=== PATIENT | female | born 1950 | race Caucasian/White ===

== ENCOUNTER → 2020-08-15 12:22 | Outpatient (CLI) | payer MEDICARE, SELFPAY ==
--- NOTE | 2020-08-15 12:34 | RAD_ITS ---
HISTORY: LIMITED USE OF LEFT ARM X 3-4 MONTHS ADDITIONAL HISTORY: None provided. EXAMINATION/TECHNIQUE: XR Shoulder Min 2 Views Left Number of images including paperwork: 2 COMPARISON: None FINDINGS: BONES: No acute fracture. Likely posttraumatic deformity of the distal clavicle. JOINTS: No subluxation. Severe degenerative changes of the left shoulder, glenohumeral articulation not well demonstrated on provided images. SOFT TISSUES: No distinct foreign body. RAD/Shoulder min 2 Views IMPRESSION: Degenerative changes without definite acute abnormality. at 0627 Reported and signed by: Helga Barfeild MD Electronically Signed: Helga Barfield MD at 6:26 EDT Tel , Service support ,
--- NOTE | 2020-08-15 12:34 | RAD_ITS ---
HISTORY: LYMPHADEMA, UNABLE TO STRAIGHTEN BOTH LEGS, PAIN BILATERAL KNEES, WORSE IN LEFT ADDITIONAL HISTORY: None provided. EXAMINATION/TECHNIQUE: XR Knee 3 Views Right Number of images including paperwork: 3 COMPARISON: Right femur 04/16/2013 FINDINGS: BONES: No acute fracture. JOINTS: No subluxation. Severe tricompartmental degenerative changes of the right knee with joint space narrowing, subchondral sclerosis and osteophyte formation, minimal change. SOFT TISSUES: No distinct foreign body. RAD/Knee 3 Views IMPRESSION: Degenerative changes without acute osseous abnormality. at 0621 Reported and signed by: Helga Barfield MD Electronically Signed: Helga Barfield MD at 6:21 EDT Tel , Service support ,
--- NOTE | 2020-08-15 12:34 | RAD_ITS ---
HISTORY: LOWER BACK PAIN, DIFFICULTY STANDING ADDITIONAL HISTORY: None provided. EXAMINATION/TECHNIQUE: XR Spine Lumbar 2 or 3 Views Number of images including paperwork: 2 COMPARISON: None FINDINGS: VERTEBRAE: No acute fracture. VERTEBRAL ALIGNMENT: No traumatic subluxation. Mild left convex lumbar scoliosis. DISKS AND JOINTS: Severe multilevel discogenic degenerative changes. Facet arthropathy. SOFT TISSUES: Unremarkable paraspinous soft tissues. RAD/Lumbar Spine 2 or 3 Views IMPRESSION: 1. No acute findings. 2. Lumbar spondylosis. at 0629 Reported and signed by: Helga Barfield MD Electronically Signed: Helga Barfield MD at 6:29 EDT Tel , Service support ,
--- NOTE | 2020-08-15 12:34 | RAD_ITS ---
HISTORY: RT SHOULDER PAIN DIFFICULTY RAISING ARM ADDITIONAL HISTORY: None provided. EXAMINATION/TECHNIQUE: XR Shoulder Min 2 Views Right Number of images including paperwork: 4 COMPARISON: None FINDINGS: BONES: No acute fracture. JOINTS: No subluxation. Deformity of the humeral head is noted with severe glenohumeral degenerative changes including joint space narrowing, subchondral sclerosis and osteophyte formation. SOFT TISSUES: No distinct foreign body. RAD/Shoulder min 2 Views IMPRESSION: Degenerative changes without acute osseous abnormality. at 0624 Reported and signed by: Helga Barfield MD Electronically Signed: Helga Barfield MD at 6:24 EDT Tel , Service support ,
--- NOTE | 2020-08-15 12:34 | RAD_ITS ---
HISTORY: SPINAL STENOSIS/PAIN ADDITIONAL HISTORY: None provided. EXAMINATION/TECHNIQUE: XR Spine Cervical 2 or 3 Views Number of images including paperwork: 2 COMPARISON: None FINDINGS: VERTEBRAE: No acute fracture. VERTEBRAL ALIGNMENT: No traumatic subluxation. 2 mm of degenerative anterolisthesis of C3 on C4. Loss of normal cervical lordosis. DISKS AND JOINTS: Moderate to severe discogenic degenerative changes at C6-7. Mild discogenic degenerative changes also. There appears to be facet joint effusion at C3-4 and C4-5. Uncovertebral and facet degenerative changes elsewhere. SOFT TISSUES: Unremarkable paraspinous soft tissues. RAD/Cerv Spine 2 or 3 Views IMPRESSION: No acute findings. Cervical spondylosis. at 0542 Reported and signed by: Helga Barfield MD Electronically Signed: Helga Barfield MD at 5:42 EDT Tel , Service support ,
--- NOTE | 2020-08-15 12:34 | RAD_ITS ---
HISTORY: LYMPHADEMA, UNABLE TO STRAIGHTEN BOTH LEGS, PAIN BILATERAL KNEES, WORSE IN LEFT ADDITIONAL HISTORY: None provided. EXAMINATION/TECHNIQUE: XR Knee 3 Views Left Number of images including paperwork: 5 COMPARISON: None FINDINGS: BONES: No acute fracture. JOINTS: No subluxation. Severe degenerative changes in the medial and patellofemoral compartments with joint space narrowing, some chondral sclerosis and osteophyte formation. Moderate degenerative changes in the lateral compartment. SOFT TISSUES: No distinct foreign body. Soft tissue calcifications. RAD/Knee 3 Views IMPRESSION: Degenerative changes without acute osseous abnormality. at 0622 Reported and signed by: Helga Barfield MD Electronically Signed: Helga Barfield MD at 6:22 EDT Tel , Service support ,
== END ==
PROVIDERS: PCP Internal Medicine; Referring Provider Anesthesiology Pain Medicine; Visit Provider Anesthesiology Pain Medicine
DX: M54.2 Cervicalgia (principal); M54.9 Dorsalgia, unspecified; M25.561 Pain in right knee; M25.562 Pain in left knee; M25.512 Pain in left shoulder; M25.511 Pain in right shoulder
CPT/HCPCS: 72040; 72100; 73030; 73562

== ENCOUNTER → 2020-10-19 12:15 | Outpatient (CLI) | payer MEDICARE, SELFPAY ==
--- NOTE | 2020-10-19 12:18 | RAD_ITS ---
STUDY: X-RAY - LUMBAR SPINE REASON FOR EXAM: Female, 70 years old. RADICULOPATHY, PAIN AND NUMBNESS BOTH LEGS, FALLS, MORBIDLY OBESE TECHNIQUE: 3 view(s) of the lumbar spine were obtained. COMPARISON: 08/15/2020 FINDINGS: Normal lumbar lordosis. Mild levoscoliosis centered at L3. There is a normal alignment of the vertebrae. There is multilevel endplate spondylosis of the lumbar vertebrae. There is multi-level degenerative disc disease with multi-level disc space narrowing. The soft tissue structures are unremarkable. RAD/Lumbar Spine 2 or 3 Views IMPRESSION: Mild levoscoliosis with moderate degenerative disc disease. Electronically Signed: Dragan Sanchez MD at 16:48 EST Tel , Service support ,
== END ==
PROVIDERS: PCP Nurse Practitioner Adult Health; Visit Provider Anesthesiology Pain Medicine
DX: M54.16 Radiculopathy, lumbar region (principal)
CPT/HCPCS: 72100

== ENCOUNTER 2020-11-01 11:59 | Inpatient (IN) | payer MEDICARE, MEDICAID, SELFPAY ==
[2020-11-01] VITALS (7 sets, daily range): BP systolic 107–138; BP diastolic 43–67; PULSE 51–57; RESP 17–19; TEMP 36–36.6; O2SAT 91–99; BMI 69.7; BMI 65.8
--- NOTE | 2020-11-01 12:56 | ED.DCSUM_ITS ---
- ER Visit Summary Date of Service: 11/01/20 Chief Complaint: Rash to legs History of Present Illness: The patient is a [address] Hoyt. She has a history of lymphedema. She reports she has not been able to sleep in her bed for approximately 5 months. States that over the past 3 days her legs have become red and painful. This is similar to when she is had cellulitis in the past. She describes a sharp, stabbing pain is 1010 at worst and 6 out of 10 currently. Is worsened by sliding on it. She taken Ultram without relief. Patient denies any constitutional symptoms. No fever, chills, nausea, or vomiting. She does complain of dysuria and dark urine in the morning for the past 3 days. Physical Examination: Vitals: Stable. Afebrile. General: Well-nourished and well-developed. Head: Normocephalic atraumatic. Neck: Supple, no lymphadenopathy. No JVD. Nontender. Cardiovascular: Regular rate and rhythm. No murmurs. Respiratory: No respiratory distress. Clear to auscultation bilaterally. Abdominal: Soft, nontender, nondistended, normal bowel sounds. No guarding, rebound, or peritoneal signs. Back: Nontender. Extremities: Severe lymphedema. Where the back of her leg meets the seat of her scooter there is on the right a 2 cm area of skin breakdown with purulent drainage. There is no induration or fluctuance. There is surrounding erythema. She also has erythema to the back of her left leg. Skin: Normal color, no rash. Neurologic: Alert and oriented ?3. Cranial nerves II through XII are intact. Normal strength and sensation. Psych: Normal affect. Test Results: CBC shows segmented for 72, monocytes of 13, lymphocytes of 10. Chem-7 shows glucose 137, BUN 21, creatinine 1.3. LFTs show an albumin of 3.0 and alk phos of 131. Coags are normal. Lactic acid is 1.9. Emergency Department Course and Treatment: Patient had an IV placed. She was given Rocephin and vancomycin IV. She was given Dilaudid and Zofran IV. She is resting more comfortably. Treatment Plan: Patient will be discussed with the hospitalist and admitted for further evaluation and treatment. Disposition: Admitted in stable condition. Impression: 1. Cellulitis. 2. Lymphedema. This note was generated with [employer] dictation software. It may contain incorrect words, spelling, and punctuation that were not noted in review of the chart prior to signing ED Disposition - Plan for ED Patient: Referrals: Dudley Hoyt MD [Primary Care Provider] -
[2020-11-01] MEDS: Ondansetron 4 MG/2 ML Vial IV (13:15)
[2020-11-01] MEDS: HYDROmorphone 0.5 MG/0.5 ML SYRINGE IV (13:15)
[2020-11-01 13:20] LABS: Absolute Lymphocyte Count 0.69 X10^3/uL (0.83-4.51); Absolute Neutrophil Count 4.9 X10^3/uL (2.0-7.7); Basophil# 0.05 X10^3/uL; Basophil% 0.7 % (0-1); Eosinophil# 0.27 X10^3/uL; Hematocrit 37.4 % (37-47); Hemoglobin 12.1 g/dL (12.0-15.0); Lymphocyte # 0.69 X10^3/ul (4.0); Lymphocyte % 10.1 % (19-41); Mean Corp Hgb Conc 32.4 g/dL (32-36); Mean Corpuscular Hgb 28.6 pg (27.0-32.0); Mean Corpuscular Volume 88.4 fL (81-99); Mean Platelet Vol. 9.1 fl (6.2-12.0); Monocyte# 0.89 X10^3/uL; Monocyte% 13.1 % (0-10); NRBC Flagged by Analyzer 0 % (0-5); Neutrophil # 4.86 X10^3/uL (2.7-7.7); Neutrophil % 71.5 % (47-70); Platelet Count 287 K/mm3 (150-450); RBC Distribution Width CV 15.8 % (11.6-14.6); RBC Distribution Width SD 51.1 fl (35.1-43.9); Red Blood Count 4.23 M/mm3 (4.2-5.4); White Blood Count 6.8 K/mm3 (4.4-11.0)
[2020-11-01] MEDS: Ceftriaxone 1 GM/50 ML BAG IV (13:28)
[2020-11-01 13:34] LABS: ALB/GLOB Ratio 0.7 RATIO (0.9-2.4); AST(SGOT) 20 U/L (15-37); Alanine Aminotransfer ALT/SGPT 24 U/L (13-56); Alkaline Phosphatase 131 U/L (45-117); Anion Gap 5 (5-15); BUN 21 mg/dL (7-18); BUN/Creat Ratio 16.2 RATIO (10-20); Chloride 101 mmol/L (98-107); EST Glomerular Filtration Rate 43 mL/min (>60); Est Glom Filt Rate - Afr Amer 52 mL/min (>60); Estimated Creatinine Clearance 31.85 ml/min; Globulin 4.2 g/dL (2.2-4.2); Glucose 137 mg/dL (74-106); Protein, Total 7.2 g/dL (6.4-8.2); Sodium Level 136 mmol/L (136-145)
[2020-11-01 13:37] LABS: International Normalized Ratio 1.1
[2020-11-01 13:38] LABS: Partial Thromboplast Time 33.4 Seconds (24.1-36.2)
[2020-11-01 13:44] LABS: Lactic Acid 1.9 mmol/L (0.4-1.9)
[2020-11-01 13:50] LABS: Mucous, Urine 0 SEEN /hpf (<or=2+)
[2020-11-01 13:55] LABS: Color, Urine Yellow (Yellow); Glucose, Dipstick Normal (Normal); Ketone-Dipstick Negative (Negative); Leukocyte Esterase-Dipstick 25 /ul (Negative); Nitrite-Dipstick Positive (Negative); Occult Blood-Urine 10 /ul (Negative); Protein-Dipstick Negative (Negative); Specific Gravity, Urine 1.015 (1.002-1.030); Urine Bilirubin Dipstick Negative (Negative); Urine Clarity Sl. Cloudy (Clear); Urine Urobilinogen Normal (Normal)
--- NOTE | 2020-11-01 13:58 | HP.PCM_ITS ---
Problem List (1) Bilateral lower leg cellulitis Status: Acute (2) Chronic anemia Status: Chronic (3) CKD (chronic kidney disease) stage 3, GFR 30-59 ml/min Status: Chronic Qualifiers: Chronic kidney disease stage 3 subtype: unspecified whether 3a or 3b Qualified Code(s): N18.30 - Chronic kidney disease, stage 3 unspecified (4) Chronic back pain Status: Chronic Qualifiers: Back pain location: back pain in unspecified location Back pain laterality: unspecified Qualified Code(s): M54.9 - Dorsalgia, unspecified; G89.29 - Other chronic pain (5) Hypertension Status: Chronic Qualifiers: Hypertension type: essential hypertension Qualified Code(s): I10 - Essential (primary) hypertension (6) Lymphedema Status: Chronic (7) Morbid obesity Status: Chronic (8) Sleep apnea Status: Chronic Qualifiers: Sleep apnea type: unspecified type Qualified Code(s): G47.30 - Sleep apnea, unspecified (9) Type 2 diabetes mellitus Status: Chronic Qualifiers: Diabetes mellitus terminal operator insulin use: without nursing home use Diabetes mellitus complication status: with other specified complication Qualified Code(s): E11.69 - Type 2 diabetes mellitus with other specified complication History of Present Illness Date of Admission: 11/01/20 Chief Complaint: BL LE redness, pain. The patient is a 70 y/o F w/ PMHx: CKD stage III, Morbid Obesity, BL LE Lymphedema, EMILY non-compliant with CPAP, Chronic back pain following w/ Pain management, HTN, HLD, Diabetes mellitus type II, Chronic BL LE wounds, Chronic Fe Deficiency anemia who presents to the [facility] ED on 11/01/20 with history of difficulties over the last several month transitioning from her wheelchair to her bed although she does have a Diana lift therefore for the last several weeks that she has been sleeping in her chair and has had onset over the last several days significant bilateral lower extremity pain, swelling, redness and warmth to touch primarily at the skin folds of her lower extremities. She notes the pain is primarily with palpation and states that over the last 24 to 48 hours putting her legs even against clothing has been uncomfortable, rating the discomfort 10 out of 10. She denies any associated fevers, chills. Patient does states she has had recent dysuria and frequency is concern for urinary tract infection. Work-up in the ED included T 97.8, heart rate 57, BP 135/67, respiratory rate 17, 96% on room air, CBC with WC 6.8, hemoglobin 12.1, platelet 227 with no marked left shift with lymphopenia, unremarkable coags, CMP with BUN/creatinine 21/1.30, glucose 137, lactic acid 1.9, urinalysis pending per ED, blood culture x2 pending per ED. in the ED patient ministered vancomycin, Rocephin, Dilaudid, Zofran. 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) Hernia of anterior abdominal wall (Chronic) Cancer, uterine (Chronic) Asthma (Chronic) Allergies fentanyl Allergy (Verified 11/01/20 12:01) Rash latex Allergy (Verified 11/01/20 12:01) Unknown methadone [Methadone] Allergy (Verified 11/01/20 12:01) Shortness of breath morphine Allergy (Verified 11/01/20 12:01) Itching oxycodone [Oxycodone] Allergy (Verified 11/01/20 12:01) Hives Sulfa (Sulfonamide Antibiotics) Allergy (Verified 11/01/20 12:01) Unknown amoxicillin [Amoxicillin] Adverse Reaction (Verified 11/01/20 12:01) Nausea pain meds Allergy (Uncoded 11/01/20 12:01) Itching PT STATES SHE NEEDS BENADRYL WITH PAIN MEDS Home Medications: Ambulatory Orders Medication Instructions Recorded Aspirin [Aspirin, Baby] 81 mg PO DAILY@0800 07/20/13 Enalapril Maleate [Vasotec] 5 mg PO DAILY 07/20/13 Furosemide [Lasix] 80 mg PO DAILY 07/20/13 Mometasone Furoate [Nasonex] 2 spray NASAL DAILY PRN 07/20/13 Montelukast [Singulair] 10 mg PO QHS 07/20/13 metFORMIN HCl [Glucophage] 500 mg PO BIDCM 07/20/13 Ferrous Sulfate 325 mg PO BIDCM 10/03/15 Hydrocodone/Acetaminophen [Vicodin 1 tablet PO Q8H PRN PRN 10/03/15 5-300 mg Tablet] Ipratropium/Albuterol Sulfate 3 ml INHALATION Q6H.RT PRN 10/03/15 [Duoneb] Oxybutynin [Ditropan] 5 mg PO BID 10/03/15 cycloBENZAPRine HCl [Flexeril] 10 mg PO TID PRN 10/03/15 Duloxetine HCl 20 mg PO DAILY 12/04/15 DiphenhydrAMINE [Benadryl] 50 mg PO Q6 PRN #0 capsule 12/07/15 Acetaminophen [Tylenol Extra 1,000 mg PO Q6H PRN PRN 11/01/20 Strength] Cyanocobalamin (Vitamin B-12) 1,000 mcg PO DAILY 11/01/20 [B-12] Gabapentin 600 mg PO BID 11/01/20 Tramadol HCl 50 mg PO BID PRN PRN 11/01/20 Surgical History: - - Gastric sleeve, attempted abdominal wall hernia repair with mesh-failed, Cholecystectomy, bowel resection secondary to bowel obstruction with ostomy, hysterectomy, bilateral heel spur surgery. 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 Smoking Status: Never smoker Tobacco Use: Non-smoker Alcohol: None Drugs: None - *Family History Maternal History Items: Stroke Paternal History Items: Cancer - Father with a history of cancer, lymphoma. Review of Systems Constitutional: Reports: Malaise, Weakness, Fatigue. Denies: Anorexia, Chills, Fever, Weight Change HEENT: Denies: Head Aches, Sinus Congestion, Sinus Drainage Cardiovascular: Reports: Edema. Denies: Chest Pain, Palpitations Respiratory: Reports: Shortness of breath upon exertion. Denies: Cough, Shortness of Breath, Shortness of breath at rest, Sputum production Gastrointestinal: Denies: Abdominal Pain, Nausea, Vomiting Genitourinary: Reports: Dysuria, Frequency Musculoskeletal: Reports: Back Pain, Joint Pain, Leg Pain, Muscle pain. Denies: Joint Tenderness Skin: Reports: Skin Changes, Wounds. Denies: Rash Neurological: Denies: Numbness, Tingling, Focal weakness Psychiatric: Reports: Anxiety, Depression. Denies: Homicidal Ideations, Suicidal Ideations Hematologic/ Lymphatic: Reports: Anemia. Denies: Easy Bruising, Easy Bleeding VTE Information - Inpt Only VTE Present on Admission: No VTE Mechan Device Prophylaxis: SCD's VTE Pharm Prophylaxis ordered?: Yes Subjective: Patient laying in the ED bed, fatigued, no acute distress, notes her legs are uncomfortable especially with any movement or palpation. Objective: Physical Examination: General: awake, alert, oriented x 3 and cooperative, laying in the ED bed, fatigued and uncomfortable appearing. Skin: normal color, turgor, no icterus, cyanosis except significant diffuse intertrigo in all skin folds as well as significant bilateral lower extremity regions of erythema, warmth, no obvious specific purulent discharge or wounds but deep crevices specifically in folds, significantly tender to palpation at these regions. HEENT: AT/NC, EOMI, PERRLA, MMM, no carotid bruits or JVD noted. Lungs: Diminished breath sounds, greater bases, moderate effort, no rales, ronchi or wheezing. Heart: Bradycardic with regular rhythm; no gallop, rub audible. Abdomen: soft, morbidly obese, unable to discern any abdominal tenderness to palpation, unable to discern distention given habitus, distant normal bowel sounds, unable to discern HSM secondary to habitus. Extremities: no cyanosis or clubbing, see skin, significant bilateral lower extremity lymphedema. Neurological: patient awake, alert, oriented as noted; cognitive function intact; pupils equally reactive to light and accomodation; cranial nerves II-XII grossly normal, moving all 4 extremities, no focal deficits, strength severely globally decreased secondary to acute presentation and underlying comorbidities. Psychiatric: affect appears fatigued otherwise normal, no acute evidence of depressive or anxiety feelings. - Physical Exam Vitals/I&O's: Vital Signs Temp Pulse Resp BP Pulse Ox 97.8 F 53 L 19 H 107/64 95 11/01/20 13:31 11/01/20 13:31 11/01/20 13:31 11/01/20 13:31 11/01/20 13:31 Oxygen Delivery Method Room Air Weight: 381 lb 6.395 oz Body Mass Index (BMI) 69.7 Laboratory Results 11/01/20 13:10: WBC 6.8, RBC 4.23, Hgb 12.1, Hct 37.4, MCV 88.4, MCH 28.6, MCHC 32.4, RDW Std Deviation 51.1 H, RDW Coeff of [place] 15.8 H, Plt Count 287, MPV 9.1, Immature Gran % (Auto) 0.600, Neut % (Auto) 71.5 H, Lymph % (Auto) 10.1 L, [place] % (Auto) 13.1 H, Eos % (Auto) 4.0, Baso % (Auto) 0.7, Absolute Neuts (auto) 4.9, Absolute Lymphs (auto) 0.69 L, Nucleated RBC % 0 11/01/20 13:10: PT 14.0, INR 1.1, APTT 33.4 11/01/20 13:10: Sodium 136, Potassium 4.0, Chloride 101, Carbon Dioxide 30.0, Anion Gap 5, BUN 21 H, Creatinine 1.30 H, Estim Creat Clear Calc 31.85, Est GFR (MDRD) Af Amer 52 L, Est GFR (MDRD) Non-Af 43 L, BUN/Creatinine Ratio 16.2, Glucose 137 H, Calcium 9.0, Total Bilirubin 0.50, AST 20, ALT 24, Alkaline Phosphatase 131 H, Total Protein 7.2, Albumin 3.0 L, Globulin 4.2, Albumin/Globulin Ratio 0.7 L 11/01/20 13:10: Lactic Acid 1.9 11/01/20 13:45: Urine Color Yellow, Urine Clarity Sl. Cloudy, Urine pH 6.0, Ur Specific [place] 1.015, Urine Protein Negative, Urine Glucose (UA) Normal, Urine Ketones Negative, Urine Occult Blood 10 H, Urine Nitrite Positive H, Urine Bilirubin Negative, Urine Urobilinogen Normal, Ur Leukocyte Esterase 25 H, Urine RBC Pending, Urine WBC Pending, Ur Squamous Epith Cells Pending, Urine Bacteria Pending, Urine Mucus Pending Current Medications Vancomycin HCl 2,000 mg/ (Sodium Chloride) 540 mls @ 250 mls/hr IV X1 ONE Stop: 11/01/20 15:09 Assessment/Plan All Active Problems Bilateral lower leg cellulitis (Acute) The patient is a 70 y/o F w/ PMHx: CKD stage III, Morbid Obesity, BL LE Lymphedema, EMILY non-compliant with CPAP, Chronic back pain following w/ Pain management, HTN, HLD, Diabetes mellitus type II, Chronic BL LE wounds, Chronic Fe Deficiency anemia who presents to the [facility] ED on 11/01/20 with history of difficulties over the last several month transitioning from her wheelchair to her bed although she does have a Diana lift therefore for the last several weeks that she has been sleeping in her chair and has had onset over the last several days significant bilateral lower extremity pain, swelling, redness and warmth to touch primarily at the skin folds of her lower extremities. 1. Bilateral lower extremity extremity Cellulitis, complicated by chronic lymphedema history of MRSA infections: Will admit to medical surgical floor, maintain on IV Rocephin and vancomycin given appearance with de-escalation single agent as able, if discharge onset from lower extremities would plan to obtain wound Cx and wound MRSA PCR, plan repeat CBC in AM, continue affected extremity elevation above heart when seated and in bed, monitor erythema outline with VS checks. Case management consulted and will need significant assistance with appropriate bed and lift as likely her ongoing continued unchanged position from her chair is contributing to her skin presentation. 2. Diabetes mellitus type II with hyperglycemia: Patient blood sugar upon presentation 137, only noted to be on Metformin, given significant morbid obesity and cellulitis will obtain hemoglobin A1c, maintain on ADA diet with Accu-Cheks with sliding scale. 3. Chronic BL LE Lymphedema: Significant bilateral lower extremity lymphedema, complicates presentation especially given she is nonambulatory, to assist with acute presentation #1 will dose with IV Lasix x2, encourage bilateral lower extremity elevation, snug Jabari wraps. Would benefit from wound care center evaluation upon her discharge. 4. Chronic pain syndrome: Patient following with pain management, several allergies, notes she is recently been transition to a new pain patch but unclear regimen, will await clarification. 5. Hypertension: Continue home regimen including enalapril, temporarily using IV Lasix with oral transition once completed, PRN hydralazine. 6. Hyperlipidemia: Not on regimen, defer to outpatient. 7. Morbid Obesity: Weight loss and lifestyle changes encouraged, nutrition consulted. 8. EMILY: We will attempt CPAP nightly although notes she has been noncompliant. 9. Chronic Kidney Disease Stage III: Admission BUN/Cr /1.30, baseline renal function 1.1-1.3, repeat BMP in AM. 10. Chronic anemia, iron deficiency: Admission hemoglobin 12.1, will continue iron supplementation. 11. Intertrigo: We will continue nystatin topical powder application. Attempt to keep folds clean. 12. Allergic rhinitis: We will continue patient home Singulair regimen. 13. DVT prophylaxis: SCDs, Lovenox. 14. CODE status: Patient HCPOA is Rosalee Chavis, her frientc and living will is currently in place. Discussed CODE status at length including difference between FULL code, DNR-CCA and DNR-CC status. Following discussions about the differences in these status, requested Full Code status. Advanced Care Planning Face to Face Time: 16 minutes. Inpatient E&M: 78255 Init Hosp L3 Procedures: 43195 Advncd Care Plan 30 Min
[2020-11-01 14:04] LABS: Bacteria 2+ /hpf (None Seen); Red Blood Cells-Urine 0-5 SEEN /hpf (0-5); Squamous Epithelial Cells - UA 0-5 SEEN /hpf (5-10); White Blood Cells 0-5 SEEN /hpf (0-5)
--- NOTE | 2020-11-01 14:04 | NURSING ---
MED SURG WHITE CELLULITIS
[2020-11-01 15:43] LABS: Magnesium 2.3 mg/dL (1.6-2.6)
--- NOTE | 2020-11-01 15:45 | PCS.PANDOC ---
PANDEMIC DOCUMENTATION INITIATED: Date: 11/01/2020 Time: 3877
[2020-11-01 15:55] LABS: Hemoglobin A1c 5.9 % (3.8-5.6)
--- NOTE | 2020-11-01 16:02 | PCM.RX.CS ---
Consult Pharmacy has been consulted to manage selected antiobiotic: Vancomycin Type of Consult: New start Suspected Infection: Skin/Soft tissue Labs: Sodium 136 mmol/L (136-145) 11/01/20 13:10 Potassium 4.0 mmol/L (3.5-5.1) 11/01/20 13:10 Chloride 101 mmol/L (98-107) 11/01/20 13:10 Carbon Dioxide 30.0 mmol/L (21.0-32.0) 11/01/20 13:10 Anion Gap 5 (5-15) 11/01/20 13:10 BUN 21 mg/dL (7-18) H 11/01/20 13:10 Creatinine 1.30 mg/dL (0.55-1.02) H 11/01/20 13:10 Est GFR (MDRD) Af Amer 52 mL/min (>60) L 11/01/20 13:10 Est GFR (MDRD) Non-Af 43 mL/min (>60) L 11/01/20 13:10 BUN/Creatinine Ratio 16.2 RATIO (10-20) 11/01/20 13:10 Glucose 137 mg/dL (74-106) H 11/01/20 13:10 Microbiology: Microbiology 11/01/20 12:25 Wound Abcess - Knee Gram Stain - Final Goal Trough: 15-20 mcg/mL Pharmacy Plan for Drug Dosing: NEW START IV VANCOMYCIN Consulting Physician: Dr. Trejo Indication: SSTI Goal Trough: 15-20 SrCr: 1.3 CrCl: 60mL/min (using AdjBW 95kg) Comments: Pt had initial dose in ED of 2g administered 11/01/20 @1415. Will start pt on 1500mg IV Q12hrs 11/02/20 @0200. trough prior to 4th total dose per protocol. Vancomcyin Dose: 1500mg IV Q12hr Pending Level: 11/03/20 @0130 Pharmacy Service will continue to monitor and adjust dosing as required.
--- NOTE | 2020-11-01 16:04 | NURSING ---
Was asked to see patient for redness to buttocks and skin folds. patient has shearing noted to bilateral buttocks and has some moisture related open areas in the skin folds of the arms, legs, abdomen, and under breasts. orders received for calmoseptine to the buttocks and nystatin powder to the folds. will monitor.
[2020-11-01] MEDS: Ferrous Sulfate 325 MG Tablet PO (16:51)
[2020-11-01] MEDS: Furosemide 40 MG/4 ML Vial IV (17:20)
[2020-11-01] MEDS: Nystatin Powder 15gm Bottle 1 APPLIC TOPICAL ×2 (18:30→22:13)
[2020-11-01] MEDS: Menthol/Lanolin/Calamine/Znox 113 GM Tube 1 APPLIC TOPICAL (18:30)
[2020-11-01 21:56] LABS: Bedside Glucose 117 mg/dL (70-110)
[2020-11-01] MEDS: Gabapentin 600 MG Tablet PO (22:12)
[2020-11-01] MEDS: Enoxaparin 40 MG/0.4 ML Syringe SC (22:12)
[2020-11-01] MEDS: Montelukast 10 MG Tablet PO (22:12)
[2020-11-01] MEDS: Oxybutynin 5 MG Tablet PO (22:12)
[2020-11-01 22:21] LABS: Bedside Glucose 103 mg/dL (70-110)
--- NOTE | 2020-11-01 22:43 | CPS ---
Patient has CPAP order to start tonight. PENCILLER asked patient if she would like to wear CPAP. Said that she had problems in the past with tolerance on machine. Would like to see how she does without it before CPAP would be started. Cont. Pulse ox monitor started to monitor pulse ox throughout the night. Sleep Apnea in medical history.
--- NOTE | 2020-11-01 23:30 | NURSING ---
Pt on continuos pulse ox. O2 @ 85% on ra. Placed on 2L NC
[2020-11-02] MEDS: 0.9% Saline Lock 10 ML Syringe IV (02:12)
[2020-11-02 03:49] VITALS: BP 107/50; PULSE 75; RESP 18; TEMP 37.3; O2SAT 97
[2020-11-02 06:56] LABS: Bedside Glucose 119 mg/dL (70-110)
[2020-11-02 07:23] LABS: Absolute Neutrophil Count 4.5 X10^3/uL (2.0-7.7); Basophil# 0.03 X10^3/uL; Basophil% 0.5 % (0-1); Eosinophil# 0.29 X10^3/uL; Eosinophils% 4.7 % (0-5); Hematocrit 35.1 % (37-47); Hemoglobin 10.9 g/dL (12.0-15.0); Lymphocyte % 9.7 % (19-41); Mean Corp Hgb Conc 31.1 g/dL (32-36); Mean Corpuscular Hgb 27.9 pg (27.0-32.0); Mean Platelet Vol. 9.6 fl (6.2-12.0); Monocyte# 0.71 X10^3/uL; Monocyte% 11.5 % (0-10); NRBC Flagged by Analyzer 0 % (0-5); Neutrophil # 4.54 X10^3/uL (2.7-7.7); Neutrophil % 73.3 % (47-70); POSITIVE DIFFERENTIAL YES; Platelet Count 278 K/mm3 (150-450); RBC Distribution Width CV 15.7 % (11.6-14.6); White Blood Count 6.2 K/mm3 (4.4-11.0)
[2020-11-02 07:32] LABS: Differential Indicated SCAN CRITERIA MET
--- NOTE | 2020-11-02 07:47 | NURSING ---
Ostomy appliance changed this am. Pt was explaining to this nurse what happened. pt states she just had areas to the abdomen open and had stool coming out. appears to be a colostomy. unsure of patient was referring to a fistula in the past. stool is currently thick soft brown stool. peristomal skin is denuded d/t previous hole being cut way too big. pt states that sister changes the appliances at home. cleansed peristomal skin with soap and water. pat dry. applied a new flat 1 piece [place] appliance with a small amount of stoma paste. pt tolerated well.
[2020-11-02 08:20] LABS: ALB/GLOB Ratio 0.8 RATIO (0.9-2.4); AST(SGOT) 21 U/L (15-37); Alanine Aminotransfer ALT/SGPT 23 U/L (13-56); Albumin, Serum 2.6 g/dL (3.2-5.0); Alkaline Phosphatase 117 U/L (45-117); Anion Gap 4 (5-15); BUN 21 mg/dL (7-18); BUN/Creat Ratio 17.8 RATIO (10-20); Calcium,Total 8.4 mg/dL (8.5-10.1); Chloride 103 mmol/L (98-107); Creatinine, Serum 1.18 mg/dL (0.55-1.02); EST Glomerular Filtration Rate 48 mL/min (>60); Est Glom Filt Rate - Afr Amer 58 mL/min (>60); Estimated Creatinine Clearance 35.09 ml/min; Globulin 3.2 g/dL (2.2-4.2); Glucose 119 mg/dL (74-106); Potassium 4.6 mmol/L (3.5-5.1); Protein, Total 5.8 g/dL (6.4-8.2); Sodium Level 137 mmol/L (136-145)
--- NOTE | 2020-11-02 08:34 | PN_ITS ---
Patient Problems: Active and Suspected Problems Bilateral lower leg cellulitis (Acute) Reason for Visit: Bilateral lower extremity cellulitis Sacral decubitus Subjective: Patient is a 70-year-old lady morbidly obese with BMI of 65.8 presented with bilateral lower extremity pain with associated swelling and redness and assessment of cellulitis made admitted to regular nursing floor Objective: GENERAL: cooperative HEENT: Atraumatic; EYES; Anicteric, Normal Conjunctiva NECK; supple, normal thyroid, RESPIRATORY: Diminished to auscultation CARDIOVASCULAR: Regular S1 S2, GI: soft, normoactive bowel sounds, : No Renal angle tenderness; EXTREMITIES: Erythema and warmth involving both lower extremities distally MUSCULOSKELETAL: no muscle waisting NEURO: Awake; no lateralizing signs. SKIN: As described above PSYCH; Flat affect Vitals/I&O's: Vital Signs Temp Pulse Resp BP Pulse Ox 99.2 F H 75 18 107/50 L 97 11/02/20 03:49 11/02/20 03:49 11/02/20 03:49 11/02/20 03:49 11/02/20 03:49 Oxygen Flow Rate (L/min) 2 Oxygen Delivery Method Nasal Cannula Weight: 163.3 kg Body Mass Index (BMI) 65.8 Intake and Output for Last 24 Hours 10/31/20 11/01/20 11/02/20 23:59 23:59 23:59 Intake Total 590 / 1190 1330 / 1330 Output Total 2049 / 2049 Balance 590 / -110 -720 / -720 Microbiology Past 72 Hours 11/01/20 12:25 Wound Abcess - Knee Gram Stain - Final Laboratory Results 11/01/20 13:10: WBC 6.8, RBC 4.23, Hgb 12.1, Hct 37.4, MCV 88.4, MCH 28.6, MCHC 32.4, RDW Std Deviation 51.1 H, RDW Coeff of Chucky 15.8 H, Plt Count 287, MPV 9.1, Immature Gran % (Auto) 0.600, Neut % (Auto) 71.5 H, Lymph % (Auto) 10.1 L, Moore % (Auto) 13.1 H, Eos % (Auto) 4.0, Baso % (Auto) 0.7, Absolute Neuts (auto) 4.9, Absolute Lymphs (auto) 0.69 L, Nucleated RBC % 0 11/01/20 13:10: PT 14.0, INR 1.1, APTT 33.4 11/01/20 13:10: Sodium 136, Potassium 4.0, Chloride 101, Carbon Dioxide 30.0, Anion Gap 5, BUN 21 H, Creatinine 1.30 H, Estim Creat Clear Calc 31.85, Est GFR (MDRD) Af Amer 52 L, Est GFR (MDRD) Non-Af 43 L, BUN/Creatinine Ratio 16.2, Glucose 137 H, Calcium 9.0, Total Bilirubin 0.50, AST 20, ALT 24, Alkaline Phosphatase 131 H, Total Protein 7.2, Albumin 3.0 L, Globulin 4.2, Albumin/Globulin Ratio 0.7 L 11/01/20 13:10: Lactic Acid 1.9 11/01/20 13:10: Magnesium 2.3 11/01/20 13:10: Hemoglobin A1c 5.9 H 11/01/20 13:45: Urine Color Yellow, Urine Clarity Sl. Cloudy, Urine pH 6.0, Ur Specific [place] 1.015, Urine Protein Negative, Urine Glucose (UA) Normal, Urine Ketones Negative, Urine Occult Blood 10 H, Urine Nitrite Positive H, Urine Bilirubin Negative, Urine Urobilinogen Normal, Ur Leukocyte Esterase 25 H, Urine RBC 0-5 SEEN, Urine WBC 0-5 SEEN, Ur Squamous Epith Cells 0-5 SEEN, Urine Bacteria 2+, Urine Mucus 0 SEEN 11/01/20 16:26: POC Glucose 117 H 11/01/20 22:12: POC Glucose 103 11/02/20 06:19: WBC 6.2, RBC 3.90 L, Hgb 10.9 L, Hct 35.1 L, MCV 90.0, MCH 27.9, MCHC 31.1 L, RDW Std Deviation 52.0 H, RDW Coeff of Chucky 15.7 H, Plt Count 278, MPV 9.6, Immature Gran % (Auto) 0.300, Neut % (Auto) 73.3 H, Lymph % (Auto) 9.7 L, Moore % (Auto) 11.5 H, Eos % (Auto) 4.7, Baso % (Auto) 0.5, Absolute Neuts (auto) 4.5, Absolute Lymphs (auto) 0.60 L, Nucleated RBC % 0, Differential Comment 11/02/20 06:19: Sodium 137, Potassium 4.6, Chloride 103, Carbon Dioxide 30.0, Anion Gap 4 L, BUN 21 H, Creatinine 1.18 H, Estim Creat Clear Calc 35.09, Est GFR (MDRD) Af Amer 58 L, Est GFR (MDRD) Non-Af 48 L, BUN/Creatinine Ratio 17.8, Glucose 119 H, Calcium 8.4 L, Total Bilirubin 0.40, AST 21, ALT 23, Alkaline Phosphatase 117, Total Protein 5.8 L, Albumin 2.6 L, Globulin 3.2, Albumin/Globulin Ratio 0.8 L 11/02/20 06:41: POC Glucose 119 H Current Medications Acetaminophen (Acetaminophen 325 Mg Tablet) 650 mg PO Q6H PRN PRN PRN Reason: Pain Score 1-10/Temp > 100.7 F Hydrocodone Bitart/Acetaminophen (Hydrocodone Bitartrate/Apap 5/325 Tablet) 1 tablet PO Q8H PRN PRN PRN Reason: PAIN 4-10 OR FEVER Al Hydroxide/Mg Hydroxide (Mag Hydrox/Al Hydrox/Simeth 30 Ml Udc) 30 ml PO Q6H PRN PRN PRN Reason: Gastric Burning Albuterol Sulfate (Albuterol 2.5 Mg/3 Ml Vial.Neb.) 2.5 mg INHALATION Q2H PRN PRN PRN Reason: Dyspnea, wheezing Aspirin (Aspirin 81 Mg Tab.Chew) 81 mg PO DAILY@0800 [facility] Calamine/Phenol (Menthol/Lanolin/Calamine/Znox 113 Gm Tube) 1 applic TOPICAL BID [facility]; Protocol Last Admin: 11/01/20 18:30 Dose: 1 applicatio Documented by: Cyclobenzaprine HCl (Cyclobenzaprine Hcl 10 Mg Tablet) 10 mg PO TID PRN PRN Reason: MUSCLE SPASMS Diphenhydramine HCl (Diphenhydramine 25 Mg Capsule) 50 mg PO Q6H PRN PRN Reason: ITCHING Docusate Sodium (Docusate Sodium 100 Mg Capsule) 100 mg PO BID PRN PRN Reason: Constipation Duloxetine HCl (Duloxetine Hcl 20 Mg Capsule) 20 mg PO DAILY [facility] Enoxaparin Sodium (Enoxaparin 40 Mg/0.4 Ml Syringe) 40 mg SC BID [facility] Last Admin: 11/01/20 22:12 Dose: 40 mg Documented by: Ferrous Sulfate (Ferrous Sulfate 325 Mg Tablet) 325 mg PO BIDCM [facility] Last Admin: 11/01/20 16:51 Dose: 325 mg Documented by: Furosemide (Furosemide 40 Mg/4 Ml Vial) 40 mg IV BIDLX [facility] Last Admin: 11/01/20 17:20 Dose: 40 mg Documented by: Gabapentin (Gabapentin 600 Mg Tablet) 600 mg PO BID [facility] Last Admin: 11/01/20 22:12 Dose: 600 mg Documented by: Guaifenesin (Guaifenesin 10 Ml Udc (200mg/10ml)) 20 ml PO Q4H PRN PRN PRN Reason: COUGH Hydralazine HCl (Hydralazine 20 Mg/Ml Vial) 10 mg IV Q4H PRN PRN PRN Reason: SBP > 160 Ceftriaxone Sodium 2 gm/ (Sodium Chloride) 50 mls @ 100 mls/hr IV Q24 [facility] Vancomycin IV Pharmacy to Dose (1 ea/ Sodium Chloride) 500 mls @ 250 mls/hr IV PRN PRN; Protocol PRN Reason: Rx to Dose Vancomycin HCl 1,500 mg/ (Sodium Chloride) 530 mls @ 250 mls/hr IV Q12H [facility] Last Infusion: 11/02/20 04:20 Dose: Infused Documented by: Insulin Human Lispro (Insulin Lispro 100 Unit/Ml Insuln.Pen) [facility]; Protocol Last Admin: 11/02/20 06:43 Dose: Not Given Documented by: Lisinopril (Lisinopril 5 Mg Tablet) 5 mg PO DAILY [facility] Magnesium Hydroxide (Magnesium Hydroxide 30 Ml Udc) 30 ml PO DAILY PRN PRN PRN Reason: Constipation Melatonin (Melatonin 3 Mg Tablet) 3 mg PO QHS PRN PRN PRN Reason: INSOMNIA Montelukast Sodium (Montelukast 10 Mg Tablet) 10 mg PO QHS [facility] Last Admin: 11/01/20 22:12 Dose: 10 mg Documented by: Nitroglycerin (Nitroglycerin (Inpatient Use) 0.4 Mg Tab.Subl) 0.4 mg SUBLINGUAL Q5M PRN PRN Reason: CARDIAC/CHEST PAIN Nystatin (Nystatin Powder 15gm Bottle) 1 applic TOPICAL 4X/DAY [facility]; Protocol Last Admin: 11/01/20 22:13 Dose: 1 applicatio Documented by: Ondansetron HCl (Ondansetron 4 Mg/2 Ml Vial) 4 mg IV Q8H PRN PRN PRN Reason: NAUSEA/VOMITING Oxybutynin Chloride (Oxybutynin 5 Mg Tablet) 5 mg PO BID [facility] Last Admin: 11/01/20 22:12 Dose: 5 mg Documented by: Pantoprazole Sodium (Pantoprazole Sodium 40 Mg Tablet) 40 mg PO DAILY [facility] Polyethylene Glycol (Polyethylene Glycol 3350 17 Gm Packet) 17 gm PO DAILY [facility] Potassium Chloride (Potassium Chloride 20 Meq Tablet) [facility] Last Admin: 11/01/20 16:51 Dose: 20 meq Documented by: Prochlorperazine Edisylate (Prochlorperazine 10 Mg/2 Ml Vial) 5 mg IV Q4H PRN PRN PRN Reason: Breakthrough nausea/vomiting Psyllium Hydrophilic Mucilloid (Psyllium 1 Packet) 1 packet PO DAILY PRN PRN PRN Reason: Constipation Sodium Chloride (0.9% Saline Lock 10 Ml Syringe) 10 - 40 ml IV UD PRN PRN Reason: SALINE FLUSH Last Admin: 11/02/20 02:12 Dose: 10 ml Documented by: Throat Lozenges (Benzocaine/Menthol 1 Lozenge) 1 lozenge MUCOUS MEM Q2H PRN PRN PRN Reason: SORE THROAT Tramadol HCl (Tramadol 50 Mg Tablet) 50 mg PO BID PRN PRN PRN Reason: PAIN 1-3 Medical Necessity - Tobacco Use Smoking Status: Never smoker Tobacco Use: Non-smoker Assessment/Plan All Active Problems Bilateral lower leg cellulitis (Acute) Patient is a 70-year-old lady morbidly obese with BMI of 65.8 presented with bilateral lower extremity pain with associated swelling and redness and assessment of cellulitis made admitted to regular nursing floor 1. Bilateral lower extremity cellulitis ?Admitted to regular nursing and started on broad-spectrum antibiotic therapy with vancomycin as well as Rocephin 2. Sacral decubitus ulcer ?Present on admission consult placed to wound care nurse for dressing change 3. Diabetes mellitus type II -patient's oral hypoglycemics held. -Placed on long acting insulin, Accu-Cheks a.c. and at bedtime and covered with sliding scale insulin 4. Hypertension - Blood pressure controlled, home medications continued with dose adjustment as needed 5. Dyslipidemia ?Managed with diet 6. Chronic kidney disease stage III ?Kidney function baseline 7. Obstructive sleep apnea ?Patient apparently noncompliant with CPAP at night 8. Morbid obesity with BMI of 65.8 ?Weight loss advised. Patient also advised to follow-up with PCP for referral for bariatric surgery 9. DVT prophylaxis ?SCDs Inpatient E&M: 17326 Subs Hosp L3
[2020-11-02 08:43] VITALS: BP 136/57; PULSE 57; RESP 18; TEMP 36.5; O2SAT 100
[2020-11-02 08:55] VITALS: O2SAT 94
[2020-11-02] MEDS: Enoxaparin 40 MG/0.4 ML Syringe SC ×2 (09:10→21:58)
[2020-11-02] MEDS: DULoxetine Hcl 20 MG Capsule PO (09:10)
[2020-11-02] MEDS: Pantoprazole Sodium 40 MG Tablet PO (09:10)
[2020-11-02] MEDS: Lisinopril 5 MG Tablet PO (09:10)
[2020-11-02] MEDS: Polyethylene Glycol 3350 17 GM PACKET PO (09:10)
[2020-11-02] MEDS: Oxybutynin 5 MG Tablet PO ×2 (09:10→21:58)
[2020-11-02] MEDS: Ferrous Sulfate 325 MG Tablet PO ×2 (09:11→16:55)
[2020-11-02] MEDS: Nystatin Powder 15gm Bottle 1 APPLIC TOPICAL ×4 (09:11→21:59)
[2020-11-02] MEDS: Gabapentin 600 MG Tablet PO ×2 (09:11→21:58)
[2020-11-02] MEDS: Menthol/Lanolin/Calamine/Znox 113 GM Tube 1 APPLIC TOPICAL ×2 (09:13→21:58)
[2020-11-02] MEDS: Aspirin 81 MG TAB.CHEW PO (09:14)
[2020-11-02] MEDS: Furosemide 40 MG/4 ML Vial IV ×2 (09:14→16:56)
[2020-11-02 11:35] LABS: Bedside Glucose 138 mg/dL (70-110)
--- NOTE | 2020-11-02 12:30 | CASEMGMT ---
Addendum entered by Janis Euceda 11/02/20 20:00: Call placed to [facility] and spoke w/Madelaine to inquire about Hi-Low bed. She states pt got Diana lift through them, but she checked pt's file, and there are no records of them working on getting a bed for pt. She states they do not carry Hi-Low beds. Call placed to Dr Hoyt's office and spoke w/nurse. She was made aware of pt being unable to sleep in her bed d/t severe lymphedema and that pt would like Hi-Low bed. She states will send message to Dr Hoyt for f/u. 1615: Call placed to [facility]. She was made aware [facility] does not have on record that they have been working on getting specialized bed for pt and that they do not carry Hi-Low beds. She states pt was going to Dr Durán @ [facility] and she was the one who had started the process for the bed with [facility] and Louise SHIPLEY (she states [facility] unable provide bed for pt). She was not aware [facility] does not carry Hi-Low beds. She was made aware Dr Hoyt's office made aware of their request for Hi-Low bed and pt to f/u with Dr Hoyt's office re: same. She voices appreciation. Original Note: RN CM VICE PRESIDENT OF SOFTWARE DEVELOPMENT CM to room to meet with patient for initial transition planning/care coordination assessment. RN CATE introduced self and role at [facility]. Pt voices understanding and consents to assessment at this time. Pt resting in bed in no distress at this time. Pt is A/O at this time and answers all questions appropriately. Care providers, pharmacy, and demographics verified/updated at this time. Pt gave permission for ABRAHAM ESPOSITO to call her sister, Mechelle, to review the following information and discuss discharge planning. PCP: Dr Hoyt Specialists: Repair Coil Winder @ [facility] in [place], Dr Dietrich @ [facility] in [place] Preferred Pharmacy: [facility] Insurance: HOLLIE Roberts Prescription Benefit: Yes Living Will/HPOA: Has both LW and Healthcare POA, who is her sister, Mechelle LNOK: Sister, Mechelle Living Arrangements: Pt lives with her sister, Mechelle. Pt has [employer] services and CM is Betty Foster. Mechelle works full-time for [employer] as pt's aide/caregiver. Mechelle provides all personal care for pt and manages all home mgmt tasks. Mechelle manages pt's colostomy and wound/skin care. Mechelle takes pt to [facility] 1-2 x's/week to shower pt in handicap shower. They are currently working on having a shower built in the home Pt gets home-delivered meals: 14 meals/week Transportation: Sister, Mechelle DME: Has the following DME: Bariatric bed, Diana lift, BSC, walker, medical alert button, Power W/C, glucometer Pt does not have a BIPAP--pt states she had sleep study done several years ago and that she got too pannicky and never proceeded with things further/did not get BIPAP unit. Pt states her walker is getting wobbly and that she could use another one. Pr is able to ambulate short distances/ transfer for toileting to BSC. Pt has frequent falls @ home and they use Diana lift to get her off of the floor. Pt has been unable to get into her bed d/t severe lymphedema and is unable to lift legs into the bed. Legs of Diana lift do not fit under bed, so she is unable to transfer to the bed with the Diana. Therefore she has been sleeping in her recliner chair. Per Mechelle, she has been trying to get a Hi-Low bed for pt since beginning of August through [facility] and she does not know why there has been a delay in getting it. HHC/SNF: [facility] (?sp) in [place] and [facility] in [place]. Pt states she does not want to go to a SNF at this time d/t COVID pandemic. Pt would like [facility] and Mechelle is agreeable. They do not have preference of [facility] agency. Pt and Mechelle wish for pt to return home and state have no concerns with going home at time of discharge. CM to follow for any further discharge planning/needs. Pt/Mechelle voice no further concerns/needs at this time. Advised them to ask for CM if any further questions/concerns/needs arise. They voice understanding. PLAN: Home w/sister wesley as her caregiver, HHC for SN and PT/OT, and discharge plans in place. Will need HHC set up. PT/OT evals pending. Filiberto SOUSAN RN CM
--- NOTE | 2020-11-02 13:31 | CASEMGMT ---
Social Work Note SW updated pt that pt has CM Betty Thomas (sp?) through [employer]. SW reviewed pt's address, pt lives in [place]. SW reviewed [facility] aging website, [facility] is listed as agency that goes to [place]. CORNELIA placed a call to [facility] on Aging and left message asking if pt is active with them. SW waiting for call back. Ami Hughes GAS BRAZER, TRAIN STATION AGENT
[2020-11-02 14:17] VITALS: BP 105/47; PULSE 63; RESP 18; TEMP 36.7; O2SAT 100
--- NOTE | 2020-11-02 16:30 | CHAPLAIN ---
Type of Pastoral Visit __x_ Initial Visit ___ Follow-up Visit ___ On-call Visit ___ General Patient Visit ___ Spiritual Assessment ___ Family Conference ___ Bereavement ___ Rapid Response ___ Code Blue ___ Other (describe below) Pastoral Care Referral From _x__ Patient ___ Family ___ Nurse ___ Physician ___ Info Specialist ___ Mission Worker ___ Other (describe below) Sacrament/Intervention _x__ Active listening ___ Anointing ___ Protestant ___ Bereavement ___ Communion _x__ Mendy exploration ___ _x__ Life review _x__ Prayer ___ Reconciliation ___ Sacrament of Sick _x__ Supportive presence ___ Wedding ___ Other (describe below) Pastoral Comments
[2020-11-02 17:11] LABS: Bedside Glucose 105 mg/dL (70-110)
[2020-11-02 20:40] VITALS: BP 121/49; PULSE 61; RESP 18; TEMP 36.4; O2SAT 98
[2020-11-02 20:50] VITALS: O2SAT 98
[2020-11-02] MEDS: Montelukast 10 MG Tablet PO (21:58)
[2020-11-02 22:16] LABS: Bedside Glucose 119 mg/dL (70-110)
[2020-11-03] VITALS (7 sets, daily range): BP systolic 107–124; BP diastolic 47–80; PULSE 58–88; RESP 16–18; TEMP 36.6; O2SAT 92–100
[2020-11-03 02:09] LABS: Vancomycin, Trough Level 21.9 ug/mL (5.0-15.0)
--- NOTE | 2020-11-03 03:13 | PCM.RX.CS ---
Consult Pharmacy has been consulted to manage selected antiobiotic: Vancomycin Type of Consult: Follow-up Labs: Sodium 137 mmol/L (136-145) 11/02/20 06:19 Potassium 4.6 mmol/L (3.5-5.1) 11/02/20 06:19 Chloride 103 mmol/L (98-107) 11/02/20 06:19 Carbon Dioxide 30.0 mmol/L (21.0-32.0) 11/02/20 06:19 Anion Gap 4 (5-15) L 11/02/20 06:19 BUN 21 mg/dL (7-18) H 11/02/20 06:19 Creatinine 1.18 mg/dL (0.55-1.02) H 11/02/20 06:19 Est GFR (MDRD) Af Amer 58 mL/min (>60) L 11/02/20 06:19 Est GFR (MDRD) Non-Af 48 mL/min (>60) L 11/02/20 06:19 BUN/Creatinine Ratio 17.8 RATIO (10-20) 11/02/20 06:19 Glucose 119 mg/dL (74-106) H 11/02/20 06:19 Vancomycin Trough 21.9 ug/mL (5.0-15.0) H 11/03/20 01:24 Microbiology: Microbiology 11/01/20 12:25 Wound Abcess - Knee Gram Stain - Final 11/01/20 12:25 Wound Abcess - Knee Wound Culture - Preliminary Staphylococcus aureus Gram negative anoop 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 TROUGH 21.9 STOP CURRENT BAG AND DRAW RANDOM LEVEL 11/03 @ 1929 AND ADJUST Follow-Up Labs: Trough Vancomycin Labs to be done on [date and time ordered]: RANDOM 11/03 @ 1929
[2020-11-03 06:51] LABS: Bedside Glucose 115 mg/dL (70-110)
--- NOTE | 2020-11-03 08:26 | PCM.PN.HOSP ---
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 SKIN: As described above PSYCH; Flat affect Vitals/I&O's: Vital Signs Temp Pulse Resp BP Pulse Ox 97.8 F 60 18 112/50 L 97 11/03/20 02:40 11/03/20 02:40 11/03/20 02:40 11/03/20 02:40 11/03/20 02:40 Oxygen Flow Rate (L/min) 2 Oxygen Delivery Method Nasal Cannula Weight: 163.3 kg Body Mass Index (BMI) 65.8 Intake and Output for Last 24 Hours 11/01/20 11/02/20 11/03/20 23:59 23:59 23:59 Intake Total 590 / 1190 2710 / 3110 837.5 / 837.5 Output Total 3250 / 5050 2400 / 2400 Balance 590 / -110 -540 / -1940 -1562.5 / -1562.5 Microbiology Past 72 Hours 11/01/20 12:25 Wound Abcess - Knee Gram Stain - Final 11/01/20 12:25 Wound Abcess - Knee Wound Culture - Preliminary Staphylococcus aureus Gram negative anoop 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 Laboratory Results 11/02/20 11:33: POC Glucose 138 H 11/02/20 16:50: POC Glucose 105 11/02/20 22:02: POC Glucose 119 H 11/03/20 01:24: Vancomycin Trough 21.9 H 11/03/20 06:43: POC Glucose 115 H Current Medications Acetaminophen (Acetaminophen 325 Mg Tablet) 650 mg PO Q6H PRN PRN PRN Reason: Pain Score 1-10/Temp > 100.7 F Hydrocodone Bitart/Acetaminophen (Hydrocodone Bitartrate/Apap 5/325 Tablet) 1 tablet PO Q8H PRN PRN PRN Reason: PAIN 4-10 OR FEVER Al Hydroxide/Mg Hydroxide (Mag Hydrox/Al Hydrox/Simeth 30 Ml Udc) 30 ml PO Q6H PRN PRN PRN Reason: Gastric Burning Albuterol Sulfate (Albuterol 2.5 Mg/3 Ml Vial.Neb.) 2.5 mg INHALATION Q2H PRN PRN PRN Reason: Dyspnea, wheezing Aspirin (Aspirin 81 Mg Tab.Chew) 81 mg PO DAILY@0800 [facility] Last Admin: 11/02/20 09:14 Dose: 81 mg Documented by: Calamine/Phenol (Menthol/Lanolin/Calamine/Znox 113 Gm Tube) 1 applic TOPICAL BID [facility]; Protocol Last Admin: 11/02/20 21:58 Dose: 1 applicatio Documented by: Cyclobenzaprine HCl (Cyclobenzaprine Hcl 10 Mg Tablet) 10 mg PO TID PRN PRN Reason: MUSCLE SPASMS Diphenhydramine HCl (Diphenhydramine 25 Mg Capsule) 50 mg PO Q6H PRN PRN Reason: ITCHING Docusate Sodium (Docusate Sodium 100 Mg Capsule) 100 mg PO BID PRN PRN Reason: Constipation Duloxetine HCl (Duloxetine Hcl 20 Mg Capsule) 20 mg PO DAILY [facility] Last Admin: 11/02/20 09:10 Dose: 20 mg Documented by: Enoxaparin Sodium (Enoxaparin 40 Mg/0.4 Ml Syringe) 40 mg SC BID [facility] Last Admin: 11/02/20 21:58 Dose: 40 mg Documented by: Ferrous Sulfate (Ferrous Sulfate 325 Mg Tablet) 325 mg PO BIDCM [facility] Last Admin: 11/02/20 16:55 Dose: 325 mg Documented by: Furosemide (Furosemide 40 Mg/4 Ml Vial) 40 mg IV BIDLX [facility] Last Admin: 11/02/20 16:56 Dose: 40 mg Documented by: Gabapentin (Gabapentin 600 Mg Tablet) 600 mg PO BID [facility] Last Admin: 11/02/20 21:58 Dose: 600 mg Documented by: Guaifenesin (Guaifenesin 10 Ml Udc (200mg/10ml)) 20 ml PO Q4H PRN PRN PRN Reason: COUGH Hydralazine HCl (Hydralazine 20 Mg/Ml Vial) 10 mg IV Q4H PRN PRN PRN Reason: SBP > 160 Ceftriaxone Sodium 2 gm/ (Sodium Chloride) 50 mls @ 100 mls/hr IV Q24 [facility] Last Infusion: 11/02/20 09:52 Dose: Infused Documented by: Vancomycin IV Pharmacy to Dose (1 ea/ Sodium Chloride) 500 mls @ 250 mls/hr IV PRN PRN; Protocol PRN Reason: Rx to Dose Insulin Human Lispro (Insulin Lispro 100 Unit/Ml Insuln.Pen) 0 unit SC ACHS [facility]; Protocol Last Admin: 11/03/20 06:58 Dose: Not Given Documented by: Lisinopril (Lisinopril 5 Mg Tablet) 5 mg PO DAILY [facility] Last Admin: 11/02/20 09:10 Dose: 5 mg Documented by: Magnesium Hydroxide (Magnesium Hydroxide 30 Ml Udc) 30 ml PO DAILY PRN PRN PRN Reason: Constipation Melatonin (Melatonin 3 Mg Tablet) 3 mg PO QHS PRN PRN PRN Reason: INSOMNIA Montelukast Sodium (Montelukast 10 Mg Tablet) 10 mg PO QHS [facility] Last Admin: 11/02/20 21:58 Dose: 10 mg Documented by: Nitroglycerin (Nitroglycerin (Inpatient Use) 0.4 Mg Tab.Subl) 0.4 mg SUBLINGUAL Q5M PRN PRN Reason: CARDIAC/CHEST PAIN Nystatin (Nystatin Powder 15gm Bottle) 1 applic TOPICAL 4X/DAY [facility]; Protocol Last Admin: 11/02/20 21:59 Dose: 1 applicatio Documented by: Ondansetron HCl (Ondansetron 4 Mg/2 Ml Vial) 4 mg IV Q8H PRN PRN PRN Reason: NAUSEA/VOMITING Oxybutynin Chloride (Oxybutynin 5 Mg Tablet) 5 mg PO BID [facility] Last Admin: 11/02/20 21:58 Dose: 5 mg Documented by: Pantoprazole Sodium (Pantoprazole Sodium 40 Mg Tablet) 40 mg PO DAILY [facility] Last Admin: 11/02/20 09:10 Dose: 40 mg Documented by: Polyethylene Glycol (Polyethylene Glycol 3350 17 Gm Packet) 17 gm PO DAILY [facility] Last Admin: 11/02/20 09:10 Dose: 17 gm Documented by: Potassium Chloride (Potassium Chloride 20 Meq Tablet) 20 meq PO BIDCM [facility] Last Admin: 11/02/20 16:55 Dose: 20 meq Documented by: Prochlorperazine Edisylate (Prochlorperazine 10 Mg/2 Ml Vial) 5 mg IV Q4H PRN PRN PRN Reason: Breakthrough nausea/vomiting Psyllium Hydrophilic Mucilloid (Psyllium 1 Packet) 1 packet PO DAILY PRN PRN PRN Reason: Constipation Sodium Chloride (0.9% Saline Lock 10 Ml Syringe) 10 - 40 ml IV UD PRN PRN Reason: SALINE FLUSH Last Admin: 11/02/20 02:12 Dose: 10 ml Documented by: Throat Lozenges (Benzocaine/Menthol 1 Lozenge) 1 lozenge MUCOUS MEM Q2H PRN PRN PRN Reason: SORE THROAT Tramadol HCl (Tramadol 50 Mg Tablet) 50 mg PO BID PRN PRN PRN Reason: PAIN 1-3 Medical Necessity - Tobacco Use Smoking Status: Never smoker Tobacco Use: Non-smoker Assessment/Plan All Active Problems Bilateral lower leg cellulitis (Acute) Patient is a 70-year-old lady morbidly obese with BMI of 65.8 presented with bilateral lower extremity pain with associated swelling and redness and assessment of cellulitis made admitted to regular nursing floor 1. 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 Sacral decubitus ulcer ?Present on admission consult placed to wound care nurse for dressing change 3. Diabetes mellitus type II -patient's oral hypoglycemics held. -Placed on long acting insulin, Accu-Cheks a.c. and at bedtime and covered with sliding scale insulin 4. Hypertension - Blood pressure controlled, home medications continued with dose adjustment as needed 5. Dyslipidemia ?Managed with diet 6. Chronic kidney disease stage III ?Kidney function baseline 7. Obstructive sleep apnea ?Patient apparently noncompliant with CPAP at night 8. Morbid obesity with BMI of 65.8 ?Weight loss advised. Patient also advised to follow-up with PCP for referral for bariatric surgery 9. DVT prophylaxis ?SCDs Inpatient E&M: 03627 Subs Hosp L2
[2020-11-03] MEDS: DULoxetine Hcl 20 MG Capsule PO (09:08)
[2020-11-03] MEDS: Ferrous Sulfate 325 MG Tablet PO ×2 (09:08→17:34)
[2020-11-03] MEDS: Aspirin 81 MG TAB.CHEW PO (09:08)
[2020-11-03] MEDS: Lisinopril 5 MG Tablet PO (09:09)
[2020-11-03] MEDS: Gabapentin 600 MG Tablet PO ×2 (09:09→21:06)
[2020-11-03] MEDS: Oxybutynin 5 MG Tablet PO ×2 (09:09→21:06)
[2020-11-03] MEDS: Pantoprazole Sodium 40 MG Tablet PO (09:09)
[2020-11-03] MEDS: Nystatin Powder 15gm Bottle 1 APPLIC TOPICAL ×4 (09:10→21:07)
[2020-11-03] MEDS: Polyethylene Glycol 3350 17 GM PACKET PO (09:10)
[2020-11-03] MEDS: Furosemide 40 MG/4 ML Vial IV ×2 (09:11→17:34)
[2020-11-03] MEDS: Enoxaparin 40 MG/0.4 ML Syringe SC ×2 (09:13→21:16)
[2020-11-03] MEDS: Menthol/Lanolin/Calamine/Znox 113 GM Tube 1 APPLIC TOPICAL ×2 (09:14→21:08)
--- NOTE | 2020-11-03 09:46 | CASEMGMT ---
Social Work Note SW placed a call to [facility] on aging. Pt's CM is Jerardo Perez ([phone]). CORNELIA left message from Jerardo informing her pt is currently at [facility] and informed Jerardo that pt has been trying to get a high low bed, asked if Jerardo is able to assist with this. Ami Hughes RO[employer] CREW MEMBER, WEB PORTAL DEVELOPER
[2020-11-03 11:01] LABS: Bedside Glucose 154 mg/dL (70-110)
[2020-11-03] MEDS: Insulin Lispro 100 UNIT/ML INSULN.PEN SC (11:11)
--- NOTE | 2020-11-03 11:20 | CASEMGMT ---
RN CATE received in-network [facility] agencies after calling [facility]. Referral sent to [facility] and they are not able to accept due to staffing. RN CM then sent referral to [facility] and awaiting call back for acceptance. Script received for heavy duty walker and given to patient. CM will continue to follow this patient and plan for safe discharge.
--- NOTE | 2020-11-03 15:02 | CON.PCM_ITS ---
Problem List (1) Bilateral lower leg cellulitis Status: Acute Reason for Consult: cellulitis Consulted by: Dr. Burt History of Present Illness: The patient is a 70 year old F with chronic lymphedema, recurrent cellulitis, presented with 2-3 weeks of progressive BLE pain, redness, swelling, sero- sanguinous drainage. Mild fever. No abx prior to admit. Came to ED, now on vanc/ceftriaxone, feeling a little better. Full ROS performed and neg except as noted above. 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) Hernia of anterior abdominal wall (Chronic) Cancer, uterine (Chronic) Asthma (Chronic) Allergies/Adverse Reactions: Allergies fentanyl Allergy (Verified 11/01/20 12:01) Rash latex Allergy (Verified 11/01/20 15:21) Rash methadone [Methadone] Allergy (Verified 11/01/20 12:01) Shortness of breath morphine Allergy (Verified 11/01/20 12:01) Itching oxycodone [Oxycodone] Allergy (Verified 11/01/20 12:01) Hives amoxicillin [Amoxicillin] Adverse Reaction (Verified 11/01/20 15:21) Itching Sulfa (Sulfonamide Antibiotics) Adverse Reaction (Verified 11/01/20 15:21) Rash pain meds Allergy (Uncoded 11/01/20 12:01) Itching PT STATES SHE NEEDS BENADRYL WITH PAIN MEDS Home Medications: Ambulatory Orders Medication Instructions Recorded Aspirin [Aspirin, Baby] 81 mg PO DAILY@0800 07/20/13 Enalapril Maleate [Vasotec] 5 mg PO DAILY 07/20/13 Furosemide [Lasix] 80 mg PO DAILY 07/20/13 Mometasone Furoate [Nasonex] 2 spray NASAL DAILY PRN 07/20/13 Montelukast [Singulair] 10 mg PO QHS 07/20/13 metFORMIN HCl [Glucophage] 500 mg PO BIDCM 07/20/13 Ferrous Sulfate 325 mg PO BIDCM 10/03/15 Hydrocodone/Acetaminophen [Vicodin 1 tablet PO Q8H PRN PRN 10/03/15 5-300 mg Tablet] Ipratropium/Albuterol Sulfate 3 ml INHALATION Q6H.RT PRN 10/03/15 [Duoneb] Oxybutynin [Ditropan] 5 mg PO BID 10/03/15 cycloBENZAPRine HCl [Flexeril] 10 mg PO TID PRN 10/03/15 Duloxetine HCl 20 mg PO DAILY 12/04/15 DiphenhydrAMINE [Benadryl] 50 mg PO Q6 PRN #0 capsule 12/07/15 Acetaminophen [Tylenol Extra 1,000 mg PO Q6H PRN PRN 11/01/20 Strength] Cyanocobalamin (Vitamin B-12) 1,000 mcg PO DAILY 11/01/20 [B-12] Gabapentin 600 mg PO BID 11/01/20 Tramadol HCl 50 mg PO BID PRN PRN 11/01/20 - Social History Tobacco Use: non-smoker Vital Signs Temp Pulse Resp BP Pulse Ox 98 F 61 16 124/47 H 93 11/03/20 14:33 11/03/20 14:33 11/03/20 14:33 11/03/20 14:33 11/03/20 14:33 Oxygen Flow Rate (L/min) 2 Oxygen Delivery Method Room Air Weight: 163.3 kg Body Mass Index (BMI) 65.8 Microbiology Past 72 Hours 11/01/20 13:28 Blood Culture - Preliminary Blood Culture (Wb) - Left Hand No growth in 48 hours. 11/01/20 13:10 Blood Culture - Preliminary Blood Culture (Wb) - Right Forearm No growth in 48 hours. 11/01/20 12:25 Gram Stain - Final Wound Abcess - Knee Wound Culture - Preliminary Staphylococcus aureus Gram negative anoop GNR lactose trim stencil maker Anaerobic Culture - Preliminary Checking for anaerobes, further studies to follow. Laboratory Tests Past 24 Hrs 11/03/20 01:24 Vancomycin Trough 21.9 H - Other Studies Radiology: [] reviewed Other Studies: [] Route of nutrition/ use of supplements: [] Nutritional Intake: [] IV Site: [] Avalos Catheter: [] - Physical Exam General: Alert, Oriented x3, Cooperative, No apparent distress HEENT: Atraumatic, PERRLA, EOMI Neck: Supple, No Nodes Lungs: Clear to auscultation, Normal air movement Cardiovascular: Regular rate, Regular Rhythm Abdomen: Soft, Non Tender, Non-Distended, Obese Extremities: Edema Skin: - - BLE redness, mild tenderness. R more than L. Musculoskeletal: No Tenderness to Palpation of Joints or Extremities Neurological: Cranial nerves II-XII grossly intact - Assessment/Plan Antibiotics: [] Assessment/Plan: [] Active and Suspected Problems Bilateral lower leg cellulitis (Acute) Chronic lymphedema, now with cellulitis, R more than L. Wound cx with staph aureus and GNR x2. Agree with vanc/ceftriaxone, sx improving, plan on po abx at discharge. Will follow, thank you, d/w caseworker protective services
[2020-11-03 16:21] LABS: Bedside Glucose 128 mg/dL (70-110)
--- NOTE | 2020-11-03 16:22 | CASEMGMT ---
Received call from Rula from [facility]. They are in-network and can accept pt. Will need notified upon discharge. Rafa Hoffman RN CM
[2020-11-03 20:26] LABS: Vancomycin, Random Level 17.3 ug/mL (0.0-15.0)
--- NOTE | 2020-11-03 20:47 | PCM.RX.CS ---
Consult Pharmacy has been consulted to manage selected antiobiotic: Vancomycin Type of Consult: Follow-up Suspected Infection: Skin/Soft tissue Prior Doses of Antibiotics Received/Current Regimen: previous regimen was 1500mg q12h but that was currently being held due to the last trough of 21.9 Labs: Sodium 137 mmol/L (136-145) 11/02/20 06:19 Potassium 4.6 mmol/L (3.5-5.1) 11/02/20 06:19 Chloride 103 mmol/L (98-107) 11/02/20 06:19 Carbon Dioxide 30.0 mmol/L (21.0-32.0) 11/02/20 06:19 Anion Gap 4 (5-15) L 11/02/20 06:19 BUN 21 mg/dL (7-18) H 11/02/20 06:19 Creatinine 1.18 mg/dL (0.55-1.02) H 11/02/20 06:19 Est GFR (MDRD) Af Amer 58 mL/min (>60) L 11/02/20 06:19 Est GFR (MDRD) Non-Af 48 mL/min (>60) L 11/02/20 06:19 BUN/Creatinine Ratio 17.8 RATIO (10-20) 11/02/20 06:19 Glucose 119 mg/dL (74-106) H 11/02/20 06:19 Vancomycin Trough 21.9 ug/mL (5.0-15.0) H 11/03/20 01:24 Random Vancomycin 17.3 ug/mL (0.0-15.0) H 11/03/20 19:37 Microbiology: Microbiology 11/01/20 13:28 Blood Culture (Wb) - Left Hand Blood Culture - Preliminary No growth in 48 hours. 11/01/20 13:10 Blood Culture (Wb) - Right Forearm Blood Culture - Preliminary No growth in 48 hours. 11/01/20 12:25 Wound Abcess - Knee Gram Stain - Final 11/01/20 12:25 Wound Abcess - Knee Wound Culture - Preliminary Staphylococcus aureus Gram negative anoop GNR lactose director operating room 11/01/20 12:25 Wound Abcess - Knee Anaerobic Culture - Preliminary Checking for anaerobes, further studies to follow. Weight used for dosin.3 kg Estimated Creatinine Clearance: 66.8ml/min Goal Trough: 15-20 mcg/mL Pharmacy Plan for Drug Dosing: The vanc random level drawn tonight (about 17 hours after the last dose of which a partial dose was given) came back as 17.3. This is back within goal range of 15-20 so we will restart vanc tonight but at a lower dose of 1250mg IV q12h. Will recheck a trough again before the 4th dose. Pharmacy Service will continue to monitor and adjust dosing as required. Follow-Up Labs: Trough Vancomycin Labs to be done on [date and time ordered]: 11/05/20 [id number]
[2020-11-03] MEDS: DiphenhydrAMINE 25 MG Capsule 50 MG PO (21:05)
[2020-11-03] MEDS: Montelukast 10 MG Tablet PO (21:07)
[2020-11-03 21:25] LABS: Bedside Glucose 105 mg/dL (70-110)
[2020-11-04 03:00] VITALS: BP 102/57; PULSE 88; RESP 16; TEMP 36.1; O2SAT 96
[2020-11-04 06:26] LABS: Bedside Glucose 105 mg/dL (70-110)
[2020-11-04 06:45] VITALS: O2SAT 98
--- NOTE | 2020-11-04 07:39 | PN_ITS ---
Patient Problems: Active and Suspected Problems Bilateral lower leg cellulitis (Acute) Reason for Visit: Bilateral lower extremity cellulitis Sacral decubitus Subjective: Patient is a 70-year-old lady morbidly obese with BMI of 65.8 presented with bilateral lower extremity pain with associated swelling and redness and assessment of cellulitis made admitted to regular nursing floor 11/03/2020 cultures obtained from the posterior aspect of her abdominal pannus grew; Staphylococcus aureus, Gram negative anoop GNR lactose captain's assistant patient remains on broad-spectrum antibiotic therapy consult placed to infectious disease 11/04/2020 wound cultures as below. Adjusted patient antibiotic Rocephin and st arted patient on meropenem patient is growing ESBL E. coli Acinetobacter and Proteus in addition to staph Microbiology 11/01/20 12:25 Wound Abcess - Knee Gram Stain - Final 11/01/20 12:25 Wound Abcess - Knee Wound Culture - Preliminary Staphylococcus aureus Proteus mirabilis Escherichia coli Acinetobacter baumannii 11/01/20 12:25 Wound Abcess - Knee Anaerobic Culture - Preliminary Checking for anaerobes, further studies to follow. 11/01/20 13:28 Blood Culture (Wb) - Left Hand Blood Culture - Preliminary No growth in 48 hours. 11/01/20 13:10 Blood Culture (Wb) - Right Forearm Blood Culture - Preliminary No growth in 48 hours. Objective: GENERAL: cooperative HEENT: Atraumatic; EYES; Anicteric, Normal Conjunctiva NECK; supple, normal thyroid, RESPIRATORY: Diminished to auscultation CARDIOVASCULAR: Regular S1 S2, GI: soft, normoactive bowel sounds, : No Renal angle tenderness; EXTREMITIES: Erythema and warmth involving both lower extremities distally MUSCULOSKELETAL: no muscle waisting NEURO: Awake; no lateralizing signs. SKIN: As described above PSYCH; Flat affect Vitals/I&O's: Vital Signs Temp Pulse Resp BP Pulse Ox 96.9 F L 88 16 102/57 L 96 11/04/20 03:00 11/04/20 03:00 11/04/20 03:00 11/04/20 03:00 11/04/20 03:00 Oxygen Flow Rate (L/min) 2 Oxygen Delivery Method Nasal Cannula Weight: 163.3 kg Body Mass Index (BMI) 65.8 Intake and Output for Last 24 Hours 11/02/20 11/03/20 11/04/20 23:59 23:59 23:59 Intake Total 2710 / 3110 1837.5 / 1837.5 275 / 275 Output Total 3250 / 5050 4150 / 5650 2049 / 2049 Balance -540 / -1940 -2312.5 / -3812.5 -1775 / -1775 Microbiology Past 72 Hours 11/01/20 12:25 Wound Abcess - Knee Gram Stain - Final 11/01/20 12:25 Wound Abcess - Knee Wound Culture - Preliminary Staphylococcus aureus Proteus mirabilis Escherichia coli Acinetobacter baumannii 11/01/20 12:25 Wound Abcess - Knee Anaerobic Culture - Preliminary Checking for anaerobes, further studies to follow. 11/01/20 13:28 Blood Culture (Wb) - Left Hand Blood Culture - Preliminary No growth in 48 hours. 11/01/20 13:10 Blood Culture (Wb) - Right Forearm Blood Culture - Preliminary No growth in 48 hours. Laboratory Results 11/03/20 10:58: POC Glucose 154 H 11/03/20 16:18: POC Glucose 128 H 11/03/20 19:37: Random Vancomycin 17.3 H 11/03/20 21:16: POC Glucose 105 11/04/20 06:18: POC Glucose 105 Current Medications Acetaminophen (Acetaminophen 325 Mg Tablet) 650 mg PO Q6H PRN PRN PRN Reason: Pain Score 1-10/Temp > 100.7 F Hydrocodone Bitart/Acetaminophen (Hydrocodone Bitartrate/Apap 5/325 Tablet) 1 tablet PO Q8H PRN PRN PRN Reason: PAIN 4-10 OR FEVER Al Hydroxide/Mg Hydroxide (Mag Hydrox/Al Hydrox/Simeth 30 Ml Udc) 30 ml PO Q6H PRN PRN PRN Reason: Gastric Burning Albuterol Sulfate (Albuterol 2.5 Mg/3 Ml Vial.Neb.) 2.5 mg INHALATION Q2H PRN PRN PRN Reason: Dyspnea, wheezing Aspirin (Aspirin 81 Mg Tab.Chew) 81 mg PO DAILY@0800 [facility] Last Admin: 11/03/20 09:08 Dose: 81 mg Documented by: Calamine/Phenol (Menthol/Lanolin/Calamine/Znox 113 Gm Tube) 1 applic TOPICAL BID [facility]; Protocol Last Admin: 11/03/20 21:08 Dose: 1 applicatio Documented by: Cyclobenzaprine HCl (Cyclobenzaprine Hcl 10 Mg Tablet) 10 mg PO TID PRN PRN Reason: MUSCLE SPASMS Diphenhydramine HCl (Diphenhydramine 25 Mg Capsule) 50 mg PO Q6H PRN PRN Reason: ITCHING Last Admin: 11/03/20 21:05 Dose: 50 mg Documented by: Docusate Sodium (Docusate Sodium 100 Mg Capsule) 100 mg PO BID PRN PRN Reason: Constipation Duloxetine HCl (Duloxetine Hcl 20 Mg Capsule) 20 mg PO DAILY [facility] Last Admin: 11/03/20 09:08 Dose: 20 mg Documented by: Enoxaparin Sodium (Enoxaparin 40 Mg/0.4 Ml Syringe) 40 mg SC BID [facility] Last Admin: 11/03/20 21:16 Dose: 40 mg Documented by: Ferrous Sulfate (Ferrous Sulfate 325 Mg Tablet) 325 mg PO BIDCM [facility] Last Admin: 11/03/20 17:34 Dose: 325 mg Documented by: Furosemide (Furosemide 40 Mg/4 Ml Vial) 40 mg IV BIDLX [facility] Last Admin: 11/03/20 17:34 Dose: 40 mg Documented by: Gabapentin (Gabapentin 600 Mg Tablet) 600 mg PO BID [facility] Last Admin: 11/03/20 21:06 Dose: 600 mg Documented by: Guaifenesin (Guaifenesin 10 Ml Udc (200mg/10ml)) 20 ml PO Q4H PRN PRN PRN Reason: COUGH Hydralazine HCl (Hydralazine 20 Mg/Ml Vial) 10 mg IV Q4H PRN PRN PRN Reason: SBP > 160 Ceftriaxone Sodium 2 gm/ (Sodium Chloride) 50 mls @ 100 mls/hr IV Q24 [facility] Last Infusion: 11/03/20 09:52 Dose: Infused Documented by: Vancomycin IV Pharmacy to Dose (1 ea/ Sodium Chloride) 500 mls @ 250 mls/hr IV PRN PRN; Protocol PRN Reason: Rx to Dose Vancomycin HCl 1,250 mg/ (Sodium Chloride) 275 mls @ 167 mls/hr IV Q12H [facility] Last Infusion: 11/04/20 00:07 Dose: Infused Documented by: Insulin Human Lispro (Insulin Lispro 100 Unit/Ml Insuln.Pen) 0 unit SC [facility]; Protocol Last Admin: 11/04/20 06:51 Dose: Not Given Documented by: Lisinopril (Lisinopril 5 Mg Tablet) 5 mg PO DAILY [facility] Last Admin: 11/03/20 09:09 Dose: 5 mg Documented by: Magnesium Hydroxide (Magnesium Hydroxide 30 Ml Udc) 30 ml PO DAILY PRN PRN PRN Reason: Constipation Melatonin (Melatonin 3 Mg Tablet) 3 mg PO QHS PRN PRN PRN Reason: INSOMNIA Montelukast Sodium (Montelukast 10 Mg Tablet) 10 mg PO QHS [facility] Last Admin: 11/03/20 21:07 Dose: 10 mg Documented by: Nitroglycerin (Nitroglycerin (Inpatient Use) 0.4 Mg Tab.Subl) 0.4 mg SUBLINGUAL Q5M PRN PRN Reason: CARDIAC/CHEST PAIN Nystatin (Nystatin Powder 15gm Bottle) 1 applic TOPICAL 4X/DAY [facility]; Protocol Last Admin: 11/03/20 21:07 Dose: 1 applicatio Documented by: Ondansetron HCl (Ondansetron 4 Mg/2 Ml Vial) 4 mg IV Q8H PRN PRN PRN Reason: NAUSEA/VOMITING Oxybutynin Chloride (Oxybutynin 5 Mg Tablet) 5 mg PO BID [facility] Last Admin: 11/03/20 21:06 Dose: 5 mg Documented by: Pantoprazole Sodium (Pantoprazole Sodium 40 Mg Tablet) 40 mg PO DAILY [facility] Last Admin: 11/03/20 09:09 Dose: 40 mg Documented by: Polyethylene Glycol (Polyethylene Glycol 3350 17 Gm Packet) 17 gm PO DAILY [facility] Last Admin: 11/03/20 09:10 Dose: 17 gm Documented by: Potassium Chloride (Potassium Chloride 20 Meq Tablet) 20 meq PO BIDCM [facility] Last Admin: 11/03/20 17:34 Dose: 20 meq Documented by: Prochlorperazine Edisylate (Prochlorperazine 10 Mg/2 Ml Vial) 5 mg IV Q4H PRN PRN PRN Reason: Breakthrough nausea/vomiting Psyllium Hydrophilic Mucilloid (Psyllium 1 Packet) 1 packet PO DAILY PRN PRN PRN Reason: Constipation Sodium Chloride (0.9% Saline Lock 10 Ml Syringe) 10 - 40 ml IV UD PRN PRN Reason: SALINE FLUSH Last Admin: 11/02/20 02:12 Dose: 10 ml Documented by: Throat Lozenges (Benzocaine/Menthol 1 Lozenge) 1 lozenge MUCOUS MEM Q2H PRN PRN PRN Reason: SORE THROAT Tramadol HCl (Tramadol 50 Mg Tablet) 50 mg PO BID PRN PRN PRN Reason: PAIN 1-3 Medical Necessity - Tobacco Use Smoking Status: Never smoker Tobacco Use: Non-smoker Assessment/Plan All Active Problems Bilateral lower leg cellulitis (Acute) Patient is a 70-year-old lady morbidly obese with BMI of 65.8 presented with bilateral lower extremity pain with associated swelling and redness and assessment of cellulitis made admitted to regular nursing floor 1. Bilateral lower extremity cellulitis ?Admitted to regular nursing and started on broad-spectrum antibiotic therapy with vancomycin as well as Rocephin - 11/03/2020 cultures obtained from the posterior aspect of her abdominal pannus grew; Staphylococcus aureus, Gram negative anoop GNR lactose captain's assistant patient remains on broad-spectrum antibiotic therapy consult placed to infectious disease - 11/04/2020 wound cultures as below. Adjusted patient antibiotic Rocephin discontinued, started patient on meropenem patient is growing ESBL E. coli Acinetobacter and Proteus in addition to staph. Subsequent antibiotic therapy deferred to ID Microbiology 11/01/20 12:25 Wound Abcess - Knee Wound Culture - Preliminary Staphylococcus aureus Proteus mirabilis Escherichia coli 2. Sacral decubitus ulcer ?Present on admission consult placed to wound care nurse for dressing change 3. Diabetes mellitus type II -patient's oral hypoglycemics held. -Placed on long acting insulin, Accu-Cheks a.c. and at bedtime and covered with sliding scale insulin 4. Hypertension - Blood pressure controlled, home medications continued with dose adjustment as needed 5. Dyslipidemia ?Managed with diet 6. Chronic kidney disease stage III ?Kidney function baseline 7. Obstructive sleep apnea ?Patient apparently noncompliant with CPAP at night 8. Morbid obesity with BMI of 65.8 ?Weight loss advised. Patient also advised to follow-up with PCP for referral for bariatric surgery 9. DVT prophylaxis ?SCDs Inpatient E&M: [id number] [facility] Hosp L2
[2020-11-04] MEDS: Lisinopril 5 MG Tablet PO (08:43)
[2020-11-04] MEDS: Ferrous Sulfate 325 MG Tablet PO ×2 (08:43→17:25)
[2020-11-04] MEDS: Gabapentin 600 MG Tablet PO ×2 (08:44→23:01)
[2020-11-04] MEDS: Aspirin 81 MG TAB.CHEW PO (08:44)
[2020-11-04 08:45] VITALS: BP 111/32; PULSE 61; RESP 18; TEMP 36.6; O2SAT 96
[2020-11-04] MEDS: DULoxetine Hcl 20 MG Capsule PO (08:45)
[2020-11-04] MEDS: Oxybutynin 5 MG Tablet PO ×2 (08:45→23:01)
[2020-11-04] MEDS: Furosemide 40 MG/4 ML Vial IV ×2 (08:48→17:26)
[2020-11-04] MEDS: Polyethylene Glycol 3350 17 GM PACKET PO (08:48)
[2020-11-04] MEDS: Menthol/Lanolin/Calamine/Znox 113 GM Tube 1 APPLIC TOPICAL ×2 (08:53→23:00)
[2020-11-04] MEDS: Enoxaparin 40 MG/0.4 ML Syringe SC ×2 (08:54→23:00)
[2020-11-04] MEDS: Nystatin Powder 15gm Bottle 1 APPLIC TOPICAL ×3 (08:54→23:00)
[2020-11-04] MEDS: Pantoprazole Sodium 40 MG Tablet PO (08:55)
[2020-11-04] MEDS: Acetaminophen 325 MG Tablet 650 MG PO ×2 (09:01→20:10)
[2020-11-04 10:25] VITALS: O2SAT 96
[2020-11-04 12:05] LABS: Bedside Glucose 119 mg/dL (70-110)
[2020-11-04 17:15] VITALS: BP 109/40; PULSE 64; RESP 16; TEMP 37; O2SAT 95
[2020-11-04 17:40] LABS: Bedside Glucose 99 mg/dL (70-110)
[2020-11-04] MEDS: traMADol 50 MG Tablet PO (21:13)
[2020-11-04 22:17] VITALS: BP 106/53; PULSE 64; RESP 16; TEMP 36.3; O2SAT 98
[2020-11-04 22:31] LABS: Bedside Glucose 143 mg/dL (70-110)
[2020-11-04] MEDS: cycloBENZAPRine HCl 10 MG Tablet PO (23:00)
[2020-11-04] MEDS: Montelukast 10 MG Tablet PO (23:01)
[2020-11-05 04:20] VITALS: BP 99/51; PULSE 60; RESP 16; TEMP 36.1; O2SAT 97
[2020-11-05 06:45] LABS: Bedside Glucose 93 mg/dL (70-110)
[2020-11-05 07:15] VITALS: O2SAT 98
--- NOTE | 2020-11-05 07:34 | PCM.PN.HOSP ---
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 Adjusted patient antibiotic Rocephin and started patient on meropenem patient is growing ESBL E. coli Acinetobacter and Proteus in addition to staph 11/05/2020; patient seen had a relatively uneventful night. Adjusted her antibiotic therapy the day prior. Objective: GENERAL: cooperative HEENT: Atraumatic; EYES; Anicteric, Normal Conjunctiva NECK; supple, normal thyroid, RESPIRATORY: Diminished to auscultation CARDIOVASCULAR: Regular S1 S2, GI: soft, normoactive bowel sounds, : No Renal angle tenderness; EXTREMITIES: Erythema and warmth involving both lower extremities distally MUSCULOSKELETAL: no muscle waisting NEURO: Awake; no lateralizing signs. SKIN: As described above PSYCH; Flat affect Vitals/I&O's: Vital Signs Temp Pulse Resp BP Pulse Ox 97 F L 60 16 99/51 L 97 11/05/20 04:20 11/05/20 04:20 11/05/20 04:20 11/05/20 04:20 11/05/20 04:20 Oxygen Flow Rate (L/min) 2 Oxygen Delivery Method Nasal Cannula Weight: 163.3 kg Body Mass Index (BMI) 65.8 Intake and Output for Last 24 Hours 11/03/20 11/04/20 11/05/20 23:59 23:59 23:59 Intake Total 1837.5 / 1837.5 2045 / 2365 760 / 760 Output Total 4150 / 5650 5300 / 6450 1450 / 1450 Balance -2312.5 / -3812.5 -3255 / -4085 -690 / -690 Microbiology Past 72 Hours 11/01/20 12:25 Wound Abcess - Knee Gram Stain - Final 11/01/20 12:25 Wound Abcess - Knee Wound Culture - Preliminary Staphylococcus aureus Proteus mirabilis Escherichia coli Acinetobacter baumannii 11/01/20 12:25 Wound Abcess - Knee Anaerobic Culture - Final No anaerobic bacteria isolated. 11/01/20 13:28 Blood Culture (Wb) - Left Hand Blood Culture - Preliminary No growth in 48 hours. 11/01/20 13:10 Blood Culture (Wb) - Right Forearm Blood Culture - Preliminary No growth in 48 hours. Laboratory Results 11/04/20 12:00: POC Glucose 119 H 11/04/20 17:24: POC Glucose 99 11/04/20 22:19: POC Glucose 143 H 11/05/20 06:38: POC Glucose 93 Current Medications Acetaminophen (Acetaminophen 325 Mg Tablet) 650 mg PO Q6H PRN PRN PRN Reason: Pain Score 1-10/Temp > 100.7 F Last Admin: 11/04/20 20:10 Dose: 650 mg Documented by: Hydrocodone Bitart/Acetaminophen (Hydrocodone Bitartrate/Apap 5/325 Tablet) 1 tablet PO Q8H PRN PRN PRN Reason: PAIN 4-10 OR FEVER Al Hydroxide/Mg Hydroxide (Mag Hydrox/Al Hydrox/Simeth 30 Ml Udc) 30 ml PO Q6H PRN PRN PRN Reason: Gastric Burning Albuterol Sulfate (Albuterol 2.5 Mg/3 Ml Vial.Neb.) 2.5 mg INHALATION Q2H PRN PRN PRN Reason: Dyspnea, wheezing Aspirin (Aspirin 81 Mg Tab.Chew) 81 mg PO DAILY@0800 [facility] Last Admin: 11/04/20 08:44 Dose: 81 mg Documented by: Calamine/Phenol (Menthol/Lanolin/Calamine/Znox 113 Gm Tube) 1 applic TOPICAL BID [facility]; Protocol Last Admin: 11/04/20 23:00 Dose: 1 applicatio Documented by: Cyclobenzaprine HCl (Cyclobenzaprine Hcl 10 Mg Tablet) 10 mg PO TID PRN PRN Reason: MUSCLE SPASMS Last Admin: 11/04/20 23:00 Dose: 10 mg Documented by: Diphenhydramine HCl (Diphenhydramine 25 Mg Capsule) 50 mg PO Q6H PRN PRN Reason: ITCHING Last Admin: 11/03/20 21:05 Dose: 50 mg Documented by: Docusate Sodium (Docusate Sodium 100 Mg Capsule) 100 mg PO BID PRN PRN Reason: Constipation Duloxetine HCl (Duloxetine Hcl 20 Mg Capsule) 20 mg PO DAILY [facility] Last Admin: 11/04/20 08:45 Dose: 20 mg Documented by: Enoxaparin Sodium (Enoxaparin 40 Mg/0.4 Ml Syringe) 40 mg SC BID [facility] Last Admin: 11/04/20 23:00 Dose: 40 mg Documented by: Ferrous Sulfate (Ferrous Sulfate 325 Mg Tablet) 325 mg PO BIDCM [facility] Last Admin: 11/04/20 17:25 Dose: 325 mg Documented by: Furosemide (Furosemide 40 Mg/4 Ml Vial) 40 mg IV BIDLX [facility] Last Admin: 11/04/20 17:26 Dose: 40 mg Documented by: Gabapentin (Gabapentin 600 Mg Tablet) 600 mg PO BID [facility] Last Admin: 11/04/20 23:01 Dose: 600 mg Documented by: Guaifenesin (Guaifenesin 10 Ml Udc (200mg/10ml)) 20 ml PO Q4H PRN PRN PRN Reason: COUGH Hydralazine HCl (Hydralazine 20 Mg/Ml Vial) 10 mg IV Q4H PRN PRN PRN Reason: SBP > 160 Vancomycin IV Pharmacy to Dose (1 ea/ Sodium Chloride) 500 mls @ 250 mls/hr IV PRN PRN; Protocol PRN Reason: Rx to Dose Vancomycin HCl 1,250 mg/ (Sodium Chloride) 275 mls @ 167 mls/hr IV Q12H [facility] Last Infusion: 11/04/20 23:15 Dose: Infused Documented by: Meropenem 1 gm/ Sodium (Chloride) 120 mls @ 33 mls/hr IV Q12H [facility] Insulin Human Lispro (Insulin Lispro 100 Unit/Ml Insuln.Pen) 0 unit SC [facility]; Protocol Last Admin: 11/05/20 06:43 Dose: Not Given Documented by: Lisinopril (Lisinopril 5 Mg Tablet) 5 mg PO DAILY [facility] Last Admin: 11/04/20 08:43 Dose: 5 mg Documented by: Magnesium Hydroxide (Magnesium Hydroxide 30 Ml Udc) 30 ml PO DAILY PRN PRN PRN Reason: Constipation Melatonin (Melatonin 3 Mg Tablet) 3 mg PO QHS PRN PRN PRN Reason: INSOMNIA Montelukast Sodium (Montelukast 10 Mg Tablet) 10 mg PO QHS [facility] Last Admin: 11/04/20 23:01 Dose: 10 mg Documented by: Nitroglycerin (Nitroglycerin (Inpatient Use) 0.4 Mg Tab.Subl) 0.4 mg SUBLINGUAL Q5M PRN PRN Reason: CARDIAC/CHEST PAIN Nystatin (Nystatin Powder 15gm Bottle) 1 applic TOPICAL 4X/DAY [facility]; Protocol Last Admin: 11/04/20 23:00 Dose: 1 applicatio Documented by: Ondansetron HCl (Ondansetron 4 Mg/2 Ml Vial) 4 mg IV Q8H PRN PRN PRN Reason: NAUSEA/VOMITING Oxybutynin Chloride (Oxybutynin 5 Mg Tablet) 5 mg PO BID [facility] Last Admin: 11/04/20 23:01 Dose: 5 mg Documented by: Pantoprazole Sodium (Pantoprazole Sodium 40 Mg Tablet) 40 mg PO DAILY [facility] Last Admin: 11/04/20 08:55 Dose: 40 mg Documented by: Polyethylene Glycol (Polyethylene Glycol 3350 17 Gm Packet) 17 gm PO DAILY [facility] Last Admin: 11/04/20 08:48 Dose: 17 gm Documented by: Potassium Chloride (Potassium Chloride 20 Meq Tablet) 20 meq PO BIDCM [facility] Last Admin: 11/04/20 17:25 Dose: 20 meq Documented by: Prochlorperazine Edisylate (Prochlorperazine 10 Mg/2 Ml Vial) 5 mg IV Q4H PRN PRN PRN Reason: Breakthrough nausea/vomiting Psyllium Hydrophilic Mucilloid (Psyllium 1 Packet) 1 packet PO DAILY PRN PRN PRN Reason: Constipation Sodium Chloride (0.9% Saline Lock 10 Ml Syringe) 10 - 40 ml IV UD PRN PRN Reason: SALINE FLUSH Last Admin: 11/02/20 02:12 Dose: 10 ml Documented by: Throat Lozenges (Benzocaine/Menthol 1 Lozenge) 1 lozenge MUCOUS MEM Q2H PRN PRN PRN Reason: SORE THROAT Tramadol HCl (Tramadol 50 Mg Tablet) 50 mg PO BID PRN PRN PRN Reason: PAIN 1-3 Last Admin: 11/04/20 21:13 Dose: 50 mg Documented by: STROKE Vital Signs/Narrative: Vital Signs Temp Pulse Resp BP Pulse Ox 11/05/20 04:20 97 F L 60 16 99/51 L 97 Medical Necessity - Tobacco Use Smoking Status: Never smoker Tobacco Use: Non-smoker Assessment/Plan All Active Problems Bilateral lower leg cellulitis (Acute) Patient is a 70-year-old lady morbidly obese with BMI of 65.8 presented with bilateral lower extremity pain with associated swelling and redness and assessment of cellulitis made admitted to regular nursing floor 1. 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 Adjusted patient antibiotic Rocephin discontinued, started patient on meropenem patient is growing ESBL E. coli Acinetobacter and Proteus in addition to staph. Subsequent antibiotic therapy deferred to ID Microbiology 11/01/20 12:25 Wound Abcess - Knee Wound Culture - Preliminary Staphylococcus aureus Proteus mirabilis Escherichia coli -11/05/2020; patient seen had a relatively uneventful night. Adjusted her antibiotic therapy the day prior. ID on consult deferred home-going antibiotics to ID. 2. Sacral decubitus ulcer ?Present on admission consult placed to wound care nurse for dressing change 3. Diabetes mellitus type II -patient's oral hypoglycemics held. -Placed on long acting insulin, Accu-Cheks a.c. and at bedtime and covered with sliding scale insulin 4. Hypertension - Blood pressure controlled, home medications continued with dose adjustment as needed 5. Dyslipidemia ?Managed with diet 6. Chronic kidney disease stage III ?Kidney function baseline 7. Obstructive sleep apnea ?Patient apparently noncompliant with CPAP at night 8. Morbid obesity with BMI of 65.8 ?Weight loss advised. Patient also advised to follow-up with PCP for referral for bariatric surgery 9. DVT prophylaxis [facility] [place] [place] [id number] Subs Hosp L2
[2020-11-05 08:45] VITALS: BP 127/58; PULSE 65; RESP 16; TEMP 36.3; O2SAT 94
[2020-11-05] MEDS: Aspirin 81 MG TAB.CHEW PO (08:47)
[2020-11-05] MEDS: Ferrous Sulfate 325 MG Tablet PO ×2 (08:47→17:00)
[2020-11-05] MEDS: Menthol/Lanolin/Calamine/Znox 113 GM Tube 1 APPLIC TOPICAL ×2 (08:47→23:48)
[2020-11-05] MEDS: Nystatin Powder 15gm Bottle 1 APPLIC TOPICAL ×4 (08:48→23:49)
[2020-11-05] MEDS: Oxybutynin 5 MG Tablet PO ×2 (08:48→23:50)
[2020-11-05] MEDS: Enoxaparin 40 MG/0.4 ML Syringe SC ×2 (08:48→23:49)
[2020-11-05] MEDS: Furosemide 40 MG/4 ML Vial IV ×2 (08:48→18:59)
[2020-11-05] MEDS: DULoxetine Hcl 20 MG Capsule PO (08:48)
[2020-11-05] MEDS: Lisinopril 5 MG Tablet PO (08:49)
[2020-11-05] MEDS: Gabapentin 600 MG Tablet PO ×2 (08:49→23:50)
[2020-11-05] MEDS: Polyethylene Glycol 3350 17 GM PACKET PO (08:49)
[2020-11-05] MEDS: Pantoprazole Sodium 40 MG Tablet PO (08:49)
[2020-11-05] MEDS: Acetaminophen 325 MG Tablet 650 MG PO (08:54)
[2020-11-05] MEDS: traMADol 50 MG Tablet PO ×2 (08:55→23:59)
[2020-11-05 10:35] LABS: Hematocrit 35.1 % (37-47); Mean Corp Hgb Conc 31.3 g/dL (32-36); Mean Corpuscular Hgb 28.2 pg (27.0-32.0); Mean Platelet Vol. 9.3 fl (6.2-12.0); Platelet Count 278 K/mm3 (150-450); RBC Distribution Width CV 15.3 % (11.6-14.6); RBC Distribution Width SD 50.7 fl (35.1-43.9); White Blood Count 5.4 K/mm3 (4.4-11.0)
[2020-11-05 10:48] LABS: Anion Gap 4 (5-15); BUN 23 mg/dL (7-18); BUN/Creat Ratio 19.2 RATIO (10-20); Chloride 101 mmol/L (98-107); EST Glomerular Filtration Rate 47 mL/min (>60); Est Glom Filt Rate - Afr Amer 57 mL/min (>60); Glucose 161 mg/dL (74-106); Potassium 3.9 mmol/L (3.5-5.1); Sodium Level 137 mmol/L (136-145)
[2020-11-05] MEDS: 0.9% Saline Lock 10 ML Syringe IV (11:51)
[2020-11-05 12:01] LABS: Bedside Glucose 105 mg/dL (70-110)
--- NOTE | 2020-11-05 12:25 | PCM.RX.CS ---
Consult Pharmacy has been consulted to manage selected antiobiotic: Vancomycin Type of Consult: Follow-up Suspected Infection: Skin/Soft tissue Prior Doses of Antibiotics Received/Current Regimen: Has been on 1250mg iv q12h. Labs: Sodium 137 mmol/L (136-145) 11/05/20 10:25 Potassium 3.9 mmol/L (3.5-5.1) 11/05/20 10:25 Chloride 101 mmol/L (98-107) 11/05/20 10:25 Carbon Dioxide 32.0 mmol/L (21.0-32.0) 11/05/20 10:25 Anion Gap 4 (5-15) L 11/05/20 10:25 BUN 23 mg/dL (7-18) H 11/05/20 10:25 Creatinine 1.20 mg/dL (0.55-1.02) H 11/05/20 10:25 Est GFR (MDRD) Af Amer 57 mL/min (>60) L 11/05/20 10:25 Est GFR (MDRD) Non-Af 47 mL/min (>60) L 11/05/20 10:25 BUN/Creatinine Ratio 19.2 RATIO (10-20) 11/05/20 10:25 Glucose 161 mg/dL (74-106) H 11/05/20 10:25 Vancomycin Trough 23.0 ug/mL (5.0-15.0) H 11/05/20 10:25 Random Vancomycin 17.3 ug/mL (0.0-15.0) H 11/03/20 19:37 Microbiology: Microbiology 11/01/20 12:25 Wound Abcess - Knee Gram Stain - Final 11/01/20 12:25 Wound Abcess - Knee Wound Culture - Final Staphylococcus aureus Proteus mirabilis Escherichia coli Acinetobacter baumannii 11/01/20 12:25 Wound Abcess - Knee Anaerobic Culture - Final No anaerobic bacteria isolated. 11/01/20 13:28 Blood Culture (Wb) - Left Hand Blood Culture - Preliminary No growth in 48 hours. 11/01/20 13:10 Blood Culture (Wb) - Right Forearm Blood Culture - Preliminary No growth in 48 hours. Weight used for dosin kg Estimated Creatinine Clearance: ~66 ml/min Goal Trough: 15-20 mcg/mL Pharmacy Plan for Drug Dosing: Today's trough level 23 (goal range 15-20mcg/ml) 13.5 hrs post last dose. Renal about same, CrCl calculated to be ~66ml/min for adjusted body weight of 95.3kg. Will hold further dosing and get random level in AM 11.06.20. Pharmacy Service will continue to monitor and adjust dosing as required. Follow-Up Labs: Trough Vancomycin - random level 11.06.20 @0600
[2020-11-05 15:34] VITALS: BP 120/47; PULSE 65; RESP 16; TEMP 36.9; O2SAT 97
[2020-11-05] MEDS: Insulin Lispro 100 UNIT/ML INSULN.PEN SC (16:59)
[2020-11-05 17:26] LABS: Bedside Glucose 155 mg/dL (70-110)
[2020-11-05 23:40] VITALS: BP 123/61; PULSE 66; RESP 17; TEMP 36.6; O2SAT 96
[2020-11-05] MEDS: Montelukast 10 MG Tablet PO (23:50)
[2020-11-05] MEDS: MELATONIN 3 MG TABLET PO (23:59)
[2020-11-05] MEDS: cycloBENZAPRine HCl 10 MG Tablet PO (23:59)
[2020-11-06 00:21] LABS: Bedside Glucose 110 mg/dL (70-110)
[2020-11-06] MEDS: DiphenhydrAMINE 25 MG Capsule 50 MG PO (00:22)
[2020-11-06 05:37] LABS: Hemoglobin 10.9 g/dL (12.0-15.0); Mean Corp Hgb Conc 32.1 g/dL (32-36); Mean Corpuscular Hgb 28.3 pg (27.0-32.0); Mean Corpuscular Volume 88.3 fL (81-99); Mean Platelet Vol. 8.9 fl (6.2-12.0); Platelet Count 285 K/mm3 (150-450); RBC Distribution Width CV 15.1 % (11.6-14.6); RBC Distribution Width SD 48.8 fl (35.1-43.9); Red Blood Count 3.85 M/mm3 (4.2-5.4); White Blood Count 5.9 K/mm3 (4.4-11.0)
[2020-11-06 06:03] LABS: Anion Gap 4 (5-15); BUN 28 mg/dL (7-18); BUN/Creat Ratio 22.4 RATIO (10-20); Calcium,Total 8.9 mg/dL (8.5-10.1); Chloride 100 mmol/L (98-107); Creatinine, Serum 1.25 mg/dL (0.55-1.02); EST Glomerular Filtration Rate 45 mL/min (>60); Est Glom Filt Rate - Afr Amer 55 mL/min (>60); Estimated Creatinine Clearance 33.12 ml/min; Glucose 79 mg/dL (74-106); Magnesium 2.1 mg/dL (1.6-2.6); Potassium 4.2 mmol/L (3.5-5.1); Sodium Level 136 mmol/L (136-145)
[2020-11-06 06:04] LABS: Vancomycin, Random Level 20.6 ug/mL (0.0-15.0)
[2020-11-06] MEDS: Magnesium Hydroxide 30 ML UDC PO (06:44)
[2020-11-06 06:47] VITALS: BP 124/68; PULSE 57; RESP 17; TEMP 36.7; O2SAT 98
[2020-11-06 06:51] LABS: Bedside Glucose 83 mg/dL (70-110)
[2020-11-06 08:25] VITALS: O2SAT 97
--- NOTE | 2020-11-06 09:22 | NURSING ---
Ostomy appliance had leaked all over gown and bed linens. appliance changed and gown and linens changed. the open areas in the skin folds appear slightly improved. pt cleaned and powder applied in folds. calmoseptine applied to buttocks. pt tolerated well. pt hoping to be discharged home today. pt denies further needs at this time.
--- NOTE | 2020-11-06 10:17 | PCM.RX.CS ---
Consult Pharmacy has been consulted to manage selected antiobiotic: Vancomycin Type of Consult: Follow-up Suspected Infection: Skin/Soft tissue Labs: Sodium 136 mmol/L (136-145) 11/06/20 05:20 Potassium 4.2 mmol/L (3.5-5.1) 11/06/20 05:20 Chloride 100 mmol/L (98-107) 11/06/20 05:20 Carbon Dioxide 32.0 mmol/L (21.0-32.0) 11/06/20 05:20 Anion Gap 4 (5-15) L 11/06/20 05:20 BUN 28 mg/dL (7-18) H 11/06/20 05:20 Creatinine 1.25 mg/dL (0.55-1.02) H 11/06/20 05:20 Est GFR (MDRD) Af Amer 55 mL/min (>60) L 11/06/20 05:20 Est GFR (MDRD) Non-Af 45 mL/min (>60) L 11/06/20 05:20 BUN/Creatinine Ratio 22.4 RATIO (10-20) H 11/06/20 05:20 Glucose 79 mg/dL (74-106) 11/06/20 05:20 Vancomycin Trough 23.0 ug/mL (5.0-15.0) H 11/05/20 10:25 Random Vancomycin 20.6 ug/mL (0.0-15.0) H 11/06/20 05:20 Microbiology: Microbiology 11/01/20 12:25 Wound Abcess - Knee Gram Stain - Final 11/01/20 12:25 Wound Abcess - Knee Wound Culture - Final Staphylococcus aureus Proteus mirabilis Escherichia coli Acinetobacter baumannii 11/01/20 12:25 Wound Abcess - Knee Anaerobic Culture - Final No anaerobic bacteria isolated. 11/01/20 13:28 Blood Culture (Wb) - Left Hand Blood Culture - Preliminary No growth in 48 hours. 11/01/20 13:10 Blood Culture (Wb) - Right Forearm Blood Culture - Preliminary No growth in 48 hours. Goal Trough: 15-20 mcg/mL Pharmacy Plan for Drug Dosing: VANCOMYCIN LEVEL RECEIVED Current Vancomycin Dose: dose currently on hold due to elevated trough Number of Doses Received: Vancomycin Level: random level 20.6 Hours Since Last Dose: ~ 19 hour level Renal Function: SrCr 1.25 Renal Function Trend: SrCr is trending up Lab/Micro: Vancomycin Plan/Comments: pts previous dose of Vancomycin was 1250mg q12h which resulted in an elevated trough. Pt's trough level was 23 which was drawn 11/05/20 at 1025 and the random level was 20.6 (with 1/2 bag infused from 11/05 at 1105) which was drawn 11/06 at 0520. pt seems to be clearing on a 24 hour basis. recommend waiting an additonal 24 hours, then starting the pt on 1500mg q24h at 1100. Pending Level: 11/09/20 at 1030 Pharmacy Service will continue to monitor and adjust dosing as required. Follow-Up Labs: Trough Vancomycin - 11/09/20 at 1030
[2020-11-06] MEDS: Ferrous Sulfate 325 MG Tablet PO (10:38)
[2020-11-06] MEDS: Aspirin 81 MG TAB.CHEW PO (10:38)
[2020-11-06] MEDS: Oxybutynin 5 MG Tablet PO (10:39)
[2020-11-06] MEDS: DULoxetine Hcl 20 MG Capsule PO (10:39)
[2020-11-06] MEDS: Menthol/Lanolin/Calamine/Znox 113 GM Tube 1 APPLIC TOPICAL (10:39)
[2020-11-06] MEDS: Gabapentin 600 MG Tablet PO (10:40)
[2020-11-06] MEDS: Polyethylene Glycol 3350 17 GM PACKET PO (10:40)
[2020-11-06] MEDS: Nystatin Powder 15gm Bottle 1 APPLIC TOPICAL ×2 (10:40→13:56)
[2020-11-06] MEDS: Enoxaparin 40 MG/0.4 ML Syringe SC (10:40)
[2020-11-06] MEDS: Pantoprazole Sodium 40 MG Tablet PO (10:41)
[2020-11-06] MEDS: Lisinopril 5 MG Tablet PO (10:41)
[2020-11-06 12:05] LABS: Bedside Glucose 100 mg/dL (70-110)
--- NOTE | 2020-11-06 12:45 | PCM.DC ---
- Discharge Diagnoses Current Active Problems: Current Active and Chronic Problems Bilateral lower leg cellulitis (Acute) Chronic anemia (Chronic) CKD (chronic kidney disease) stage 3, GFR 30-59 ml/min (Chronic) Sleep apnea (Chronic) Chronic back pain (Chronic) Morbid obesity (Chronic) Hypertension (Chronic) Type 2 diabetes mellitus (Chronic) Lymphedema (Chronic) You will use the following diet at home:: Calorie/Carbohydrate Controlled (specify 1200, 1400, etc) - 1800 margot. Your food should be the consistency of: Regular Discharge Activity: Return to Normal Activity Weight Bearing Status: Weight bearing as tolerated Call your doctor if you observe: Fever of 101 or Higher, Shortness of breath, Dizziness, Fainting spells, Chest pain, Increased palpitations (irregular heartbeat), Uncontrolled pain Allergies/Adverse Reactions: Allergies fentanyl Allergy (Verified 11/01/20 12:01) Rash latex Allergy (Verified 11/01/20 15:21) Rash methadone [Methadone] Allergy (Verified 11/01/20 12:01) Shortness of breath morphine Allergy (Verified 11/01/20 12:01) Itching oxycodone [Oxycodone] Allergy (Verified 11/01/20 12:01) Hives amoxicillin [Amoxicillin] Adverse Reaction (Verified 11/01/20 15:21) Itching Sulfa (Sulfonamide Antibiotics) Adverse Reaction (Verified 11/01/20 15:21) Rash pain meds Allergy (Uncoded 11/01/20 12:01) Itching PT STATES SHE NEEDS BENADRYL WITH PAIN MEDS Medications to take at Discharge Aspirin [Aspirin, Baby] 81 mg PO DAILY@0800 07/20/13 Enalapril Maleate [Vasotec] 5 mg PO DAILY 07/20/13 Furosemide [Lasix] 80 mg PO DAILY 07/20/13 Mometasone Furoate [Nasonex] 2 spray NASAL DAILY PRN 07/20/13 Montelukast [Singulair] 10 mg PO QHS 07/20/13 metFORMIN HCl [Glucophage] 500 mg PO BIDCM 07/20/13 Ferrous Sulfate 325 mg PO BIDCM 10/03/15 Hydrocodone/Acetaminophen [Vicodin 5-300 mg Tablet] 1 tablet PO Q8H PRN PRN 10/03/15 Ipratropium/Albuterol Sulfate [Duoneb] 3 ml INHALATION Q6H.RT PRN 10/03/15 Oxybutynin [Ditropan] 5 mg PO BID 10/03/15 cycloBENZAPRine HCl [Flexeril] 10 mg PO TID PRN 10/03/15 Duloxetine HCl 20 mg PO DAILY 12/04/15 DiphenhydrAMINE [Benadryl] 50 mg PO Q6 PRN #0 capsule 12/07/15 Acetaminophen [Tylenol] 1,000 mg PO Q6H PRN PRN 11/01/20 Cyanocobalamin (Vitamin B-12) [B-12] 1,000 mcg PO DAILY 11/01/20 Gabapentin 600 mg PO BID 11/01/20 Tramadol HCl 50 mg PO BID PRN PRN 11/01/20 Amox/Clavulanate Tablet [Augmentin Tablet] 875 mg PO Q12H #14 tab 11/06/20 Doxycycline 100 mg PO BID #14 cap 11/06/20 The following prescriptions were given: Amox/Clavulanate Tablet [Augmentin Tablet] 875 mg PO Q12H #14 tab Transmission Status: Pending to [facility]/pharmacy #[id number] Doxycycline 100 mg PO BID #14 cap Transmission Status: Pending to [facility]/pharmacy #[id number] Primary Care Physician: Dudley Hoyt MD [Primary Care Provider] - Please follow up with your Primary Care Physician in: 1 week. Test Results: Test results from this visit will be discussed in further detail at your follow-up appointment, if applicable.
[2020-11-06 12:47] VITALS: BP 127/78; PULSE 91; RESP 18; TEMP 36.4; O2SAT 97
--- NOTE | 2020-11-06 12:49 | DS.PCM_ITS ---
Discharge Date and Diagnosis - Problem List Patient Problems: Active and Suspected Problems Bilateral lower leg cellulitis (Acute) Date of Admission: 11/01/20 Date of Discharge: 11/06/20 - Primary Discharge Diagnosis Acute Problems: Active Problems #1 polymicrobial acute bilateral lower extremity cellulitis. #2 lower abdominal panniculitis. 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 Tan, infectious disease. Operations: None Procedures: None Summary of Care Provided: Patient seen and examined on the day of discharge and appeared to be stable to be discharged home. Swelling and erythema of both lower extremities as well as lower abdomen is getting better. She has been afebrile, other vital signs are stable. The patient is a 70 year old F presented to the emergency room because of pain and redness of both legs extending up to the lower abdomen and she was found to have acute bilateral lower extremity edema and lower abdominal panniculitis. Patient does have a history of chronic lymphedema on both legs with past history of MRSA infection and she is morbidly obese. Initially, she was started on IV vancomycin and Rocephin. There was no evidence of sepsis or severe sepsis. Also, she was treated with IV Lasix for the chronic bilateral lymphedema. Patient remained afebrile throughout admission and her WBC were normal. Infectious disease consulted and adjusted IV antibiotics to IV vancomycin pending. Wound culture revealed MSSA, Proteus mirabilis, E. coli and Acinetobacter. Blood culture showed no growth in 5 days. Her routine blood work was unremarkable apart from slight elevated creatinine secondary to chronic kidney disease. With above-mentioned treatment, swelling and erythema of both legs and lower abdomen improved. Patient remained afebrile. Infectious disease recommended to discharge patient on 1 week of Augmentin and doxycycline. Patient had side effects of amoxicillin which is itching. She received 1 dose of Augmentin p.o. before discharge and she did well and she had no adverse reaction. Patient discharged home in a stable medical condition, discharged on Augmentin 875 mg p.o. twice daily for 7 days, doxycycline 100 mg p.o. twice daily for 7 days, continued on her other previous home medications without any changes, recommended follow-up with PCP in 1 week. Patient Problems: Active and Suspected Problems Bilateral lower leg cellulitis (Acute) - Physical Exam Vitals/I&O's: Vital Signs Temp Pulse Resp BP Pulse Ox 98.1 F 57 L 17 124/68 H 97 11/06/20 06:47 11/06/20 06:47 11/06/20 06:47 11/06/20 06:47 11/06/20 08:25 Oxygen Flow Rate (L/min) 2 Oxygen Delivery Method Room Air Weight: 360 lb 0.238 oz Body Mass Index (BMI) 65.8 Intake and Output for Last 24 Hours 11/04/20 11/05/20 11/06/20 23:59 23:59 23:59 Intake Total 2045 / 2365 2799.88 / 2799.88 420 / 420 Output Total 5300 / 6450 4450 / 4450 350 / 350 Balance -3255 / -4085 -1650.12 / -1650.12 70 / 70 General: Alert, Oriented x3, Cooperative, No apparent distress HEENT: Atraumatic, PERRLA, EOMI, Normocephalic Oral: Moist Mucosa, No Gingival or Mucosal Lesions/ Ulcerations Neck: Supple, No JVD, Negative Carotid Bruits, Trachea Midline, Thyroid Normal Size and Texture Lungs: Clear to auscultation, Normal air movement, No rhonchi, No wheeze, No rales, Diminished Cardiovascular: Regular rate, Regular Rhythm, Normal S1, Normal S2, PMI Normal Abdomen: Bowel Sounds Present, Soft, Non Tender, Non-Distended, No Hepato- splenomegaly, Obese - Morbidly obese., - - Colostomy bag in place. Extremities: No clubbing, No cyanosis, Edema - Lymphedema. Skin: No rashes, No breakdown Lymphatic: No Cervical, Supraclavicular, or Inguinal Adenopathy Neurological: Cranial nerves II-XII grossly intact, Neuro grossly intact Psych/Mental Status: Normal Affect, Appropriate Microbiology Past 72 Hours 11/01/20 12:25 Wound Abcess - Knee Gram Stain - Final 11/01/20 12:25 Wound Abcess - Knee Wound Culture - Final Staphylococcus aureus Proteus mirabilis Escherichia coli Acinetobacter baumannii 11/01/20 12:25 Wound Abcess - Knee Anaerobic Culture - Final No anaerobic bacteria isolated. 11/01/20 13:28 Blood Culture (Wb) - Left Hand Blood Culture - Preliminary No growth in 48 hours. 11/01/20 13:10 Blood Culture (Wb) - Right Forearm Blood Culture - Preliminary No growth in 48 hours. Laboratory Results 11/05/20 16:58: POC Glucose 155 H 11/06/20 00:12: POC Glucose 110 11/06/20 05:20: WBC 5.9, RBC 3.85 L, Hgb 10.9 L, Hct 34.0 L, MCV 88.3, MCH 28.3, MCHC 32.1, RDW Std Deviation 48.8 H, RDW Coeff of Chucky 15.1 H, Plt Count 285, MPV 8.9 11/06/20 05:20: Sodium 136, Potassium 4.2, Chloride 100, Carbon Dioxide 32.0, Anion Gap 4 L, BUN 28 H, Creatinine 1.25 H, Estim Creat Clear Calc 33.12, Est GFR (MDRD) Af Amer 55 L, Est GFR (MDRD) Non-Af 45 L, BUN/Creatinine Ratio 22.4 H , Glucose 79, Calcium 8.9, Magnesium 2.1 11/06/20 05:20: Random Vancomycin 20.6 H 11/06/20 06:43: POC Glucose 83 11/06/20 11:59: POC Glucose 100 Current Medications Acetaminophen (Acetaminophen 325 Mg Tablet) 650 mg PO Q6H PRN PRN PRN Reason: Pain Score 1-10/Temp > 100.7 F Last Admin: 11/05/20 08:54 Dose: 650 mg Documented by: Hydrocodone Bitart/Acetaminophen (Hydrocodone Bitartrate/Apap 5/325 Tablet) 1 tablet PO Q8H PRN PRN PRN Reason: PAIN 4-10 OR FEVER Al Hydroxide/Mg Hydroxide (Mag Hydrox/Al Hydrox/Simeth 30 Ml Udc) 30 ml PO Q6H PRN PRN PRN Reason: Gastric Burning Albuterol Sulfate (Albuterol 2.5 Mg/3 Ml Vial.Neb.) 2.5 mg INHALATION Q2H PRN PRN PRN Reason: Dyspnea, wheezing Aspirin (Aspirin 81 Mg Tab.Chew) 81 mg PO DAILY@0800 [facility] Last Admin: 11/06/20 10:38 Dose: 81 mg Documented by: Calamine/Phenol (Menthol/Lanolin/Calamine/Znox 113 Gm Tube) 1 applic TOPICAL BID [facility]; Protocol Last Admin: 11/06/20 10:39 Dose: 1 applicatio Documented by: Cyclobenzaprine HCl (Cyclobenzaprine Hcl 10 Mg Tablet) 10 mg PO TID PRN PRN Reason: MUSCLE SPASMS Last Admin: 11/05/20 23:59 Dose: 10 mg Documented by: Diphenhydramine HCl (Diphenhydramine 25 Mg Capsule) 50 mg PO Q6H PRN PRN Reason: ITCHING Last Admin: 11/06/20 00:22 Dose: 50 mg Documented by: Docusate Sodium (Docusate Sodium 100 Mg Capsule) 100 mg PO BID PRN PRN Reason: Constipation Duloxetine HCl (Duloxetine Hcl 20 Mg Capsule) 20 mg PO DAILY [facility] Last Admin: 11/06/20 10:39 Dose: 20 mg Documented by: Enoxaparin Sodium (Enoxaparin 40 Mg/0.4 Ml Syringe) 40 mg SC BID [facility] Last Admin: 11/06/20 10:40 Dose: 40 mg Documented by: Ferrous Sulfate (Ferrous Sulfate 325 Mg Tablet) 325 mg PO BIDCM [facility] Last Admin: 11/06/20 10:38 Dose: 325 mg Documented by: Furosemide (Furosemide 40 Mg/4 Ml Vial) 40 mg IV BIDLX [facility] Last Admin: 11/05/20 18:59 Dose: 40 mg Documented by: Gabapentin (Gabapentin 600 Mg Tablet) 600 mg PO BID [facility] Last Admin: 11/06/20 10:40 Dose: 600 mg Documented by: Guaifenesin (Guaifenesin 10 Ml Udc (200mg/10ml)) 20 ml PO Q4H PRN PRN PRN Reason: COUGH Hydralazine HCl (Hydralazine 20 Mg/Ml Vial) 10 mg IV Q4H PRN PRN PRN Reason: SBP > 160 Vancomycin IV Pharmacy to Dose (1 ea/ Sodium Chloride) 500 mls @ 250 mls/hr IV PRN PRN; Protocol PRN Reason: Rx to Dose Meropenem 1 gm/ Sodium (Chloride) 120 mls @ 33 mls/hr IV Q12H [facility] Last Infusion: 11/06/20 03:26 Dose: Infused Documented by: Vancomycin HCl 1,500 mg/ (Sodium Chloride) 530 mls @ 250 mls/hr IV Q24H [facility] Insulin Human Lispro (Insulin Lispro 100 Unit/Ml Insuln.Pen) 0 unit SC ACHS [facility]; Protocol Last Admin: 11/06/20 06:43 Dose: Not Given Documented by: Lisinopril (Lisinopril 5 Mg Tablet) 5 mg PO DAILY [facility] Last Admin: 11/06/20 10:41 Dose: 5 mg Documented by: Magnesium Hydroxide (Magnesium Hydroxide 30 Ml Udc) 30 ml PO DAILY PRN PRN PRN Reason: Constipation Last Admin: 11/06/20 06:44 Dose: 30 ml Documented by: Melatonin (Melatonin 3 Mg Tablet) 3 mg PO QHS PRN PRN PRN Reason: INSOMNIA Last Admin: 11/05/20 23:59 Dose: 3 mg Documented by: Montelukast Sodium (Montelukast 10 Mg Tablet) 10 mg PO QHS [facility] Last Admin: 11/05/20 23:50 Dose: 10 mg Documented by: Nitroglycerin (Nitroglycerin (Inpatient Use) 0.4 Mg Tab.Subl) 0.4 mg SUBLINGUAL Q5M PRN PRN Reason: CARDIAC/CHEST PAIN Nystatin (Nystatin Powder 15gm Bottle) 1 applic TOPICAL 4X/DAY [facility]; Protocol Last Admin: 11/06/20 10:40 Dose: 1 applicatio Documented by: Ondansetron HCl (Ondansetron 4 Mg/2 Ml Vial) 4 mg IV Q8H PRN PRN PRN Reason: NAUSEA/VOMITING Oxybutynin Chloride (Oxybutynin 5 Mg Tablet) 5 mg PO BID [facility] Last Admin: 11/06/20 10:39 Dose: 5 mg Documented by: Pantoprazole Sodium (Pantoprazole Sodium 40 Mg Tablet) 40 mg PO DAILY [facility] Last Admin: 11/06/20 10:41 Dose: 40 mg Documented by: Polyethylene Glycol (Polyethylene Glycol 3350 17 Gm Packet) 17 gm PO DAILY [facility] Last Admin: 11/06/20 10:40 Dose: 17 gm Documented by: Potassium Chloride (Potassium Chloride 20 Meq Tablet) 20 meq PO BIDCM [facility] Last Admin: 11/06/20 10:39 Dose: 20 meq Documented by: Prochlorperazine Edisylate (Prochlorperazine 10 Mg/2 Ml Vial) 5 mg IV Q4H PRN PRN PRN Reason: Breakthrough nausea/vomiting Psyllium Hydrophilic Mucilloid (Psyllium 1 Packet) 1 packet PO DAILY PRN PRN PRN Reason: Constipation Sodium Chloride (0.9% Saline Lock 10 Ml Syringe) 10 - 40 ml IV UD PRN PRN Reason: SALINE FLUSH Last Admin: 11/05/20 11:51 Dose: 10 ml Documented by: Throat Lozenges (Benzocaine/Menthol 1 Lozenge) 1 lozenge MUCOUS MEM Q2H PRN PRN PRN Reason: SORE THROAT Tramadol HCl (Tramadol 50 Mg Tablet) 50 mg PO BID PRN PRN PRN Reason: PAIN 1-3 Last Admin: 11/05/20 23:59 Dose: 50 mg Documented by: Discharge Activity: Return to Normal Activity Weight Bearing Status: Weight bearing as tolerated Call your doctor if you observe: Fever of 101 or Higher, Shortness of breath, Dizziness, Fainting spells, Chest pain, Increased palpitations (irregular heartbeat), Uncontrolled pain Home Medications: Medications to take at Discharge Aspirin [Aspirin, Baby] 81 mg PO DAILY@0800 07/20/13 Enalapril Maleate [Vasotec] 5 mg PO DAILY 07/20/13 Furosemide [Lasix] 80 mg PO DAILY 07/20/13 Mometasone Furoate [Nasonex] 2 spray NASAL DAILY PRN 07/20/13 Montelukast [Singulair] 10 mg PO QHS 07/20/13 metFORMIN HCl [Glucophage] 500 mg PO BIDCM 07/20/13 Ferrous Sulfate 325 mg PO BIDCM 10/03/15 Hydrocodone/Acetaminophen [Vicodin 5-300 mg Tablet] 1 tablet PO Q8H PRN PRN 10/03/15 Ipratropium/Albuterol Sulfate [Duoneb] 3 ml INHALATION Q6H.RT PRN 10/03/15 Oxybutynin [Ditropan] 5 mg PO BID 10/03/15 cycloBENZAPRine HCl [Flexeril] 10 mg PO TID PRN 10/03/15 Duloxetine HCl 20 mg PO DAILY 12/04/15 DiphenhydrAMINE [Benadryl] 50 mg PO Q6 PRN #0 capsule 12/07/15 Acetaminophen [Tylenol] 1,000 mg PO Q6H PRN PRN 11/01/20 Cyanocobalamin (Vitamin B-12) [B-12] 1,000 mcg PO DAILY 11/01/20 Gabapentin 600 mg PO BID 11/01/20 Tramadol HCl 50 mg PO BID PRN PRN 11/01/20 Amox/Clavulanate Tablet [Augmentin Tablet] 875 mg PO Q12H #14 tab 11/06/20 Doxycycline 100 mg PO BID #14 cap 11/06/20 Following Prescriptions Were Given to Patient: Amox/Clavulanate Tablet [Augmentin Tablet] 875 mg PO Q12H #14 tab Transmission Status: Received by [facility]/pharmacy #[id number] Doxycycline 100 mg PO BID #14 cap Transmission Status: Received by [facility]/pharmacy #[id number] Primary Care Physician: Dudley Hoyt MD [Primary Care Provider] - Please follow up with your Primary Care Physician in: 1 week. Disposition: Home Minutes spent on discharge:: 32 Patient Condition:: Stable Medical Necessity - Tobacco Use Smoking Status: Never smoker Tobacco Use: Non-smoker Meaningful Use Info Meaningful Use Diagnoses (Choose all that apply): None applicable Inpatient E&M: 51710 Disch Hosp
[2020-11-06] MEDS: Amox/Clavulanate 875 MG Tablet PO (12:57)
--- NOTE | 2020-11-06 13:32 | CASEMGMT ---
Social Work Note Pt is discharging home today. SW placed a call to pt's CM Betty Delgadillo (ext: [phone]) and left message that pt is discharging home today. Ami Hughes IMPORT CUSTOMER SERVICE MANAGER, MARKETING DIRECTOR
[2020-11-06] MEDS: Furosemide 80 MG Tablet PO (13:55)
--- NOTE | 2020-11-06 14:46 | CASEMGMT ---
ABRAHAM ESPOSITO updated patient that [facility] arranged with [employer] jose daniel [employer]elles. Patient had no further questions or concerns. ABRAHAM ESPOSITO called and updated [employer] and faxed discharge paperwork.
--- NOTE | 2020-11-07 14:15 | CASEMGMT ---
ABRAHAM ESPOSITO Discharge F/U Phone Call LACE: 12 Strata: 3 Discharge date: 11/06/20 Call date: 11/07/20 Call time: 1415 Admission dx: Cellulitis, Bilat LE lymphedema Pt states has been doing 'ok' since discharge. Pt states no questions regarding discharge instructions/medications at this time. Pt states [facility] was supposed to come out today but she had a dentist appt and wasn't sure she would be back in time so [facility] to come out tomorrow for start of care. Pt states was not aware of appt with Hoyt for tomorrow and she states she will call and cancel because her sister works and will not be able to take her. Pt states she will re-schedule for a time that works for them both. Pt states that she also plans to f/u with Dr. Garcia as her rvda master certified rv technician was up in [place] and her sister does not want to travel that far. Pt states no suggestions for [facility] and states 'I have been to a couple different hospitals and your staff is very pleasant and courteous and I think this will be my hospital now.' Pt voices no further questions/concerns/needs at this time. [place] ABRAHAM ESPOSITO
== END 2020-11-06 16:45 | disposition home or self-care (01) | DRG 603 ==
LOC: ED 12:59 → MS3 14:12
PROVIDERS: Internal Medicine; Internal Medicine Infectious Disease; Admitting Provider Family Medicine; Emergency Provider Emergency Medicine; PCP Internal Medicine; Visit Provider Hospitalist
DX: L03.115 Cellulitis of right lower limb (principal); Z68.44 Body mass index [BMI] 60.0-69.9, adult; L03.116 Cellulitis of left lower limb; B95.61 Methicillin susceptible Staphylococcus aureus infection as the cause of diseases classified elsewhere; B96.4 Proteus (mirabilis) (morganii) as the cause of diseases classified elsewhere; B96.20 Unspecified Escherichia coli [E. coli] as the cause of diseases classified elsewhere; B96.89 Other specified bacterial agents as the cause of diseases classified elsewhere; E11.69 Type 2 diabetes mellitus with other specified complication; I89.0 Lymphedema, not elsewhere classified; E66.01 Morbid (severe) obesity due to excess calories; E78.5 Hyperlipidemia, unspecified; G47.33 Obstructive sleep apnea (adult) (pediatric); G89.4 Chronic pain syndrome; L30.4 Erythema intertrigo; L89.159 Pressure ulcer of sacral region, unspecified stage; E11.65 Type 2 diabetes mellitus with hyperglycemia; I12.9 Hypertensive chronic kidney disease with stage 1 through stage 4 chronic kidney disease, or unspecified chronic kidney disease; E11.22 Type 2 diabetes mellitus with diabetic chronic kidney disease; N18.30 Chronic kidney disease, stage 3 unspecified; M79.3 Panniculitis, unspecified; D50.9 Iron deficiency anemia, unspecified; J45.909 Unspecified asthma, uncomplicated; F41.9 Anxiety disorder, unspecified; F32.9 Major depressive disorder, single episode, unspecified; K21.9 Gastro-esophageal reflux disease without esophagitis; Z91.19 Patient's noncompliance with other medical treatment and regimen; Z86.14 Personal history of Methicillin resistant Staphylococcus aureus infection; Z98.84 Bariatric surgery status; Z85.42 Personal history of malignant neoplasm of other parts of uterus; Z79.82 Long term (current) use of aspirin; Z79.899 Other long term (current) drug therapy; Z79.84 Long term (current) use of oral hypoglycemic drugs
CPT/HCPCS: 36415; 80048; 80053; 80202; 81001; 82962; 83036; 83605; 83735; 85025; 85027; 85610; 85730; 87040; 87070; 87075; 87077; 87186; 87205; 94762; 97110; 97162; 97166; 97530; 97535; 97802; 97803; 99251; 99285; J2185; J7030; J7040; J7050; A4216; G0463; J0696; J1940; J2405

== ENCOUNTER 2021-02-11 14:16 | Observation (INO) | payer MEDICARE, MEDICAID, SELFPAY ==
[2020-11-01 15:18] VITALS: BMI 65.8
[2021-02-11 14:17] VITALS: BP 128/78; PULSE 62; RESP 18; TEMP 36.6; O2SAT 96; BMI 65.0
--- NOTE | 2021-02-11 14:33 | RAD_ITS ---
STUDY: X-RAY CHEST REASON FOR EXAM: Female, 70 years old. Cough TECHNIQUE: 1 view COMPARISON: None. FINDINGS: The cardiac silhouette is enlarged. There is linear scars in the left lower lung. Lungs otherwise clear. Sulci sharp. Trachea midline. No pneumothorax. 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 RAD/Chest 1 View (Portable) IMPRESSION: Cardiomegaly. No acute pulmonary process. Electronically Signed: Thai Lamar MD at 15:27 EDT Tel , Service support ,
--- NOTE | 2021-02-11 14:33 | ED.DCSUM_ITS ---
History of Present Illness Chief Complaint: Complaint Informant: Patient Narrative: 70-year-old female with past medical history of hypertension, diabetes, hyperlipidemia, morbid obesity presents with concern for urinary frequency and dysuria. States it began yesterday. Patient has had a chronic indwelling Avalos which is been replaced twice recently. States this was placed approximately 3 weeks ago given she has sacral skin breakdown and was urinating on herself in a diaper which was irritating the skin further. So the Avalos is in place for skin integrity. Patient denies any fever or chills. Patient also states that she has a persistent cough. States is been present for 2 months. Had double pneumonia following her surgery for an abdominal fistula. States it is greatly improved but wanted to get this checked out while she was in the emergency department. She denies any chest pain or diaphoresis. Patient's sister cares for her at home. Past Medical History - Allergies and Home Meds Allergies/Adverse Reactions: Allergies fentanyl Allergy (Verified 02/11/21 14:20) Rash latex Allergy (Verified 02/11/21 14:20) Rash methadone [Methadone] Allergy (Verified 02/11/21 14:20) Shortness of breath morphine Allergy (Verified 02/11/21 14:20) Itching oxycodone [Oxycodone] Allergy (Verified 02/11/21 14:20) Hives amoxicillin [Amoxicillin] Adverse Reaction (Verified 02/11/21 14:20) Itching Sulfa (Sulfonamide Antibiotics) Adverse Reaction (Verified 02/11/21 14:20) Rash pain meds Allergy (Uncoded 02/11/21 14:20) Itching PT STATES SHE NEEDS BENADRYL WITH PAIN MEDS Primary Care Physician: Dudley Hoyt MD [Primary Care Provider] - Prior records reviewed: Yes Past Medical History: - - HTN, HLD, DMII Surgical History: - - Gastric sleeve, attempted abdominal wall hernia repair with mesh-failed, Cholecystectomy, bowel resection secondary to bowel obstruction with ostomy, hysterectomy, bilateral heel spur surgery. Lives: With Family Smoking Status: Never smoker Alcohol: None Drugs: None - Family History Maternal Family History: Reports: Stroke Paternal Family History: Reports: Cancer - Father with a history of cancer, lymphoma. Review of Systems General: Denies: Chills, Fever, Sweats Eyes: Denies: Visual changes - bilaterally, Diplopia ENT: Denies: Rhinorrhea, Sore throat Cardiovascular: Denies: Chest pain, Palpitations Respiratory: Reports: Cough. Denies: Dyspnea, Dyspnea on exertion Gastrointestinal: Denies: Abdominal pain, Nausea, Vomiting, Diarrhea, Melena, Hematochezia Genitourinary: Reports: Dysuria, Frequency. Denies: Hematuria Musculoskeletal: Denies: Back pain, Extremity Pain Skin: Denies: Rash, Wounds Neurological: Denies: Headache, Weakness, Numbness Physical Exam Vital Signs/Narrative: Vital Signs Temp Pulse Resp BP Pulse Ox 02/11/21 14:17 97.8 F 62 18 128/78 H 96 Inital Vital Signs reviewed: Yes General: Well nourished, Well developed, No Acute Distress Head: Normocephalic, Atraumatic Eyes: Perrl, EOMI ENT: Moist mucous membranes, No rhinorrhea Neck: Supple, Nontender Cardiovascular: Regular rate, Regular rhythm, No murmurs Respiratory: No distress, CTA bilaterally, Chest nontender Abdomen: Soft, Nontender, Nondistended, Normal bowel sounds Back: Nontender, Normal Inspection Extremities: Nontender, No edema Skin: Normal color, No rash Neurological: Alert, Oriented x3, Cranial nerves II-XII grossly intact, Normal Strength, Normal Sensation Psychological: Normal affect, Normal Mood Diagnostic/Tx/Re-eval Chest X-Ray - ED: 1 View, Read by ED Physician, Read by Radiologist, Normal Clinical Impression(s) from Imaging Studies Chest X-Ray 02/11/21 14:33 IMPRESSION: Cardiomegaly. No acute pulmonary process. Electronically Signed: Thai Lamar MD at 15:27 EDT Tel , Service support , Laboratory Data 02/11/21 02/11/21 02/11/21 15:25 15:30 15:30 WBC 7.2 RBC 4.28 Hgb 11.7 L Hct 39.1 MCV 91.4 MCH 27.3 MCHC 29.9 L RDW Std Deviation 51.6 H RDW Coeff of Chucky 15.4 H Plt Count 385 MPV 8.8 Immature Gran % (Auto) 0.300 Neut % (Auto) 70.8 H Lymph % (Auto) 13.3 L Saunders % (Auto) 9.1 Eos % (Auto) 5.9 H Baso % (Auto) 0.6 Absolute Neuts (auto) 5.1 Absolute Lymphs (auto) 0.95 Nucleated RBC % 0 Sodium 138 Potassium 3.7 Chloride 101 Carbon Dioxide 30.0 Anion Gap 7 BUN 20 H Creatinine 1.09 H Estim Creat Clear Calc 36.24 Est GFR (MDRD) Af Amer 64 Est GFR (MDRD) Non-Af 53 L BUN/Creatinine Ratio 18.3 Glucose 166 H Calcium 9.2 Total Bilirubin 0.30 AST 19 ALT 19 Alkaline Phosphatase 112 Troponin I < 0.015 Total Protein 7.4 Albumin 2.9 L Globulin 4.5 H Albumin/Globulin Ratio 0.6 L Urine Color Yellow Urine Clarity Sl. Cloudy Urine pH 6.0 Ur Specific Watson 1.015 Urine Protein Negative Urine Glucose (UA) Normal Urine Ketones Negative Urine Occult Blood 25 H Urine Nitrite Positive H Urine Bilirubin Negative Urine Urobilinogen Normal Ur Leukocyte Esterase 500 H Urine RBC 0-5 SEEN Urine WBC 25-50 SEEN Ur Squamous Epith Cells 0-5 SEEN Urine Bacteria 3+ Urine Mucus 0 SEEN - Rhythm Strip Rhythm Strip: Sinus bradycardia Rate: 55 Ectopy: None - EKG Initial EKG Interpretation: Sinus Bradycardia - Sinus bradycardia at 55 bpm. First-degree AV block with a AZ interval of 270 ms. QTC prolonged at 520 ms. No evidence of ST elevation or depression at this time. - Medical Decision Making Patient appears well and nontoxic. Vital signs within normal limits. Avalos catheter was placed. Patient has evidence of urinary tract infection. Sent for culture and will be treated with Rocephin. Lab work shows a chronic kidney disease but otherwise within normal limits. After discussion with the patient she states that she is continued to deteriorate at home although she has home health care as well as home rehab. Wishes to be placed into a skilled facility for further rehab. Patient states that she had an abdominal surgery and November when she got home in December she has been unable to walk since that time and requiring Diana lift. Patient does wish to ambulate again in the future. Stable at time of admission. Impression: 1. UTI 2. Weakness 3. Inability to ambulate 4. Morbid obesity ED Disposition - Plan for ED Patient: Disposition: Acute Care Hospital [facility] Referrals: Dudley Hoyt MD [Primary Care Provider] -
--- NOTE | 2021-02-11 15:09 | EKG12_ITS ---
Test Reason : COUGH Blood Pressure : / mmHG Vent. Rate : 055 BPM Atrial Rate : 055 BPM P-R Int : 270 ms QRS Dur : 114 ms QT Int : 544 ms P-R-T Axes : 076 -02 051 degrees QTc Int : 520 ms Sinus bradycardia with 1st degree A-V block Poor R wave progression Nonspecific T wave abnormality Abnormal ECG Confirmed by JENNIFER VALDEZ, COLIN ([id number]), supervising editor trailer MARCIAL JESUS ([id number]) on 02/14/2021 8:49:47 AM Referred By: MAUREEN Confirmed By:COLIN RODRIGUEZ MD
[2021-02-11 15:25] VITALS: BP 121/52; PULSE 58; RESP 18; TEMP 36.2; O2SAT 97
[2021-02-11 15:30] LABS: Mucous, Urine 0 SEEN /hpf (<or=2+)
[2021-02-11 15:34] LABS: Color, Urine Yellow (Yellow); Glucose, Dipstick Normal (Normal); Ketone-Dipstick Negative (Negative); Leukocyte Esterase-Dipstick 500 /ul (Negative); Nitrite-Dipstick Positive (Negative); Occult Blood-Urine 25 /ul (Negative); Protein-Dipstick Negative (Negative); Specific Gravity, Urine 1.015 (1.002-1.030); Urine Bilirubin Dipstick Negative (Negative); Urine Clarity Sl. Cloudy (Clear); Urine Urobilinogen Normal (Normal)
[2021-02-11 16:09] LABS: Absolute Lymphocyte Count 0.95 X10^3/uL (0.83-4.51); Absolute Neutrophil Count 5.1 X10^3/uL (2.0-7.7); Basophil# 0.04 X10^3/uL; Basophil% 0.6 % (0-1); Eosinophil# 0.42 X10^3/uL; Eosinophils% 5.9 % (0-5); Hematocrit 39.1 % (37-47); Hemoglobin 11.7 g/dL (12.0-15.0); Lymphocyte # 0.95 X10^3/ul (0.83-4.51); Lymphocyte % 13.3 % (19-41); Mean Corp Hgb Conc 29.9 g/dL (32-36); Mean Corpuscular Hgb 27.3 pg (27.0-32.0); Mean Corpuscular Volume 91.4 fL (81-99); Mean Platelet Vol. 8.8 fl (6.2-12.0); Monocyte# 0.65 X10^3/uL; Monocyte% 9.1 % (0-10); NRBC Flagged by Analyzer 0 % (0-5); Neutrophil # 5.07 X10^3/uL (2.7-7.7); Neutrophil % 70.8 % (47-70); Platelet Count 385 K/mm3 (150-450); RBC Distribution Width CV 15.4 % (11.6-14.6); RBC Distribution Width SD 51.6 fl (35.1-43.9); Red Blood Count 4.28 M/mm3 (4.2-5.4); White Blood Count 7.2 K/mm3 (4.4-11.0)
[2021-02-11 16:22] LABS: Bacteria 3+ /hpf (None Seen); Red Blood Cells-Urine 0-5 SEEN /hpf (0-5); Squamous Epithelial Cells - UA 0-5 SEEN /hpf (5-10); White Blood Cells 25-50 SEEN /hpf (0-5)
[2021-02-11 16:25] LABS: ALB/GLOB Ratio 0.6 RATIO (0.9-2.4); AST(SGOT) 19 U/L (15-37); Alanine Aminotransfer ALT/SGPT 19 U/L (13-56); Albumin, Serum 2.9 g/dL (3.2-5.0); Alkaline Phosphatase 112 U/L (45-117); Anion Gap 7 (5-15); BUN 20 mg/dL (7-18); BUN/Creat Ratio 18.3 RATIO (10-20); Calcium,Total 9.2 mg/dL (8.5-10.1); Chloride 101 mmol/L (98-107); Creatinine, Serum 1.09 mg/dL (0.55-1.02); EST Glomerular Filtration Rate 53 mL/min (>60); Est Glom Filt Rate - Afr Amer 64 mL/min (>60); Estimated Creatinine Clearance 36.24 ml/min; Globulin 4.5 g/dL (2.2-4.2); Glucose 166 mg/dL (74-106); Potassium 3.7 mmol/L (3.5-5.1); Protein, Total 7.4 g/dL (6.4-8.2); Sodium Level 138 mmol/L (136-145)
[2021-02-11] MEDS: Ceftriaxone 1 GM/50 ML BAG IV (16:30)
[2021-02-11 16:36] VITALS: BP 108/65; PULSE 56; RESP 24; TEMP 36.5; O2SAT 100
--- NOTE | 2021-02-11 16:36 | NURSING ---
DR SHANNON FLOYD
--- NOTE | 2021-02-11 16:44 | NURSING ---
MED SURG SHANNON UTI AND WEAKNESS
--- NOTE | 2021-02-11 17:11 | PCM.HP.STD ---
Problem List (1) UTI (urinary tract infection) Status: Acute (2) Debility Status: Acute (3) Shoulder arthritis Status: Chronic (4) Bilateral lower leg cellulitis Status: Resolved (5) Asthma Status: Chronic Qualifiers: Asthma severity: mild intermittent (6) CKD (chronic kidney disease) stage 3, GFR 30-59 ml/min Status: Chronic Qualifiers: Chronic kidney disease stage 3 subtype: stage 3a (GFR 45-59) Qualified Code(s): N18.31 - Chronic kidney disease, stage 3a (7) Cancer, uterine Status: Resolved (8) Chronic anemia Status: Chronic (9) Chronic back pain Status: Chronic Qualifiers: Back pain location: back pain in unspecified location Back pain laterality: unspecified Qualified Code(s): M54.9 - Dorsalgia, unspecified; G89.29 - Other chronic pain (10) Entero-dermal fistula Status: Resolved (11) Gastroesophageal reflux disease Status: Chronic (12) Hernia of anterior abdominal wall Status: Chronic (13) History of supraventricular tachycardia Status: Chronic Comment: atrial fibrillation (14) Hx of gastric bypass Status: Inactive Comment: gastric sleeve (15) Hypertension Status: Chronic Qualifiers: Hypertension type: essential hypertension Qualified Code(s): I10 - Essential (primary) hypertension (16) Lymphedema Status: Chronic (17) Morbid obesity Status: Chronic (18) Sleep apnea Status: Chronic Qualifiers: Sleep apnea type: unspecified type Qualified Code(s): G47.30 - Sleep apnea, unspecified History of Present Illness Date of Admission: 02/11/21 Ms Peralta is a 70 year old WF with a past medical history of hypertension, EMILY, uterine cancer, bowel obstructions, enterocutaneous fistulas, incisional hernia, PAF, asthma, chronic low back pain, OA, urinary incontinence, super morbid obesity, and depression/anxiety who presented to the emergency department [facility] on 02/11/2021 with a chief complaint of urinary frequency and dysuria the patient states it began the day prior to presentation. She has had a chronic indwelling Avalos which was placed approximately 3 weeks prior to presentation secondary to sacral skin breakdown and a pressure ulcer that was being irritated and causing increased maceration secondary to her incontinence. Her Avalos came out last evening and that's when she was having urinary frequency and dysuria. She has had two episodes where the Avalos itself has had to been replaced due to loss of patency of the tubing. The Avalos catheter was replaced in the emergency department prior to me evaluating the patient. Upon evaluation, the patient reports that in November she had bowel resection related to enterocutaneous fistulas that developed at the [facility] and had a complicated hospital course secondary to the development of pneumonia after her abdominal surgery. After she was well enough to be discharged, she was sent to a residential facility in early December where she stayed for approximately 3 weeks and then signed herself out AGAINST MEDICAL ADVICE as she felt that the care was unsatisfactory. She reports marked debility and the inability to help with transfers at home. Her sister is her primary caregiver and she reports that she is a complete Diana dependent lift at this time. The patient would like to get back to being able to at least help with transfers to decrease the stress and strain on her sister. They have looked into admission [facility] rehab. Her vital signs in the emergency department show that she is afebrile with a T-max of 97.8, heart rate of 65, a blood pressure of 111/49, respiratory rate of 22, and her oxygen saturations are anywhere from 96 to 100% on room air. Her CBC shows a chronic normocytic anemia with a hemoglobin of 11.7. This is stable when compared to previous hemoglobins. Her CMP shows a mildly elevated BUN and creatinine which are at baseline and a glucose of 166. Upon review of her hemoglobin A1c which was done in October 2020, this was found to be 5.9. Patient is not on any current antihyperglycemic's at this time. A UA was performed and shows 25 occult blood, nitrite, positive leukoesterase, positive for white blood cells and 3+ bacteria. She was given a dose of Rocephin in the emergency department and admission was requested for placement. The patient is not interested in permanent placement but would like to go it be able to go somewhere where she can get rehab and be able to go back home. Past Medical History Past Medical History (Chronic Problems): Chronic Problems Chronic anemia (Chronic) Shoulder arthritis (Chronic) CKD (chronic kidney disease) stage 3, GFR 30-59 ml/min (Chronic) History of supraventricular tachycardia (Chronic) atrial fibrillation Sleep apnea (Chronic) Chronic back pain (Chronic) Morbid obesity (Chronic) Hypertension (Chronic) Gastroesophageal reflux disease (Chronic) Lymphedema (Chronic) Hernia of anterior abdominal wall (Chronic) Asthma (Chronic) Allergies fentanyl Allergy (Verified 02/11/21 14:20) Rash latex Allergy (Verified 02/11/21 14:20) Rash methadone [Methadone] Allergy (Verified 02/11/21 14:20) Shortness of breath morphine Allergy (Verified 02/11/21 14:20) Itching oxycodone [Oxycodone] Allergy (Verified 02/11/21 14:20) Hives amoxicillin [Amoxicillin] Adverse Reaction (Verified 02/11/21 14:20) Itching Sulfa (Sulfonamide Antibiotics) Adverse Reaction (Verified 02/11/21 14:20) Rash pain meds Allergy (Uncoded 02/11/21 14:20) Itching PT STATES SHE NEEDS BENADRYL WITH PAIN MEDS Home Medications: Ambulatory Orders Medication Instructions Recorded Aspirin [Aspirin, Baby] 81 mg PO DAILY@0800 07/20/13 Enalapril Maleate [Vasotec] 5 mg PO DAILY 07/20/13 Furosemide [Lasix] 80 mg PO DAILY 07/20/13 Mometasone Furoate [Nasonex] 2 spray NASAL DAILY PRN 07/20/13 Ferrous Sulfate 325 mg PO BIDCM 10/03/15 Oxybutynin [Ditropan] 5 mg PO BID 10/03/15 cycloBENZAPRine HCl [Flexeril] 10 mg PO TID PRN 10/03/15 Duloxetine HCl 20 mg PO DAILY 12/04/15 DiphenhydrAMINE [Benadryl] 50 mg PO Q6 PRN #0 capsule 12/07/15 Acetaminophen [Tylenol] 1,000 mg PO Q6H PRN PRN 11/01/20 Cyanocobalamin (Vitamin B-12) 1,000 mcg PO DAILY 11/01/20 [B-12] Gabapentin 600 mg PO BID 11/01/20 Tramadol HCl 50 mg PO BID PRN PRN 11/01/20 Rivaroxaban [Xarelto] 20 mg PO DAILY 02/11/21 Surgical History: - - Gastric sleeve, attempted abdominal wall hernia repair with mesh-failed, Cholecystectomy, bowel resection secondary to bowel obstruction with ostomy, hysterectomy, bilateral heel spur surgery, bowel resection secondary to enterocutaneous fistulas Psychiatric History: Anxiety, Depression [employer] DIRECTOR History: - - History of uterine cancer Lives: With Family - Sister Smoking Status: Never smoker Alcohol: None Drugs: None - *Family History Maternal History Items: Stroke Paternal History Items: Cancer - Father with a history of cancer, lymphoma. Review of Systems Constitutional: Reports: Weakness, Fatigue. Denies: Anorexia, Chills, Fever, Night Sweats, Malaise, Weight Change Eyes: Denies: Blurred vision, Cataracts, Conjunctivae Inflammation, Double vision, Drainage, Eyelid Inflammation, Pain, Redness, Vision Change HEENT: Denies: Difficulty Hearing, Difficulty Swallowing, Ear Pain, Eye Pain, Head Aches, Nasal bleeding, Nasal Congestion, Post Nasal Drip, Sinus Congestion, Sinus Drainage, Sore Throat, Visual Changes Cardiovascular: Denies: Chest Pain, Claudication, Chest Pressure, Chest Tightness, Edema, Heaviness, Light Headedness, Orthopnea, Palpitations, Paroxysmal Noc. Dyspnea, Syncope Respiratory: Reports: Shortness of Breath, Shortness of breath upon exertion - Secondary to deconditioning. Denies: Cough, Hemoptysis, Pleuritic Pain, Shortness of breath at rest, Sputum production, Wheezing Gastrointestinal: Reports: Constipation. Denies: Abdominal Pain, Diarrhea, Dyspepsia, Hematemesis, Hematochezia, Nausea, Melena, Vomiting Genitourinary: Reports: Dysuria, Frequency, Urgency, - - Chronic Avalos placed approximately 3 to 4 weeks ago for sacral wound. Denies: Hematuria, Hesitancy, Incontinence, Nocturia, Retention Musculoskeletal: Reports: Back Pain, Joint Pain - Bilateral shoulders and bilateral knees, Joint stiffness, Shoulder Pain. Denies: Joint swelling, Joint Tenderness, Leg Pain, Muscle pain, Neck Pain Skin: Reports: Wounds - Sacral wound. Denies: Dryness, Jaundice, Lesions, Pruritis, Rash, Skin Changes Neurological: Reports: Balance problems. Denies: Blurred vision, Double vision, Change in Speech, Slurred speech, Confusion, Difficulty swallowing, Focal weakness, Headaches, Incoordination, Numbness, Tingling, Tremor, Seizures Psychiatric: Reports: Anxiety, Depression Endocrine: Denies: Change in Body Habitus, Heat/ Cold Intolerance, Polydipsia, Polyuria Hematologic/ Lymphatic: Reports: Anemia. Denies: Adenopathy, Easy Bruising, Easy Bleeding, Petechiae, Purpura VTE Information - Inpt Only VTE Present on Admission: No VTE Mechan Device Prophylaxis: None VTE Pharm Prophylaxis ordered?: No Reason prophylaxis not ordered:: Treatment Not Indicated - Patient on Xarelto Patient Problems: Active and Suspected Problems UTI (urinary tract infection) (Acute) Debility (Acute) - Physical Exam Vitals/I&O's: Vital Signs Temp Pulse Resp BP Pulse Ox 97.7 F L 56 L 24 H 108/65 100 02/11/21 16:36 02/11/21 16:36 02/11/21 16:36 02/11/21 16:36 02/11/21 16:36 Oxygen Delivery Method Room Air Weight: 156.036 kg Body Mass Index (BMI) 65.0 General: Alert, Oriented x3, Cooperative, No apparent distress, Well developed, Well nourished, - - Super morbidly obese white female sitting up in the bed, sister at bedside, nontoxic HEENT: Atraumatic, PERRLA, EOMI, Normocephalic, EAC Clear Oral: Moist Mucosa, No Gingival or Mucosal Lesions/ Ulcerations, - - Poor dentition, Mallampati 2, no thrush Neck: Supple, No JVD, Negative Carotid Bruits, Negative Hepatojugular Reflux, No Nodes, No Nuchal Rigidity, Trachea Midline, Thyroid Normal Size and Texture, - - Mild cutaneous yeast in neck folds Lungs: Clear to auscultation, Normal air movement, No rhonchi, No wheeze, No rales, - - Distant secondary to body habitus Cardiovascular: Regular rate, Regular Rhythm, Normal S1, Normal S2, Murmur - Out of six systolic murmur, No rub noted, No Gallop Abdomen: Bowel Sounds Present, Soft, Non Tender, Non-Distended, Obese, Hernia - Significant incisional hernia, - - Well-healed abdominal incisions and old ostomy site, three spots with scabs, no signs of infection Extremities: No clubbing, No cyanosis, Capillary Refill Less than 3 Seconds, Edema - Trace bilateral lower extremity, Peripheral Pulses Normal Skin: No rashes, Ulcer/ Wound, - - Sacral skin breakdown per patient unable to observe secondary to body habitus Musculoskeletal: Arthritic Changes, Muscle Wasting, - - Toes on right foot absent Lymphatic: No Cervical, Supraclavicular, or Inguinal Adenopathy Neurological: Cranial nerves II-XII grossly intact, Neuro grossly intact, Muscle tone normal, Coordination normal, - - Marked generalized weakness Psych/Mental Status: Flat Affect Laboratory Results 02/11/21 15:25: Urine Color Yellow, Urine Clarity Sl. Cloudy, Urine pH 6.0, Ur Specific [place] 1.015, Urine Protein Negative, Urine Glucose (UA) Normal, Urine Ketones Negative, Urine Occult Blood 25 H, Urine Nitrite Positive H, Urine Bilirubin Negative, Urine Urobilinogen Normal, Ur Leukocyte Esterase 500 H, Urine RBC 0-5 SEEN, Urine WBC 25-50 SEEN, Ur Squamous Epith Cells 0-5 SEEN, Urine Bacteria 3+, Urine Mucus 0 SEEN 02/11/21 15:30: WBC 7.2, RBC 4.28, Hgb 11.7 L, Hct 39.1, MCV 91.4, MCH 27.3, MCHC 29.9 L, RDW Std Deviation 51.6 H, RDW Coeff of Chucky 15.4 H, Plt Count 385, MPV 8.8, Immature Gran % (Auto) 0.300, Neut % (Auto) 70.8 H, Lymph % (Auto) 13.3 L, [place] % (Auto) 9.1, Eos % (Auto) 5.9 H, Baso % (Auto) 0.6, Absolute Neuts (auto) 5.1, Absolute Lymphs (auto) 0.95, Nucleated RBC % 0 02/11/21 15:30: Sodium 138, Potassium 3.7, Chloride 101, Carbon Dioxide 30.0, Anion Gap 7, BUN 20 H, Creatinine 1.09 H, Estim Creat Clear Calc 36.24, Est GFR (MDRD) Af Amer 64, Est GFR (MDRD) Non-Af 53 L, BUN/Creatinine Ratio 18.3, Glucose 166 H, Calcium 9.2, Total Bilirubin 0.30, AST 19, ALT 19, Alkaline Phosphatase 112, Troponin I < 0.015, Total Protein 7.4, Albumin 2.9 L, Globulin 4.5 H, Albumin/Globulin Ratio 0.6 L Assessment/Plan All Active Problems UTI (urinary tract infection) (Acute) Debility (Acute) Bilateral lower leg cellulitis (Resolved) Cancer, uterine (Resolved) Entero-dermal fistula (Resolved) Urinary tract infection secondary to chronic indwelling Avalos catheter -UA is significant for infection -Urine culture pending -Rocephin 1 g every 24 and narrow once sensitivities noted -Avalos catheter was changed in the emergency department and needs to be maintained secondary to sacral pressure ulcer -On review of past cultures patient has not had issues with recurrent urinary tract infections here at this institution Severe debility -Patient notes that she hasn't been able to ambulate since her surgery which was in November -She indicates that to be at home she needs to be able to at least help pivot transfer -Currently is completely Diana dependent -Patient would like to go to rehab if possible at discharge -I had extensive conversation with the patient and I'm concerned that she may not qualify for acute inpatient rehab at this time based on her current functional status, she was at a nursing facility and states that she got no rehab there prior to going home 3 to 4 weeks ago. She signed herself out AMA at that time -Physical therapy consultation -Occupational Therapy consultation -We'll need placement at discharge whether it be residential facility versus inpatient rehab institution versus LTAC--> Case management/social work consulted -LTAC may be the best place for her to consider wound and rehab needs -And from there she may be able to progress to an inpatient rehab facility depending on her functional status Sacral pressure ulcer -Stage uncertain -Consult wound nurse -I was unable to evaluate this in the emergency department as patient's mobility is severely impacted due to her morbid obesity and debility -Continue Avalos at this time as patient was incontinent and it was making the wound more macerated at home CKD stage IIIa -Serum creatinine appears to be at baseline -Continue to monitor -Avoid nephrotoxins PAF -Continue Xarelto 20 mg daily -Patient is not on any rate controlling medication -Currently in normal sinus rhythm Hypertension -Continue Vasotec -Continue Lasix Chronic anemia -Hemoglobin is stable at 11.7 on admission Chronic low back pain/severe bilateral shoulder OA/bilateral knee OA -Continue Flexeril -Continue tramadol as needed -Continue gabapentin -Shoulder OA significantly limits her ability with standing EMILY -Patient is not able to tolerate CPAP/BiPAP at home -Nocturnal oxygen ordered Depression/anxiety -Continue duloxetine -Continue Benadryl Urinary incontinence -Patient has a chronic Avalos -Continue Ditropan Super morbid obesity -BMI 65 -Patient has undergone gastric bypass surgery in the past and weighs less than she did at that time -Recommend further weight loss DVT prophylaxis -Continue Xarelto 20 mg daily CODE STATUS -Full code Inpatient E&M: 19837 Init Hosp L3
[2021-02-11 17:18] VITALS: BP 111/49; PULSE 65; RESP 22; TEMP 36.6; O2SAT 96
[2021-02-11 17:49] VITALS: BP 121/55; PULSE 57; RESP 16; TEMP 36.6; O2SAT 97
[2021-02-11 17:50] VITALS: BMI 64.9
[2021-02-11 18:05] VITALS: BMI 64.9
[2021-02-11] MEDS: Ferrous Sulfate 325 MG Tablet PO (18:40)
[2021-02-11 21:14] VITALS: BP 111/50; PULSE 55; RESP 18; TEMP 36.5; O2SAT 93
[2021-02-11] MEDS: Nystatin Powder 15gm Bottle 1 APPLIC TOPICAL (21:26)
[2021-02-11] MEDS: Gabapentin 600 MG Tablet PO (21:27)
[2021-02-11] MEDS: Oxybutynin 5 MG Tablet PO (21:27)
[2021-02-12 04:24] VITALS: BP 109/55; PULSE 56; RESP 17; TEMP 36.3; O2SAT 96
--- NOTE | 2021-02-12 07:00 | US_ITS ---
STUDY: RENAL ULTRASOUND - COMPLETE REASON FOR EXAM: Female, 70 years old. UTI TECHNIQUE: Ultrasound evaluation of the kidneys was performed with real-time and static funez-scale imaging. COMPARISON: None. FINDINGS: RIGHT KIDNEY: Normal location of the right kidney, which is normal in size. The right kidney measures 10.0 cm. There is a normal cortex of the right kidney. The renal cortex measures 1.1 cm. There is no right renal mass or cyst. There are no right renal calculi. There is no right hydronephrosis. DISTAL RIGHT URETER: There is non-visualization of the distal right ureter. There is no demonstrated right ureterovesical junction calculus. There is a visualized right ureteral jet. LEFT KIDNEY: Normal location of the left kidney, which is normal in size. The left kidney measures 11.5 cm. There is a normal cortex of the left kidney. The renal cortex measures 1.3 cm. There is no left renal mass or cyst. There are no left renal calculi. There is no left hydronephrosis. DISTAL LEFT URETER: There is non-visualization of the distal left ureter. There is no demonstrated left ureterovesical junction calculus. There is a visualized left ureteral jet. BLADDER: Not visualized due to Avalos catheter. US/Kidney and Bladder IMPRESSION: Normal ultrasound of the kidneys and urinary bladder. Electronically Signed: Dragan Sanchez MD at 12:42 EDT Tel , Service support ,
[2021-02-12 07:19] LABS: Absolute Lymphocyte Count 1.08 X10^3/uL (0.83-4.51); Absolute Neutrophil Count 3.1 X10^3/uL (2.0-7.7); Basophil# 0.02 X10^3/uL; Basophil% 0.4 % (0-1); Eosinophil# 0.45 X10^3/uL; Eosinophils% 8.5 % (0-5); Hematocrit 34.3 % (37-47); Hemoglobin 10.3 g/dL (12.0-15.0); Lymphocyte # 1.08 X10^3/ul (0.83-4.51); Lymphocyte % 20.3 % (19-41); Mean Corpuscular Hgb 28.1 pg (27.0-32.0); Mean Corpuscular Volume 93.5 fL (81-99); Monocyte# 0.64 X10^3/uL; Monocyte% 12.1 % (0-10); NRBC Flagged by Analyzer 0 % (0-5); Neutrophil # 3.09 X10^3/uL (2.7-7.7); Neutrophil % 58.1 % (47-70); Platelet Count 340 K/mm3 (150-450); RBC Distribution Width CV 15.6 % (11.6-14.6); RBC Distribution Width SD 53.7 fl (35.1-43.9); Red Blood Count 3.67 M/mm3 (4.2-5.4); White Blood Count 5.3 K/mm3 (4.4-11.0)
[2021-02-12 07:35] VITALS: O2SAT 98
[2021-02-12] MEDS: Aspirin 81 MG TAB.CHEW PO (07:40)
[2021-02-12] MEDS: Furosemide 80 MG Tablet PO (07:40)
[2021-02-12] MEDS: DULoxetine Hcl 20 MG Capsule PO (07:40)
[2021-02-12] MEDS: Ferrous Sulfate 325 MG Tablet PO ×2 (07:40→16:19)
[2021-02-12] MEDS: Oxybutynin 5 MG Tablet PO ×2 (07:41→21:28)
[2021-02-12] MEDS: Cyanocobalamin 500 MCG Tablet 1000 MCG PO (07:41)
[2021-02-12] MEDS: Gabapentin 600 MG Tablet PO ×2 (07:41→21:28)
[2021-02-12] MEDS: Polyethylene Glycol 3350 17 GM PACKET PO (07:41)
[2021-02-12] MEDS: Lisinopril 5 MG Tablet PO (07:41)
[2021-02-12] MEDS: DiphenhydrAMINE 25 MG Capsule 50 MG PO ×2 (07:44→21:28)
[2021-02-12] MEDS: Rivaroxaban 20 MG Tablet PO (07:46)
[2021-02-12 07:48] LABS: Anion Gap 4 (5-15); BUN 19 mg/dL (7-18); BUN/Creat Ratio 23.2 RATIO (10-20); Calcium,Total 9.3 mg/dL (8.5-10.1); Chloride 102 mmol/L (98-107); Creatinine, Serum 0.82 mg/dL (0.55-1.02); EST Glomerular Filtration Rate 73 mL/min (>60); Est Glom Filt Rate - Afr Amer 89 mL/min (>60); Estimated Creatinine Clearance 48.17 ml/min; Glucose 105 mg/dL (74-106); Potassium 3.8 mmol/L (3.5-5.1); Sodium Level 138 mmol/L (136-145)
[2021-02-12] MEDS: traMADol 50 MG Tablet PO ×2 (07:49→21:28)
[2021-02-12 08:13] VITALS: BP 116/40; PULSE 58; RESP 16; TEMP 36.6; O2SAT 98
--- NOTE | 2021-02-12 09:06 | PN_ITS ---
<TavaresSandi WEB APPLICATION TESTER - Last Filed: 02/12/21 09:14> Patient Problems: Active and Suspected Problems UTI (urinary tract infection) (Acute) Debility (Acute) Subjective: Patient seen and examined. Denies fever, chills. States she is currently living with her sister and feels she needs more care however her goal is to r eturn to living with her sister after rehab. Complains of generalized weakness, debility. - Physical Exam Vitals/I&O's: Vital Signs Temp Pulse Resp BP Pulse Ox 97.8 F 58 L 16 116/40 L 98 02/12/21 08:13 02/12/21 08:13 02/12/21 08:13 02/12/21 08:13 02/12/21 08:13 Oxygen Delivery Method Room Air Weight: 343 lb 15.796 oz Body Mass Index (BMI) 64.9 Intake and Output for Last 24 Hours 02/10/21 02/11/21 02/12/21 23:59 23:59 23:59 Intake Total 50 / 50 Output Total 575 / 575 225 / 225 Balance -525 / -525 -225 / -225 General: Alert, Oriented x3, Cooperative HEENT: Atraumatic, PERRLA, EOMI, Normocephalic Neck: Supple, No JVD, Negative Carotid Bruits Lungs: Clear to auscultation, Diminished Cardiovascular: Regular rate, Regular Rhythm, Murmur Abdomen: Bowel Sounds Present, Soft, Non Tender, Non-Distended, Obese Extremities: No clubbing, No cyanosis, No edema Skin: - - Sacral pressure ulcer, not visualized during assessment due to body habitus Musculoskeletal: No Tenderness to Palpation of Joints or Extremities Neurological: Cranial nerves II-XII grossly intact, Neuro grossly intact Psych/Mental Status: Normal Affect, Appropriate Microbiology Past 72 Hours 02/11/21 16:46 Nasal Secretion SARS-CoV-2 Antigen (Rapid) - Final Laboratory Results 02/11/21 15:25: Urine Color Yellow, Urine Clarity Sl. Cloudy, Urine pH 6.0, Ur Specific [place] 1.015, Urine Protein Negative, Urine Glucose (UA) Normal, Urine Ketones Negative, Urine Occult Blood 25 H, Urine Nitrite Positive H, Urine Bilirubin Negative, Urine Urobilinogen Normal, Ur Leukocyte Esterase 500 H, Urine RBC 0-5 SEEN, Urine WBC 25-50 SEEN, Ur Squamous Epith Cells 0-5 SEEN, Urine Bacteria 3+, Urine Mucus 0 SEEN 02/11/21 15:30: WBC 7.2, RBC 4.28, Hgb 11.7 L, Hct 39.1, MCV 91.4, MCH 27.3, MCHC 29.9 L, RDW Std Deviation 51.6 H, RDW Coeff of Chucky 15.4 H, Plt Count 385, MPV 8.8, Immature Gran % (Auto) 0.300, Neut % (Auto) 70.8 H, Lymph % (Auto) 13.3 L, [place] % (Auto) 9.1, Eos % (Auto) 5.9 H, Baso % (Auto) 0.6, Absolute Neuts (auto) 5.1, Absolute Lymphs (auto) 0.95, Nucleated RBC % 0 02/11/21 15:30: Sodium 138, Potassium 3.7, Chloride 101, Carbon Dioxide 30.0, Anion Gap 7, BUN 20 H, Creatinine 1.09 H, Estim Creat Clear Calc 36.24, Est GFR (MDRD) Af Amer 64, Est GFR (MDRD) Non-Af 53 L, BUN/Creatinine Ratio 18.3, Glucose 166 H, Calcium 9.2, Total Bilirubin 0.30, AST 19, ALT 19, Alkaline Phosphatase 112, Troponin I < 0.015, Total Protein 7.4, Albumin 2.9 L, Globulin 4.5 H, Albumin/Globulin Ratio 0.6 L 02/12/21 06:00: WBC 5.3, RBC 3.67 L, Hgb 10.3 L, Hct 34.3 L, MCV 93.5, MCH 28.1, MCHC 30.0 L, RDW Std Deviation 53.7 H, RDW Coeff of Chucky 15.6 H, Plt Count 340, MPV 9.0, Immature Gran % (Auto) 0.600, Neut % (Auto) 58.1, Lymph % (Auto) 20.3, [place] % (Auto) 12.1 H, Eos % (Auto) 8.5 H, Baso % (Auto) 0.4, Absolute Neuts (auto) 3.1, Absolute Lymphs (auto) 1.08, Nucleated RBC % 0 02/12/21 06:00: Sodium 138, Potassium 3.8, Chloride 102, Carbon Dioxide 32.0, Anion Gap 4 L, BUN 19 H, Creatinine 0.82, Estim Creat Clear Calc 48.17, Est GFR (MDRD) Af Amer 89, Est GFR (MDRD) Non-Af 73, BUN/Creatinine Ratio 23.2 H, Glucose 105, Calcium 9.3 Current Medications Acetaminophen (Acetaminophen 325 Mg Tablet) 650 mg PO Q6H PRN PRN PRN Reason: Pain Score 1-10/Temp > 100.7 F Al Hydroxide/Mg Hydroxide (Mag Hydrox/Al Hydrox/Simeth 30 Ml Udc) 30 ml PO Q6H PRN PRN PRN Reason: Gastric Burning Albuterol Sulfate (Albuterol 2.5 Mg/3 Ml Vial.Neb.) 2.5 mg INHALATION Q2H PRN PRN PRN Reason: Shortness of Breath/Wheezing Aspirin (Aspirin 81 Mg Tab.Chew) 81 mg PO DAILY@0800 [facility] Last Admin: 02/12/21 07:40 Dose: 81 mg Documented by: Cyanocobalamin (Cyanocobalamin 500 Mcg Tablet) 1,000 mcg PO DAILY [facility] Last Admin: 02/12/21 07:41 Dose: 1,000 mcg Documented by: Cyclobenzaprine HCl (Cyclobenzaprine Hcl 10 Mg Tablet) 10 mg PO TID PRN PRN PRN Reason: MUSCLE SPASMS Diphenhydramine HCl (Diphenhydramine 25 Mg Capsule) 50 mg PO Q6H PRN PRN PRN Reason: ITCHING Last Admin: 02/12/21 07:44 Dose: 50 mg Documented by: Duloxetine HCl (Duloxetine Hcl 20 Mg Capsule) 20 mg PO DAILY [facility] Last Admin: 02/12/21 07:40 Dose: 20 mg Documented by: Ferrous Sulfate (Ferrous Sulfate 325 Mg Tablet) 325 mg PO BIDCM [facility] Last Admin: 02/12/21 07:40 Dose: 325 mg Documented by: Fluticasone Propionate (Fluticasone 0.05% 1 [place] Nasal.Sry) 2 spray NASAL DAILY PRN PRN Reason: CONGESTION Furosemide (Furosemide 80 Mg Tablet) 80 mg PO DAILY [facility] Last Admin: 02/12/21 07:40 Dose: 80 mg Documented by: Gabapentin (Gabapentin 600 Mg Tablet) 600 mg PO BID [facility] Last Admin: 02/12/21 07:41 Dose: 600 mg Documented by: Ceftriaxone Sodium (Rocephin) 1 gm in 50 mls @ 100 mls/hr IV Q24 [facility] Stop: 02/19/21 10:01 Lisinopril (Lisinopril 5 Mg Tablet) 5 mg PO DAILY [facility] Last Admin: 02/12/21 07:41 Dose: 5 mg Documented by: Melatonin (Melatonin 3 Mg Tablet) 3 mg PO QHS PRN PRN PRN Reason: INSOMNIA Ondansetron HCl (Ondansetron 4 Mg/2 Ml Vial) 4 mg IV Q8H PRN PRN PRN Reason: NAUSEA/VOMITING Oxybutynin Chloride (Oxybutynin 5 Mg Tablet) 5 mg PO BID [facility] Last Admin: 02/12/21 07:41 Dose: 5 mg Documented by: Polyethylene Glycol (Polyethylene Glycol 3350 17 Gm Packet) 17 gm PO DAILY [facility] Last Admin: 02/12/21 07:41 Dose: 17 gm Documented by: Rivaroxaban (Rivaroxaban 20 Mg Tablet) 20 mg PO DAILY [facility] Last Admin: 02/12/21 07:46 Dose: 20 mg Documented by: Senna/Docusate Sodium (Senna/Docusate Sodium 1 Tablet) 2 tablet PO BID PRN PRN PRN Reason: Constipation Sodium Chloride (0.9% Saline Lock 10 Ml Syringe) 10 - 40 ml IV UD PRN PRN Reason: SALINE FLUSH Tramadol HCl (Tramadol 50 Mg Tablet) 50 mg PO BID PRN PRN PRN Reason: Pain Score 1-10 Last Admin: 02/12/21 07:49 Dose: 50 mg Documented by: Medical Necessity - Tobacco Use Smoking Status: Never smoker Tobacco Use: Non-smoker Assessment/Plan All Active Problems UTI (urinary tract infection) (Acute) Debility (Acute) Bilateral lower leg cellulitis (Resolved) Cancer, uterine (Resolved) Entero-dermal fistula (Resolved) 1. Acute complicated UTI secondary to chronic indwelling Avalos catheter- continue IV Rocephin pending cultures. 2. Severe debility, complicated by super morbid obesity-lives with sister, has not been ambulating since surgery in November. Diana bowers. PT/OT. Case management consult. Fall precautions. 3. Sacral pressure ulcer, present on admission-wound RN consult, every 2 hours turns. 4. Chronic kidney disease stage IIIa-stable, trend BMP. 5. Paroxysmal atrial fibrillation-on Xarelto. 6. Hypertension-on Vasotec, Lasix. 7. Chronic anemia-stable, trend CBC. 8. EMILY, chronic hypoxic respiratory insufficiency-continue nightly Pap regimen. Nighttime oxygen use. 9. Urinary incontinence-chronic indwelling Avalos catheter. Continue Ditropan. 10. Depression/anxiety-on duloxetine. 11. Chronic back pain-on Flexeril, tramadol, gabapentin. DVT prophylaxis-Xarelto This patient was seen by JOHN WarnerC under the supervision of Dr. Cruz. <Edgardo Cruz F - Last Filed: 02/12/21 17:04> - Physical Exam Vitals/I&O's: Vital Signs Temp Pulse Resp BP Pulse Ox 97.9 F 59 L 16 113/44 L 93 02/12/21 15:16 02/12/21 15:16 02/12/21 15:16 02/12/21 15:16 02/12/21 15:16 Oxygen Delivery Method Room Air Weight: 343 lb 15.796 oz Body Mass Index (BMI) 64.9 Intake and Output for Last 24 Hours 02/10/21 02/11/21 02/12/21 23:59 23:59 23:59 Intake Total 50 / 50 415.25 / 415.25 Output Total 575 / 575 1775 / 1775 Balance -525 / -525 -1359.75 / -1359.75 Microbiology Past 72 Hours 02/11/21 15:25 Urine Catheter - Catheter Urine Culture - Preliminary GNR lactose equity holder 02/11/21 16:46 Nasal Secretion SARS-CoV-2 Antigen (Rapid) - Final Laboratory Results 02/12/21 06:00: WBC 5.3, RBC 3.67 L, Hgb 10.3 L, Hct 34.3 L, MCV 93.5, MCH 28.1, MCHC 30.0 L, RDW Std Deviation 53.7 H, RDW Coeff of Chucky 15.6 H, Plt Count 340, MPV 9.0, Immature Gran % (Auto) 0.600, Neut % (Auto) 58.1, Lymph % (Auto) 20.3, [place] % (Auto) 12.1 H, Eos % (Auto) 8.5 H, Baso % (Auto) 0.4, Absolute Neuts (auto) 3.1, Absolute Lymphs (auto) 1.08, Nucleated RBC % 0 02/12/21 06:00: Sodium 138, Potassium 3.8, Chloride 102, Carbon Dioxide 32.0, Anion Gap 4 L, BUN 19 H, Creatinine 0.82, Estim Creat Clear Calc 48.17, Est GFR (MDRD) Af Amer 89, Est GFR (MDRD) Non-Af 73, BUN/Creatinine Ratio 23.2 H, Glucose 105, Calcium 9.3 Current Medications Acetaminophen (Acetaminophen 325 Mg Tablet) 650 mg PO Q6H PRN PRN PRN Reason: Pain Score 1-10/Temp > 100.7 F Al Hydroxide/Mg Hydroxide (Mag Hydrox/Al Hydrox/Simeth 30 Ml Udc) 30 ml PO Q6H PRN PRN PRN Reason: Gastric Burning Albuterol Sulfate (Albuterol 2.5 Mg/3 Ml Vial.Neb.) 2.5 mg INHALATION Q2H PRN PRN PRN Reason: Shortness of Breath/Wheezing Aspirin (Aspirin 81 Mg Tab.Chew) 81 mg PO DAILY@0800 [facility] Last Admin: 02/12/21 07:40 Dose: 81 mg Documented by: Calamine/Phenol (Menthol/Lanolin/Calamine/Znox 113 Gm Tube) 1 applic TOPICAL BID [facility]; Protocol Cyanocobalamin (Cyanocobalamin 500 Mcg Tablet) 1,000 mcg PO DAILY [facility] Last Admin: 02/12/21 07:41 Dose: 1,000 mcg Documented by: Cyclobenzaprine HCl (Cyclobenzaprine Hcl 10 Mg Tablet) 10 mg PO TID PRN PRN PRN Reason: MUSCLE SPASMS Diphenhydramine HCl (Diphenhydramine 25 Mg Capsule) 50 mg PO Q6H PRN PRN PRN Reason: ITCHING Last Admin: 02/12/21 07:44 Dose: 50 mg Documented by: Duloxetine HCl (Duloxetine Hcl 20 Mg Capsule) 20 mg PO DAILY [facility] Last Admin: 02/12/21 07:40 Dose: 20 mg Documented by: Ferrous Sulfate (Ferrous Sulfate 325 Mg Tablet) 325 mg PO BIDCM [facility] Last Admin: 02/12/21 16:19 Dose: 325 mg Documented by: Fluticasone Propionate (Fluticasone 0.05% 1 [place] Nasal.Sry) 2 spray NASAL DAILY PRN PRN Reason: CONGESTION Furosemide (Furosemide 80 Mg Tablet) 80 mg PO DAILY [facility] Last Admin: 02/12/21 07:40 Dose: 80 mg Documented by: Gabapentin (Gabapentin 600 Mg Tablet) 600 mg PO BID [facility] Last Admin: 02/12/21 07:41 Dose: 600 mg Documented by: Ceftriaxone Sodium (Rocephin) 1 gm in 50 mls @ 100 mls/hr IV Q24 [facility] Stop: 02/19/21 10:01 Last Infusion: 02/12/21 11:10 Dose: Infused Documented by: Sodium Chloride () 250 mls @ 15 mls/hr IV .[id number] PRN PRN Reason: Saline Flush Last Infusion: 02/12/21 12:08 Dose: 0 mls/hr Documented by: Sodium Chloride () 250 mls @ 15 mls/hr IV .[id number] PRN PRN Reason: Additional IVPB Infusion Lisinopril (Lisinopril 5 Mg Tablet) 5 mg PO DAILY [facility] Last Admin: 02/12/21 07:41 Dose: 5 mg Documented by: Melatonin (Melatonin 3 Mg Tablet) 3 mg PO QHS PRN PRN PRN Reason: INSOMNIA Ondansetron HCl (Ondansetron 4 Mg/2 Ml Vial) 4 mg IV Q8H PRN PRN PRN Reason: NAUSEA/VOMITING Oxybutynin Chloride (Oxybutynin 5 Mg Tablet) 5 mg PO BID [facility] Last Admin: 02/12/21 07:41 Dose: 5 mg Documented by: Polyethylene Glycol (Polyethylene Glycol 3350 17 Gm Packet) 17 gm PO DAILY [facility] Last Admin: 02/12/21 07:41 Dose: 17 gm Documented by: Rivaroxaban (Rivaroxaban 20 Mg Tablet) 20 mg PO DAILY [facility] Last Admin: 02/12/21 07:46 Dose: 20 mg Documented by: Senna/Docusate Sodium (Senna/Docusate Sodium 1 Tablet) 2 tablet PO BID PRN PRN PRN Reason: Constipation Sodium Chloride (0.9% Saline Lock 10 Ml Syringe) 10 - 40 ml IV UD PRN PRN Reason: SALINE FLUSH Last Admin: 02/12/21 10:38 Dose: 10 ml Documented by: Tramadol HCl (Tramadol 50 Mg Tablet) 50 mg PO BID PRN PRN PRN Reason: Pain Score 1-10 Last Admin: 02/12/21 07:49 Dose: 50 mg Documented by: Addendum: Dr. Cruz I personally examined the patient and reviewed the chart. I agree with the above. 70-year-old female presents to the hospital frequency and dysuria. She does have a chronic indwelling Avalos which was placed approximately 3 weeks ago secondary to sacral skin breakdown. She says that she has had a couple times with Avalos has been clogged and has had similar cyst removed. She does have a new Avalos placed in the ED and urine cultures pending with gram-negative rods. Continue with Rocephin and will await culture finalization for sensitivities prior to transitioning to oral medications. She is debilitated and has difficulty performing ADLs, she does agree to a short-term stay in [place] [facility]. Inpatient E&M: 23942 Subs Hosp L2
--- NOTE | 2021-02-12 10:33 | NURSING ---
wound photo: lower back
--- NOTE | 2021-02-12 10:34 | NURSING ---
wound photo: diaan cleft
--- NOTE | 2021-02-12 10:35 | CASEMGMT ---
RN CATE Face to Face with patient for initial transition planning/care coordination assessment. RN CATE introduced self and role at [facility]. Patient lying in bed, alert and oriented. Patient willing to participate in assessment and is able to answer all questions appropriately. Care providers, pharmacy, and demographics verified. Patient wishes to discharge to TCU, insurance review and TCU is not in-network. Patient was provided a list of SNF providers including quality and resource use data and consistent with the patient?s preferred geographic region, medical needs, and insurance network. Patient to review list and provide choices. Patient states he has no further needs or concerns at this time. CORNELIA Hughes updated regarding potential placement. CM to follow for discharge planning needs that may arise. PCP: Lia Specialists: none Preferred Pharmacy: [facility] Insurance: [employer] JAMES Prescription Benefit: yes Living Will/HPOA: none LNOK: sister Living Arrangements: Patient lives with sister who is her caregiver in a 1 story home with ramp to enter the home. Patient states sister complete's her ADLs Transportation: sister DME/HHC: Patient states she has shower chair, BSC, raised toilet, hospital bed, cordell, grab bars, and scooter. Patient states she has [employer] for SN PT at home. Patient has previously been to [facility] in [place] and [facility]. Disposition Plan: TBD SNF vs resumption of HHC. Ami RIVERO, RN, CM
[2021-02-12] MEDS: Ceftriaxone 1 GM/50 ML BAG IV (10:37)
[2021-02-12] MEDS: 0.9% Saline Lock 10 ML Syringe IV (10:38)
--- NOTE | 2021-02-12 11:30 | CASEMGMT ---
Palliative screening tool completed due to Lace/Strata 3. Patient does not meet criteria per screening tool at this time.
[2021-02-12 15:16] VITALS: BP 113/44; PULSE 59; RESP 16; TEMP 36.6; O2SAT 93
--- NOTE | 2021-02-12 15:53 | CHAPLAIN ---
Type of Pastoral Visit _x__ Initial Visit ___ Follow-up Visit ___ On-call Visit ___ General Patient Visit ___ Spiritual Assessment ___ Family Conference ___ Bereavement ___ Rapid Response ___ Code Blue ___ Other (describe below) Pastoral Care Referral From _x__ Patient ___ Family ___ Nurse ___ Physician ___ Process Design Engineer ___ Comber Tender ___ Other (describe below) Sacrament/Intervention _x__ Active listening ___ Anointing ___ Catholic ___ Bereavement ___ Communion _x__ Mendy exploration ___ _x__ Life review _x__ Prayer ___ Reconciliation ___ Sacrament of Sick _x__ Supportive presence ___ Wedding ___ Other (describe below) Pastoral Comments patient has multiple health concerns and is now unable to walk and care for herself; pt states that her sister does most of her care and she feels bad that this is what it has become; pt states her goal is ability to walk and be somewhat independent again; pt says that her mendy and prayer are what help her; pt remembers times when she helped others and now she needs the care; prayer welcomed
--- NOTE | 2021-02-12 16:04 | CASEMGMT ---
Social Work Note SW reviewed chart. Pt has CM Jerardo Anne through [facility]. SW placed a call to Jerardo ([phone] ext. [phone]) and left message updating her on pt's admission to [facility]. Ami Hughes PANEL INSTALLER, MANAGER TALENT MANAGEMENT
[2021-02-12 21:18] VITALS: BP 121/37; PULSE 66; RESP 18; TEMP 36.6; O2SAT 95
[2021-02-12] MEDS: Menthol/Lanolin/Calamine/Znox 113 GM Tube 1 APPLIC TOPICAL (21:28)
[2021-02-12] MEDS: MELATONIN 3 MG TABLET PO (21:28)
[2021-02-13] MEDS: traMADol 50 MG Tablet PO ×2 (06:10→23:03)
[2021-02-13] MEDS: DiphenhydrAMINE 25 MG Capsule 50 MG PO ×3 (06:10→23:03)
[2021-02-13 07:48] LABS: Anion Gap 7 (5-15); BUN 19 mg/dL (7-18); BUN/Creat Ratio 21.4 RATIO (10-20); Calcium,Total 9.2 mg/dL (8.5-10.1); Chloride 101 mmol/L (98-107); Creatinine, Serum 0.89 mg/dL (0.55-1.02); EST Glomerular Filtration Rate 67 mL/min (>60); Est Glom Filt Rate - Afr Amer 81 mL/min (>60); Estimated Creatinine Clearance 44.38 ml/min; Glucose 105 mg/dL (74-106); Potassium 3.9 mmol/L (3.5-5.1); Sodium Level 138 mmol/L (136-145)
[2021-02-13 08:08] LABS: Hemoglobin 10.4 g/dL (12.0-15.0); Mean Corp Hgb Conc 29.7 g/dL (32-36); Mean Corpuscular Hgb 27.5 pg (27.0-32.0); Mean Corpuscular Volume 92.6 fL (81-99); Mean Platelet Vol. 8.9 fl (6.2-12.0); Platelet Count 352 K/mm3 (150-450); RBC Distribution Width CV 15.6 % (11.6-14.6); RBC Distribution Width SD 52.6 fl (35.1-43.9); Red Blood Count 3.78 M/mm3 (4.2-5.4); White Blood Count 5.2 K/mm3 (4.4-11.0)
[2021-02-13 08:43] LABS: Scan Indicated on CBC? Y/N NO
[2021-02-13 09:01] VITALS: O2SAT 92
[2021-02-13 10:00] VITALS: BP 119/38; PULSE 62; RESP 18; TEMP 36.7; O2SAT 94
[2021-02-13] MEDS: Aspirin 81 MG TAB.CHEW PO (10:16)
[2021-02-13] MEDS: Gabapentin 600 MG Tablet PO ×2 (10:16→23:07)
[2021-02-13] MEDS: Ferrous Sulfate 325 MG Tablet PO ×2 (10:16→19:03)
[2021-02-13] MEDS: Cyanocobalamin 500 MCG Tablet 1000 MCG PO (10:16)
[2021-02-13] MEDS: 0.9% Saline Lock 10 ML Syringe IV ×2 (10:17→14:55)
[2021-02-13] MEDS: Ceftriaxone 1 GM/50 ML BAG IV (10:17)
[2021-02-13] MEDS: Menthol/Lanolin/Calamine/Znox 113 GM Tube 1 APPLIC TOPICAL ×2 (10:17→23:34)
[2021-02-13] MEDS: Polyethylene Glycol 3350 17 GM PACKET PO (10:18)
[2021-02-13] MEDS: Oxybutynin 5 MG Tablet PO ×2 (10:18→23:06)
[2021-02-13] MEDS: DULoxetine Hcl 20 MG Capsule PO (10:19)
[2021-02-13] MEDS: Rivaroxaban 20 MG Tablet PO (10:20)
[2021-02-13] MEDS: Furosemide 80 MG Tablet PO (10:32)
[2021-02-13] MEDS: Lisinopril 5 MG Tablet PO (10:32)
--- NOTE | 2021-02-13 13:32 | PN.HOSP_ITS ---
Documented by User: Sandi Chapin NP, PEST CONTROLLER-C 02/13/21 13:51 Subjective Subjective: Patient seen and examined. Currently declining SNF/rehab. Would like to return home at discharge. Patient states she thinks she will get up and move more at home than she would at SNF. Urine culture growing E. coli, ESBL. She denies other symptoms or complaints. Objective Data Objective Data Vital Signs: Vital Signs Temp Pulse Resp BP Pulse Ox 98.0 F 62 18 119/38 L 94 02/13/21 10:00 02/13/21 10:00 02/13/21 10:00 02/13/21 10:00 02/13/21 10:00 Oxygen Delivery Method Room Air Weight: 343 lb 15.796 oz Body Mass Index (BMI) 64.9 Intake & Output: Intake and Output for Last 24 Hours 02/11/21 02/12/21 02/13/21 23:59 23:59 23:59 Intake Total 50 / 50 715.25 / 715.25 470 / 470 Output Total 575 / 575 2175 / 2175 500 / 500 Balance -525 / -525 -1459.75 / -1459.75 -30 / -30 Lab / Micro Data Result Diagrams: 02/13/21 05:40 02/13/21 05:49 Labs: Laboratory Results - last 24 hr 02/13/21 02/13/21 05:40 05:49 WBC 5.2 RBC 3.78 L Hgb 10.4 L Hct 35.0 L MCV 92.6 MCH 27.5 MCHC 29.7 L RDW Std Deviation 52.6 H RDW Coeff of Chucky 15.6 H Plt Count 352 MPV 8.9 Sodium 138 Potassium 3.9 Chloride 101 Carbon Dioxide 30.0 Anion Gap 7 BUN 19 H Creatinine 0.89 Estim Creat Clear Calc 44.38 Est GFR (MDRD) Af Amer 81 Est GFR (MDRD) Non-Af 67 BUN/Creatinine Ratio 21.4 H Glucose 105 Calcium 9.2 Micro: Microbiology 02/11/21 15:25 Urine Catheter - Catheter Urine Culture - Preliminary Escherichia coli 02/11/21 16:46 Nasal Secretion SARS-CoV-2 Antigen (Rapid) - Final Rhythm Strip Rhythm Strip: Sinus bradycardia Rate: 55 Ectopy: None Physical Exam Const alert, oriented x3 and no apparent distress HEENT moist oral mucous membranes Head and Scalp: normocephalic Eyes PERRL, EOMs intact bilaterally and conjunctivae normal Neck no lymphadenopathy Resp normal respiratory effort and clear to auscultation bilaterally Cardio regular rate and regular rhythm Peripheral Pulses: pulses 2+ throughout GI normal to inspection, nondistended, normoactive bowel sounds Extremity normal to inspection and no clubbing, cyanosis or edema Peripheral Pulses: Yes pulses 2+ throughout Skin no rashes or lesions noted Wounds: wounds noted other Sacral pressure ulcer, not visualized during assessm ent due to body habitus Neuro oriented x3, no focal motor deficits and no sensory deficits noted Sensorium / Orientation: awake and alert Psych affect normal Assessment & Plan Assessment/Plan (1) UTI (urinary tract infection): Status: Acute Code(s): N39.0 - Urinary tract infection, site not specified Qualifiers: Hematuria presence: without hematuria Urinary tract infection type: acute cystitis Qualified Code(s): N30.00 - Acute cystitis without hematuria (2) Debility: Status: Acute Code(s): R53.81 - Other malaise Plan: 1. Acute complicated UTI secondary to chronic indwelling Avalos catheter-urine culture growing E. coli, ESBL +. IV zosyn. ID consult. 2. Severe debility, complicated by super morbid obesity-lives with sister, has not been ambulating since surgery in November. Diana dependent. PT/OT. Case management consult. Fall precautions. Declining SNF at this time. 3. Sacral pressure ulcer, present on admission-wound RN consult, every 2 hours turns. Continue dressing changes per wound RN recommendations. 4. Chronic kidney disease stage IIIa-stable, trend BMP. 5. Paroxysmal atrial fibrillation-on Xarelto. 6. Hypertension-on Vasotec, Lasix. 7. Chronic anemia-stable, trend CBC. 8. EMILY, chronic hypoxic respiratory insufficiency-continue nightly Pap regimen. Nighttime oxygen use. 9. Urinary incontinence-chronic indwelling Avalos catheter. Continue Ditropan. 10. Depression/anxiety-on duloxetine. 11. Chronic back pain-on Flexeril, tramadol, gabapentin. DVT prophylaxis-Xarelto This patient was seen by GABI Warner under the supervision of Dr. Cruz. Documented by User: Dr. Edgardo Cruz MD 02/13/21 15:37 Objective Data Lab / Micro Data Result Diagrams: 02/13/21 05:40 02/13/21 05:49 Addendum: Dr. Cruz I personally examined the patient and reviewed the chart. I agree with the above. 70-year-old female presents to the hospital frequency and dysuria. She does have a chronic indwelling Avalos which was placed approximately 3 weeks ago secondary to sacral skin breakdown. She says that she has had a couple times with Avalos has been clogged and has had similar cyst removed. She does have a new Avalos placed in the ED and urine cultures pending with gram-negative rods. Continue with Rocephin and will await culture finalization for sensitivities prior to transitioning to oral medications. She is debilitated and has difficulty performing ADLs, she [facility]. 02/13/2021: Feels better today, and is now refusing to go to a [facility]iary facility. She feels that she will be able to do just fine on her own. Urine culture came back with an ESBL E. coli, will transition her antibiotic regimen to Invanz and consult infectious disease secondary to her chronic Avalos because of her bedsores possible outpatient management and antibiotic recommendations. Inpatient E&M: 08970 Subs Hosp L2
[2021-02-13] MEDS: Acetaminophen 325 MG Tablet 650 MG PO (14:33)
[2021-02-13] MEDS: cycloBENZAPRine HCl 10 MG Tablet PO ×2 (14:33→23:03)
[2021-02-13 16:00] VITALS: BP 103/40; PULSE 59; RESP 18; TEMP 37; O2SAT 94
[2021-02-13 23:00] VITALS: BP 112/43; PULSE 58; RESP 18; TEMP 36.6; O2SAT 95
[2021-02-13] MEDS: MELATONIN 3 MG TABLET PO (23:05)
[2021-02-14 02:20] VITALS: BP 103/45; PULSE 61; RESP 18; TEMP 36.5; O2SAT 92
[2021-02-14] MEDS: Acetaminophen 325 MG Tablet 650 MG PO (02:27)
[2021-02-14] MEDS: Ferrous Sulfate 325 MG Tablet PO ×2 (08:18→17:41)
[2021-02-14] MEDS: Aspirin 81 MG TAB.CHEW PO (08:19)
[2021-02-14 08:31] VITALS: O2SAT 98
[2021-02-14 09:18] VITALS: BP 125/60; PULSE 59; RESP 18; TEMP 36.6; O2SAT 93
[2021-02-14] MEDS: Cyanocobalamin 500 MCG Tablet 1000 MCG PO (09:57)
[2021-02-14] MEDS: Oxybutynin 5 MG Tablet PO (09:58)
[2021-02-14] MEDS: DULoxetine Hcl 20 MG Capsule PO (09:58)
[2021-02-14] MEDS: Gabapentin 600 MG Tablet PO (09:58)
[2021-02-14] MEDS: Furosemide 80 MG Tablet PO (09:58)
[2021-02-14] MEDS: Lisinopril 5 MG Tablet PO (09:59)
[2021-02-14] MEDS: Rivaroxaban 20 MG Tablet PO (09:59)
[2021-02-14] MEDS: traMADol 50 MG Tablet PO ×2 (10:02→17:40)
[2021-02-14] MEDS: DiphenhydrAMINE 25 MG Capsule 50 MG PO ×2 (10:02→17:39)
[2021-02-14] MEDS: Menthol/Lanolin/Calamine/Znox 113 GM Tube 1 APPLIC TOPICAL (10:04)
--- NOTE | 2021-02-14 13:17 | CON.PCM.ID_ITS ---
Assessment & Plan Assessment/Plan (1) UTI (urinary tract infection): Status: Acute Code(s): N39.0 - Urinary tract infection, site not specified Qualifiers: Urinary tract infection type: acute cystitis Hematuria presence: without hematuria Qualified Code(s): N30.00 - Acute cystitis without hematuria Plan: ESBL ecoli uti - renal u/s showed no abscess/stone/hydro. No fever, wbc normal. Ok for home with 7 days of macrobid. Will follow as needed, thank you, d/w primary team HPI Consult Data Date of Consult: 02/14/21 HPI Narrative HPI Narrative: KAREN HARTLEY, is a 70 F with h/o morbid obesity, enterocutaneous fistula repair in 11/2020 at [facility] who presented 02/11 with cloudy/foul urine with some dysuria. Has had childers in place for about 3 weeks to help with wound healing. No abd pain, no flank pain, no fever, no n/v/d. Has not gotten covid vaccine. Came to ED, started on ceftriaxone, changed to zosyn, then changed to ertapenem once ucx showed ESBL. Full ROS performed and neg except as noted above. PFSH Home Medications aspirin 81 mg PO DAILY@0800 07/20/13 [History Last Taken 11/01/20] enalapril maleate 5 mg PO DAILY 07/20/13 [History Last Taken 11/01/20] furosemide 80 mg PO DAILY 07/20/13 [History Last Taken 11/01/20] mometasone [Nasonex] 2 spray NASAL DAILY PRN 07/20/13 [History Last Taken Unknown] cyclobenzaprine 10 mg PO TID PRN 10/03/15 [History Last Taken 11/01/20] ferrous sulfate 325 mg PO BIDCM 10/03/15 [History Last Taken 11/01/20] oxybutynin chloride 5 mg PO BID 10/03/15 [History Last Taken 11/01/20] duloxetine 20 mg PO DAILY 12/04/15 [History Last Taken 11/01/20] diphenhydramine HCl [Banophen] 50 mg PO Q6 PRN #0 capsule 12/07/15 [Rx Last Taken 11/01/20] Gabapentin 600 mg PO BID 11/01/20 [History Last Taken 11/01/20] Tramadol Hcl 50 mg PO BID PRN PRN 11/01/20 [History Last Taken 11/01/20] acetaminophen 1,000 mg PO Q6H PRN PRN 11/01/20 [History Last Taken 10/30/20] cyanocobalamin (vitamin B-12) 1,000 mcg PO DAILY 11/01/20 [History Last Taken 11/01/20] rivaroxaban 20 mg PO DAILY 02/11/21 [History Last Taken Unknown] nitrofurantoin monohyd/m-cryst [Macrobid] 100 mg PO BID #14 cap 02/14/21 [Rx Last Taken Unknown] Allergy/AdvReac Type Severity Reaction Status Date / Time latex Allergy Rash Verified 02/11/21 14:20 methadone [Methadone] Allergy Shortness Verified 02/11/21 14:20 of breath morphine Allergy Itching Verified 02/11/21 14:20 oxycodone [Oxycodone] Allergy Hives Verified 02/11/21 14:20 amoxicillin [Amoxicillin] AdvReac Itching Verified 02/11/21 14:20 fentanyl AdvReac Rash Verified 02/11/21 18:21 Sulfa (Sulfonamide AdvReac Rash Verified 02/11/21 14:20 Antibiotics) pain meds Allergy Itching Uncoded 02/11/21 14:20 Social History Smoking Status: Never smoker Physical Exam Const alert, oriented x3 and no apparent distress General Appearance: cooperative Exam Limitations: no limitations HEENT head/scalp atraumatic Eyes PERRL Neck supple and No nodes Resp clear to auscultation bilaterally Cardio regular rate and regular rhythm Extremity no clubbing, cyanosis or edema Neuro CN's II-XII intact bilaterally Lab / Micro Data Result Diagrams: 02/13/21 05:40 02/13/21 05:49 Micro: Microbiology 02/11/21 15:25 Urine Culture - Final Urine Catheter - Catheter Escherichia coli Rhythm Strip Rhythm Strip: Sinus bradycardia Rate: 55 Ectopy: None
--- NOTE | 2021-02-14 13:17 | PCM.DC ---
Discharge Instructions Outpatient Procedure Reason For Visit: UTI/DEBILITY Diet Discharge Diet: 1800 Calorie Control Diet Activity Discharge Activity: Return to Normal Activity Follow Up Care Test Results: Test results from this visit will be discussed in further detail at your follow-up appointment, if applicable. Discharge Plan Admission Admit Date/Time: 02/11/21 16:38 Attending Provider: Edgardo Cruz Primary Care Provider: Dudley Hoyt Consulting Providers: Remberto Tan Additional Instructions / Restrictions: Follow up at wound center in 1 Week. Discharge Orders/Prescriptions Prescriptions: New nitrofurantoin monohyd/m-cryst [Macrobid] 100 mg capsule 100 mg PO BID Qty: 14 RF: 0 Continued cyclobenzaprine 10 MG tablet 10 mg PO TID PRN (Reason: Muscle Spasm) RF: 0 ferrous sulfate 325 MG tablet 325 mg PO BIDCM RF: 0 oxybutynin chloride 5 MG tablet 5 mg PO BID RF: 0 duloxetine 20 MG capsule,delayed release(DR/EC) 20 mg PO DAILY RF: 0 diphenhydramine HCl [Banophen] 25 MG capsule 50 mg PO Q6 PRN (Reason: Itching) Qty: 0 RF: 0 cyanocobalamin (vitamin B-12) 1,000 MCG tablet 1,000 mcg PO DAILY RF: 0 acetaminophen 500 MG tablet 1,000 mg PO Q6H PRN PRN (Reason: Pain 1-10 Or Fever) RF: 0 Tramadol Hcl 50 MG tablet 50 mg PO BID PRN PRN (Reason: Pain 1-10 Or Fever) RF: 0 Gabapentin 600 MG tablet 600 mg PO BID RF: 0 rivaroxaban 20 MG tablet 20 mg PO DAILY RF: 0 enalapril maleate 5 MG tablet 5 mg PO DAILY RF: 0 furosemide 80 MG tablet 80 mg PO DAILY RF: 0 mometasone [Nasonex] 1 SPRAY spray,non-aerosol 2 spray NASAL DAILY PRN (Reason: Congestion) RF: 0 aspirin 81 MG tablet,chewable 81 mg PO DAILY@0800 RF: 0 Referrals: Dudley Hoyt MD [Primary Care Provider] - In 1 Week Disposition Patient Disposition: Home Health Service
--- NOTE | 2021-02-14 13:29 | PCM.DC.SUM ---
Documented by User: Sandi Chapin NP, CHILD DEVELOPMENT INSTRUCTOR-C 02/14/21 13:38 Providers Date of Admission: 02/11/21 Primary Care Physician: Dr. Dudley Hoyt MD Consultations 02/11/21 18:05 Consult: Onc/Wound/transportation maintenance supervisor Routine Comment: 02/13/21 13:51 Consult: Infectious Disease Routine Consulting Provider: Remberto Tan Reason for Consult: ESBL + complicated UTI EMERGENT Consult: No MD Notified: Yes Date Notified:: 02/13/21 Time Notified: 13:51 Method of Notification: Text Reason For Visit: UTI/DEBILITY Diagnosis Discharge Diagnosis (1) UTI (urinary tract infection): Status: Acute Code(s): N39.0 - Urinary tract infection, site not specified Qualifiers: Hematuria presence: without hematuria Urinary tract infection type: acute cystitis Qualified Code(s): N30.00 - Acute cystitis without hematuria (2) Debility: Status: Acute Code(s): R53.81 - Other malaise Medications at Discharge Home Medications aspirin 81 mg PO DAILY@0800 07/20/13 enalapril maleate 5 mg PO DAILY 07/20/13 furosemide 80 mg PO DAILY 07/20/13 mometasone [Nasonex] 2 spray NASAL DAILY PRN 07/20/13 cyclobenzaprine 10 mg PO TID PRN 10/03/15 ferrous sulfate 325 mg PO BIDCM 10/03/15 oxybutynin chloride 5 mg PO BID 10/03/15 duloxetine 20 mg PO DAILY 12/04/15 diphenhydramine HCl [Banophen] 50 mg PO Q6 PRN #0 capsule 12/07/15 Gabapentin 600 mg PO BID 11/01/20 Tramadol Hcl 50 mg PO BID PRN PRN 11/01/20 acetaminophen 1,000 mg PO Q6H PRN PRN 11/01/20 cyanocobalamin (vitamin B-12) 1,000 mcg PO DAILY 11/01/20 rivaroxaban 20 mg PO DAILY 02/11/21 nitrofurantoin monohyd/m-cryst [Macrobid] 100 mg PO BID #14 cap 02/14/21 Hospital Course Operations None Procedures None Summary of Care Provided Minutes Spent on Discharge: 35 Hospital Course: 1. Acute complicated UTI secondary to chronic indwelling Avalos catheter-urine culture growing E. coli, ESBL +. ID consult. Discharge on Macrobid for 1 week. Follow-up with PCP in 1 week. 2. Severe debility, complicated by super morbid obesity-lives with sister, has not been ambulating since surgery in November. Diana dependent. Patient recommended SNF for rehab however she declined. Home with home health and home PT/OT 3. Sacral pressure ulcer, present on admission-Continue dressing changes per wound RN recommendations. Follow-up at wound center in 1 week. 4. Chronic kidney disease stage IIIa-stable, trend BMP. 5. Paroxysmal atrial fibrillation-on Xarelto. 6. Hypertension-on Vasotec, Lasix. 7. Chronic anemia-stable, trend CBC. 8. EMILY, chronic hypoxic respiratory insufficiency-continue nightly Pap regimen. Nighttime oxygen use. 9. Urinary incontinence-chronic indwelling Avalos catheter. Continue Ditropan. 10. Depression/anxiety-on duloxetine. 11. Chronic back pain-on Flexeril, tramadol, gabapentin. Physical Exam Const alert, oriented x3 and no apparent distress HEENT moist oral mucous membranes Head and Scalp: normocephalic Eyes PERRL, EOMs intact bilaterally and conjunctivae normal Neck no lymphadenopathy Resp normal respiratory effort and clear to auscultation bilaterally Cardio regular rate and regular rhythm Peripheral Pulses: pulses 2+ throughout GI normal to inspection, nondistended, normoactive bowel sounds Extremity normal to inspection and no clubbing, cyanosis or edema Peripheral Pulses: Yes pulses 2+ throughout Skin no rashes or lesions noted Wounds: wounds noted other Sacral pressure ulcer, not visualized during assessment due to body habitus Neuro oriented x3, no focal motor deficits and no sensory deficits noted Sensorium / Orientation: awake and alert Psych affect normal Patient seen and examined prior to discharge. Physical assessment as noted above. Patient is stable for discharge with follow up recommendations as noted above. This patient was seen by GABI Warner under the supervision of Dr. Cruz. ABG / Lab / Microbiology Data Result Diagrams: 02/13/21 05:40 02/13/21 05:49 Microbiology: Microbiology 02/11/21 15:25 Urine Culture - Final Urine Catheter - Catheter Escherichia coli Microbiology 02/11/21 15:25 Urine Catheter - Catheter Urine Culture - Final Escherichia coli 02/11/21 16:46 Nasal Secretion SARS-CoV-2 Antigen (Rapid) - Final D/C Instructions Discharge Diet: 1800 Calorie Control Diet Discharge Activity: Return to Normal Activity Meaningful Use Info Meaningful Use Diagnoses (Choose all that apply): None applicable Discharge Plan Admission Admit Date/Time: 02/11/21 16:38 Attending Provider: Edgardo Cruz Primary Care Provider: Dudley Hoyt Consulting Providers: Remberto Tan Instructions Additional Instructions / Restrictions: Follow up at wound center in 1 Week. Wound Center to call you with appt time. please call [phone] if you have questions. Discharge Orders/Prescriptions Prescriptions: New nitrofurantoin monohyd/m-cryst [Macrobid] 100 mg capsule 100 mg PO BID Qty: 14 RF: 0 Continued cyclobenzaprine 10 MG tablet 10 mg PO TID PRN (Reason: Muscle Spasm) RF: 0 ferrous sulfate 325 MG tablet 325 mg PO BIDCM RF: 0 oxybutynin chloride 5 MG tablet 5 mg PO BID RF: 0 duloxetine 20 MG capsule,delayed release(DR/EC) 20 mg PO DAILY RF: 0 diphenhydramine HCl [Banophen] 25 MG capsule 50 mg PO Q6 PRN (Reason: Itching) Qty: 0 RF: 0 cyanocobalamin (vitamin B-12) 1,000 MCG tablet 1,000 mcg PO DAILY RF: 0 acetaminophen 500 MG tablet 1,000 mg PO Q6H PRN PRN (Reason: Pain 1-10 Or Fever) RF: 0 Tramadol Hcl 50 MG tablet 50 mg PO BID PRN PRN (Reason: Pain 1-10 Or Fever) RF: 0 Gabapentin 600 MG tablet 600 mg PO BID RF: 0 rivaroxaban 20 MG tablet 20 mg PO DAILY RF: 0 enalapril maleate 5 MG tablet 5 mg PO DAILY RF: 0 furosemide 80 MG tablet 80 mg PO DAILY RF: 0 mometasone [Nasonex] 1 SPRAY spray,non-aerosol 2 spray NASAL DAILY PRN (Reason: Congestion) RF: 0 aspirin 81 MG tablet,chewable 81 mg PO DAILY@0800 RF: 0 Referrals: Dudley Hoyt MD [Primary Care Provider] - 02/26/21 11:00 am Disposition Patient Disposition: Home Health Service Documented by User: Dr. Edgardo Cruz MD 02/14/21 15:49 Providers Date of Admission: 02/11/21 Reason For Visit: UTI/DEBILITY Medications at Discharge Home Medications aspirin 81 mg PO DAILY@0800 07/20/13 enalapril maleate 5 mg PO DAILY 07/20/13 furosemide 80 mg PO DAILY 07/20/13 mometasone [Nasonex] 2 spray NASAL DAILY PRN 07/20/13 cyclobenzaprine 10 mg PO TID PRN 10/03/15 ferrous sulfate 325 mg PO BIDCM 10/03/15 oxybutynin chloride 5 mg PO BID 10/03/15 duloxetine 20 mg PO DAILY 12/04/15 diphenhydramine HCl [Banophen] 50 mg PO Q6 PRN #0 capsule 12/07/15 Gabapentin 600 mg PO BID 11/01/20 Tramadol Hcl 50 mg PO BID PRN PRN 11/01/20 acetaminophen 1,000 mg PO Q6H PRN PRN 11/01/20 cyanocobalamin (vitamin B-12) 1,000 mcg PO DAILY 11/01/20 rivaroxaban 20 mg PO DAILY 02/11/21 nitrofurantoin monohyd/m-cryst [Macrobid] 100 mg PO BID #14 cap 02/14/21 ABG / Lab / Microbiology Data Result Diagrams: 02/13/21 05:40 02/13/21 05:49 Discharge Plan Admission Admit Date/Time: 02/11/21 16:38 Attending Provider: Edgardo Cruz Primary Care Provider: Dudley Hoyt Consulting Providers: Remberto Tan Instructions Additional Instructions / Restrictions: Follow up at wound center in 1 Week. Wound Center to call you with appt time. please call [phone] if you have questions. Discharge Orders/Prescriptions Prescriptions: New nitrofurantoin monohyd/m-cryst [Macrobid] 100 mg capsule 100 mg PO BID Qty: 14 RF: 0 Continued cyclobenzaprine 10 MG tablet 10 mg PO TID PRN (Reason: Muscle Spasm) RF: 0 ferrous sulfate 325 MG tablet 325 mg PO BIDCM RF: 0 oxybutynin chloride 5 MG tablet 5 mg PO BID RF: 0 duloxetine 20 MG capsule,delayed release(DR/EC) 20 mg PO DAILY RF: 0 diphenhydramine HCl [Banophen] 25 MG capsule 50 mg PO Q6 PRN (Reason: Itching) Qty: 0 RF: 0 cyanocobalamin (vitamin B-12) 1,000 MCG tablet 1,000 mcg PO DAILY RF: 0 acetaminophen 500 MG tablet 1,000 mg PO Q6H PRN PRN (Reason: Pain 1-10 Or Fever) RF: 0 Tramadol Hcl 50 MG tablet 50 mg PO BID PRN PRN (Reason: Pain 1-10 Or Fever) RF: 0 Gabapentin 600 MG tablet 600 mg PO BID RF: 0 rivaroxaban 20 MG tablet 20 mg PO DAILY RF: 0 enalapril maleate 5 MG tablet 5 mg PO DAILY RF: 0 furosemide 80 MG tablet 80 mg PO DAILY RF: 0 mometasone [Nasonex] 1 SPRAY spray,non-aerosol 2 spray NASAL DAILY PRN (Reason: Congestion) RF: 0 aspirin 81 MG tablet,chewable 81 mg PO DAILY@0800 RF: 0 Referrals: Dudley Hoyt MD [Primary Care Provider] - 02/26/21 11:00 am Disposition Patient Disposition: Home Health Service Addendum: Dr. Cruz I personally examined the patient and reviewed the chart. I agree with the above. 70-year-old female presents to the hospital frequency and dysuria. She does have a chronic indwelling Avalos which was placed approximately 3 weeks ago secondary to sacral skin breakdown. She says that she has had a couple times with Avalos has been clogged and has had similar cyst removed. She does have a new Avalos placed in the ED and urine cultures pending with gram-negative rods. Continue with Rocephin and will await culture finalization for sensitivities prior to transitioning to oral medications. She is debilitated and has difficulty performing ADLs, she does agree to a short-term stay in a [facility] for rehab. 02/13/2021: Feels better today, and is now refusing to go to a [facility] facility. She feels that she will be able to do just fine on her own. Urine culture came back with an ESBL E. coli, will transition her antibiotic regimen to Invanz and consult infectious disease secondary to her chronic Avalos because of her bedsores possible outpatient management and antibiotic recommendations. 02/14/2021: Feels much better today and is ready to go home. As stated previously her urine culture came back positive for ESBL and infectious disease was consulted and felt that she would be able to be managed with Macrobid seeing as she did not have severe disease and it was confined to the lower urinary tract. We will continue with Breanna to complete a total of 7 days of antibiotics and continue with good Avalos care as an outpatient. She does have home health aides to come to the house as well as her sister who helps her significantly. I did discuss with her the plan for discharge today and she expressed understanding of the risk benefits going home. Inpatient E&M: [id number] Disch Hosp
--- NOTE | 2021-02-14 13:30 | NURSING ---
Called and left message with [facility]. Mushtaq to call patient with follow up appt time.
--- NOTE | 2021-02-14 13:52 | CASEMGMT ---
ABRAHAM ESPOSITO updated that patient would like to return home with resumption of HHC. ABRAHAM ESPOISTO in to discuss discharge planning with patient. Patient states she would like to go home with her HHC through [facility]. ABRAHAM ESPOSITO called and updated [facility] and faxed discharge paperwork.
--- NOTE | 2021-02-14 14:52 | CASEMGMT ---
SW called pt's [employer] major case detective, James Foster, message left letting her know pt is discharging home today. LATRICIA Ferraro
[2021-02-14 15:16] VITALS: BP 116/53; PULSE 55; RESP 18; TEMP 37.2; O2SAT 95
[2021-02-14 15:47] VITALS: RESP 18
[2021-02-14] MEDS: Fluticasone 0.05% 1 SPRAY NASAL.SRY 2 SPRAY NASAL (17:41)
[2021-02-14 17:45] VITALS: BP 126/52; PULSE 64; RESP 18; TEMP 36.8; O2SAT 98
--- NOTE | 2021-02-15 11:30 | CASEMGMT ---
RN CM Discharge F/U Phone Call LACE: 12 Strata: 3 Discharge date: 02/14/21 Call date: 02/15/21 Call time: 1134 Attempted to reach pt without success, message left for pt to call this RN CM back if/when able. SStaten RN CM Admission dx: UTI/debility
== END 2021-02-14 18:22 | disposition home health service (06) | DRG 699 ==
LOC: ED 16:37 → MS3 02-12 07:07
PROVIDERS: Nurse Practitioner Family; Admitting Provider Internal Medicine; Emergency Provider Emergency Medicine; PCP Internal Medicine; Visit Provider Family Medicine
DX: T83.511A Infection and inflammatory reaction due to indwelling urethral catheter, initial encounter (principal); N30.00 Acute cystitis without hematuria; Z68.44 Body mass index [BMI] 60.0-69.9, adult; Y84.6 Urinary catheterization as the cause of abnormal reaction of the patient, or of later complication, without mention of misadventure at the time of the procedure; B96.20 Unspecified Escherichia coli [E. coli] as the cause of diseases classified elsewhere; R53.81 Other malaise; L89.159 Pressure ulcer of sacral region, unspecified stage; I13.10 Hypertensive heart and chronic kidney disease without heart failure, with stage 1 through stage 4 chronic kidney disease, or unspecified chronic kidney disease; E11.22 Type 2 diabetes mellitus with diabetic chronic kidney disease; N18.31 Chronic kidney disease, stage 3a; R09.02 Hypoxemia; R06.89 Other abnormalities of breathing; I44.0 Atrioventricular block, first degree; E66.01 Morbid (severe) obesity due to excess calories; E78.5 Hyperlipidemia, unspecified; K43.9 Ventral hernia without obstruction or gangrene; D64.9 Anemia, unspecified; F32.9 Major depressive disorder, single episode, unspecified; F41.9 Anxiety disorder, unspecified; G47.33 Obstructive sleep apnea (adult) (pediatric); G89.29 Other chronic pain; I48.0 Paroxysmal atrial fibrillation; K21.9 Gastro-esophageal reflux disease without esophagitis; I89.0 Lymphedema, not elsewhere classified; M19.011 Primary osteoarthritis, right shoulder; M19.012 Primary osteoarthritis, left shoulder; J45.909 Unspecified asthma, uncomplicated; M17.0 Bilateral primary osteoarthritis of knee; Z85.42 Personal history of malignant neoplasm of other parts of uterus; Z98.84 Bariatric surgery status; Z79.01 Long term (current) use of anticoagulants; Z87.01 Personal history of pneumonia (recurrent); Z79.82 Long term (current) use of aspirin; Z79.899 Other long term (current) drug therapy
CPT/HCPCS: 36415; 51702; 71045; 76770; 80048; 80053; 81001; 84484; 85025; 85027; 87077; 87086; 87088; 87186; 87426; 93005; 96365; 96366; 96367; 97110; 97162; 97166; 97530; 97535; 99218; 99251; 99285; J7050; A4216; G0378; G0463

== ENCOUNTER 2021-05-21 15:49 | Inpatient (IN) | payer MEDICARE, MEDICAID, SELFPAY ==
[2021-05-21 15:52] VITALS: BP 130/80; PULSE 79; RESP 18; TEMP 36.5; O2SAT 95; BMI 64.0
[2021-05-21 15:56] VITALS: BP 130/80; PULSE 79; RESP 18; TEMP 36.5; O2SAT 95
[2021-05-21 18:43] LABS: Absolute Lymphocyte Count 1.12 X10^3/uL (0.83-4.51); Absolute Neutrophil Count 6.5 X10^3/uL (2.0-7.7); Basophil# 0.07 X10^3/uL; Basophil% 0.8 % (0-1); Eosinophil# 0.23 X10^3/uL; Eosinophils% 2.5 % (0-5); Hematocrit 49.6 % (37-47); Hemoglobin 15.6 g/dL (12.0-15.0); Lymphocyte # 1.12 X10^3/ul (0.83-4.51); Lymphocyte % 12.4 % (19-41); Mean Corp Hgb Conc 31.5 g/dL (32-36); Mean Corpuscular Hgb 28.4 pg (27.0-32.0); Mean Corpuscular Volume 90.3 fL (81-99); Mean Platelet Vol. 9.5 fl (6.2-12.0); Monocyte# 1.05 X10^3/uL; Monocyte% 11.6 % (0-10); NRBC Flagged by Analyzer 0 % (0-5); Neutrophil # 6.51 X10^3/uL (2.7-7.7); Neutrophil % 72.3 % (47-70); Platelet Count 338 K/mm3 (150-450); RBC Distribution Width CV 14.5 % (11.6-14.6); RBC Distribution Width SD 47.9 fl (35.1-43.9); Red Blood Count 5.49 M/mm3 (4.2-5.4)
[2021-05-21 19:02] LABS: ALB/GLOB Ratio 0.6 RATIO (0.9-2.4); AST(SGOT) 38 U/L (15-37); Alanine Aminotransfer ALT/SGPT 26 U/L (13-56); Albumin, Serum 3.2 g/dL (3.2-5.0); Alkaline Phosphatase 119 U/L (45-117); Anion Gap 6 (5-15); BUN 17 mg/dL (7-18); BUN/Creat Ratio 13.1 RATIO (10-20); Calcium,Total 9.7 mg/dL (8.5-10.1); Chloride 100 mmol/L (98-107); EST Glomerular Filtration Rate 43 mL/min (>60); Est Glom Filt Rate - Afr Amer 52 mL/min (>60); Estimated Creatinine Clearance 31.85 ml/min; Glucose 111 mg/dL (74-106); Protein, Total 8.2 g/dL (6.4-8.2); Sodium Level 135 mmol/L (136-145)
--- NOTE | 2021-05-21 19:41 | EX.ED.DYSGE1 ---
HPI History of Present Illness Chief Complaint: Wound Narrative Narrative: Patient presents with buttock pain, she has a history of decub ulcer in that region, she has chronic debility. She is home and her sister somewhat takes care of her but recently she has been unable to and her buttock pain is getting worse. She is morbidly obese, uses a Diana lift to get himself into a scooter. She has no fevers or chills. [facility] Medical History (Updated 05/21/21 @ 19:[address] Mushtaq Lockhart MD) CKD (chronic kidney disease) GERD (gastroesophageal reflux disease) Hernia HTN (hypertension) Lymphedema SVT (supraventricular tachycardia) Uterine cancer Home Medications aspirin 81 mg PO DAILY@0800 07/20/13 [History Last Taken 11/01/20] enalapril maleate 5 mg PO DAILY 07/20/13 [History Last Taken 11/01/20] furosemide 80 mg PO DAILY 07/20/13 [History Last Taken 11/01/20] mometasone [Nasonex] 2 spray NASAL DAILY PRN 07/20/13 [History Last Taken Unknown] cyclobenzaprine 10 mg PO TID PRN 10/03/15 [History Last Taken 11/01/20] ferrous sulfate 325 mg PO BIDCM 10/03/15 [History Last Taken 11/01/20] oxybutynin chloride 5 mg PO BID 10/03/15 [History Last Taken 11/01/20] duloxetine 20 mg PO DAILY 12/04/15 [History Last Taken 11/01/20] diphenhydramine HCl [Banophen] 50 mg PO Q6 PRN #0 capsule 12/07/15 [Rx Last Taken 11/01/20] Gabapentin 600 mg PO BID 11/01/20 [History Last Taken 11/01/20] Tramadol Hcl 50 mg PO BID PRN PRN 11/01/20 [History Last Taken 11/01/20] acetaminophen 1,000 mg PO Q6H PRN PRN 11/01/20 [History Last Taken 10/30/20] cyanocobalamin (vitamin B-12) 1,000 mcg PO DAILY 11/01/20 [History Last Taken 11/01/20] rivaroxaban 20 mg PO DAILY 02/11/21 [History Last Taken Unknown] nitrofurantoin monohyd/m-cryst [Macrobid] 100 mg PO BID #14 cap 02/14/21 [Rx Last Taken Unknown] Allergy/AdvReac Type Severity Reaction Status Date / Time latex Allergy Rash Verified 05/21/21 17:07 methadone [Methadone] Allergy Shortness Verified 05/21/21 17:07 of breath morphine Allergy Itching Verified 05/21/21 17:07 oxycodone [Oxycodone] Allergy Hives Verified 05/21/21 17:07 amoxicillin [Amoxicillin] AdvReac Itching Verified 05/21/21 17:07 fentanyl AdvReac Rash Verified 05/21/21 17:07 Sulfa (Sulfonamide AdvReac Rash Verified 05/21/21 17:07 Antibiotics) pain meds Allergy Itching Uncoded 05/21/21 17:07 Surgical History (Updated 05/21/21 @ 17:07 by Cheyenne Nevarez) Hx of gastric bypass Social History Smoking Status: Never smoker ROS ROS ED ROS Narrative Past medical history: Reviewed, includes GERD, morbid obesity, hypertension, sleep apnea, chronic kidney disease, lymphedema, debility Medications: Reviewed Social history: Noncontributory Review of systems: All systems negative except as indicated General: No fever. Generalized weakness. Eyes: No visual changes ENT: No upper airway congestion, normal voice Neck: No neck pain Cardiovascular: No chest pain Respiratory: No shortness of breath or cough Gastrointestinal: No abdominal pain, nausea vomiting or diarrhea Genitourinary: No dysuria Musculoskeletal: Buttock pain. She cannot ambulate. Skin: No rash Neurological: No memory loss, confusion or any focal weakness Psych: No recent behavioral changes Hematologic: No easy bleeding or easy bruising EXAM Physical Exam Narrative Exam Narrative: Physical exam General: Well nourished, Well developed, No Acute Distress. She is morbidly obese Head: Normocephalic, Atraumatic Eyes: Conjunctiva not pale ENT: Moist mucous membranes Neck: Supple, Nontender, No lymphadenopathy Cardiovascular: Regular rate, Regular rhythm Respiratory: No distress, CTA bilaterally Abdomen: Soft, Nontender, Nondistended Buttock: There is desquamation and some erythema over the buttocks, it does include some cellulitis in that region. Back: Nontender, Normal Inspection. Negative for: CVA tenderness Extremities: Nontender, symmetric lymphedema Skin: Cellulitis as above. Neurological: Alert, Normal Strength, Normal Sensation Psychological: Normal affect Const Vital Signs: 05/21/21 15:52 05/21/21 15:56 Temperature 97.7 F L 97.7 F L Temperature Source Temporal Temporal Pulse Rate 79 79 Respiratory Rate 18 18 Blood Pressure 130/80 H 130/80 H Blood Pressure Mean 96 96 Pulse Ox 95 95 Oxygen Delivery Method Room Air Room Air MDM MDM MDM Narrative Medical decision making narrative: Patient has cellulitis, she otherwise appears well, I will admit her for treatment as well as likely placement to an ECF. Lab Data Labs: Laboratory Results - last 24 hr 05/21/21 05/21/21 18:30 18:30 WBC 9.0 RBC 5.49 H Hgb 15.6 H Hct 49.6 H MCV 90.3 MCH 28.4 MCHC 31.5 L RDW Std Deviation 47.9 H RDW Coeff of Chucky 14.5 Plt Count 338 MPV 9.5 Immature Gran % (Auto) 0.400 Neut % (Auto) 72.3 H Lymph % (Auto) 12.4 L [place] % (Auto) 11.6 H Eos % (Auto) 2.5 Baso % (Auto) 0.8 Absolute Neuts (auto) 6.5 Absolute Lymphs (auto) 1.12 Nucleated RBC % 0 Sodium 135 L Potassium 4.0 Chloride 100 Carbon Dioxide 29.0 Anion Gap 6 BUN 17 Creatinine 1.30 H Estim Creat Clear Calc 31.85 Est GFR (MDRD) Af Amer 52 L Est GFR (MDRD) Non-Af 43 L BUN/Creatinine Ratio 13.1 Glucose 111 H Calcium 9.7 Total Bilirubin 0.50 AST 38 H ALT 26 Alkaline Phosphatase 119 H Total Protein 8.2 Albumin 3.2 Globulin 5.0 H Albumin/Globulin Ratio 0.6 L Discharge Plan Triage Chief Complaint: Wound ED Provider: Mushtaq Lockhart Dx/Rx/DC Orders Clinical Impression: Cellulitis Prescriptions: No Action cyclobenzaprine 10 MG tablet 10 mg PO TID PRN (Reason: Muscle Spasm) RF: 0 ferrous sulfate 325 MG tablet 325 mg PO BIDCM RF: 0 oxybutynin chloride 5 MG tablet 5 mg PO BID RF: 0 duloxetine 20 MG capsule,delayed release(DR/EC) 20 mg PO DAILY RF: 0 diphenhydramine HCl [Banophen] 25 MG capsule 50 mg PO Q6 PRN (Reason: Itching) Qty: 0 RF: 0 cyanocobalamin (vitamin B-12) 1,000 MCG tablet 1,000 mcg PO DAILY RF: 0 acetaminophen 500 MG tablet 1,000 mg PO Q6H PRN PRN (Reason: Pain 1-10 Or Fever) RF: 0 Tramadol Hcl 50 MG tablet 50 mg PO BID PRN PRN (Reason: Pain 1-10 Or Fever) RF: 0 Gabapentin 600 MG tablet 600 mg PO BID RF: 0 rivaroxaban 20 MG tablet 20 mg PO DAILY RF: 0 nitrofurantoin monohyd/m-cryst [Macrobid] 100 mg capsule 100 mg PO BID Qty: 14 RF: 0 enalapril maleate 5 MG tablet 5 mg PO DAILY RF: 0 furosemide 80 MG tablet 80 mg PO DAILY RF: 0 mometasone [Nasonex] 1 SPRAY spray,non-aerosol 2 spray NASAL DAILY PRN (Reason: Congestion) RF: 0 aspirin 81 MG tablet,chewable 81 mg PO DAILY@0800 RF: 0 Primary Care Provider: Dudley Hoyt Referrals: Dudley Hoyt MD [Primary Care Provider] - Disposition Disposition: Acute Care Hospital [facility]
[2021-05-21 19:45] LABS: Mucous, Urine 0 SEEN /hpf (<or=2+); Red Blood Cells-Urine 0 SEEN /hpf (0-5)
[2021-05-21 19:50] LABS: Color, Urine Yellow (Yellow); Glucose, Dipstick Normal (Normal); Ketone-Dipstick Negative (Negative); Leukocyte Esterase-Dipstick 500 /ul (Negative); Nitrite-Dipstick Positive (Negative); Occult Blood-Urine Negative /ul (Negative); Protein-Dipstick Negative (Negative); Urine Bilirubin Dipstick Negative (Negative); Urine Clarity Sl. Cloudy (Clear); Urine Urobilinogen Normal (Normal); Urine pH 6.5 (5.0 - 8.0)
[2021-05-21 20:10] LABS: Bacteria 2+ /hpf (None Seen); Squamous Epithelial Cells - UA 0-5 SEEN /hpf (5-10); White Blood Cells 5-10 SEEN /hpf (0-5)
[2021-05-21 20:16] VITALS: BP 112/56; PULSE 81; RESP 18; TEMP 36.7; O2SAT 97
--- NOTE | 2021-05-21 20:35 | HP.PCM_ITS ---
[facility] - General General Date of Admission: 05/21/21 HPI Narrative KAREN HARTLEY, is a 70 F who presents to the emergency room due to increased erythema and discomfort surrounding her sacral decubitus ulcer. The patient has been bedbound since her surgery in November after having a small bowel obstruction and difficulty recovering from anesthesia requiring 1 month stay intubated in the intensive care unit. Since that time she has not been able to transfer per her normal routine from her scooter to her bed or to the bathroom. She has been living with her sister but admits she is not able to get the level of care that she needs at home at this point. Over the past several weeks her decubitus ulcer has worsened with increased erythema and swelling and pain. She will be admitted to the medical surgical floor with discharge planning for long- term care. [facility] Medical History (Updated 05/21/21 @ 19:[address] Mushtaq Lockhart MD) CKD (chronic kidney disease) GERD (gastroesophageal reflux disease) Hernia HTN (hypertension) Lymphedema SVT (supraventricular tachycardia) Uterine cancer Home Medications furosemide 80 mg PO DAILY 07/20/13 [History Last Taken 05/21/21] mometasone [Nasonex] 2 spray NASAL DAILY PRN 07/20/13 [History Last Taken Unknown] cyclobenzaprine 10 mg PO BID PRN 10/03/15 [History Last Taken 05/21/21] diphenhydramine HCl [Banophen] 50 mg PO Q6 PRN #0 capsule 12/07/15 [Rx Last Taken 05/18/21] Gabapentin 600 mg PO BID 11/01/20 [History Last Taken 05/21/21] Tramadol Hcl 50 mg PO BID 11/01/20 [History Last Taken 05/21/21] acetaminophen 1,000 mg PO Q6H PRN PRN 11/01/20 [History Last Taken 10/30/20] cyanocobalamin (vitamin B-12) 1,000 mcg PO DAILY 11/01/20 [History Last Taken 11/01/20] rivaroxaban 20 mg PO DAILY 02/11/21 [History Last Taken 05/21/21] albuterol sulfate 2 puff INHALATION Q4H PRN 05/21/21 [History Last Taken Unknown] allopurinol 100 mg PO DAILY 05/21/21 [History Last Taken 05/21/21] amiodarone 200 mg PO BID 05/21/21 [History Last Taken 05/21/21] baclofen 10 mg PO QHS 05/21/21 [History Last Taken 05/20/21] biotin 5,000 mcg PO DAILY 05/21/21 [History Last Taken 05/21/21] calcium-vitamins B6-B12-FA [Folic Acid-Vit B6-Vit B12 (Ca)] 1 tab PO DAILY 05/21/21 [History Last Taken 05/21/21] ferrous sulfate 325 mg PO TID 05/21/21 [History Last Taken 05/21/21] ipratropium-albuterol 3 ml INHALATION Q6H PRN 05/21/21 [History Last Taken 05/21/21] magnesium oxide 400 mg PO BID 05/21/21 [History Last Taken 05/21/21] nystatin 1 applic TOPICAL BID PRN 05/21/21 [History Last Taken Unknown] omeprazole 20 mg PO DAILY 05/21/21 [History Last Taken 05/21/21] oxybutynin chloride 15 mg PO DAILY 05/21/21 [History Last Taken 05/21/21] potassium chloride 20 meq PO TID 05/21/21 [History Last Taken 05/21/21] Allergy/AdvReac Type Severity Reaction Status Date / Time latex Allergy Rash Verified 05/21/21 17:07 methadone [Methadone] Allergy Shortness Verified 05/21/21 17:07 of breath morphine Allergy Itching Verified 05/21/21 17:07 oxycodone [Oxycodone] Allergy Hives Verified 05/21/21 17:07 amoxicillin [Amoxicillin] AdvReac Itching Verified 05/21/21 17:07 fentanyl AdvReac Rash Verified 05/21/21 17:07 Sulfa (Sulfonamide AdvReac Rash Verified 05/21/21 17:07 Antibiotics) pain meds Allergy Itching Uncoded 05/21/21 17:07 Surgical History (Updated 05/21/21 @ 17:07 by Cheyenne Nevarez) Hx of gastric bypass Social History Smoking Status: Never smoker ROS Constitutional Constitutional: Reports fatigue, weakness and weight gain; Denies fever(s) Eyes Eyes: Denies change in vision ENT HEENT: Denies dysphagia Cardiovascular Cardiovascular: Denies chest pain Respiratory/Chest Respiratory/Chest: Denies cough Gastrointestinal Gastrointestinal: Denies abdominal pain Genitourinary Genitourinary: Denies hematuria Musculoskeletal Musculoskeletal: Reports extremity pain, joint pain, joint stiffness, limited range of motion and muscle weakness Integumentary Integumentary: Reports wounds Neurologic Neurologic: Denies abnormal speech Psychiatric Psychiatric: Denies anxiety Vital Signs Vital Signs Vital Signs: 05/21/21 15:52 05/21/21 15:56 05/21/21 20:16 Temperature 97.7 F L 97.7 F L 98.0 F Temperature Source Temporal Temporal Temporal Pulse Rate 79 79 81 Respiratory Rate 18 18 18 Blood Pressure 130/80 H 130/80 H 112/56 L Blood Pressure Mean 96 96 74 Pulse Ox 95 95 97 Oxygen Delivery Method Room Air Room Air Room Air Weight Weight: 350 lb 8.56 oz Body Mass Index (BMI) 64.0 Physical Exam Const alert and oriented x3 Constitutional Narrative: gigantic General Appearance: cooperative HEENT normocephalic and head/scalp atraumatic Eyes PERRL Neck supple Lymph Lymphatic: no lymphadenopathy noted Resp normal respiratory effort, normal air movement and clear to auscultation bilaterally Cardio regular rate, regular rhythm, S1 normal heart sound and S2 normal heart sound GI normal to inspection, nondistended, normoactive bowel sounds Extremity General Extremity: edema bilateral (3+) Skin Wounds: wounds noted size Size: entire buttocks to lower back and bed beefy red, with slough and edematous Neuro CN's II-XII intact bilaterally Psych thought process normal and affect normal Results Lab / Micro Data Result Diagrams: 05/21/21 18:30 05/21/21 18:30 Labs: Laboratory Results - last 24 hr 05/21/21 18:30: WBC 9.0, RBC 5.49 H, Hgb 15.6 H, Hct 49.6 H, MCV 90.3, MCH 28.4, MCHC 31.5 L, RDW Std Deviation 47.9 H, RDW Coeff of Chucky 14.5, Plt Count 338, MPV 9.5, Immature Gran % (Auto) 0.400, Neut % (Auto) 72.3 H, Lymph % (Auto) 12.4 L, [place] % (Auto) 11.6 H, Eos % (Auto) 2.5, Baso % (Auto) 0.8, Absolute Neuts (auto) 6.5, Absolute Lymphs (auto) 1.12, Nucleated RBC % 0 05/21/21 18:30: Sodium 135 L, Potassium 4.0, Chloride 100, Carbon Dioxide 29.0, Anion Gap 6, BUN 17, Creatinine 1.30 H, Estim Creat Clear Calc 31.85, Est GFR (MDRD) Af Amer 52 L, Est GFR (MDRD) Non-Af 43 L, BUN/Creatinine Ratio 13.1, Glucose 111 H, Calcium 9.7, Total Bilirubin 0.50, AST 38 H, ALT 26, Alkaline Phosphatase 119 H, Total Protein 8.2, Albumin 3.2, Globulin 5.0 H, Albumin/Globulin Ratio 0.6 L 05/21/21 19:40: Urine Color Yellow, Urine Clarity Sl. Cloudy, Urine pH 6.5, Ur Specific [place] 1.010, Urine Protein Negative, Urine Glucose (UA) Normal, Urine Ketones Negative, Urine Occult Blood Negative, Urine Nitrite Positive H, Urine Bilirubin Negative, Urine Urobilinogen Normal, Ur Leukocyte Esterase 500 H, Urine RBC 0 SEEN, Urine WBC 5-10 SEEN, Ur Squamous Epith Cells 0-5 SEEN, Urine Bacteria 2+, Urine Mucus 0 SEEN Assessment & Plan Assessment/Plan (1) Asthma: QUALIFIERS: Asthma severity: mild intermittent (2) Gastroesophageal reflux disease: (3) Hypertension: QUALIFIERS: Hypertension type: essential hypertension Qualified Code(s): I10 - Essential (primary) hypertension (4) Morbid obesity: (5) Chronic back pain: QUALIFIERS: Back pain location: back pain in unspecified location Back pain laterality: unspecified Qualified Code(s): M54.9 - Dorsalgia, unspecified; G89.29 - Other chronic pain (6) Sleep apnea: QUALIFIERS: Sleep apnea type: unspecified type Qualified Code(s): G47.30 - Sleep apnea, unspecified (7) CKD (chronic kidney disease) stage 3, GFR 30-59 ml/min: QUALIFIERS: Chronic kidney disease stage 3 subtype: stage 3a (GFR 45-59) Qualified Code(s): N18.31 - Chronic kidney disease, stage 3a (8) History of supraventricular tachycardia: (9) Hernia of anterior abdominal wall: (10) Lymphedema: (11) Chronic anemia: (12) UTI (urinary tract infection): QUALIFIERS: Urinary tract infection type: acute cystitis Hematuria presence: without hematuria Qualified Code(s): N30.00 - Acute cystitis without hematuria (13) Debility: (14) Shoulder arthritis: (15) Cellulitis: PLAN: 1. Cellulitis/sacral decubitus ulcer?admit patient to general medical floor placed patient on vancomycin, consult classification case manager for long-term care placement, repeat CBC BMP in the morning 2. Hypertension?continue home medications 3. Sleep apnea may continue home CPAP 4. Debility will need long-term care for activities of daily living suspect this is a long-term condition 5. DVT prophylaxis?low molecular weight heparin Charges/Coding Visit Charges Inpatient E&M: 90199 Init Hosp L2
[2021-05-21 21:40] VITALS: BMI 59.6
[2021-05-21 22:34] VITALS: BP 148/74; PULSE 65; RESP 20; TEMP 36.3; O2SAT 95
[2021-05-21] MEDS: Menthol/Lanolin/Calamine/Znox 113 GM Tube 1 APPLIC TOPICAL (23:02)
[2021-05-21] MEDS: Amiodarone 200 MG Tablet PO (23:04)
[2021-05-21] MEDS: Gabapentin 600 MG Tablet PO (23:04)
[2021-05-21] MEDS: Baclofen 10 MG Tablet PO (23:05)
[2021-05-21] MEDS: traMADol 50 MG Tablet PO (23:08)
--- NOTE | 2021-05-22 00:46 | PCM.RX.CS ---
Consult Pharmacy has been consulted to manage selected antiobiotic: Vancomycin Type of Consult: New start Suspected Infection: Skin/Soft tissue Labs: Sodium 135 mmol/L (136-145) L 05/21/21 18:30 Potassium 4.0 mmol/L (3.5-5.1) 05/21/21 18:30 Chloride 100 mmol/L (98-107) 05/21/21 18:30 Carbon Dioxide 29.0 mmol/L (21.0-32.0) 05/21/21 18:30 Anion Gap 6 (5-15) 05/21/21 18:30 BUN 17 mg/dL (7-18) 05/21/21 18:30 Creatinine 1.30 mg/dL (0.55-1.02) H 05/21/21 18:30 Est GFR (MDRD) Af Amer 52 mL/min (>60) L 05/21/21 18:30 Est GFR (MDRD) Non-Af 43 mL/min (>60) L 05/21/21 18:30 BUN/Creatinine Ratio 13.1 RATIO (10-20) 05/21/21 18:30 Glucose 111 mg/dL (74-106) H 05/21/21 18:30 Weight used for dosin kg Estimated Creatinine Clearance: 56.7 Goal Trough: 10-15 mcg/mL Pharmacy Plan for Drug Dosing: Pharmacy Service will continue to monitor and adjust dosing as required. Medications Vancomycin HCl (Vancomycin) 1,000 mg in 200 mls @ 200 mls/hr IV Q12H ZULEYKA Discontinued Medications Vancomycin HCl 2,000 mg/ (Sodium Chloride) 540 mls @ 250 mls/hr IV X1 ONE Stop: 05/22/21 00:09 Last Admin: 05/21/21 23:00 Dose: 250 mls/hr Documented by: Follow-Up Labs: Trough Vancomycin Labs to be done on [date and time ordered]: 05/23 @ 1039
[2021-05-22 05:35] VITALS: BP 135/63; PULSE 56; RESP 18; TEMP 36.3; O2SAT 100
[2021-05-22] MEDS: Potassium Chloride Oral Tablet 20 MEQ PO ×3 (05:40→21:41)
[2021-05-22] MEDS: 0.9% Saline Lock 10 ML Syringe IV (05:41)
[2021-05-22] MEDS: Acetaminophen 500 MG Tablet 1000 MG PO (05:45)
[2021-05-22 06:47] LABS: Absolute Lymphocyte Count 1.34 X10^3/uL (0.83-4.51); Absolute Neutrophil Count 4.6 X10^3/uL (2.0-7.7); Basophil# 0.06 X10^3/uL; Basophil% 0.8 % (0-1); Eosinophil# 0.35 X10^3/uL; Eosinophils% 4.7 % (0-5); Hemoglobin 14.4 g/dL (12.0-15.0); Lymphocyte # 1.34 X10^3/ul (0.83-4.51); Lymphocyte % 18.2 % (19-41); Mean Corpuscular Hgb 28.6 pg (27.0-32.0); Mean Corpuscular Volume 89.3 fL (81-99); Mean Platelet Vol. 9.6 fl (6.2-12.0); Monocyte# 0.98 X10^3/uL; Monocyte% 13.3 % (0-10); NRBC Flagged by Analyzer 0 % (0-5); Neutrophil # 4.61 X10^3/uL (2.7-7.7); Neutrophil % 62.6 % (47-70); Platelet Count 249 K/mm3 (150-450); RBC Distribution Width CV 14.5 % (11.6-14.6); RBC Distribution Width SD 46.9 fl (35.1-43.9); Red Blood Count 5.04 M/mm3 (4.2-5.4); White Blood Count 7.4 K/mm3 (4.4-11.0)
[2021-05-22 08:39] LABS: Anion Gap 6 (5-15); BUN 16 mg/dL (7-18); BUN/Creat Ratio 16.3 RATIO (10-20); Calcium,Total 9.1 mg/dL (8.5-10.1); Chloride 102 mmol/L (98-107); Creatinine, Serum 0.98 mg/dL (0.55-1.02); EST Glomerular Filtration Rate 60 mL/min (>60); Est Glom Filt Rate - Afr Amer 72 mL/min (>60); Estimated Creatinine Clearance 42.25 ml/min; Glucose 99 mg/dL (74-106); Potassium 3.2 mmol/L (3.5-5.1); Sodium Level 137 mmol/L (136-145)
[2021-05-22] MEDS: Ferrous Sulfate 325 MG Tablet PO ×3 (09:05→18:44)
[2021-05-22] MEDS: Furosemide 80 MG Tablet PO (09:06)
[2021-05-22] MEDS: Tolterodine Tartrate 4 MG CAP.SA PO (09:06)
[2021-05-22] MEDS: Menthol/Lanolin/Calamine/Znox 113 GM Tube 1 APPLIC TOPICAL ×4 (09:06→20:07)
[2021-05-22] MEDS: Magnesium Chloride 64 MG Delay Rel.Tablet 128 MG PO ×2 (09:07→21:42)
[2021-05-22] MEDS: Allopurinol 100 MG Tablet PO (09:07)
[2021-05-22] MEDS: Cyanocobalamin 500 MCG Tablet 1000 MCG PO (09:07)
[2021-05-22] MEDS: Rivaroxaban 20 MG Tablet PO (09:07)
[2021-05-22] MEDS: Pantoprazole Sodium 20 MG Tablet PO (09:07)
[2021-05-22] MEDS: traMADol 50 MG Tablet PO ×2 (09:18→21:40)
[2021-05-22] MEDS: DiphenhydrAMINE 25 MG Capsule 50 MG PO (09:18)
[2021-05-22] MEDS: Gabapentin 600 MG Tablet PO ×2 (09:18→21:41)
[2021-05-22] MEDS: Amiodarone 200 MG Tablet PO ×2 (09:18→21:41)
[2021-05-22] MEDS: Glucerna Shake 120 ML LIQUID PO (09:19)
--- NOTE | 2021-05-22 09:58 | NURSING ---
skin photo: bilateral buttocks
--- NOTE | 2021-05-22 10:05 | CASEMGMT ---
SOCIAL WORK ASSESSMENT Referral Source: CM Reason for Consult: Discharge Planning-SNF Admitting DX: Cellulitis PCP: Dr. Hoyt Specialists: Ortho and Cardio at [facility] Preferred Pharmacy: [facility] Insurance: [employer] LW/HPOA: Rosalee Chavis LNOK: Mechelle Mosley-sister Living Arrangements: Home with Mechelle lau Transportation: [place], family DME/HHC/SNF: Medical Supply through [place], [facility], [facility] CM: Karyn [phone] Assessment: Met with patient in room. Introduced role and reason for referral. Patient A&Ox4. Patient reports has been bed bound since November. Patient states has passport services and sister, Mechelle is her aide. Patient states I'm getting to be too much for my sister. Patient reports plan for discharge is SNF. Patient has been to [facility] in [place] and states they are not in network with her insurance. Patient requesting referral to [facility]. Will fax referral. Therapy in room at this time to complete evals. Plan: SNF, patient reviewed list of facilities and requests referral to [facility]. Layla Valenzuela, ROOFING CONTRACTOR, DETASSELING CREW SUPERVISOR
[2021-05-22 10:30] VITALS: BP 122/55; PULSE 52; RESP 18; TEMP 36.1; O2SAT 98
--- NOTE | 2021-05-22 11:12 | CASEMGMT ---
SOCIAL WORK Referral faxed and called to [facility]. Layla Valenzuela, INJECTION OPERATOR, [employer] [place]
--- NOTE | 2021-05-22 11:46 | CASEMGMT ---
ABRAHAM ESPOSITO NOTE: Pt screened with [facility] Palliative Care Screening Tool for strata 3, pt did not meet criteria. Filiberto SOUSAN RN CM
[2021-05-22] MEDS: Vancomycin IV 1,000 MG/200 ML BAG 200 MG IV (12:05)
--- NOTE | 2021-05-22 12:22 | PN.HOSP_ITS ---
Subjective Subjective Fonda too weak at home. Has had weakness in LUE for 1 year. Can open and close hand, but cannot use arm. Objective Data Objective Data Vital Signs: Vital Signs Temp Pulse Resp BP Pulse Ox 36.3 C L 56 L 18 135/63 H 100 05/22/21 05:35 05/22/21 05:35 05/22/21 05:35 05/22/21 05:35 05/22/21 05:35 Oxygen Delivery Method Room Air Weight: 148 kg Body Mass Index (BMI) 59.6 Intake & Output: Intake and Output for Last 24 Hours 05/20/21 05/21/21 05/22/21 23:59 23:59 23:59 Intake Total 54 / 254 865 / 865 Output Total 625 / 625 Balance 54 / -196 240 / 240 Lab / Micro Data Result Diagrams: 05/22/21 06:10 05/22/21 08:08 Labs: Laboratory Results - last 24 hr 05/21/21 18:30: WBC 9.0, RBC 5.49 H, Hgb 15.6 H, Hct 49.6 H, MCV 90.3, MCH 28.4, MCHC 31.5 L, RDW Std Deviation 47.9 H, RDW Coeff of Chucky 14.5, Plt Count 338, MPV 9.5, Immature Gran % (Auto) 0.400, Neut % (Auto) 72.3 H, Lymph % (Auto) 12.4 L, [place] % (Auto) 11.6 H, Eos % (Auto) 2.5, Baso % (Auto) 0.8, Absolute Neuts (auto) 6.5, Absolute Lymphs (auto) 1.12, Nucleated RBC % 0 05/21/21 18:30: Sodium 135 L, Potassium 4.0, Chloride 100, Carbon Dioxide 29.0, Anion Gap 6, BUN 17, Creatinine 1.30 H, Estim Creat Clear Calc 31.85, Est GFR (MDRD) Af Amer 52 L, Est GFR (MDRD) Non-Af 43 L, BUN/Creatinine Ratio 13.1, Glucose 111 H, Calcium 9.7, Total Bilirubin 0.50, AST 38 H, ALT 26, Alkaline Phosphatase 119 H, Total Protein 8.2, Albumin 3.2, Globulin 5.0 H, Albumin/G lobulin Ratio 0.6 L 05/21/21 19:40: Urine Color Yellow, Urine Clarity Sl. Cloudy, Urine pH 6.5, Ur Specific [place] 1.010, Urine Protein Negative, Urine Glucose (UA) Normal, Urine Ketones Negative, Urine Occult Blood Negative, Urine Nitrite Positive H, Urine Bilirubin Negative, Urine Urobilinogen Normal, Ur Leukocyte Esterase 500 H, Urine RBC 0 SEEN, Urine WBC 5-10 SEEN, Ur Squamous Epith Cells 0-5 SEEN, Urine Bacteria 2+, Urine Mucus 0 SEEN 05/22/21 06:10: WBC 7.4, RBC 5.04, Hgb 14.4, Hct 45.0, MCV 89.3, MCH 28.6, MCHC 32.0, RDW Std Deviation 46.9 H, RDW Coeff of Chucky 14.5, Plt Count 249, MPV 9.6, Immature Gran % (Auto) 0.400, Neut % (Auto) 62.6, Lymph % (Auto) 18.2 L, [place] % (Auto) 13.3 H, Eos % (Auto) 4.7, Baso % (Auto) 0.8, Absolute Neuts (auto) 4.6, Absolute Lymphs (auto) 1.34, Nucleated RBC % 0 05/22/21 06:10: Sodium Cancelled, Potassium Cancelled, Chloride Cancelled, Carbon Dioxide Cancelled, Anion Gap Cancelled, BUN Cancelled, Creatinine Cancelled, Estim Creat Clear Calc Cancelled, Est GFR (MDRD) Af Amer Cancelled, Est GFR (MDRD) Non-Af Cancelled, BUN/Creatinine Ratio Cancelled, Glucose Cancelled, Calcium Cancelled 05/22/21 08:08: Sodium 137, Potassium 3.2 L, Chloride 102, Carbon Dioxide 29.0, Anion Gap 6, BUN 16, Creatinine 0.98, Estim Creat Clear Calc 42.25, Est GFR (MDRD) Af Amer 72, Est GFR (MDRD) Non-Af 60, BUN/Creatinine Ratio 16.3, Glucose 99, Calcium 9.1 Physical Exam Const alert HEENT Head and Scalp: normocephalic Resp normal respiratory effort and clear to auscultation bilaterally Cardio regular rate, regular rhythm, S1 normal heart sound and S2 normal heart sound GI normal to inspection, nondistended, normoactive bowel sounds, non-tender and non-distended Skin Skin Narrative: Excoriations on the backside. No evidence of any cellulitis. Patient has Alina intertrigo underneath her breasts and as well as pannus. Neuro Neuro Narrative: Patient unable to move her left arm. Is able to clasp her hand. Assessment & Plan Assessment/Plan (1) Debility: PLAN: 1. Debility Patient has been essentially bedridden since November Patient open to going to a intermediate facility as her sister is unable to adequately care for her anymore. Case management to further facilitate 2. Sacral decubitus ulcer with excoriation Stage I-II No evidence of cellulitis therefore cellulitis ruled out DC vancomycin 3. Alina intertrigo Underneath pannus and breasts Nystatin 4. Morbid obesity BMI 59.7 Complicates overall care and recovery 5. Left upper extremity weakness Chronic for 1 years time according to the patient States that she is seeing orthopedics and told her that it is not an orthopedic issue Patient had a cervical spine x-ray in July 2020 that showed cervical spondylosis and patient has had shoulder x-rays that show degenerative changes. Plan: Check CT of cervical spine as well as left shoulder to evaluate for any kind nerve root impingement. 6. afib on amio anticoagulated with rivaroxaban 7. VTE prophylaxis: anticoagulated Charges/Coding Visit Charges Inpatient E&M: 70840 Subs Hosp L2
--- NOTE | 2021-05-22 12:45 | CT_ITS ---
STUDY: CT CERVICAL SPINE WITHOUT CONTRAST REASON FOR EXAM: Female, 70 years old. left arm weakness RADIATION DOSAGE (If Supplied By Facility): CTDIvol = ( 57.35 ) mGy, DLP = ( 2575.43 ) mGycm TECHNIQUE: High resolution transaxial imaging was performed without contrast material. Sagittal and coronal images were reconstructed. Individualized dose optimization techniques were used for this CT. COMPARISON: None FINDINGS: Normal craniovertebral junction. There are degenerative changes of the anterior atlantoaxial articulation. Normal odontoid process. Normal cervical lordosis. Normal vertebral bodies and posterior osseous elements. C2-3: Normal endplates. Normal disc height and morphology. Normal central canal and intervertebral neuroforamina. C3-4: Endplate spondylosis. There is 3 mm spondylolisthesis. Central and paracentral disc bulge. Degenerative changes of the bilateral facet joints and uncovertebral joints. Mild narrowing of the central canal and moderate to severe narrowing of the bilateral intervertebral neural foramina. C4-5: Endplate spondylosis. Central and paracentral disc bulge. Degenerative changes of the bilateral facet joints and uncovertebral joints. Mild narrowing of the central canal and moderate to severe narrowing of the bilateral intervertebral neural foramina. C5-6: Endplate spondylosis. Central and paracentral disc bulge. Degenerative changes of the bilateral facet joints and uncovertebral joints. Mild narrowing of the central canal and moderate to severe narrowing of the bilateral intervertebral neural foramina. C6-7: Endplate spondylosis. Central and paracentral disc bulge. Degenerative changes of the bilateral facet joints and uncovertebral joints. Mild narrowing of the central canal and moderate to severe narrowing of the bilateral intervertebral neural foramina. C7-T1: Endplate spondylosis. Central and paracentral disc bulge. Degenerative changes of the bilateral facet joints . Mild narrowing of the central canal and moderate to severe narrowing of the bilateral intervertebral neural foramina. Normal visualized soft tissue structures. CT/Spine Cervical without Contras IMPRESSION: Multilevel degenerative changes, as described above. Electronically Signed: Cooper Abraham MD at 7:12 EDT Tel , Service support ,
--- NOTE | 2021-05-22 13:17 | CASEMGMT ---
SOCIAL WORK Attempted to contact [facility] to check on status of referral. No answer. Will follow up. Layla Valenzuela, VICE PRESIDENT PHARMACY, LAST DIPPER
--- NOTE | 2021-05-22 13:20 | CT_ITS ---
EXAM: CT LEFT UPPER EXTREMITY WITHOUT INTRAVENOUS CONTRAST : 1950 CLINICAL INDICATION: left arm weakness TECHNIQUE: Helically acquired images were obtained of the left upper extremity without intravenous contrast. 2-D reformats were performed by the technologist. This CT exam was performed using one or more of the following dose reduction techniques: automated exposure control, adjustment of the mA and/or kV according to patient size, and/or use of iterative reconstruction technique. This report was created using [employer] report [employer] technology. COMPARISON: None. FINDINGS: BONES/JOINTS: There are marked degenerative changes in the left shoulder with narrowing of the glenohumeral joint space. There is also flattening of the glenoid subchondral cysts seen within the humeral head. There are large osteophytes seen off the humeral head. Large osteophytes seen off the inferior aspect of the distal clavicle perhaps impinge on the supraspinatus tendon. No acute fracture. No subluxation. Normal alignment. SOFT TISSUES: See above. CT/Extremity Upper without Contra IMPRESSION: 1. No acute osseous abnormalities of the left shoulder. 2. Severe arthritic changes with narrowing of the glenohumeral joint with subchondral cysts and osteophyte formation. There is also flattening of the glenoid. There also degenerative changes with osteophytes seen at the inferior aspect of the clavicle perhaps impinging on the supraspinatus tendon. If indicated further evaluation with MRI may be beneficial. Individualized dose optimization techniques were used for this CT. at 1136 Reported and signed by: Bernard Rice MD Electronically Signed: Bernard Rice MD at 11:34 EDT Tel , Service support ,
--- NOTE | 2021-05-22 14:27 | CASEMGMT ---
SOCIAL WORK Contacted [facility], corinne Mccullough will not have bed until next week. Met with patient in room to update. Patient requesting referral to [facility] as she was to have respite stay there on 06/01/21. Call to [facility], spoke with Hali in admissions. Referral faxed at this time for review. Layla Valenzuela, GARDENING INSTRUCTOR, DRY CELL SEALER
[2021-05-22] MEDS: Nystatin Powder 15gm Bottle 1 APPLIC TOPICAL ×2 (14:59→20:07)
[2021-05-22] MEDS: dilTIAZem CD 240 MG Capsule PO (15:12)
--- NOTE | 2021-05-22 15:45 | CASEMGMT ---
SOCIAL WORK Call to [facility] to verify referral received. Left message for Hali in admissions. Awaiting call back. Layla Valenzuela, ROADWAY TECHNICIAN, INDUSTRIAL MAINTENANCE REPAIRER HELPER
--- NOTE | 2021-05-22 16:14 | CASEMGMT ---
SOCIAL WORK Received call from Hali with [facility]. Able to accommodate patient. Precert to be started today. Hali states anticipates precert will be obtained tomorrow. SW to follow up. Patient updated by nursing. Plan: [facility] once insurance auth obtained. Layla Valenzuela, STROKE COORDINATOR, WOOD MODEL BUILDER
[2021-05-22 16:30] VITALS: BP 100/48; PULSE 54; RESP 18; TEMP 36.3; O2SAT 92
--- NOTE | 2021-05-22 17:05 | CHAPLAIN ---
Type of Pastoral Visit _x__ Initial Visit ___ Follow-up Visit ___ On-call Visit ___ General Patient Visit ___ Spiritual Assessment ___ Family Conference ___ Bereavement ___ Rapid Response ___ Code Blue ___ Other (describe below) Pastoral Care Referral From _x__ Patient ___ Family ___ Nurse ___ Physician ___ Pigment Processor ___ Preschool Lead Teacher ___ Other (describe below) Sacrament/Intervention _x__ Active listening ___ Anointing ___ Uatsdin ___ Bereavement ___ Communion _x__ Mendy exploration ___ _x__ Life review _x__ Prayer ___ Reconciliation ___ Sacrament of Sick _x__ Supportive presence ___ Wedding ___ Other (describe below) Pastoral Comments patient very talkative and desires the spiritual care support; pt states that she wants to be in [place] but has difficulty going there and having transportation; pt seeks someone to talk with about her spiritual mendy and life; pt welcomes presence and prayer
[2021-05-22] MEDS: Juven (unflavored) Packet 1 PACKET PO (18:44)
[2021-05-22 20:15] VITALS: BP 107/52; PULSE 63; RESP 16; TEMP 37.2; O2SAT 94
[2021-05-22] MEDS: Baclofen 10 MG Tablet PO (21:41)
[2021-05-23] VITALS (7 sets, daily range): BP systolic 109–152; BP diastolic 50–58; PULSE 60–66; RESP 16–18; TEMP 36.6–36.7; O2SAT 93–98
[2021-05-23] MEDS: Nystatin Powder 15gm Bottle 1 APPLIC TOPICAL ×3 (05:41→22:54)
[2021-05-23] MEDS: Potassium Chloride Oral Tablet 20 MEQ PO ×3 (05:41→22:55)
[2021-05-23 06:36] LABS: Anion Gap 7 (5-15); BUN 26 mg/dL (7-18); BUN/Creat Ratio 22.6 RATIO (10-20); Calcium,Total 8.5 mg/dL (8.5-10.1); Chloride 99 mmol/L (98-107); Creatinine, Serum 1.15 mg/dL (0.55-1.02); EST Glomerular Filtration Rate 50 mL/min (>60); Est Glom Filt Rate - Afr Amer 60 mL/min (>60); Glucose 129 mg/dL (74-106); Sodium Level 134 mmol/L (136-145)
[2021-05-23] MEDS: Ferrous Sulfate 325 MG Tablet PO ×3 (07:42→17:58)
[2021-05-23] MEDS: Juven (unflavored) Packet 1 PACKET PO ×2 (07:43→17:58)
--- NOTE | 2021-05-23 09:00 | CASEMGMT ---
Addendum entered by Amie Chung 05/24/21 13:49: SW called Hali at [facility], she still does not have precert, will let SW know once she hears back. LATRICIA Ferraro Addendum entered by Amie Chung 05/23/21 10:09: SW spoke w/Hali at [facility], gave her this SW's number to call should she get precert. LATRICIA Ferraro Original Note: Pt had informed both physician and RN that pt's sister would like pt to go to a facility closer to [place], so it is closer to her home. SW spoke w/pt, she confirmed that her sister wants pt go to somewhere in [place] for rehab rather than [facility]. SW did do a map search, SW explained to pt that the [facility] is about 18 miles from her sister, and that the facilities here in [place] are not any closer. Pt states she wonders if her sister is just used to coming to [place] so wants her to come here. SW inquired if she would like SW to call her sister, she states she would. SW called pt's sister Mechelle, spoke to her about the penitentiary choice of [facility] vs a facility here in [place]. Pt's sister states she is fine w/pt going to [facility], she states she lives in [facility] and is fine w/this. SW spoke w/pt again, and let her know her sister is fine w/[facility]. Pt now stating is also fine w/[facility]. Plan will continue to be [facility] pending precert. LATRICIA Ferraro
--- NOTE | 2021-05-23 09:29 | PN.HOSP_ITS ---
Subjective Subjective No new events. Slept off and on last night. Objective Data Objective Data Vital Signs: Vital Signs Temp Pulse Resp BP Pulse Ox 36.6 C 65 16 152/58 H 94 05/23/21 02:00 05/23/21 02:00 05/23/21 02:00 05/23/21 02:00 05/23/21 07:23 Oxygen Delivery Method Room Air Weight: 148 kg Body Mass Index (BMI) 59.6 Intake & Output: Intake and Output for Last 24 Hours 05/21/21 05/22/21 05/23/21 23:59 23:59 23:59 Intake Total 54 / 254 1785 / 1785 Output Total 1250 / 1500 800 / 800 Balance 54 / -196 535 / 285 -800 / -800 Medical Nutrition Assessment Dietitian: Nutrition Therapy Diagnosis Start: 05/22/21 13:20 Freq: Status: Active Protocol: Document 05/22/21 13:20 AG (Rec: 05/22/21 13:20 AG [id number]) Nutrition Malnutrition Evidence of Malnutrition Exists No Intake Problem Increased Nutrient Needs (specify) Etiology (protein) r/t wounds Signs/Symptoms as evidenced by right posterior thigh open area; buttock, piper-area, and under pannus excoriation. Status Active Problem Recommendation Dietitian Recommendations/Changes Change diet to consistent carbohydrate 1800 calorie sodium restricted diet. D/c glucerna 120mL PO 4x/day at [employer]. Add 1 pkt Dc BID for wounds . Add 1-2 oz extra meat/protein at each meal. Lab / Micro Data Result Diagrams: 05/22/21 06:10 05/23/21 05:52 Labs: Laboratory Results - last 24 hr 05/23/21 05:52: Sodium 134 L, Potassium 4.0, Chloride 99, Carbon Dioxide 28.0, Anion Gap 7, BUN 26 H, Creatinine 1.15 H, Estim Creat Clear Calc 36.00, Est GFR (MDRD) Af Amer 60, Est GFR (MDRD) Non-Af 50 L, BUN/Creatinine Ratio 22.6 H, Glucose 129 H, Calcium 8.5 Radiography Diagnostic Testing: Radiology Impression Cervical Spine CT 05/22/21 12:45 IMPRESSION: Multilevel degenerative changes, as described above. Electronically Signed: Cooper Abraham MD at 7:12 EDT Tel , Service support , Physical Exam Narrative morbidly obese Const alert, oriented x3 and no apparent distress Assessment & Plan Assessment/Plan (1) Debility: PLAN: 1. Debility Patient has been essentially bedridden since November Patient open to going to a senior living facility as her sister is unable to adequately care for her anymore. Case management to further facilitate 2. Sacral decubitus ulcer with excoriation Stage I-II No evidence of cellulitis therefore cellulitis ruled out DC vancomycin 3. Alina intertrigo Underneath pannus and breasts Nystatin 4. Morbid obesity BMI 59.7 Complicates overall care and recovery 5. Left upper extremity weakness Chronic for 1 years time according to the patient States that she is seeing orthopedics and told her that it is not an orthopedic issue Patient had a cervical spine x-ray in July 2020 that showed cervical spondylosis and patient has had shoulder x-rays that show degenerative changes. Plan: Check CT of cervical spine as well as left shoulder to evaluate for any kind nerve root impingement. 6. afib on amio anticoagulated with rivaroxaban 7. VTE prophylaxis: anticoagulated Charges/Coding Visit Charges Inpatient E&M: 76766 Subs Hosp L1
[2021-05-23] MEDS: Menthol/Lanolin/Calamine/Znox 113 GM Tube 1 APPLIC TOPICAL ×4 (10:44→22:53)
[2021-05-23] MEDS: Amiodarone 200 MG Tablet PO ×2 (10:45→22:55)
[2021-05-23] MEDS: Pantoprazole Sodium 20 MG Tablet PO (10:45)
[2021-05-23] MEDS: Cyanocobalamin 500 MCG Tablet 1000 MCG PO (10:46)
[2021-05-23] MEDS: Gabapentin 600 MG Tablet PO ×2 (10:46→22:56)
[2021-05-23] MEDS: Furosemide 80 MG Tablet PO (10:46)
[2021-05-23] MEDS: Magnesium Chloride 64 MG Delay Rel.Tablet 128 MG PO ×2 (10:46→22:55)
[2021-05-23] MEDS: Allopurinol 100 MG Tablet PO (10:47)
[2021-05-23] MEDS: Rivaroxaban 20 MG Tablet PO (10:47)
[2021-05-23 11:29] LABS: Vancomycin, Trough Level 14.6 ug/mL (5.0-15.0)
[2021-05-23] MEDS: Tolterodine Tartrate 4 MG CAP.SA PO (14:05)
[2021-05-23] MEDS: dilTIAZem CD 240 MG Capsule PO (14:05)
[2021-05-23] MEDS: traMADol 50 MG Tablet PO (22:54)
[2021-05-23] MEDS: Baclofen 10 MG Tablet PO (22:54)
[2021-05-24 02:55] VITALS: BP 120/56; PULSE 56; RESP 17; TEMP 36.4; O2SAT 97
[2021-05-24] MEDS: Magnesium Hydroxide 30 ML UDC PO (02:55)
[2021-05-24] MEDS: DiphenhydrAMINE 25 MG Capsule 50 MG PO ×2 (02:59→22:56)
[2021-05-24] MEDS: Potassium Chloride Oral Tablet 20 MEQ PO ×3 (06:17→23:04)
[2021-05-24] MEDS: Nystatin Powder 15gm Bottle 1 APPLIC TOPICAL ×3 (06:17→22:58)
[2021-05-24 07:28] VITALS: O2SAT 95
[2021-05-24 09:00] VITALS: BP 134/52; PULSE 66; RESP 18; TEMP 36.6; O2SAT 94; O2SAT 95
[2021-05-24] MEDS: Menthol/Lanolin/Calamine/Znox 113 GM Tube 1 APPLIC TOPICAL ×4 (09:39→22:57)
[2021-05-24] MEDS: Juven (unflavored) Packet 1 PACKET PO (09:39)
[2021-05-24] MEDS: Ferrous Sulfate 325 MG Tablet PO ×3 (09:39→18:20)
[2021-05-24] MEDS: Tolterodine Tartrate 4 MG CAP.SA PO (09:40)
[2021-05-24] MEDS: Furosemide 80 MG Tablet PO (09:40)
[2021-05-24] MEDS: dilTIAZem CD 240 MG Capsule PO (09:40)
[2021-05-24] MEDS: Magnesium Chloride 64 MG Delay Rel.Tablet 128 MG PO ×2 (09:41→23:04)
[2021-05-24] MEDS: Amiodarone 200 MG Tablet PO ×2 (09:41→23:04)
[2021-05-24] MEDS: Gabapentin 600 MG Tablet PO ×2 (09:41→23:04)
[2021-05-24] MEDS: Pantoprazole Sodium 20 MG Tablet PO (09:41)
[2021-05-24] MEDS: Rivaroxaban 20 MG Tablet PO (09:42)
[2021-05-24] MEDS: Allopurinol 100 MG Tablet PO (09:42)
[2021-05-24] MEDS: Cyanocobalamin 500 MCG Tablet 1000 MCG PO (09:42)
[2021-05-24 14:00] VITALS: BP 127/61; PULSE 67; RESP 16; TEMP 36.6; O2SAT 95
--- NOTE | 2021-05-24 14:03 | PCM.PN.HOSP ---
Subjective Subjective No new complaints. Objective Data Objective Data Vital Signs: Vital Signs Temp Pulse Resp BP Pulse Ox 36.6 C 66 18 134/52 H 95 05/24/21 09:00 05/24/21 09:00 05/24/21 09:00 05/24/21 09:00 05/24/21 09:00 Oxygen Delivery Method Room Air Weight: 148 kg Body Mass Index (BMI) 59.6 Intake & Output: Intake and Output for Last 24 Hours 05/22/21 05/23/21 05/24/21 23:59 23:59 23:59 Intake Total 1785 / 1785 800 / 800 1740 / 1740 Output Total 1250 / 1500 1450 / 1450 1500 / 1500 Balance 535 / 285 -650 / -650 240 / 240 Medical Nutrition Assessment Dietitian: Nutrition Therapy Diagnosis Start: 05/22/21 13:20 Freq: Status: Active Protocol: Document 05/22/21 13:20 AG (Rec: 05/22/21 13:20 AG [id number]) Nutrition Malnutrition Evidence of Malnutrition Exists No Intake Problem Increased Nutrient Needs (specify) Etiology (protein) r/t wounds Signs/Symptoms as evidenced by right posterior thigh open area; buttock, piper-area, and under pannus excoriation. Status Active Problem Recommendation Dietitian Recommendations/Changes Change diet to consistent carbohydrate 1800 calorie sodium restricted diet. D/c glucerna 120mL PO 4x/day at [facility]. Add 1 pkt Dc BID for wounds . Add 1-2 oz extra meat/protein at each meal. Lab / Micro Data Result Diagrams: 05/22/21 06:10 05/23/21 05:52 Physical Exam Const alert Constitutional Narrative: up in bed. non-toxic. Psych affect normal Assessment & Plan Assessment/Plan (1) Debility: PLAN: 1. Debility Patient has been essentially bedridden since November Patient open to going to a care home facility as her sister is unable to adequately care for her anymore. Case management to further facilitate 2. Sacral decubitus ulcer with excoriation Stage I-II No evidence of cellulitis therefore cellulitis ruled out DC vancomycin 3. Alina intertrigo Underneath pannus and breasts Nystatin 4. Morbid obesity BMI 59.7 Complicates overall care and recovery 5. Left upper extremity weakness Chronic for 1 years time according to the patient States that she is seeing orthopedics and told her that it is not an orthopedic issue Patient had a cervical spine x-ray in July 2020 that showed cervical spondylosis and patient has had shoulder x-rays that show degenerative changes. Severe multilevel intervertebral neural foraminal stenosis. 6. afib on amio anticoagulated with rivaroxaban 7. VTE prophylaxis: anticoagulated Charges/Coding Visit Charges Inpatient E&M: 32176 [facility] Hosp L1
[2021-05-24 15:00] VITALS: PULSE 68; RESP 18
[2021-05-24] MEDS: traMADol 50 MG Tablet PO (22:56)
[2021-05-24] MEDS: Baclofen 10 MG Tablet PO (22:58)
[2021-05-24 23:00] VITALS: BP 109/52; PULSE 68; RESP 18; TEMP 36.9; O2SAT 95
[2021-05-25] MEDS: Nystatin Powder 15gm Bottle 1 APPLIC TOPICAL ×3 (06:19→22:00)
[2021-05-25] MEDS: Potassium Chloride Oral Tablet 20 MEQ PO ×3 (06:20→22:28)
[2021-05-25 06:22] VITALS: BP 119/45; PULSE 65; RESP 16; TEMP 35.9; O2SAT 94
[2021-05-25] MEDS: Senna/Docusate Sodium 1 Tablet 2 TABLET PO (07:47)
[2021-05-25] MEDS: DiphenhydrAMINE 25 MG Capsule 50 MG PO ×2 (07:48→22:28)
[2021-05-25] MEDS: Menthol/Lanolin/Calamine/Znox 113 GM Tube 1 APPLIC TOPICAL ×4 (07:52→21:59)
[2021-05-25] MEDS: Ferrous Sulfate 325 MG Tablet PO ×3 (07:52→14:22)
[2021-05-25] MEDS: Juven (unflavored) Packet 1 PACKET PO ×2 (07:52→14:58)
[2021-05-25] MEDS: Magnesium Chloride 64 MG Delay Rel.Tablet 128 MG PO ×2 (07:54→22:28)
[2021-05-25] MEDS: Rivaroxaban 20 MG Tablet PO (07:54)
[2021-05-25] MEDS: Amiodarone 200 MG Tablet PO ×2 (07:54→22:28)
[2021-05-25] MEDS: Allopurinol 100 MG Tablet PO (07:54)
[2021-05-25] MEDS: Cyanocobalamin 500 MCG Tablet 1000 MCG PO (07:55)
[2021-05-25] MEDS: dilTIAZem CD 240 MG Capsule PO (07:55)
[2021-05-25] MEDS: Furosemide 80 MG Tablet PO (07:55)
[2021-05-25] MEDS: Gabapentin 600 MG Tablet PO ×2 (07:55→22:29)
[2021-05-25] MEDS: Pantoprazole Sodium 20 MG Tablet PO (07:55)
[2021-05-25] MEDS: Tolterodine Tartrate 4 MG CAP.SA PO (07:56)
[2021-05-25 08:45] VITALS: BP 115/53; PULSE 57; RESP 16; TEMP 36.4; O2SAT 97
--- NOTE | 2021-05-25 09:59 | CASEMGMT ---
Addendum entered by Amie Chung 05/25/21 10:06: CORNELIA faxed updates to Hali at [facility]. SW attempted to speak w/pt, she is sleeping, SW will check back later. LATRICIA Ferraro Original Note: SW called [facility], spoke w/Hali, pt's precert is still pending. CORNELIA will send updates shortly. LATRICIA Ferraro
[2021-05-25 13:28] VITALS: BP 128/61; PULSE 57; RESP 16; TEMP 36.6; O2SAT 100
[2021-05-25 13:51] VITALS: O2SAT 95
--- NOTE | 2021-05-25 14:03 | CASEMGMT ---
Addendum entered by Amie Chung 05/25/21 16:01: SW called Hali at [facility], they still do not have precert. She states she called [facility] and they just keep telling her it's pending, and cannot give her a person to speak with to follow up. SW did let her know pt is switching to [facility] at the start of June. They do take [facility]. CORNELIA gave Hali the SW in the ED's telephone number should she still get precert today. If she does she will call the ED SW. SW completed hospital exemption and placed it on the chart w/transport and COVID form in event precert is attained. SW let ED SW know the situation and sent her a green sheet to place on chart should precert be attained. SW let pt know that we are still waiting for precert and it is looking like she will be here through the weekend. SW explained if precert does still come through today she would go today, but it is unlikely. Plan continues to be [facility] at discharge, and precert is still pending. LATRICIA Ferraro Original Note: SW spoke w/pt in room, informed her that we are still waiting for precert. SW also asked pt about her insurance, as she told physician she does not like [place]. Pt states she is switching to [facility]. SW will continue to follow, will let pt know once precert is attained, and explained that we will hopefully hear today. CORNELIA explained if we do not get precert today, we will follow up on Friday. LATRICIA Ferraro
--- NOTE | 2021-05-25 14:13 | PN.HOSP_ITS ---
Subjective Subjective Denies any new complaints. Patient just upset that she still here and that her insurance was changed over to [place] [employer]. Objective Data Objective Data Vital Signs: Vital Signs Temp Pulse Resp BP Pulse Ox 36.6 C 57 L 16 128/61 H 95 05/25/21 13:28 05/25/21 13:28 05/25/21 13:28 05/25/21 13:28 05/25/21 13:51 Oxygen Delivery Method Room Air Weight: 148 kg Body Mass Index (BMI) 59.6 Intake & Output: Intake and Output for Last 24 Hours 05/23/21 05/24/21 05/25/21 23:59 23:59 23:59 Intake Total 800 / 800 2340 / 2340 650 / 650 Output Total 1450 / 1450 4100 / 4100 1700 / 1700 Balance -650 / -650 -1760 / -1760 -1050 / -1050 Medical Nutrition Assessment Dietitian: Nutrition Therapy Diagnosis Start: 05/22/21 13:20 Freq: Status: Active Protocol: Document 05/24/21 14:28 RMA (Rec: 05/24/21 14:28 RMA [id number]) Nutrition Malnutrition Evidence of Malnutrition Exists No Intake Problem Increased Nutrient Needs (specify) Etiology (protein) r/t wounds Signs/Symptoms as evidenced by right posterior thigh open area; buttock, piper-area, and under pannus excoriation. Status Active Problem Recommendation Dietitian Recommendations/Changes Cardiac/consistent carbohydrate 1800 calorie; high protein diet. Continue 1 pkt Dc BID for wounds. Continue 1-2 oz extra meat/ protein at each meal. Lab / Micro Data Result Diagrams: 05/22/21 06:10 05/23/21 05:52 Physical Exam Narrative In bed. Afebrile. Nontoxic. Assessment & Plan Assessment/Plan (1) Debility: PLAN: 1. Debility Patient has been essentially bedridden since November Patient open to going to a alf facility as her sister is unable to adequately care for her anymore. Case management to further facilitate 2. Sacral decubitus ulcer with excoriation Stage I-II No evidence of cellulitis therefore cellulitis ruled out DC vancomycin 3. Alina intertrigo Underneath pannus and breasts Nystatin 4. Morbid obesity BMI 59.7 Complicates overall care and recovery 5. Left upper extremity weakness Chronic for 1 years time according to the patient States that she is seeing orthopedics and told her that it is not an orthopedic issue Patient had a cervical spine x-ray in July 2020 that showed cervical s pondylosis and patient has had shoulder x-rays that show degenerative changes. Severe multilevel intervertebral neural foraminal stenosis. 6. afib on amio anticoagulated with rivaroxaban 7. VTE prophylaxis: anticoagulated Charges/Coding Visit Charges Inpatient E&M: 69969 [facility] Hosp L1
[2021-05-25] MEDS: Polyethylene Glycol 3350 17 GM PACKET PO (14:58)
[2021-05-25] MEDS: Magnesium Hydroxide 30 ML UDC PO (14:58)
[2021-05-25 15:20] VITALS: BP 118/28; PULSE 56; RESP 16; TEMP 36.6; O2SAT 100
[2021-05-25 21:52] VITALS: BP 108/47; PULSE 61; RESP 18; TEMP 36.8; O2SAT 97
[2021-05-25] MEDS: traMADol 50 MG Tablet PO (22:27)
[2021-05-25] MEDS: Baclofen 10 MG Tablet PO (22:28)
[2021-05-26 03:42] VITALS: BP 119/44; PULSE 62; RESP 18; TEMP 36.6; O2SAT 95
[2021-05-26] MEDS: Nystatin Powder 15gm Bottle 1 APPLIC TOPICAL ×3 (05:11→21:01)
[2021-05-26] MEDS: Potassium Chloride Oral Tablet 20 MEQ PO ×3 (05:25→20:59)
--- NOTE | 2021-05-26 06:20 | RAD_ITS ---
STUDY: X-RAY - ABDOMEN/PELVIS REASON FOR EXAM: Female, 70 years old. Abdominal distension TECHNIQUE: Upright view of the abdomen COMPARISON: None. FINDINGS: Normal visualized lung bases. There is an unremarkable bowel gas pattern. There is no demonstrated free abdominal air. The visualized liver, spleen and kidneys are grossly normal in size and morphology. Status post cholecystectomy. Normal visualized osseous structures. RAD/Abd Decub and/or Erect(Portabl IMPRESSION: Normal x-ray examination of the abdomen and pelvis. Electronically Signed: Dragan Sanchez MD at 6:38 EDT Tel , Service support ,
[2021-05-26] MEDS: Bisacodyl 10 MG Suppository RC (06:39)
[2021-05-26] MEDS: Menthol/Lanolin/Calamine/Znox 113 GM Tube 1 APPLIC TOPICAL ×4 (08:04→21:01)
[2021-05-26] MEDS: 0.9% Normal Saline 1,000 ML 50 ML IV (08:04)
[2021-05-26] MEDS: Ferrous Sulfate 325 MG Tablet PO ×3 (08:04→17:10)
[2021-05-26] MEDS: Juven (unflavored) Packet 1 PACKET PO ×2 (08:04→17:09)
[2021-05-26] MEDS: Tolterodine Tartrate 4 MG CAP.SA PO (08:05)
[2021-05-26] MEDS: dilTIAZem CD 240 MG Capsule PO (08:05)
[2021-05-26] MEDS: Amiodarone 200 MG Tablet PO ×2 (08:05→21:00)
[2021-05-26] MEDS: Furosemide 80 MG Tablet PO (08:06)
[2021-05-26] MEDS: Cyanocobalamin 500 MCG Tablet 1000 MCG PO (08:06)
[2021-05-26] MEDS: Rivaroxaban 20 MG Tablet PO (08:06)
[2021-05-26] MEDS: Magnesium Chloride 64 MG Delay Rel.Tablet 128 MG PO ×2 (08:06→21:00)
[2021-05-26] MEDS: Pantoprazole Sodium 20 MG Tablet PO (08:07)
[2021-05-26] MEDS: Gabapentin 600 MG Tablet PO ×2 (08:07→21:00)
[2021-05-26] MEDS: Allopurinol 100 MG Tablet PO (08:07)
[2021-05-26] MEDS: traMADol 50 MG Tablet PO ×2 (08:09→20:59)
[2021-05-26] MEDS: Polyethylene Glycol 3350 17 GM PACKET PO (08:10)
[2021-05-26 09:09] VITALS: BP 134/53; PULSE 63; RESP 16; TEMP 36.6; O2SAT 99
--- NOTE | 2021-05-26 10:22 | CT_ITS ---
EXAM: CT ABDOMEN AND PELVIS WITH INTRAVENOUS CONTRAST : 1950 CLINICAL INDICATION: abdominal pain TECHNIQUE: Helically acquired images were obtained of the abdomen and pelvis with intravenous contrast. This CT exam was performed using one or more of the following dose reduction techniques: automated exposure control, adjustment of the mA and/or kV according to patient size, and/or use of iterative reconstruction technique. This report was created using [employer] report generation technology. CONTRAST: Oral Tamp; IV Gastrografin Tamp; 100mL Isovue-370 COMPARISON: None. FINDINGS: LOWER THORAX: Unremarkable. Lung bases are clear. No cardiomegaly. No significant pericardial effusion. ABDOMEN: LIVER: Unremarkable. Homogeneous. No focal mass. GALLBLADDER AND BILE DUCTS: There are surgical clips from a cholecystectomy. No intra- or extrahepatic biliary ductal dilation. PANCREAS: Unremarkable. No focal cystic or solid mass. SPLEEN: Unremarkable. Normal size without focal cystic or solid mass. ADRENALS: Unremarkable. No nodules. KIDNEYS AND URETERS: Unremarkable. Normal renal size and position. No hydronephrosis. STOMACH AND BOWEL: There is a large ventral hernia which contains loops of large and small bowel. There is a large amount of stool seen throughout the colon which may represent constipation. There appears to be crushable narrowing of the distal sigmoid colon. Peristalsis however a stricture cannot be excluded. No stomach or bowel distention. No focal inflammatory change. PELVIS: APPENDIX: No evidence of acute appendicitis. BLADDER: There is a Avalos catheter in the bladder. REPRODUCTIVE: Unremarkable as visualized. No mass. ABDOMEN and PELVIS: INTRAPERITONEAL SPACE: Unremarkable. No ascites or other fluid collection. No free air. BONES/JOINTS: Unremarkable. No suspicious lytic or blastic abnormality. SOFT TISSUES: See above. VASCULATURE: Unremarkable. Abdominal aorta is non-dilated. LYMPH NODES: Unremarkable. No enlarged lymph nodes. CT/Abdomen/Pelvis WITH Contrast IMPRESSION: 1. Moderate amount of stool throughout the colon which may represent constipation. There is a focal area of narrowing of the distal sigmoid colon may be due to peristalsis however the possibility of a stricture cannot be excluded. If indicated further evaluation with colonoscopy may be beneficial. 2. Large ventral hernia contains loops of large and small bowel. Individualized dose optimization techniques were used for this CT. at 1424 Reported and signed by: Bernard Rice MD Electronically Signed: Bernard Rice MD at 14:23 EDT Tel , Service support ,
--- NOTE | 2021-05-26 11:53 | PCM.PN.HOSP ---
Subjective Subjective Complains of abdominal pain. No BM for 5 days. Objective Data Objective Data Vital Signs: Vital Signs Temp Pulse Resp BP Pulse Ox 36.6 C 63 16 134/53 H 99 05/26/21 09:09 05/26/21 09:09 05/26/21 09:09 05/26/21 09:09 05/26/21 09:09 Oxygen Delivery Method Room Air Weight: 148 kg Body Mass Index (BMI) 59.6 Intake & Output: Intake and Output for Last 24 Hours 05/24/21 05/25/21 05/26/21 23:59 23:59 23:59 Intake Total 2340 / 2340 1250 / 1250 500 / 500 Output Total 4100 / 4100 2750 / 2750 1200 / 1200 Balance -1760 / -1760 -1500 / -1500 -700 / -700 Medical Nutrition Assessment Dietitian: Nutrition Therapy Diagnosis Start: 05/22/21 13:20 Freq: Status: Active Protocol: Document 05/24/21 14:28 RMA (Rec: 05/24/21 14:28 RMA [id number]) Nutrition Malnutrition Evidence of Malnutrition Exists No Intake Problem Increased Nutrient Needs (specify) Etiology (protein) r/t wounds Signs/Symptoms as evidenced by right posterior thigh open area; buttock, piper-area, and under pannus excoriation. Status Active Problem Recommendation Dietitian Recommendations/Changes Cardiac/consistent carbohydrate 1800 calorie; high protein diet. Continue 1 pkt Dc BID for wounds. Continue 1-2 oz extra meat/ protein at each meal. Lab / Micro Data Result Diagrams: 05/22/21 06:10 05/23/21 05:52 Radiography Diagnostic Testing: Radiology Impression Abdomen X-Ray 05/26/21 06:20 IMPRESSION: Normal x-ray examination of the abdomen and pelvis. Electronically Signed: Dragan Sanchez MD at 6:38 EDT Tel , Service support , Physical Exam Const alert Resp normal respiratory effort, no retractions, no use of accessory muscles and clear to auscultation bilaterally Cardio regular rate, regular rhythm, S1 normal heart sound and S2 normal heart sound GI GI Narrative: tender diffusely. distended. high-pitched bowel sounds. Assessment & Plan Assessment/Plan (1) Debility: PLAN: 1. Debility Patient has been essentially bedridden since November Patient open to going to a nursing home facility as her sister is unable to adequately care for her anymore. Case management to further facilitate 2. Sacral decubitus ulcer with excoriation Stage I-II No evidence of cellulitis therefore cellulitis ruled out DC vancomycin 3. Alina intertrigo Underneath pannus and breasts Nystatin 4. Morbid obesity BMI 59.7 Complicates overall care and recovery 5. Left upper extremity weakness Chronic for 1 years time according to the patient States that she is seeing orthopedics and told her that it is not an orthopedic issue Patient had a cervical spine x-ray in July 2020 that showed cervical spondylosis and patient has had shoulder x-rays that show degenerative changes. Severe multilevel intervertebral neural foraminal stenosis. 6. afib on amio anticoagulated with rivaroxaban 7. VTE prophylaxis: anticoagulated 8. Abdominal pain xray limited check abd CT Charges/Coding Visit Charges Inpatient E&M: 05332 Subs Hosp L2
[2021-05-26 14:31] VITALS: BP 133/46; PULSE 61; RESP 16; TEMP 36.6; O2SAT 96
[2021-05-26] MEDS: Magnesium Citrate 300 ML 150 ML PO (15:20)
[2021-05-26 20:45] VITALS: BP 110/54; PULSE 63; RESP 18; TEMP 37.1; O2SAT 93
[2021-05-26] MEDS: Baclofen 10 MG Tablet PO (20:58)
[2021-05-26] MEDS: DiphenhydrAMINE 25 MG Capsule 50 MG PO (20:59)
[2021-05-27 02:50] VITALS: BP 123/53; PULSE 62; RESP 18; TEMP 36.8; O2SAT 92
[2021-05-27] MEDS: DiphenhydrAMINE 25 MG Capsule 50 MG PO ×2 (03:55→22:00)
[2021-05-27] MEDS: Nystatin Powder 15gm Bottle 1 APPLIC TOPICAL ×3 (05:08→21:57)
[2021-05-27] MEDS: Potassium Chloride Oral Tablet 20 MEQ PO ×3 (05:08→21:57)
[2021-05-27 07:49] VITALS: BP 125/42; PULSE 57; RESP 18; TEMP 36.4; O2SAT 100
[2021-05-27] MEDS: Menthol/Lanolin/Calamine/Znox 113 GM Tube 1 APPLIC TOPICAL ×4 (07:52→21:57)
[2021-05-27] MEDS: Juven (unflavored) Packet 1 PACKET PO (07:53)
[2021-05-27] MEDS: Ferrous Sulfate 325 MG Tablet PO ×3 (07:53→17:16)
[2021-05-27] MEDS: Magnesium Chloride 64 MG Delay Rel.Tablet 128 MG PO ×2 (07:53→21:57)
[2021-05-27] MEDS: Tolterodine Tartrate 4 MG CAP.SA PO (07:54)
[2021-05-27] MEDS: Gabapentin 600 MG Tablet PO ×2 (07:54→21:57)
[2021-05-27] MEDS: Furosemide 80 MG Tablet PO (07:54)
[2021-05-27] MEDS: Rivaroxaban 20 MG Tablet PO (07:55)
[2021-05-27] MEDS: Cyanocobalamin 500 MCG Tablet 1000 MCG PO (07:55)
[2021-05-27] MEDS: Allopurinol 100 MG Tablet PO (07:56)
[2021-05-27] MEDS: Pantoprazole Sodium 20 MG Tablet PO (07:56)
[2021-05-27 09:55] VITALS: BP 111/41; PULSE 56; RESP 16; TEMP 36.6; O2SAT 95
[2021-05-27] MEDS: dilTIAZem CD 240 MG Capsule PO (10:06)
[2021-05-27] MEDS: traMADol 50 MG Tablet PO ×2 (10:06→21:57)
[2021-05-27] MEDS: Amiodarone 200 MG Tablet PO ×2 (10:06→21:57)
[2021-05-27] MEDS: 0.9% Normal Saline 1,000 ML 75 ML IV ×2 (11:15→22:00)
[2021-05-27] MEDS: 0.9% Saline Lock 10 ML Syringe IV (11:15)
--- NOTE | 2021-05-27 14:01 | PCM.PN.HOSP ---
Subjective Subjective Patient has had a bowel movement still having abdominal pain and distention. This similar to when she has had bowel obstructions in the past. Patient is passing some gas but not much. Objective Data Objective Data Vital Signs: Vital Signs Temp Pulse Resp BP Pulse Ox 36.6 C 56 L 16 111/41 L 95 05/27/21 09:55 05/27/21 09:55 05/27/21 09:55 05/27/21 09:55 05/27/21 09:55 Oxygen Delivery Method Room Air Weight: 148 kg Body Mass Index (BMI) 59.6 Intake & Output: Intake and Output for Last 24 Hours 05/25/21 05/26/21 05/27/21 23:59 23:59 23:59 Intake Total 1250 / 1250 1178.33 / 1178.33 1044.17 / 1044.17 Output Total 2750 / 2750 2600 / 2600 1525 / 1525 Balance -1500 / -1500 -1421.67 / -1421.67 -480.83 / -480.83 Medical Nutrition Assessment Dietitian: Nutrition Therapy Diagnosis Start: 05/22/21 13:20 Freq: Status: Active Protocol: Document 05/24/21 14:28 RMA (Rec: 05/24/21 14:28 RMA [id number]) Nutrition Malnutrition Evidence of Malnutrition Exists No Intake Problem Increased Nutrient Needs (specify) Etiology (protein) r/t wounds Signs/Symptoms as evidenced by right posterior thigh open area; buttock, piper-area, and under pannus excoriation. Status Active Problem Recommendation Dietitian Recommendations/Changes Cardiac/consistent carbohydrate 1800 calorie; high protein diet. Continue 1 pkt Dc BID for wounds. Continue 1-2 oz extra meat/ protein at each meal. Lab / Micro Data Result Diagrams: 05/22/21 06:10 05/23/21 05:52 Radiography Diagnostic Testing: Radiology Impression Abdomen/Pelvis CT 05/26/21 10:22 IMPRESSION: 1. Moderate amount of stool throughout the colon which may represent constipation. There is a focal area of narrowing of the distal sigmoid colon may be due to peristalsis however the possibility of a stricture cannot be excluded. If indicated further evaluation with colonoscopy may be beneficial. 2. Large ventral hernia contains loops of large and small bowel. Individualized dose optimization techniques were used for this CT. at 1424 Reported and signed by: Bernard Rice MD Electronically Signed: Bernard Rice MD at 14:23 EDT Tel , Service support , Physical Exam Const alert and no apparent distress Resp normal respiratory effort, no retractions, no use of accessory muscles and clear to auscultation bilaterally Cardio regular rate, regular rhythm, S1 normal heart sound and S2 normal heart sound GI GI Narrative: Few high-pitched bowel sounds. Abdomen is distended but soft. Tender palpation. No guarding, no rebound. Extremity normal to inspection Assessment & Plan Assessment/Plan (1) Debility: PLAN: 1. Debility Patient has been essentially bedridden since November Patient open to going to a long-term facility as her sister is unable to adequately care for her anymore. Case management to further facilitate 2. Sacral decubitus ulcer with excoriation Stage I-II No evidence of cellulitis therefore cellulitis ruled out DC vancomycin 3. Alina intertrigo Underneath pannus and breasts Nystatin 4. Morbid obesity BMI 59.7 Complicates overall care and recovery 5. Left upper extremity weakness Chronic for 1 years time according to the patient States that she is seeing orthopedics and told her that it is not an orthopedic issue Patient had a cervical spine x-ray in July 2020 that showed cervical spondylosis and patient has had shoulder x-rays that show degenerative changes. Severe multilevel intervertebral neural foraminal stenosis. 6. afib on amio anticoagulated with rivaroxaban 7. VTE prophylaxis: anticoagulated 8. Abdominal pain CT of the abdomen pelvis the report mentioned no evidence of small bowel obstruction but patient is still very distended. Did show air-fluid levels. Patient has a very large ventral hernia which complicates this but clinically does not appear to be incarcerated. Patient does have a history of small bowel obstructions. Patient is stable and acutely is not sick enough and I do not feel that this is a surgical abdomen at this time. Patient is certainly higher risk given her body habitus and prior surgeries. Discussed with the patient about transfer to a tertiary facility such as [facility] where her surgery has been done versus just conservative measures here. Patient is preferring to stay with conservative measures, which I feel is most appropriate at this point time anyway is clinically she is not in any significant distress. This could just be slow transit given her morbid obesity and known hernia. We will check a small bowel follow-through and if that does show a transition point and it may be necessary to transfer the patient to a tertiary facility, such as [facility] for evaluation. Patient will be n.p.o. for now and I will give the patient some gentle IV fluids. While given her IV fluids, will hold off on her furosemide. Additionally, patient has had been able to have bowel movements Charges/Coding Visit Charges Inpatient E&M: 83571 Subs Hosp L3
[2021-05-27 14:15] VITALS: BP 124/43; PULSE 58; RESP 16; TEMP 36.7; O2SAT 95
[2021-05-27] MEDS: Polyethylene Glycol 3350 17 GM PACKET PO (17:15)
[2021-05-27 20:10] VITALS: BP 115/56; PULSE 56; RESP 18; TEMP 37; O2SAT 93
[2021-05-27] MEDS: Baclofen 10 MG Tablet PO (21:57)
[2021-05-28 02:22] VITALS: BP 112/50; PULSE 58; RESP 18; TEMP 36.8; O2SAT 93
[2021-05-28] MEDS: Nystatin Powder 15gm Bottle 1 APPLIC TOPICAL ×3 (05:51→22:49)
[2021-05-28] MEDS: Potassium Chloride Oral Tablet 20 MEQ PO ×3 (05:52→22:50)
[2021-05-28] MEDS: DiphenhydrAMINE 25 MG Capsule 50 MG PO ×3 (06:04→22:53)
[2021-05-28 06:44] LABS: Absolute Lymphocyte Count 1.18 X10^3/uL (0.83-4.51); Absolute Neutrophil Count 4.5 X10^3/uL (2.0-7.7); Basophil# 0.04 X10^3/uL; Basophil% 0.6 % (0-1); Eosinophil# 0.39 X10^3/uL; Eosinophils% 5.6 % (0-5); Hematocrit 43.8 % (37-47); Hemoglobin 13.9 g/dL (12.0-15.0); Lymphocyte # 1.18 X10^3/ul (0.83-4.51); Mean Corp Hgb Conc 31.7 g/dL (32-36); Mean Corpuscular Hgb 28.5 pg (27.0-32.0); Mean Corpuscular Volume 89.8 fL (81-99); Mean Platelet Vol. 9.2 fl (6.2-12.0); Monocyte% 11.5 % (0-10); NRBC Flagged by Analyzer 0 % (0-5); Neutrophil # 4.49 X10^3/uL (2.7-7.7); Neutrophil % 64.7 % (47-70); Platelet Count 278 K/mm3 (150-450); RBC Distribution Width CV 14.2 % (11.6-14.6); RBC Distribution Width SD 46.5 fl (35.1-43.9); Red Blood Count 4.88 M/mm3 (4.2-5.4); White Blood Count 6.9 K/mm3 (4.4-11.0)
[2021-05-28 07:21] LABS: Anion Gap 5 (5-15); BUN 32 mg/dL (7-18); BUN/Creat Ratio 36.2 RATIO (10-20); Calcium,Total 8.8 mg/dL (8.5-10.1); Chloride 100 mmol/L (98-107); Creatinine, Serum 0.88 mg/dL (0.55-1.02); EST Glomerular Filtration Rate 67 mL/min (>60); Est Glom Filt Rate - Afr Amer 81 mL/min (>60); Estimated Creatinine Clearance 47.05 ml/min; Glucose 95 mg/dL (74-106); Potassium 4.4 mmol/L (3.5-5.1); Sodium Level 132 mmol/L (136-145)
[2021-05-28 07:23] VITALS: BP 125/54; PULSE 53; RESP 16; TEMP 36.6; O2SAT 93
[2021-05-28] MEDS: traMADol 50 MG Tablet PO ×2 (07:25→22:53)
--- NOTE | 2021-05-28 09:19 | CASEMGMT ---
SOCIAL WORK Call to [facility] to check on status of precert. Left message, awaiting call back. Plan: [facility] pending precert D. Bianca, OLIVE GRADER, FOOD SCIENCE TECHNICIAN
--- NOTE | 2021-05-28 10:18 | CASEMGMT ---
SOCIAL WORK Call from [facility] with [facility]. Precert obtained and good until 05/31/21. Staff updated. Layla Valenzuela MSW, PAINT [employer]INTER
--- NOTE | 2021-05-28 10:21 | RAD_ITS ---
STUDY: GASTROGRAFIN SMALL BOWEL FOLLOW-THROUGH EXAMINATION. REASON FOR EXAM: Female, 70 years old. Abdominal pain, HERNIA, TECHNIQUE: The patient ingested GASTROGRAFIN. A small bowel follow-through examination was obtained. COMPARISON: None. FINDINGS: On the advertising sales manager images, there is diffuse gaseous distention of the colon with the mild gaseous distention of multiple small bowel loops. There is evidence of a large ventral hernia. There is no evidence of bowel obstruction at this time. This may represent an ileus pattern especially colonic ileus. Fecal material is seen in the right hemicolon. A large ventral hernia is seen in the right lower quadrant. RAD/Small Bowel Series Only IMPRESSION: No evidence of bowel obstruction at this time. Gaseous distention of the colon with large amount of fecal material in the colon. Electronically Signed: Jesus Iglesias MD at 13:34 EDT , Service support ,
[2021-05-28] MEDS: Menthol/Lanolin/Calamine/Znox 113 GM Tube 1 APPLIC TOPICAL ×4 (11:04→22:49)
--- NOTE | 2021-05-28 11:12 | NURSING ---
pt requesting to hold of on am meds until she is allowed to have something to eat so the meds dont burn her stomach
--- NOTE | 2021-05-28 11:56 | CASEMGMT ---
SOCIAL WORK Informed by physician anticipate discharge tomorrow. Call to Hali at [facility] to update on anticipated discharge tomorrow. Layla Valenzuela, HEAVY MOBILE EQUIPMENT OPERATOR, CNC MACHINE PROGRAMMER
[2021-05-28 12:36] LABS: Bedside Glucose 104 mg/dL (70-110)
--- NOTE | 2021-05-28 13:26 | CASEMGMT ---
SOCIAL WORK Returned call to Allison with [facility] ([phone]) who reports spoke with patient and was confirming plan for [facility] at discharge. D/c plan confirmed, anticipate discharge tomorrow.
[2021-05-28 13:30] VITALS: BP 128/51; PULSE 56; RESP 16; TEMP 36.3; O2SAT 99
[2021-05-28] MEDS: Magnesium Chloride 64 MG Delay Rel.Tablet 128 MG PO ×2 (13:48→22:50)
[2021-05-28] MEDS: Polyethylene Glycol 3350 17 GM PACKET PO (13:49)
[2021-05-28] MEDS: Gabapentin 600 MG Tablet PO ×2 (13:49→22:50)
[2021-05-28] MEDS: Allopurinol 100 MG Tablet PO (13:50)
[2021-05-28] MEDS: Rivaroxaban 20 MG Tablet PO (13:50)
[2021-05-28] MEDS: Ferrous Sulfate 325 MG Tablet PO ×2 (13:51→18:36)
[2021-05-28] MEDS: Cyanocobalamin 500 MCG Tablet 1000 MCG PO (14:00)
[2021-05-28] MEDS: Tolterodine Tartrate 4 MG CAP.SA PO (14:01)
[2021-05-28] MEDS: Pantoprazole Sodium 20 MG Tablet PO (14:01)
[2021-05-28] MEDS: 0.9% Normal Saline 1,000 ML 75 ML IV (14:02)
--- NOTE | 2021-05-28 14:50 | PCM.PN.HOSP ---
Subjective Subjective Patient back flatus and bowel movement although although small amount. NG tube was removed yesterday night. Started on clear liquids. Objective Data Objective Data Vital Signs: Vital Signs Temp Pulse Resp BP Pulse Ox 97.8 F 53 L 16 125/54 H 93 05/28/21 07:23 05/28/21 07:23 05/28/21 07:23 05/28/21 07:23 05/28/21 07:23 Oxygen Delivery Method Room Air Weight: 326 lb 4.546 oz Body Mass Index (BMI) 59.6 Intake & Output: Intake and Output for Last 24 Hours 05/26/21 05/27/21 05/28/21 23:59 23:59 23:59 Intake Total 1178.33 / 1178.33 2090.42 / 2090.42 1000 / 1000 Output Total 2600 / 2600 2275 / 2275 850 / 850 Balance -1421.67 / -1421.67 -184.58 / -184.58 150 / 150 Medical Nutrition Assessment Dietitian: Nutrition Therapy Diagnosis Start: 05/22/21 13:20 Freq: Status: Active Protocol: Document 05/24/21 14:28 RMA (Rec: 05/24/21 14:28 RMA [id number]) Nutrition Malnutrition Evidence of Malnutrition Exists No Intake Problem Increased Nutrient Needs (specify) Etiology (protein) r/t wounds Signs/Symptoms as evidenced by right posterior thigh open area; buttock, piper-area, and under pannus excoriation. Status Active Problem Recommendation Dietitian Recommendations/Changes Cardiac/consistent carbohydrate 1800 calorie; high protein diet. Continue 1 pkt Dc BID for wounds. Continue 1-2 oz extra meat/ protein at each meal. Lab / Micro Data Result Diagrams: 05/28/21 06:20 05/28/21 06:20 Labs: Laboratory Results - last 24 hr 05/28/21 06:20: WBC 6.9, RBC 4.88, Hgb 13.9, Hct 43.8, MCV 89.8, MCH 28.5, MCHC 31.7 L, RDW Std Deviation 46.5 H, RDW Coeff of Chucky 14.2, Plt Count 278, MPV 9.2, Immature Gran % (Auto) 0.600, Neut % (Auto) 64.7, Lymph % (Auto) 17.0 L, [place] % (Auto) 11.5 H, Eos % (Auto) 5.6 H, Baso % (Auto) 0.6, Absolute Neuts (auto) 4.5, Absolute Lymphs (auto) 1.18, Nucleated RBC % 0 05/28/21 06:20: Sodium 132 L, Potassium 4.4, Chloride 100, Carbon Dioxide 27.0, Anion Gap 5, BUN 32 H, Creatinine 0.88, Estim Creat Clear Calc 47.05, Est GFR (MDRD) Af Amer 81, Est GFR (MDRD) Non-Af 67, BUN/Creatinine Ratio 36.2 H, Glucose 95, Calcium 8.8 05/28/21 12:29: POC Glucose 104 Micro: Microbiology 05/28/21 11:00 Mucosa - Nose SARS-CoV-2 Antigen (Rapid) - Final Radiography Diagnostic Testing: Radiology Impression Small Bowel X-Ray 05/28/21 10:21 IMPRESSION: No evidence of bowel obstruction at this time. Gaseous distention of the colon with large amount of fecal material in the colon. Electronically Signed: Jesus Iglesias MD at 13:34 EDT , Service support , Physical Exam Narrative General: Alert, Oriented x3, Cooperative HEENT: Atraumatic, PERRLA, EOMI, Normocephalic Oral: No Gingival or Mucosal Lesions/ Ulcerations Neck: Supple, No JVD, Negative Carotid Bruits Lungs: Air entry diminished in bilateral lung bases. No crepitation/rhonchi Cardiovascular: Regular rate, Regular Rhythm, Normal S1, Normal S2, No murmurs Abdomen: Soft, flat abdomen, bowel sounds sluggish. Ventral hernia. Surgical scar vanesa. : No renal angle tenderness. No suprapubic tenderness. Extremities: No edema, Capillary Refill Less than 3 Seconds Skin: Sacral decubitus ulcer; in the buttocks and diana cleft. Intertriginous candidiasis under breasts and pannus. Musculoskeletal: No Tenderness to Palpation of Joints or Extremities Neurological: Cranial nerves II-XII grossly intact, DTR 2+/4 and Symmetrical, Neuro grossly intact Psych/Mental Status: Normal Affect, Appropriate. Assessment & Plan Assessment/Plan (1) Hernia of anterior abdominal wall: PLAN: 1. Debility Patient has been essentially bedridden since November after surgery bowel obstruction in [facility]. Discharged to SNF. Once patient is tolerates diet, can be transferred to SNU most probably tomorrow. 2. Incontinence associated dermatitis: Discussed with the wound nurse. It is not sacral decubitus ulcer, therefore doubt. 3. Alina intertrigo Underneath pannus and breasts Nystatin 4. Morbid obesity BMI 59.7 Complicates overall care and recovery 5. Left upper extremity weakness, chronic, debility. 6. Chronic A. fib: Amiodarone and diltiazem to 40 mg were held as patient heart rate in low 50s. 7. VTE prophylaxis: anticoagulated on rivaroxaban Living will/advanced directive/end of life care: Patient does not have living will or advanced directive. After discussion of benefits/risks procedures involved with full code, DNR CC arrest and DNR CC, the patient opted for full code. I discussed the guarded prognosis in view of her bedridden since November, functionally debilitated, history of ventral hernia, recurrent obstruction and ileus and other multiple comorbidities admission above. She still wants to be full code. Patient does want artificial life support including intubation, tube feed, ventilator and/chest compression, central venous catheter, vasopressor and DC shock if needed Total time spent in [id number] encounter in discussion of advanced directive 16 minutes. Charges/Coding Procedures Hospitalists Procedures: 30660 Advncd Care Plan 30 Min
[2021-05-28] MEDS: Juven (unflavored) Packet 1 PACKET PO (18:36)
[2021-05-28 22:47] VITALS: BP 105/42; PULSE 55; RESP 18; TEMP 37; O2SAT 96
[2021-05-28] MEDS: Amiodarone 200 MG Tablet PO (22:50)
[2021-05-28] MEDS: Baclofen 10 MG Tablet PO (22:51)
[2021-05-29] MEDS: 0.9% Normal Saline 1,000 ML 75 ML IV (02:04)
[2021-05-29 03:31] VITALS: BP 101/41; PULSE 57; RESP 16; TEMP 36.6; O2SAT 96
[2021-05-29] MEDS: Potassium Chloride Oral Tablet 20 MEQ PO ×2 (06:09→15:12)
[2021-05-29] MEDS: Nystatin Powder 15gm Bottle 1 APPLIC TOPICAL ×2 (06:10→15:13)
[2021-05-29 09:39] VITALS: BP 111/44; PULSE 58; RESP 18; TEMP 36.6; O2SAT 100
[2021-05-29] MEDS: Acetaminophen 500 MG Tablet 1000 MG PO (09:50)
[2021-05-29] MEDS: dilTIAZem CD 240 MG Capsule PO (09:51)
[2021-05-29] MEDS: Magnesium Chloride 64 MG Delay Rel.Tablet 128 MG PO (09:51)
[2021-05-29] MEDS: Amiodarone 200 MG Tablet PO (09:51)
[2021-05-29] MEDS: Pantoprazole Sodium 20 MG Tablet PO (09:52)
[2021-05-29] MEDS: Polyethylene Glycol 3350 17 GM PACKET PO (09:52)
[2021-05-29] MEDS: Ferrous Sulfate 325 MG Tablet PO ×2 (09:52→15:12)
[2021-05-29] MEDS: Tolterodine Tartrate 4 MG CAP.SA PO (09:52)
[2021-05-29] MEDS: Menthol/Lanolin/Calamine/Znox 113 GM Tube 1 APPLIC TOPICAL ×2 (09:52→15:12)
[2021-05-29] MEDS: Gabapentin 600 MG Tablet PO (09:52)
[2021-05-29] MEDS: Juven (unflavored) Packet 1 PACKET PO (09:52)
[2021-05-29] MEDS: Rivaroxaban 20 MG Tablet PO (09:53)
[2021-05-29] MEDS: Cyanocobalamin 500 MCG Tablet 1000 MCG PO (09:53)
[2021-05-29] MEDS: Allopurinol 100 MG Tablet PO (09:53)
[2021-05-29] MEDS: DiphenhydrAMINE 25 MG Capsule 50 MG PO (10:03)
[2021-05-29] MEDS: traMADol 50 MG Tablet PO (10:04)
--- NOTE | 2021-05-29 11:34 | DS.PCM_ITS ---
Providers Date of Admission: 05/21/21 Primary Care Physician: Dr. Dudley Hoyt MD Consultations 05/22/21 00:56 Consult: Onc/Wound/roller stitcher Routine Comment: Reason For Visit: CELLULITIS Diagnosis Discharge Diagnosis (1) Hernia of anterior abdominal wall: Status: Chronic Code(s): K43.9 - Ventral hernia without obstruction or gangrene (2) Chronic back pain: Status: Chronic Code(s): M54.9 - Dorsalgia, unspecified; G89.29 - Other chronic pain Qualifiers: Back pain location: back pain in unspecified location Back pain laterality: unspecified Qualified Code(s): M54.9 - Dorsalgia, unspecified; G89.29 - Other chronic pain (3) Shoulder arthritis: Status: Chronic Code(s): M19.019 - Primary osteoarthritis, unspecified shoulder Medications at Discharge Home Medications furosemide 80 mg PO DAILY 07/20/13 mometasone [Nasonex] 2 spray NASAL DAILY PRN 07/20/13 cyclobenzaprine 10 mg PO BID PRN 10/03/15 diphenhydramine HCl [Banophen] 50 mg PO Q6 PRN #0 capsule 12/07/15 Gabapentin 600 mg PO BID 11/01/20 Tramadol Hcl 50 mg PO BID 11/01/20 acetaminophen 1,000 mg PO Q6H PRN PRN 11/01/20 cyanocobalamin (vitamin B-12) 1,000 mcg PO DAILY 11/01/20 rivaroxaban 20 mg PO DAILY 02/11/21 Folic Acid-Vit B6-Vit B12 (Ca) 1 tab PO DAILY 05/21/21 albuterol sulfate 2 puff INHALATION Q4H PRN 05/21/21 allopurinol 100 mg PO DAILY 05/21/21 amiodarone 200 mg PO BID 05/21/21 baclofen 10 mg PO QHS 05/21/21 biotin 5,000 mcg PO DAILY 05/21/21 ferrous sulfate 325 mg PO TID 05/21/21 ipratropium-albuterol 3 ml INHALATION Q6H PRN 05/21/21 magnesium oxide 400 mg PO BID 05/21/21 nystatin 1 applic TOPICAL BID PRN 05/21/21 omeprazole 20 mg PO DAILY 05/21/21 oxybutynin chloride 15 mg PO DAILY 05/21/21 potassium chloride 20 meq PO TID 05/21/21 ascorbic acid (vitamin C) 1,000 mg PO DAILY 05/22/21 diltiazem HCl 240 mg PO DAILY 05/22/21 tramadol 50 mg PO BID PRN 5 Days #10 tab 05/29/21 Hospital Course Operations None Procedures None Summary of Care Provided Minutes Spent on Discharge: 45 Hospital Course: Patient is a 70-year-old female with an extensive past medical history as outlined. She was admitted with a complaint of increasing redness and discomfort around his sacral decubitus ulcer. Patient had been bedbound after surgery in November 2020 for small bowel obstruction. Since then she has been unable to transfer from a scooter to a better her bathroom and had been living with her sister. She was therefore admitted to be managed for sacral decubitus ulcer with cellulitis and started on IV vancomycin. She also put on pain medication and case management was consulted for long-term care placement as well as PT and OT. Vancomycin was subsequently discontinued as cellulitis was ruled out. Hospital course ws complicated by chronic left upper extremity weakness and cervical spine CT showed multilevel degenerative disc changes. Hospital course was further complicated by abdominal pain and CT of the abdomen showed a large stool burden with some air fluid levels but no mention of small bowel obstruction. She was put on clear liquid diet and she had large bowel movements with relief of abdominal pain; she was therefore gradually put back on her regular diet which she tolerated. Patient remained stable and was skilled to SNF. She was discharged to SNF on 05/29/2021, and is to follow up with her PCP, wound care and orthopedics o/a o the chronic LUE pain. Patient was seen and examined prior to discharge. She was comfortably eating breakfast and had no complaints. She did say her urinary catheter was leaking and it was recommended that this should be removed to reduce the risk of UTI. Presents otherwise negative. Labs and vitals reviewed. Home medication revi ewed and reconciled. Physical Exam Const alert, oriented x3 and no apparent distress Constitutional Narrative: up in bed. non-toxic. General Appearance: cooperative and comfortable Nutritional Appearance: morbidly obese HEENT normocephalic and head/scalp atraumatic Eyes PERRL Neck supple Lymph Lymphatic: no lymphadenopathy noted Resp normal respiratory effort, normal air movement, no retractions, no use of accessory muscles and clear to auscultation bilaterally Cardio regular rate, regular rhythm, S1 normal heart sound and S2 normal heart sound GI normal to inspection, nondistended, normoactive bowel sounds, non-tender and non-distended GI Narrative: abdomen soft, non tender, normal bowel sounds. Dressing over ventral abdominal hernia Extremity normal to inspection General Extremity: edema bilateral (3+) Skin Skin Narrative: Excoriations on the backside. Patient has Alina intertrigo underneath her breasts and as well as pannus. Wounds: wounds noted size Size: entire buttocks to lower back and bed beefy red, with slough and edematous Neuro CN's II-XII intact bilaterally Neuro Narrative: Patient unable to move her left arm, this is chronic Sensorium / Orientation: awake and alert Psych thought process normal and affect normal Medical Records Data Medical Nutrition Assessment Dietitian: Nutrition Therapy Diagnosis Start: 05/22/21 13:20 Freq: Status: Active Protocol: Document 05/24/21 14:28 RMA (Rec: 05/24/21 14:28 RMA [id number]) Nutrition Malnutrition Evidence of Malnutrition Exists No Intake Problem Increased Nutrient Needs (specify) Etiology (protein) r/t wounds Signs/Symptoms as evidenced by right posterior thigh open area; buttock, piper-area, and under pannus excoriation. Status Active Problem Recommendation Dietitian Recommendations/Changes Cardiac/consistent carbohydrate 1800 calorie; high protein diet. Continue 1 pkt Dc BID for wounds. Continue 1-2 oz extra meat/ protein at each meal. Weight / BMI Weight Weight: 326 lb 4.546 oz Body Mass Index (BMI) 59.6 ABG / Lab / Microbiology Data Result Diagrams: 05/28/21 06:20 05/28/21 06:20 Laboratory: Laboratory Results - last 24 hr 05/28/21 12:29: POC Glucose 104 Microbiology: Microbiology 05/28/21 11:00 Mucosa - Nose SARS-CoV-2 Antigen (Rapid) - Final Radiography Diagnostic Testing: Radiology Impression Small Bowel X-Ray 05/28/21 10:21 IMPRESSION: No evidence of bowel obstruction at this time. Gaseous distention of the colon with large amount of fecal material in the colon. Electronically Signed: Jesus Iglesias MD at 13:34 EDT , Service support , D/C Instructions Discharge Diet: Low fat / Low cholesterol Discharge Activity: Return to Normal Activity Weight Bearing Status: Weight bearing as tolerated Call your doctor if you observe: Fever of 101 or Higher, Coldness, Increased Pain and Uncontrolled pain Meaningful Use Info Meaningful Use Diagnoses (Choose all that apply): None applicable Discharge Plan Admission Admit Date/Time: 05/21/21 20:50 Primary Reason for Your Visit: worsening debility Attending Provider: Chelsea Mathias Primary Care Provider: Dudley Hoyt Discharge Orders/Prescriptions Prescriptions: New tramadol 50 mg tablet 50 mg PO BID PRN (Reason: pain) 5 Days Qty: 10 RF: 0 Continued cyclobenzaprine 10 MG tablet 10 mg PO BID PRN (Reason: muscle spasms) RF: 0 diphenhydramine HCl [Banophen] 25 MG capsule 50 mg PO Q6 PRN (Reason: Itching) Qty: 0 RF: 0 cyanocobalamin (vitamin B-12) 1,000 MCG tablet 1,000 mcg PO DAILY RF: 0 acetaminophen 500 MG tablet 1,000 mg PO Q6H PRN PRN (Reason: Pain 1-10 Or Fever) RF: 0 Gabapentin 600 MG tablet 600 mg PO BID RF: 0 rivaroxaban 20 MG tablet 20 mg PO DAILY RF: 0 oxybutynin chloride 15 mg tablet extended release 24hr 15 mg PO DAILY RF: 0 ipratropium-albuterol 0.5 mg-3 mg(2.5 mg base)/3 mL solution for nebulization 3 ml inhalation Q6H PRN (Reason: sob) RF: 0 amiodarone 200 mg tablet 200 mg PO BID RF: 0 potassium chloride 10 mEq tablet extended release 20 meq PO TID RF: 0 allopurinol 100 mg tablet 100 mg PO DAILY RF: 0 magnesium oxide 400 mg (241.3 mg magnesium) tablet 400 mg PO BID RF: 0 baclofen 10 mg tablet 10 mg PO QHS RF: 0 ferrous sulfate 325 mg (65 mg iron) tablet 325 mg PO TID RF: 0 nystatin 100,000 unit/gram cream 1 applic TOPICAL BID PRN (Reason: redness) RF: 0 omeprazole 20 mg capsule,delayed release(DR/EC) 20 mg PO DAILY RF: 0 albuterol sulfate 90 mcg/actuation HFA aerosol inhaler 2 puff INHALATION Q4H PRN (Reason: sob) RF: 0 Folic Acid-Vit B6-Vit B12 (Ca) Tablet 1 tab PO DAILY RF: 0 biotin 5,000 mcg tablet,disintegrating 5,000 mcg PO DAILY RF: 0 diltiazem HCl 240 mg capsule,extended release 24hr 240 mg PO DAILY RF: 0 ascorbic acid (vitamin C) 500 mg Tablet 1,000 mg PO DAILY RF: 0 furosemide 80 MG tablet 80 mg PO DAILY RF: 0 mometasone [Nasonex] 1 SPRAY spray,non-aerosol 2 spray NASAL DAILY PRN (Reason: Congestion) RF: 0 No Action Tramadol Hcl 50 MG tablet 50 mg PO BID RF: 0 Referrals / Follow Up: Dudley Hoyt MD [Primary Care Provider] - Within 2 Weeks Disposition Disposition (needs filled in before D/C Order can be placed): [facility] Charges/Coding Visit Charges Inpatient E&M: 01937 Disch Hosp
--- NOTE | 2021-05-29 12:02 | PCM.TXEXTCAR ---
Diet 05/29/21 07:36 Diet: Regular - General Food consistency:: Soft & Bite Sized Dietary Modifications:: Sodium Restricted Cardiac / Heart Healthy Type of Dietary Supplement:: Is pt able to select menu?: Yes Diet Comments: 1-2 oz extra protein at meals. no meats; small portions Routine Orders/Code Status Enema Type: Fleetz Enema Frequency: Daily PRN Suppository Frequency: Daily PRN O2 Frequency: PRN Keep PO Greater than or Equal to (%): 90 Code Status: Full Code Wound(s) piper-area: Wound Type: excoriation buttocks: Wound Type: excoration R posterior thigh: Wound Type: open area under pannus: Wound Type: excoriation BACK, THIGHS, BUTTOCKS: Wound Type: incontinence associated dermatitis back of left knee: Wound Type: Skin Tear Therapies Weight Bearing: Weight bearing as tolerated Physical Therapy: Eval and Treat Occupational Therapy: Eval and Treat Problem/Diagnosis (1) Hernia of anterior abdominal wall: Status: Chronic (2) Chronic back pain: Status: Chronic (3) Shoulder arthritis: Status: Chronic (4) Debility: Status: Acute Allergies/Procedures Done in Hospital Allergies latex Allergy (Verified 05/21/21 17:07) Rash methadone [Methadone] Allergy (Verified 05/21/21 17:07) Shortness of breath morphine Allergy (Verified 05/21/21 17:07) Itching oxycodone [Oxycodone] Allergy (Verified 05/21/21 17:07) Hives amoxicillin [Amoxicillin] Adverse Reaction (Verified 05/21/21 17:07) Itching fentanyl Adverse Reaction (Verified 05/21/21 17:07) Rash Sulfa (Sulfonamide Antibiotics) Adverse Reaction (Verified 05/21/21 17:07) Rash pain meds Allergy (Uncoded 05/21/21 17:07) Itching PT STATES SHE NEEDS BENADRYL WITH PAIN MEDS Procedures: None Type of Care/Length of Stay Estimated LOS: Convalescent Care Less Than 30 days Type of Care Needed: Skilled Rehab Potential: Fair Prognosis: Fair Additional Orders/Day of Discharge Day of Discharge: 05/29/21 Dietary and Speech Recommendations Dietitian Recommendations/Changes: Cardiac/Low Sodium - small portions. Will d/c Ensure Enlive d/t pt thinks it is too much with rest of her diet. Continue 1 pkt Dc BID for wounds. Continue 1-2 oz extra meat/protein at each meal. Follow Up Care Please follow up with your Primary Care Physician in: 1-2 weeks When: 2-4 weeks to review changes to your amiodarone and cardizem meds. 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 Discharge Plan Admission Admit Date/Time: 05/21/21 20:50 Primary Reason for Your Visit: worsening debility Attending Provider: Chelsea Mathias Primary Care Provider: Dudley Hoyt Discharge Orders/Prescriptions Prescriptions: New tramadol 50 mg tablet 50 mg PO BID PRN (Reason: pain) 5 Days Qty: 10 RF: 0 diltiazem HCl [Cardizem CD] 120 mg capsule,extended release 24hr 120 mg PO DAILY Qty: 30 RF: 1 Continued cyclobenzaprine 10 MG tablet 10 mg PO BID PRN (Reason: muscle spasms) RF: 0 diphenhydramine HCl [Banophen] 25 MG capsule 50 mg PO Q6 PRN (Reason: Itching) Qty: 0 RF: 0 cyanocobalamin (vitamin B-12) 1,000 MCG tablet 1,000 mcg PO DAILY RF: 0 acetaminophen 500 MG tablet 1,000 mg PO Q6H PRN PRN (Reason: Pain 1-10 Or Fever) RF: 0 Gabapentin 600 MG tablet 600 mg PO BID RF: 0 rivaroxaban 20 MG tablet 20 mg PO DAILY RF: 0 oxybutynin chloride 15 mg tablet extended release 24hr 15 mg PO DAILY RF: 0 ipratropium-albuterol 0.5 mg-3 mg(2.5 mg base)/3 mL solution for nebulization 3 ml inhalation Q6H PRN (Reason: sob) RF: 0 potassium chloride 10 mEq tablet extended release 20 meq PO TID RF: 0 allopurinol 100 mg tablet 100 mg PO DAILY RF: 0 magnesium oxide 400 mg (241.3 mg magnesium) tablet 400 mg PO BID RF: 0 baclofen 10 mg tablet 10 mg PO QHS RF: 0 ferrous sulfate 325 mg (65 mg iron) tablet 325 mg PO TID RF: 0 nystatin 100,000 unit/gram cream 1 applic TOPICAL BID PRN (Reason: redness) RF: 0 omeprazole 20 mg capsule,delayed release(DR/EC) 20 mg PO DAILY RF: 0 albuterol sulfate 90 mcg/actuation HFA aerosol inhaler 2 puff INHALATION Q4H PRN (Reason: sob) RF: 0 Folic Acid-Vit B6-Vit B12 (Ca) Tablet 1 tab PO DAILY RF: 0 biotin 5,000 mcg tablet,disintegrating 5,000 mcg PO DAILY RF: 0 ascorbic acid (vitamin C) 500 mg Tablet 1,000 mg PO DAILY RF: 0 furosemide 80 MG tablet 80 mg PO DAILY RF: 0 mometasone [Nasonex] 1 SPRAY spray,non-aerosol 2 spray NASAL DAILY PRN (Reason: Congestion) RF: 0 Discontinued amiodarone 200 mg tablet 200 mg PO BID RF: 0 diltiazem HCl 240 mg capsule,extended release 24hr 240 mg PO DAILY RF: 0 No Action Tramadol Hcl 50 MG tablet 50 mg PO BID RF: 0 Referrals / Follow Up: Dudley Hoyt MD [Primary Care Provider] - Within 2 Weeks Disposition Disposition (needs filled in before D/C Order can be placed): [facility]
--- NOTE | 2021-05-29 13:04 | CASEMGMT ---
SOCIAL WORK Patient to discharge to [facility]. Sister to transport patient. Layla Valenzuela, ROBOTICS SYSTEMS ENGINEER, PATIENT FINANCIAL SERVICES COORDINATOR
--- NOTE | 2021-05-29 13:31 | CHAPLAIN ---
Type of Pastoral Visit ___ Initial Visit _x__ Follow-up Visit ___ On-call Visit ___ General Patient Visit ___ Spiritual Assessment ___ Family Conference ___ Bereavement ___ Rapid Response ___ Code Blue ___ Other (describe below) Pastoral Care Referral From _x__ Patient ___ Family ___ Nurse ___ Physician ___ Senior Product Designer ___ Potato Chip Frier ___ Other (describe below) Sacrament/Intervention _x__ Active listening ___ Anointing ___ Religious ___ Bereavement ___ Communion ___ Mendy exploration ___ ___ Life review _x__ Prayer ___ Reconciliation ___ Sacrament of Sick _x__ Supportive presence ___ Wedding ___ Other (describe below) Pastoral Comments
[2021-05-29 15:15] VITALS: BP 118/54; PULSE 51; RESP 16; TEMP 36; O2SAT 96
== END 2021-05-29 15:57 | disposition skilled nursing facility (03) | DRG 884 ==
LOC: ED 19:50 → MS3 21:38
PROVIDERS: Internal Medicine; Admitting Provider Family Medicine; Emergency Provider Emergency Medicine; PCP Internal Medicine; Visit Provider Student in an Organized Health Care Education/Training Program
DX: R54 Age-related physical debility (principal); Z68.44 Body mass index [BMI] 60.0-69.9, adult; I48.20 Chronic atrial fibrillation, unspecified; L89.152 Pressure ulcer of sacral region, stage 2; K43.9 Ventral hernia without obstruction or gangrene; E66.01 Morbid (severe) obesity due to excess calories; R10.9 Unspecified abdominal pain; R00.1 Bradycardia, unspecified; M19.012 Primary osteoarthritis, left shoulder; L22 Diaper dermatitis; B37.2 Candidiasis of skin and nail; G47.30 Sleep apnea, unspecified; D64.9 Anemia, unspecified; M54.9 Dorsalgia, unspecified; G89.29 Other chronic pain; I12.9 Hypertensive chronic kidney disease with stage 1 through stage 4 chronic kidney disease, or unspecified chronic kidney disease; I89.0 Lymphedema, not elsewhere classified; J45.909 Unspecified asthma, uncomplicated; M47.812 Spondylosis without myelopathy or radiculopathy, cervical region; K21.9 Gastro-esophageal reflux disease without esophagitis; N18.31 Chronic kidney disease, stage 3a; Z98.84 Bariatric surgery status; Z87.19 Personal history of other diseases of the digestive system; Z85.42 Personal history of malignant neoplasm of other parts of uterus; Z79.82 Long term (current) use of aspirin; Z79.899 Other long term (current) drug therapy; Z74.01 Bed confinement status
CPT/HCPCS: 36415; 51702; 72125; 73200; 74019; 74177; 74250; 80048; 80053; 80202; 81001; 82962; 85025; 87426; 97110; 97163; 97167; 97530; 97535; 97802; 97803; 99285; J7030; J7040; Q9967; A4216

== ENCOUNTER 2021-07-26 17:24 | Emergency (ER) | payer MEDICARE, MEDICAID, SELFPAY ==
[2021-07-26 17:25] VITALS: BP 131/51; PULSE 49; RESP 18; TEMP 35.5; O2SAT 99; BMI 61.6
--- NOTE | 2021-07-26 17:49 | EX.ED.DYSGE1 ---
HPI History of Present Illness Chief Complaint: Complaint Informant: patient Onset/Context/Timing Onset: Month(s) Context: Gradual Onset Timing: Continuous Quality: Spasms Location: Bladder Worsened by: Nothing Relieved by: Nothing Narrative Narrative: Patient presents with dysuria that has been waxing and waning over the past few months. Patient states that she has been on multiple antibiotics that help initially but then her symptoms returned. Patient states that they did a culture last time but it came back contaminated. Patient states she feels like she has spasms in her bladder. Patient states this causes sharp lower abdominal pain. Patient denies any fevers or chills. Patient also complains of some skin breakdown in her perineum. [facility] Medical History (Updated 07/26/21 @ 19:[address] Parveen Munroe, ) Asthma Chronic anemia CKD (chronic kidney disease) CKD (chronic kidney disease) stage 3, GFR 30-59 ml/min Gastroesophageal reflux disease GERD (gastroesophageal reflux disease) Hernia Hernia of anterior abdominal wall History of supraventricular tachycardia HTN (hypertension) Hx of recurrent urinary tract infection Hypertension Lymphedema Lymphedema Morbid obesity Sleep apnea SVT (supraventricular tachycardia) Uterine cancer UTI (urinary tract infection) Home Medications furosemide 80 mg PO DAILY 07/20/13 [History Last Taken 05/21/21] mometasone [Nasonex] 2 spray NASAL DAILY PRN 07/20/13 [History Last Taken Unknown] cyclobenzaprine 10 mg PO BID PRN 10/03/15 [History Last Taken 05/21/21] diphenhydramine HCl [Banophen] 50 mg PO Q6 PRN #0 capsule 12/07/15 [Rx Last Taken 05/18/21] Gabapentin 600 mg PO BID 11/01/20 [History Last Taken 05/21/21] Tramadol Hcl 50 mg PO BID 11/01/20 [History Last Taken 05/21/21] acetaminophen 1,000 mg PO Q6H PRN PRN 11/01/20 [History Last Taken 10/30/20] cyanocobalamin (vitamin B-12) 1,000 mcg PO DAILY 11/01/20 [History Last Taken 11/01/20] rivaroxaban 20 mg PO DAILY 02/11/21 [History Last Taken 05/21/21] Folic Acid-Vit B6-Vit B12 (Ca) 1 tab PO DAILY 05/21/21 [History Last Taken 05/21/21] albuterol sulfate 2 puff INHALATION Q4H PRN 05/21/21 [History Last Taken Unknown] allopurinol 100 mg PO DAILY 05/21/21 [History Last Taken 05/21/21] baclofen 10 mg PO QHS 05/21/21 [History Last Taken 05/20/21] biotin 5,000 mcg PO DAILY 05/21/21 [History Last Taken 05/21/21] ferrous sulfate 325 mg PO TID 05/21/21 [History Last Taken 05/21/21] ipratropium-albuterol 3 ml INHALATION Q6H PRN 05/21/21 [History Last Taken 05/21/21] magnesium oxide 400 mg PO BID 05/21/21 [History Last Taken 05/21/21] nystatin 1 applic TOPICAL BID PRN 05/21/21 [History Last Taken Unknown] omeprazole 20 mg PO DAILY 05/21/21 [History Last Taken 05/21/21] oxybutynin chloride 15 mg PO DAILY 05/21/21 [History Last Taken 05/21/21] potassium chloride 20 meq PO TID 05/21/21 [History Last Taken 05/21/21] ascorbic acid (vitamin C) 1,000 mg PO DAILY 05/22/21 [History Last Taken Unknown] diltiazem HCl [Cardizem CD] 120 mg PO DAILY #30 cap 05/29/21 [Rx Last Taken Unknown] tramadol 50 mg PO BID PRN 5 Days #10 tab 05/29/21 [Rx Last Taken Unknown] cephalexin 500 mg PO Q6 #40 capsule 07/26/21 [Rx Last Taken Unknown] Allergy/AdvReac Type Severity Reaction Status Date / Time latex Allergy Rash Verified 07/26/21 17:24 methadone [Methadone] Allergy Shortness Verified 07/26/21 17:24 of breath morphine Allergy Itching Verified 07/26/21 17:24 oxycodone [Oxycodone] Allergy Hives Verified 07/26/21 17:24 amoxicillin [Amoxicillin] AdvReac Itching Verified 07/26/21 17:24 fentanyl AdvReac Rash Verified 07/26/21 17:24 Sulfa (Sulfonamide AdvReac Rash Verified 07/26/21 17:24 Antibiotics) pain meds Allergy Itching Uncoded 07/26/21 17:24 Surgical History History of cholecystectomy Hx of gastric bypass Social History Smoking Status: Never smoker ROS ROS ED Constitutional Constitutional ED: Denies chills or fever(s) Eyes Eyes: Reports blurry vision; Denies change in vision ENT ENT ED: Denies rhinorrhea or sore throat Cardiovascular Cardiovascular: Denies chest pain or palpitations Respiratory/Chest Respiratory/Chest: Reports cough; Denies dyspnea Gastrointestinal Gastrointestinal: Reports constipation; Denies nausea or vomiting Genitourinary Genitourinary ED: Reports urinary frequency; Denies dysuria or hematuria Musculoskeletal Musculoskeletal: Reports back pain; Denies neck pain Integumentary Denies abscess or rash Neurologic Neurologic: Denies headache(s) or weakness Allergic/Immunologic Allergic/Immunologic ED: Denies mouth swelling or urticaria EXAM Physical Exam Const Vital Signs: 07/26/21 17:25 Temperature 96 F L Temperature Source Temporal Pulse Rate 49 L Respiratory Rate 18 Blood Pressure 131/51 H Blood Pressure Mean 77 Pulse Ox 99 Oxygen Delivery Method Room Air Positive well nourished, well developed, obese and unkempt General Appearance ED: unkempt and well developed Nutritional Appearance: obese HEENT Reports moist mucous membranes Neck supple and no JVD Resp normal respiratory effort and clear to auscultation bilaterally Cardio regular rate and regular rhythm GI normal to inspection, nondistended, normoactive bowel sounds Palpation: soft and tender epigastric, LLQ, RLQ and suprapubic; Negative for guarding or rebound tenderness present Neuro oriented x3, CN's II-XII intact bilaterally and no sensory deficits noted Sensorium / Orientation: alert Psych mental status grossly normal Appearance: unkempt MDM MDM MDM Narrative Medical decision making narrative: Urinalysis was obtained. Leukocyte Estrace is 100. There were 5-10 white blood cells and 3+ bacteria. There were no epithelial cells. This was a cath specimen. Urine culture was ordered. Patient was given a dose of Keflex here. Patient was given a prescription for Keflex. Patient was instructed to follow-up with her primary care physician in 3 to 5 days for reevaluation. Patient was instructed use barrier cream to her perineum. Patient was instructed to return if worse in any way. Patient understood and was agreeable with the plan. All questions were answered. Lab Data Attestation: I reviewed the patient's lab results. Labs: Laboratory Results - last 24 hr 07/26/21 18:25 Urine Color Yellow Urine Clarity Sl. Cloudy Urine pH 5.0 Ur Specific [place] 1.020 Urine Protein Negative Urine Glucose (UA) Normal Urine Ketones Negative Urine Occult Blood 25 H Urine Nitrite Negative Urine Bilirubin Negative Urine Urobilinogen Normal Ur Leukocyte Esterase 100 H Urine RBC 0 SEEN Urine WBC 5-10 SEEN Ur Squamous Epith Cells 0 SEEN Urine Bacteria 3+ Urine Mucus 0 SEEN Discharge Plan Triage Chief Complaint: Complaint ED Provider: Parveen Munroe Dx/Rx/DC Orders Clinical Impression: Urinary tract infection Instructions: ED CYSTITIS Female Adult Prescriptions: New cephalexin [cephalexin] 500 MG capsule 500 mg PO Q6 Qty: 40 RF: 0 No Action cyclobenzaprine 10 MG tablet 10 mg PO BID PRN (Reason: muscle spasms) RF: 0 diphenhydramine HCl [Banophen] 25 MG capsule 50 mg PO Q6 PRN (Reason: Itching) Qty: 0 RF: 0 cyanocobalamin (vitamin B-12) 1,000 MCG tablet 1,000 mcg PO DAILY RF: 0 acetaminophen 500 MG tablet 1,000 mg PO Q6H PRN PRN (Reason: Pain 1-10 Or Fever) RF: 0 Tramadol Hcl 50 MG tablet 50 mg PO BID RF: 0 Gabapentin 600 MG tablet 600 mg PO BID RF: 0 rivaroxaban 20 MG tablet 20 mg PO DAILY RF: 0 oxybutynin chloride 15 mg tablet extended release 24hr 15 mg PO DAILY RF: 0 ipratropium-albuterol 0.5 mg-3 mg(2.5 mg base)/3 mL solution for nebulization 3 ml inhalation Q6H PRN (Reason: sob) RF: 0 potassium chloride 10 mEq tablet extended release 20 meq PO TID RF: 0 allopurinol 100 mg tablet 100 mg PO DAILY RF: 0 magnesium oxide 400 mg (241.3 mg magnesium) tablet 400 mg PO BID RF: 0 baclofen 10 mg tablet 10 mg PO QHS RF: 0 ferrous sulfate 325 mg (65 mg iron) tablet 325 mg PO TID RF: 0 nystatin 100,000 unit/gram cream 1 applic TOPICAL BID PRN (Reason: redness) RF: 0 omeprazole 20 mg capsule,delayed release(DR/EC) 20 mg PO DAILY RF: 0 albuterol sulfate 90 mcg/actuation HFA aerosol inhaler 2 puff INHALATION Q4H PRN (Reason: sob) RF: 0 Folic Acid-Vit B6-Vit B12 (Ca) Tablet 1 tab PO DAILY RF: 0 biotin 5,000 mcg tablet,disintegrating 5,000 mcg PO DAILY RF: 0 ascorbic acid (vitamin C) 500 mg Tablet 1,000 mg PO DAILY RF: 0 tramadol 50 mg tablet 50 mg PO BID PRN (Reason: pain) 5 Days Qty: 10 RF: 0 diltiazem HCl [Cardizem CD] 120 mg capsule,extended release 24hr 120 mg PO DAILY Qty: 30 RF: 1 furosemide 80 MG tablet 80 mg PO DAILY RF: 0 mometasone [Nasonex] 1 SPRAY spray,non-aerosol 2 spray NASAL DAILY PRN (Reason: Congestion) RF: 0 Primary Care Provider: Dudley Hoyt Referrals: Dudley Hoyt MD [Primary Care Provider] - 3-5 Days Activity Restrictions/Additional Instructions: Use barrier cream to your perineum Disposition Disposition: Home, Self Care
[2021-07-26 18:35] LABS: Mucous, Urine 0 SEEN /hpf (<or=2+); Red Blood Cells-Urine 0 SEEN /hpf (0-5); Squamous Epithelial Cells - UA 0 SEEN /hpf (5-10)
[2021-07-26 18:40] LABS: Color, Urine Yellow (Yellow); Glucose, Dipstick Normal (Normal); Ketone-Dipstick Negative (Negative); Leukocyte Esterase-Dipstick 100 /ul (Negative); Nitrite-Dipstick Negative (Negative); Occult Blood-Urine 25 /ul (Negative); Protein-Dipstick Negative (Negative); Urine Bilirubin Dipstick Negative (Negative); Urine Clarity Sl. Cloudy (Clear); Urine Urobilinogen Normal (Normal)
[2021-07-26 18:46] LABS: Bacteria 3+ /hpf (None Seen); White Blood Cells 5-10 SEEN /hpf (0-5)
--- NOTE | 2021-07-26 19:30 | ED.RN ---
sister called in to ask about why pt was not going to be receiving IV antibiotics. because sister is not POA, this RN reminded her that I could not talk about information over the phone due to HIPPA. I spoke with pt and pt asked that I talk to sister about plan of care. Sister was updated and agreeable to d/c
[2021-07-26 20:54] VITALS: PULSE 48; RESP 12; O2SAT 97
--- NOTE | 2021-07-29 12:01 | ED.RN ---
Called, left message for update regarding urine culture results and med change. patient asked to return call at her convenience.
== END 2021-07-26 21:31 | disposition home or self-care (01) ==
PROVIDERS: Emergency Provider Emergency Medicine; PCP Internal Medicine
DX: N39.0 Urinary tract infection, site not specified (principal); E66.01 Morbid (severe) obesity due to excess calories; Z68.44 Body mass index [BMI] 60.0-69.9, adult; G47.30 Sleep apnea, unspecified; D64.9 Anemia, unspecified; I12.9 Hypertensive chronic kidney disease with stage 1 through stage 4 chronic kidney disease, or unspecified chronic kidney disease; N18.30 Chronic kidney disease, stage 3 unspecified; I47.1 Supraventricular tachycardia; J45.909 Unspecified asthma, uncomplicated; I89.0 Lymphedema, not elsewhere classified; K21.9 Gastro-esophageal reflux disease without esophagitis; Z85.42 Personal history of malignant neoplasm of other parts of uterus; Z87.440 Personal history of urinary (tract) infections; Z79.01 Long term (current) use of anticoagulants; Z79.899 Other long term (current) drug therapy
CPT/HCPCS: 81001; 87086; 87088; 87186; 99283; P9612

== ENCOUNTER 2021-10-09 13:13 | Inpatient (IN) | payer MEDICARE, MEDICAID, SELFPAY ==
[2021-10-09 13:14] VITALS: BP 92/57; PULSE 58; RESP 19; TEMP 36.1; O2SAT 96; BMI 62.1
--- NOTE | 2021-10-09 13:44 | RAD_ITS ---
STUDY: X-RAY CHEST REASON FOR EXAM: Female, 71 years old. Cough, dyspnea TECHNIQUE: Single AP portable view of the chest. COMPARISON: Comparison is made with prior study dated 02/11/2021. FINDINGS: EKG electrodes are seen. I suspect an early left lower lobe infiltrate. Mild increased interstitial markings in the left midlung suggestive of scarring. Hyperinflation. There is mild cardiac enlargement. Normal mediastinum and tea. Normal visualized pulmonary arteries. There is atherosclerotic tortuosity of the aortic arch and descending thoracic aorta. There are diffuse degenerative changes of the visualized thoracic spine. There is degenerative osteoarthritis of the bilateral shoulders. There is no demonstrated abnormality of the visualized soft tissue structures of the upper abdomen. RAD/Chest 1 View (Portable) IMPRESSION: Left lower lobe infiltrate superimposed on linear scarring in both lungs worse on the left side. Electronically Signed: Jesus Iglesias MD at 15:17 EST , Service support ,
--- NOTE | 2021-10-09 13:44 | EKG12_ITS ---
Test Reason : Blood Pressure : / mmHG Vent. Rate : 055 BPM Atrial Rate : 055 BPM P-R Int : 250 ms QRS Dur : 112 ms QT Int : 364 ms P-R-T Axes : 085 -25 047 degrees QTc Int : 348 ms Sinus bradycardia with 1st degree A-V block Low voltage QRS Nonspecific T wave abnormality Poor R wave progression Abnormal ECG Confirmed by JENNIFER VALDEZ, COLIN ([id number]), script editor MARCIAL JESUS ([id number]) on 10/15/2021 8:31:11 AM Referred By: BRENT Confirmed By:COLIN RODRIGUEZ MD
[2021-10-09 14:13] LABS: Absolute Lymphocyte Count 0.75 X10^3/uL (0.83-4.51); Absolute Neutrophil Count 2.6 X10^3/uL (2.0-7.7); Basophil# 0.02 X10^3/uL; Basophil% 0.5 % (0-1); Eosinophil# 0.05 X10^3/uL; Eosinophils% 1.2 % (0-5); Hematocrit 40.9 % (37-47); Hemoglobin 12.4 g/dL (12.0-15.0); Lymphocyte # 0.75 X10^3/ul (0.83-4.51); Lymphocyte % 18.3 % (19-41); Mean Corp Hgb Conc 30.3 g/dL (32-36); Mean Corpuscular Volume 95.6 fL (81-99); Mean Platelet Vol. 9.2 fl (6.2-12.0); Monocyte# 0.68 X10^3/uL; Monocyte% 16.6 % (0-10); NRBC Flagged by Analyzer 0 % (0-5); Neutrophil # 2.59 X10^3/uL (2.7-7.7); Neutrophil % 63.2 % (47-70); Platelet Count 179 K/mm3 (150-450); RBC Distribution Width CV 14.7 % (11.6-14.6); Red Blood Count 4.28 M/mm3 (4.2-5.4); White Blood Count 4.1 K/mm3 (4.4-11.0)
--- NOTE | 2021-10-09 14:21 | EDS_ITS ---
HPI History of Present Illness Chief Complaint: Shortness of Breath Detail of Chief Complaint: Pulse ox 70% at home Informant: patient Onset/Context/Timing Onset: Days (Onset of shortness of breath and cough 3 days prior to presentation.) Context: sudden Timing: Continuous and Waxes and wanes Quality: Positive for Dyspnea on exertion and Wheezing Current Severity: Mild Maximum Severity: Severe Worsened by: - (Sleep because patient has not been compliant with) Relieved by: - (Upright) Associated Symptoms cough, post nasal drip, ear pain, fever, sore throat, subjective, chills, sweats and other Chest Pain: Positive for None Narrative Narrative: Patient is an elderly woman with multiple medical problems who presents because of a pulse ox. 70%. When she sat up woke up and took deep breaths her sat improved markedly. She does have history obstructive sleep apnea. She never got a CPAP or BiPAP machine. She does report rhinorrhea, congestion, postnasal drip and sore throat. She has loss of smell. She states food tastes funny. She does report nausea with soft stool. She denies abdominal pain. She denies increased swelling of her lower extremity. She denies history of PE or DVT. She has a long-term anticoagulant for atrial fibrillation. She denies fever or chills. She denies dysuria, frequency, urgency or hematuria. She does have history of lung disease. PE Risk Factors: Positive for Recent immobilization; Negative for Cancer, OCP + Smoking + > 35, Prior DVT or PE, Recent surgery and Recent travel Prior similar symptoms: No Recent Illness/Hospitalization: No PFSH PFSH Medical History Asthma Chronic anemia CKD (chronic kidney disease) CKD (chronic kidney disease) stage 3, GFR 30-59 ml/min Gastroesophageal reflux disease GERD (gastroesophageal reflux disease) Hernia Hernia of anterior abdominal wall History of supraventricular tachycardia HTN (hypertension) Hx of recurrent urinary tract infection Hypertension Lymphedema Lymphedema Morbid obesity Sleep apnea SVT (supraventricular tachycardia) Uterine cancer UTI (urinary tract infection) Home Medications furosemide 80 mg PO DAILY 07/20/13 [History Last Taken 05/21/21] mometasone [Nasonex] 2 spray NASAL DAILY PRN 07/20/13 [History Last Taken Unknown] cyclobenzaprine 10 mg PO BID PRN 10/03/15 [History Last Taken 05/21/21] diphenhydramine HCl [Banophen] 50 mg PO Q6 PRN #0 capsule 12/07/15 [Rx Last Taken 05/18/21] Gabapentin 600 mg PO BID 11/01/20 [History Last Taken 05/21/21] Tramadol Hcl 50 mg PO BID 11/01/20 [History Last Taken 05/21/21] acetaminophen 1,000 mg PO Q6H PRN PRN 11/01/20 [History Last Taken 10/30/20] cyanocobalamin (vitamin B-12) 1,000 mcg PO DAILY 11/01/20 [History Last Taken 11/01/20] rivaroxaban 20 mg PO DAILY 02/11/21 [History Last Taken 05/21/21] Folic Acid-Vit B6-Vit B12 (Ca) 1 tab PO DAILY 05/21/21 [History Last Taken 05/21/21] albuterol sulfate 2 puff INHALATION Q4H PRN 05/21/21 [History Last Taken Unknown] allopurinol 100 mg PO DAILY 05/21/21 [History Last Taken 05/21/21] baclofen 10 mg PO QHS 05/21/21 [History Last Taken 05/20/21] biotin 5,000 mcg PO DAILY 05/21/21 [History Last Taken 05/21/21] ferrous sulfate 325 mg PO TID 05/21/21 [History Last Taken 05/21/21] ipratropium-albuterol 3 ml INHALATION Q6H PRN 05/21/21 [History Last Taken 05/21/21] magnesium oxide 400 mg PO BID 05/21/21 [History Last Taken 05/21/21] nystatin 1 applic TOPICAL BID PRN 05/21/21 [History Last Taken Unknown] omeprazole 20 mg PO DAILY 05/21/21 [History Last Taken 05/21/21] oxybutynin chloride 15 mg PO DAILY 05/21/21 [History Last Taken 05/21/21] potassium chloride 20 meq PO TID 05/21/21 [History Last Taken 05/21/21] ascorbic acid (vitamin C) 1,000 mg PO DAILY 05/22/21 [History Last Taken Unknown] diltiazem HCl [Cardizem CD] 120 mg PO DAILY #30 cap 05/29/21 [Rx Last Taken Unknown] tramadol 50 mg PO BID PRN 5 Days #10 tab 05/29/21 [Rx Last Taken Unknown] cephalexin 500 mg PO Q6 #40 capsule 07/26/21 [Rx Last Taken Unknown] dexamethasone [Decadron] 6 mg PO DAILY #9 tab 10/09/21 [Rx Last Taken Unknown] Allergy/AdvReac Type Severity Reaction Status Date / Time latex Allergy Rash Verified 10/09/21 13:16 methadone [Methadone] Allergy Shortness Verified 10/09/21 13:16 of breath morphine Allergy Itching Verified 10/09/21 13:16 oxycodone [Oxycodone] Allergy Hives Verified 10/09/21 13:16 amoxicillin [Amoxicillin] AdvReac Itching Verified 10/09/21 13:16 fentanyl AdvReac Rash Verified 10/09/21 13:16 Sulfa (Sulfonamide AdvReac Rash Verified 10/09/21 13:16 Antibiotics) pain meds Allergy Itching Uncoded 10/09/21 13:16 Surgical History History of cholecystectomy Hx of gastric bypass Social History (Updated 10/09/21 @ 14:[address] Rodo Hughes MD) household members: family Smoking Status: Never smoker substance use type: does not use ROS ROS ED Constitutional Constitutional ED: Reports chills and fever(s); Denies sweats or weight loss Eyes Eyes: Denies blurry vision, change in vision or diplopia ENT ENT ED: Reports rhinorrhea and sore throat; Denies ear pain Cardiovascular Cardiovascular: Reports chest pain; Denies orthopnea, palpitations, paroxysmal nocturnal dyspnea or racing heartbeat Respiratory/Chest Respiratory/Chest: Reports cough, dyspnea and dyspnea on exertion; Denies ortho pnea, paroxysmal nocturnal dyspnea or sputum Gastrointestinal Gastrointestinal: Reports diarrhea and nausea; Denies abdominal pain, constipation or vomiting Genitourinary Genitourinary ED: Denies dysuria, hematuria or urinary frequency Musculoskeletal Musculoskeletal: Denies arthralgias, myalgias or neck pain Integumentary Denies Abrasions or rash Neurologic Neurologic: Reports weakness; Denies headache(s) or paresthesias Psychiatric Psychiatric: Reports depression; Denies anxiety Endocrine Endocrinology: Denies polydipsia, polyphagia or polyuria EXAM Physical Exam Const Vital Signs: 10/09/21 13:14 10/09/21 14:19 10/09/21 14:41 Temperature 97 F L Temperature Source Temporal Pulse Rate 58 L 55 L Respiratory Rate 19 H 18 Respiratory Effort Normal Respiratory Depth Normal Respiratory Pattern Normal Blood Pressure 92/57 L 103/64 Blood Pressure Mean 68 77 Pulse Ox 96 97 Oxygen Delivery Method Room Air Room Air Nasal Cannula Oxygen Flow Rate (L/min) 2 Fraction of Inspired Oxygen (FIO2) 100 Positive well nourished, well developed and obese General Appearance ED: well developed and NAD; Negative for pallor Nutritional Appearance: obese HEENT Reports TM's clear and moist mucous membranes atraumatic; Negative for trauma or tenderness Tympanic Membrane ED: Yes TM's clear Eyes PERRL and EOMs intact bilaterally General Eye ED: Negative for pale conjunctiva or scleral icterus Neck no lymphadenopathy, supple and no meningeal signs Neck Narrative: Alina infection under neck panniculus Resp normal respiratory effort Auscultation: rales bilateral base Cardio regular rate, regular rhythm, S1 normal heart sound, S2 normal heart sound and no murmurs GI non-tender and non-distended Auscultation: normoactive bowel sounds Palpation: soft Back/Spine no CVA tenderness and normal to inspection Extremity Negative for normal to inspection General Extremety ED: Yes edema; Negative for tenderness General Extremity: edema Neuro oriented x3 and CN's II-XII intact bilaterally Sensorium / Orientation: alert Skin no wounds Skin Narrative: Alina yeast infection General Skin Exam: Negative for jaundice or pallor Lesions: no lesions Rashes: No no rashes and rashes noted MDM MDM MDM Narrative Medical decision making narrative: Patient presents with symptoms that are concerning for Covid. Since she is afebrile will test for Covid and not influenza. Chest x-ray is obtained since she has bibasilar rales. Suspect she was hypoxic due to obstructive sleep apnea that is not treated/compliant with use of CPAP machine Patient pulse ox dropped to 88% with activity. Suspect this is due to her morbid obesity and untreated obstructive sleep apnea. Will monitor. Patient's saturation returned to 96 9 7% without activity. Suspect this is due to morbid obesity. Will discharge to home with order for monoclonal antibody infusion. Lab Data Attestation: I reviewed the patient's lab results. Lab results narrative: Patient is neutropenic consistent with Covid. Patient's Covid test did return positive. She is a candidate for monoclonal infusion. Labs: Laboratory Results - last 24 hr 10/09/21 10/09/21 14:03 14:03 WBC 4.1 L RBC 4.28 Hgb 12.4 Hct 40.9 MCV 95.6 MCH 29.0 MCHC 30.3 L RDW Std Deviation 51.0 H RDW Coeff of [place] 14.7 H Plt Count 179 MPV 9.2 Immature Gran % (Auto) 0.200 Neut % (Auto) 63.2 Lymph % (Auto) 18.3 L [place] % (Auto) 16.6 H Eos % (Auto) 1.2 Baso % (Auto) 0.5 Absolute Neuts (auto) 2.6 Absolute Lymphs (auto) 0.75 L Nucleated RBC % 0 Sodium 137 Potassium 4.1 Chloride 107 Carbon Dioxide 25.0 Anion Gap 5 BUN 16 Creatinine 0.98 Estim Creat Clear Calc 41.64 Est GFR (MDRD) Af Amer 72 Est GFR (MDRD) Non-Af 60 BUN/Creatinine Ratio 16.4 Glucose 136 H Calcium 8.2 L Radiography Chest X-Ray - ED: 1 View and Read by ED Physician (View chest x-ray reveals what appears to be bilateral lower lobe infiltrates consistent with Covid. Patient's Covid test was positive. Cardiac silhouette is unremarkable. Heart size is upper end of normal. Osseous structures are unremarkable.) Diagnostic Testing: Clinical Impression(s) from Imaging Studies Chest X-Ray 10/09/21 13:44 IMPRESSION: Left lower lobe infiltrate superimposed on linear scarring in both lungs worse on the left side. Electronically Signed: Jesus Iglesias MD at 15:17 EST , Service support , EKG Initial EKG: Attestation: I personally reviewed and interpreted this EKG as follows: Interpretation: Sinus Bradycardia (Ventricular rate is 55 with first- degree AV block. SD interval is 250 ms. Cures duration 112 ms. QT duration 3 to 64 ms. [place] is normal. There is evidence of low voltage which I presume is due to body habitus, BMI 62.) Discharge Plan Triage Chief Complaint: Shortness of Breath ED Provider: Hughes,Rodo Dx/Rx/DC Orders Clinical Impression: Pneumonia due to 2019-nCoV, Obstructive sleep apnea Instructions: Coronavirus Disease 2019 (COVID-19): Caring for Yourself or Others, ED - COVID Monoclonal AB Infusion ..., ED Sleep Apnea, Obstructive Prescriptions: New dexamethasone [Decadron] 6 mg tablet 6 mg PO DAILY Qty: 9 RF: 0 No Action cyclobenzaprine 10 MG tablet 10 mg PO BID PRN (Reason: muscle spasms) RF: 0 diphenhydramine HCl [Banophen] 25 MG capsule 50 mg PO Q6 PRN (Reason: Itching) Qty: 0 RF: 0 cyanocobalamin (vitamin B-12) 1,000 MCG tablet 1,000 mcg PO DAILY RF: 0 acetaminophen 500 MG tablet 1,000 mg PO Q6H PRN PRN (Reason: Pain 1-10 Or Fever) RF: 0 Tramadol Hcl 50 MG tablet 50 mg PO BID RF: 0 Gabapentin 600 MG tablet 600 mg PO BID RF: 0 rivaroxaban 20 MG tablet 20 mg PO DAILY RF: 0 oxybutynin chloride 15 mg tablet extended release 24hr 15 mg PO DAILY RF: 0 ipratropium-albuterol 0.5 mg-3 mg(2.5 mg base)/3 mL solution for nebulization 3 ml inhalation Q6H PRN (Reason: sob) RF: 0 potassium chloride 10 mEq tablet extended release 20 meq PO TID RF: 0 allopurinol 100 mg tablet 100 mg PO DAILY RF: 0 magnesium oxide 400 mg (241.3 mg magnesium) tablet 400 mg PO BID RF: 0 baclofen 10 mg tablet 10 mg PO QHS RF: 0 ferrous sulfate 325 mg (65 mg iron) tablet 325 mg PO TID RF: 0 nystatin 100,000 unit/gram cream 1 applic TOPICAL BID PRN (Reason: redness) RF: 0 omeprazole 20 mg capsule,delayed release(DR/EC) 20 mg PO DAILY RF: 0 albuterol sulfate 90 mcg/actuation HFA aerosol inhaler 2 puff INHALATION Q4H PRN (Reason: sob) RF: 0 Folic Acid-Vit B6-Vit B12 (Ca) Tablet 1 tab PO DAILY RF: 0 biotin 5,000 mcg tablet,disintegrating 5,000 mcg PO DAILY RF: 0 ascorbic acid (vitamin C) 500 mg Tablet 1,000 mg PO DAILY RF: 0 tramadol 50 mg tablet 50 mg PO BID PRN (Reason: pain) 5 Days Qty: 10 RF: 0 diltiazem HCl [Cardizem CD] 120 mg capsule,extended release 24hr 120 mg PO DAILY Qty: 30 RF: 1 cephalexin [cephalexin] 500 MG capsule 500 mg PO Q6 Qty: 40 RF: 0 furosemide 80 MG tablet 80 mg PO DAILY RF: 0 mometasone [Nasonex] 1 SPRAY spray,non-aerosol 2 spray NASAL DAILY PRN (Reason: Congestion) RF: 0 Primary Care Provider: Dudley Hoyt Referrals: Dudley Hoyt MD [Primary Care Provider] - 1-2 Weeks Disposition Disposition: Home, Self Care
--- NOTE | 2021-10-09 14:27 | ED.RN ---
pt is 154.221 kg. requires a lift to assist into bed. waiting for lift. roosevelt virgen rn [id number]
[2021-10-09 14:32] LABS: Anion Gap 5 (5-15); BUN 16 mg/dL (7-18); BUN/Creat Ratio 16.4 RATIO (10-20); Calcium,Total 8.2 mg/dL (8.5-10.1); Chloride 107 mmol/L (98-107); Creatinine, Serum 0.98 mg/dL (0.55-1.02); EST Glomerular Filtration Rate 60 mL/min (>60); Est Glom Filt Rate - Afr Amer 72 mL/min (>60); Estimated Creatinine Clearance 41.64 ml/min; Glucose 136 mg/dL (74-106); Potassium 4.1 mmol/L (3.5-5.1); Sodium Level 137 mmol/L (136-145)
[2021-10-09 14:41] VITALS: BP 103/64; PULSE 55; RESP 18; O2SAT 88; O2SAT 97
--- NOTE | 2021-10-09 16:01 | NURSING ---
HOSPITALIST FOR DR KENNEDY
--- NOTE | 2021-10-09 16:11 | NURSING ---
MED SURG VOGT COVID PNEUMONIA, HYPOXIA
--- NOTE | 2021-10-09 16:24 | PCM.HP.STD ---
HPI - General General Date of Admission: 10/09/21 HPI Narrative KAREN HARTLEY, is a morbidly obese 71 F who presents to the ER on 10/09/2021 for 3 days of worsening shortness of breath and difficulty ambulating. Patient reports living at home with her sister when she noticed 3 days ago started developing cough increased shortness of breath with associated fevers chills and sweats. she is normally able to stand and pivot to her scooter, however she has not been able to do this over the last 2 days. Visiting nurse evaluated patient at her home today, patient was found to be hypoxic on room air with O2 saturations of 70%. EMS was called and patient was transported to the ED for further evaluation. While in the ER patient was found to be hypoxic requiring 3 to 4 L supplemental oxygen via nasal cannula, vitals otherwise stable. Labs largely unremarkable. Patient found to be Covid positive. Chest x-ray obtained shows bilateral infiltrates. Patient started on 6 mg p.o. Decadron. Case discussed with ED physician and given patient's body habitus and already poor baseline functioning status for her to be admitted for further treatment and evaluation of acute hypoxia in setting of Covid pneumonia. socHx: No smoking, no drinking, no drug use famHx: Heart disease surgHx: Multiple abdominal surgeries, history of gastric bypass, cholecystectomy code status: Full code. Discussed with patient while she was still in the ER. Patient is agreeable to chest compressions and defibrillation should her heart stop. Patient is also agreeable to intubation should her respiratory status continue to worsen. [facility] Medical History Asthma Chronic anemia CKD (chronic kidney disease) CKD (chronic kidney disease) stage 3, GFR 30-59 ml/min Gastroesophageal reflux disease GERD (gastroesophageal reflux disease) Hernia Hernia of anterior abdominal wall History of supraventricular tachycardia HTN (hypertension) Hx of recurrent urinary tract infection Hypertension Lymphedema Lymphedema Morbid obesity Sleep apnea SVT (supraventricular tachycardia) Uterine cancer UTI (urinary tract infection) Home Medications furosemide 80 mg PO DAILY 07/20/13 [History Last Taken 05/21/21] mometasone [Nasonex] 2 spray NASAL DAILY PRN 07/20/13 [History Last Taken Unknown] acetaminophen 1,000 mg PO Q6H PRN PRN 11/01/20 [History Last Taken 10/30/20] cyanocobalamin (vitamin B-12) 1,000 mcg PO DAILY 11/01/20 [History Last Taken 11/01/20] rivaroxaban 20 mg PO DAILY 02/11/21 [History Last Taken 05/21/21] Folic Acid-Vit B6-Vit B12 (Ca) 1 tab PO DAILY 05/21/21 [History Last Taken 05/21/21] albuterol sulfate 2 puff INHALATION Q4H PRN 05/21/21 [History Last Taken Unknown] allopurinol 100 mg PO DAILY 05/21/21 [History Last Taken 05/21/21] baclofen 10 mg PO QHS 05/21/21 [History Last Taken 05/20/21] biotin 5,000 mcg PO DAILY 05/21/21 [History Last Taken 05/21/21] ferrous sulfate 325 mg PO TID 05/21/21 [History Last Taken 05/21/21] ipratropium-albuterol 3 ml INHALATION Q6H PRN 05/21/21 [History Last Taken 05/21/21] magnesium oxide 400 mg PO BID 05/21/21 [History Last Taken 05/21/21] nystatin 1 applic TOPICAL BID PRN 05/21/21 [History Last Taken Unknown] omeprazole 20 mg PO DAILY 05/21/21 [History Last Taken 05/21/21] oxybutynin chloride 15 mg PO DAILY 05/21/21 [History Last Taken 05/21/21] potassium chloride 20 meq PO TID 05/21/21 [History Last Taken 05/21/21] ascorbic acid (vitamin C) 1,000 mg PO DAILY 05/22/21 [History Last Taken Unknown] tramadol 50 mg PO BID PRN 5 Days #10 tab 05/29/21 [Rx Last Taken Unknown] amiodarone 200 mg PO DAILY 10/09/21 [History Last Taken Unknown] dexamethasone [Decadron] 6 mg PO DAILY #9 tab 10/09/21 [Rx Last Taken Unknown] diltiazem HCl 240 mg PO DAILY 10/09/21 [History Last Taken Unknown] diphenhydramine HCl [Banophen] 25 mg PO Q6 PRN 10/09/21 [History Last Taken Unknown] docusate sodium 100 mg PO BID PRN 10/09/21 [History Last Taken Unknown] gabapentin 600 mg PO BID 10/09/21 [History Last Taken Unknown] polyethylene glycol 3350 17 g PO DAILY 10/09/21 [History Last Taken Unknown] spironolactone 25 mg PO DAILY 10/09/21 [History Last Taken Unknown] Allergy/AdvReac Type Severity Reaction Status Date / Time latex Allergy Rash Verified 10/09/21 13:16 methadone [Methadone] Allergy Shortness Verified 10/09/21 13:16 of breath morphine Allergy Itching Verified 10/09/21 13:16 oxycodone [Oxycodone] Allergy Hives Verified 10/09/21 13:16 amoxicillin [Amoxicillin] AdvReac Itching Verified 10/09/21 13:16 fentanyl AdvReac Rash Verified 10/09/21 13:16 Sulfa (Sulfonamide AdvReac Rash Verified 10/09/21 13:16 Antibiotics) pain meds Allergy Itching Uncoded 10/09/21 13:16 Surgical History History of cholecystectomy Hx of gastric bypass Social History (Updated 10/09/21 @ 14:[address] Rodo Hughes MD) household members: family Smoking Status: Never smoker substance use type: does not use ROS Constitutional Constitutional: Reports body ache(s), excessive sweating, fatigue, fever(s) and weakness ENT HEENT: Denies abnormal hearing, dizziness, dysphagia or tinnitus Cardiovascular Cardiovascular: Denies chest pain, chest pain with activity, diaphoresis, dizziness, dyspnea, edema, fatigue, flutter in chest, orthopnea, pedal edema or syncope Respiratory/Chest Respiratory/Chest: Reports chest congestion, cough and dyspnea; Denies chest tightness or wheezing Gastrointestinal Gastrointestinal: Denies abdominal pain, diarrhea, heartburn, melena, nausea or vomiting Genitourinary Genitourinary: Denies abdominal discomfort, dysuria or flank pain Musculoskeletal Musculoskeletal: Denies arthralgias, difficulty walking, myalgias, numbness or tingling Neurologic Neurologic: Denies abnormal movements, confusion, dizziness, focal weakness, syncope, tremor(s) or weakness Psychiatric Psychiatric: Denies anxiety, confusion or depression Vital Signs Vital Signs Vital Signs: 10/09/21 13:14 10/09/21 14:19 10/09/21 14:41 Temperature 97 F L Temperature Source Temporal Pulse Rate 58 L 55 L Respiratory Rate 19 H 18 Respiratory Effort Normal Respiratory Depth Normal Respiratory Pattern Normal Blood Pressure 92/57 L 103/64 Blood Pressure Mean 68 77 Pulse Ox 96 97 Oxygen Delivery Method Room Air Room Air Nasal Cannula Oxygen Flow Rate (L/min) 2 Fraction of Inspired Oxygen (FIO2) 100 Weight Weight: 154.221 kg Body Mass Index (BMI) 62.1 Physical Exam Const oriented x3 and no apparent distress General Appearance: cooperative and comfortable Orientation / Consciousness: awake, oriented to person, oriented to place and oriented to time Exam Limitations: no limitations Nutritional Appearance: morbidly obese HEENT normocephalic, head/scalp atraumatic, hearing grossly normal bilaterally and oropharynx normal Eyes PERRL and EOMs intact bilaterally Neck General: normal visual inspection and trachea midline Lymph Lymphatic: no lymphadenopathy noted Chest inspection of chest normal and palpation of chest normal Resp Resp Narrative: Diminished bilaterally, no crackles Auscultation: clear to auscultation bilaterally Cardio regular rate, regular rhythm, S1 normal heart sound, S2 normal heart sound, no murmurs, no rub and no gallops GI normal to inspection, nondistended, normoactive bowel sounds Extremity normal to inspection, normal capillary refill and no pedal edema Peripheral Pulses: Yes pulses 2+ throughout Skin no rashes or lesions noted General Skin Exam: no breakdown Neuro oriented x3, CN's II-XII intact bilaterally and moves all extremities Psych mental status grossly normal Results Lab / Micro Data Result Diagrams: 10/09/21 14:03 10/09/21 14:03 Labs: Laboratory Results - last 24 hr 10/09/21 14:03: WBC 4.1 L, RBC 4.28, Hgb 12.4, Hct 40.9, MCV 95.6, MCH 29.0, MCHC 30.3 L, RDW Std Deviation 51.0 H, RDW Coeff of Chucky 14.7 H, Plt Count 179, MPV 9.2, Immature Gran % (Auto) 0.200, Neut % (Auto) 63.2, Lymph % (Auto) 18.3 L, [place] % (Auto) 16.6 H, Eos % (Auto) 1.2, Baso % (Auto) 0.5, Absolute Neuts (auto) 2.6, Absolute Lymphs (auto) 0.75 L, Nucleated RBC % 0 10/09/21 14:03: Sodium 137, Potassium 4.1, Chloride 107, Carbon Dioxide 25.0, Anion Gap 5, BUN 16, Creatinine 0.98, Estim Creat Clear Calc 41.64, Est GFR (MDRD) Af Amer 72, Est GFR (MDRD) Non-Af 60, BUN/Creatinine Ratio 16.4, Glucose 136 H, Calcium 8.2 L Micro: Microbiology 10/09/21 14:10 Nasal Secretion SARS-CoV-2 Antigen (Rapid) - Final SARS-CoV-2 (COVID 19) Radiology Impression Chest X-Ray 10/09/21 13:44 IMPRESSION: Left lower lobe infiltrate superimposed on linear scarring in both lungs worse on the left side. Electronically Signed: Jesus Iglesias MD at 15:17 EST , Service support , Assessment & Plan Assessment/Plan (1) Pneumonia due to 2019-nCoV: PLAN: #Acute hypoxic respiratory failure #COVID 19 PNA -Decadron 6mg PO daily -Remdesivir for 5 day course -Supplemental O2 wean as tolerated -Duonebs PRN #Morbid Obesity #debility -BMI of 62.9 -PT/OT Eval and treat -poor baseline functional and ambulatory status -Patient likely need SNF at discharge -Care management consulted #A-fib -resume home cardizem -resume home AC #HTN -resume home medications #EMILY -patient non-compliant on CPAP at home, she has never picked up CPAP machine #DVT PPx -SCD's -resumed on home AC Charges/Coding Visit Charges Inpatient E&M: 55291 Init Hosp L3
[2021-10-09 16:33] VITALS: BP 104/82; PULSE 48; PULSE 49; RESP 14; RESP 15; TEMP 36.7; O2SAT 100; O2SAT 99
[2021-10-09] MEDS: dexAMETHasone 4 MG Tablet 6 MG PO (16:36)
[2021-10-09 20:00] VITALS: BP 122/52; PULSE 52; RESP 18; TEMP 36.8; O2SAT 96
[2021-10-09 20:43] LABS: Alkaline Phosphatase 103 U/L (45-117)
[2021-10-09] MEDS: Gabapentin 600 MG Tablet PO (22:42)
[2021-10-09] MEDS: 0.9% Saline Lock 10 ML Syringe IV (22:42)
[2021-10-09] MEDS: DiphenhydrAMINE 25 MG Capsule 50 MG PO (23:07)
[2021-10-10] VITALS (10 sets, daily range): BP systolic 107–151; BP diastolic 52–55; PULSE 55–56; RESP 16–18; TEMP 36.6–36.9; O2SAT 86–99; BMI 62.1
[2021-10-10] MEDS: Nystatin Powder 15gm Bottle 1 APPLIC TOPICAL ×4 (06:34→21:10)
[2021-10-10 07:05] LABS: Absolute Lymphocyte Count 0.34 X10^3/uL (0.83-4.51); Absolute Neutrophil Count 2.3 X10^3/uL (2.0-7.7); Hematocrit 37.2 % (37-47); Hemoglobin 11.2 g/dL (12.0-15.0); Lymphocyte # 0.34 X10^3/ul (0.83-4.51); Lymphocyte % 11.6 % (19-41); Mean Corp Hgb Conc 30.1 g/dL (32-36); Mean Corpuscular Hgb 28.6 pg (27.0-32.0); Mean Corpuscular Volume 95.1 fL (81-99); Mean Platelet Vol. 9.3 fl (6.2-12.0); Monocyte# 0.33 X10^3/uL; Monocyte% 11.2 % (0-10); NRBC Flagged by Analyzer 0 % (0-5); Neutrophil # 2.26 X10^3/uL (2.7-7.7); Neutrophil % 76.9 % (47-70); POSITIVE DIFFERENTIAL YES; Platelet Count 179 K/mm3 (150-450); RBC Distribution Width CV 14.2 % (11.6-14.6); RBC Distribution Width SD 49.7 fl (35.1-43.9); Red Blood Count 3.91 M/mm3 (4.2-5.4); White Blood Count 2.9 K/mm3 (4.4-11.0)
[2021-10-10 07:10] LABS: Differential Indicated SCAN CRITERIA MET
[2021-10-10 07:39] LABS: ALB/GLOB Ratio 0.5 RATIO (0.9-2.4); AST(SGOT) 54 U/L (15-37); Alanine Aminotransfer ALT/SGPT 46 U/L (13-56); Albumin, Serum 2.2 g/dL (3.2-5.0); Alkaline Phosphatase 95 U/L (45-117); Anion Gap 5 (5-15); BUN 18 mg/dL (7-18); BUN/Creat Ratio 20.5 RATIO (10-20); Calcium,Total 8.3 mg/dL (8.5-10.1); Chloride 104 mmol/L (98-107); Creatinine, Serum 0.88 mg/dL (0.55-1.02); EST Glomerular Filtration Rate 68 mL/min (>60); Est Glom Filt Rate - Afr Amer 82 mL/min (>60); Estimated Creatinine Clearance 46.38 ml/min; Globulin 4.1 g/dL (2.2-4.2); Glucose 113 mg/dL (74-106); Potassium 4.4 mmol/L (3.5-5.1); Protein, Total 6.3 g/dL (6.4-8.2); Sodium Level 138 mmol/L (136-145)
--- NOTE | 2021-10-10 11:18 | CASEMGMT ---
Addendum entered by Robina Chin 10/10/21 12:42: TC to pt sister who states pt HHC is through [facility]. TC to [facility] who verified pt is active with SN, PT and OT services. She is aware that referral will be faxed once pt ready for dc. Original Note: ABRAHAM ESPOSITO Assessment: Face to Face with pt for initial transition planning/care coordination assessment. ABRAHAM ESPOSITO introduced self and role at [facility], pt voices understanding and consents to assessment. Pt is A/O x4 and answers all questions appropriately at this time. Pt lying in bed with O2 on in no distress. Care providers, pharmacy, and demographics verified/updated. Admitting Dx: COVID PNA, morbid obesity PCP:[facility] Specialists:Pt states she has specialists but needs to look on my chart to see who and what their names are. She knows she has a cardio. Preferred Pharmacy: [facility] Retail Insurance: [facility] [employer] [facility] Prescription Benefit: yes LW/HPOA: Pt states she has a LW/DPOA. She states her DPOA is her friend, Dong Scott. She is aware that it is not on file at [facility] and she may bring in to be scanned into her chart. LNOK: Mechelle Mosley, sister; Rosalee Chavis, friend Living Arrangements: Pt lives with sister and her brother in law in a single story house with a ramp to enter. Pt reports she is dependent in ADL's and IADL's. Her sister assists her. Pt denies concerns at home. Transportation: Pt sister provides transportation for pt. DME/HHC/SNF: Pt has a sit to stand, cordell lift, mobility scooter and hospital bed. Recommended pt obtain a pulse ox. Pt is current with [facility] SN, PT and OT but she is unsure of the name of the agency. Pt gave permission for ABRAHAM ESPOSITO to call her sister for this info. Pt states her sister takes care of her 7 hours per day through the waiver program paid and volunteers the rest of the time. Pt has been at the [facility] in [place] and [facility] in [facility]. Pt was first tested at [facility] for COVID. She states both her sister and brother in law have COVID symptoms. She is able to quarantine from them in the home. She states they do not believe in COVID. She has family who can provide her with groceries and supplies while in quarantine. Should pt need home O2,pt was provided verbally with a local in network list of DME companies, pt has no preference. Pt states no concerns with going home at time of dc. She states she has been in and out of SNF's without any real progress with therapy. She would like to continue her HHC at home. Pt states no further concerns/needs. CM to follow. Advised pt to ask CM if any further question/concerns/needs arise, voices understanding. Pt Goal: Home with [facility] of HHC and [employer] services through passport Plan: Home with [facility] of HHC and [employer] services through passport
[2021-10-10] MEDS: Allopurinol 100 MG Tablet PO (11:21)
[2021-10-10] MEDS: Pantoprazole Sodium 20 MG Tablet PO (11:21)
[2021-10-10] MEDS: Tolterodine Tartrate 4 MG CAP.SA PO (11:21)
[2021-10-10] MEDS: dexAMETHasone 4 MG Tablet 6 MG PO (11:22)
[2021-10-10] MEDS: Furosemide 80 MG Tablet PO (11:22)
[2021-10-10] MEDS: Gabapentin 600 MG Tablet PO ×2 (11:22→21:08)
--- NOTE | 2021-10-10 11:48 | CASEMGMT ---
Social Work Note SW updated that pt has CM through [facility]. SW reviewed chart. Pt has CM Jerardo Anne through [facility]. SW placed a call to Jerardo ([phone]. [phone]) and left message updating her on pt's admission to [facility]. Ami Hughes OUTSIDE LABORER, [employer] ARCHITECT
--- NOTE | 2021-10-10 13:31 | PCM.PN.HOSP ---
Subjective Subjective Follow-up on acute hypoxic respiratory failure/acute COVID-19 pneumonia: Patient was seen and examined. She is currently on 3 L of oxygen. Denied any new complaints. Objective Data Objective Data Vital Signs: Vital Signs Temp Pulse Resp BP Pulse Ox 98.1 F 55 L 16 122/55 H 96 10/10/21 10:49 10/10/21 10:49 10/10/21 10:49 10/10/21 10:49 10/10/21 10:49 Oxygen Flow Rate (L/min) 3 Oxygen Delivery Method Nasal Cannula Weight: 154.221 kg Body Mass Index (BMI) 62.1 Intake & Output: Intake and Output for Last 24 Hours 10/08/21 10/09/21 10/10/21 23:59 23:59 23:59 Intake Total 250 / 250 240 / 240 Output Total 425 / 425 Balance 250 / 175 -185 / -185 Lab / Micro Data Result Diagrams: 10/10/21 06:10 10/10/21 06:10 Labs: Laboratory Results - last 24 hr 10/09/21 14:03: WBC 4.1 L, RBC 4.28, Hgb 12.4, Hct 40.9, MCV 95.6, MCH 29.0, MCHC 30.3 L, RDW Std Deviation 51.0 H, RDW Coeff of Chucky 14.7 H, Plt Count 179, MPV 9.2, Immature Gran % (Auto) 0.200, Neut % (Auto) 63.2, Lymph % (Auto) 18.3 L, [place] % (Auto) 16.6 H, Eos % (Auto) 1.2, Baso % (Auto) 0.5, Absolute Neuts (auto) 2.6, Absolute Lymphs (auto) 0.75 L, Nucleated RBC % 0 10/09/21 14:03: Sodium 137, Potassium 4.1, Chloride 107, Carbon Dioxide 25.0, Anion Gap 5, BUN 16, Creatinine 0.98, Estim Creat Clear Calc 41.64, Est GFR (MDRD) Af Amer 72, Est GFR (MDRD) Non-Af 60, BUN/Creatinine Ratio 16.4, Glucose 136 H, Calcium 8.2 L 10/09/21 19:49: Alkaline Phosphatase 103 10/10/21 06:10: WBC 2.9 L, RBC 3.91 L, Hgb 11.2 L, Hct 37.2, MCV 95.1, MCH 28.6, MCHC 30.1 L, RDW Std Deviation 49.7 H, RDW Coeff of [place] 14.2, Plt Count 179, MPV 9.3, Immature Gran % (Auto) 0.300, Neut % (Auto) 76.9 H, Lymph % (Auto) 11.6 L, [place] % (Auto) 11.2 H, Eos % (Auto) 0.0, Baso % (Auto) 0.0, Absolute Neuts (auto) 2.3, Absolute Lymphs (auto) 0.34 L, Nucleated RBC % 0, Diff Path Review February10/10/21 06:10: Sodium 138, Potassium 4.4, Chloride 104, Carbon Dioxide 29.0, Anion Gap 5, BUN 18, Creatinine 0.88, Estim Creat Clear Calc 46.38, Est GFR (MDRD) Af Amer 82, Est GFR (MDRD) Non-Af 68, BUN/Creatinine Ratio 20.5 H, Glucose 113 H, Calcium 8.3 L, Total Bilirubin 0.20, AST 54 H, ALT 46, Alkaline Phosphatase 95, Total Protein 6.3 L, Albumin 2.2 L, Globulin 4.1, Albumin/Globulin Ratio 0.5 L Micro: Microbiology 10/09/21 14:10 Nasal Secretion SARS-CoV-2 Antigen (Rapid) - Final SARS-CoV-2 (COVID 19) Radiography Diagnostic Testing: Radiology Impression Chest X-Ray 10/09/21 13:44 IMPRESSION: Left lower lobe infiltrate superimposed on linear scarring in both lungs worse on the left side. Electronically Signed: Jesus Iglesias MD at 15:17 EST , Service support , Physical Exam Narrative Physical exam: General: Alert, Oriented x3, Cooperative, No apparent distress, Well developed HEENT: Atraumatic Oral: Moist Mucosa Neck: Supple Lungs: Clear to auscultation Cardiovascular: HS I+II, regular, no murmurs Abdomen: Bowel Sounds Present, Soft, Non Tender Extremities: No edema Assessment & Plan Assessment/Plan (1) Pneumonia due to 2019-nCoV: (2) Chronic back pain: QUALIFIERS: Back pain location: back pain in unspecified location Back pain laterality: unspecified Qualified Code(s): M54.9 - Dorsalgia, unspecified; G89.29 - Other chronic pain (3) Obstructive sleep apnea: (4) Acute respiratory failure with hypoxia: PLAN: 1. Acute hypoxic respiratory failure secondary to acute COVID-19 pneumonia Patient is vaccinated admitting chest x-ray shows a left lower lobe infiltrate superimposed on linear scarring in both lungs, worse on the left side She is currently on 3 L of oxygen Continue on Decadron, remdesivir Continue to wean off oxygen, encourage use of incentive spirometer Check urine Legionella and streptococcal antigen as well as sputum culture 2. Chronic atrial fibrillation, rate controlled, continue on home Cardizem and Xarelto 3. Rest of chronic medical conditions including hypertension, obstructive sleep apnea, morbid obesity, appears stable Home meds reviewed Charges/Coding Visit Charges Inpatient E&M: 49645 Subs Hosp L2
--- NOTE | 2021-10-10 13:35 | NURSING ---
incontinent of lg amt of urine despite purewhick. Rachel care, incont care given. New purewick and attends applied. hover mat put under pt.
--- NOTE | 2021-10-10 15:09 | CHAPLAIN ---
Type of Pastoral Visit ___ Initial Visit ___ Follow-up Visit ___ On-call Visit ___ General Patient Visit ___ Spiritual Assessment ___ Family Conference ___ Bereavement ___ Rapid Response ___ Code Blue _x__ Other (describe below) Pastoral Care Referral From _x__ Patient ___ Family ___ Nurse ___ Physician ___ Bed Operator ___ Cut Out Operator ___ Other (describe below) Sacrament/Intervention ___ Active listening ___ Anointing ___ Congregational ___ Bereavement ___ Communion ___ Mendy exploration ___ ___ Life review _x__ Prayer ___ Reconciliation ___ Sacrament of Sick ___ Supportive presence ___ Wedding ___ Other (describe below) Pastoral Comments phone call made into this isolation room; patient answers after two rings and is able to talk but with effort and a weak voice; kept visit very short; offered prayer for patient and it was readily accepted
[2021-10-10] MEDS: Rivaroxaban 20 MG Tablet PO (18:32)
[2021-10-11] VITALS (7 sets, daily range): BP systolic 111–134; BP diastolic 49–74; PULSE 53–56; RESP 16–20; TEMP 36.5–36.8; O2SAT 91–97
[2021-10-11] MEDS: DiphenhydrAMINE 25 MG Capsule 50 MG PO (04:34)
[2021-10-11] MEDS: traMADol 50 MG Tablet PO (04:35)
[2021-10-11] MEDS: Nystatin Powder 15gm Bottle 1 APPLIC TOPICAL (05:55)
[2021-10-11 06:42] LABS: Absolute Lymphocyte Count 0.43 X10^3/uL (0.83-4.51); Absolute Neutrophil Count 2.6 X10^3/uL (2.0-7.7); Hematocrit 35.9 % (37-47); Hemoglobin 11.2 g/dL (12.0-15.0); Lymphocyte # 0.43 X10^3/ul (0.83-4.51); Lymphocyte % 12.6 % (19-41); Mean Corp Hgb Conc 31.2 g/dL (32-36); Mean Corpuscular Hgb 29.2 pg (27.0-32.0); Mean Corpuscular Volume 93.5 fL (81-99); Mean Platelet Vol. 9.1 fl (6.2-12.0); Monocyte# 0.34 X10^3/uL; NRBC Flagged by Analyzer 0 % (0-5); Neutrophil # 2.63 X10^3/uL (2.7-7.7); Neutrophil % 77.1 % (47-70); POSITIVE DIFFERENTIAL YES; Platelet Count 181 K/mm3 (150-450); RBC Distribution Width CV 14.1 % (11.6-14.6); RBC Distribution Width SD 48.5 fl (35.1-43.9); Red Blood Count 3.84 M/mm3 (4.2-5.4); White Blood Count 3.4 K/mm3 (4.4-11.0)
[2021-10-11 06:46] LABS: Differential Indicated SCAN CRITERIA MET
[2021-10-11 06:57] LABS: Differential Comment SCANNED
[2021-10-11 07:12] LABS: ALB/GLOB Ratio 0.5 RATIO (0.9-2.4); AST(SGOT) 47 U/L (15-37); Alanine Aminotransfer ALT/SGPT 42 U/L (13-56); Albumin, Serum 2.1 g/dL (3.2-5.0); Alkaline Phosphatase 92 U/L (45-117); Anion Gap 3 (5-15); BUN 25 mg/dL (7-18); BUN/Creat Ratio 31.1 RATIO (10-20); Calcium,Total 8.5 mg/dL (8.5-10.1); Chloride 104 mmol/L (98-107); EST Glomerular Filtration Rate 75 mL/min (>60); Est Glom Filt Rate - Afr Amer 90 mL/min (>60); Estimated Creatinine Clearance 51.01 ml/min; Glucose 109 mg/dL (74-106); Potassium 3.9 mmol/L (3.5-5.1); Protein, Total 6.1 g/dL (6.4-8.2); Sodium Level 140 mmol/L (136-145)
[2021-10-11] MEDS: Tolterodine Tartrate 4 MG CAP.SA PO (08:03)
[2021-10-11] MEDS: dexAMETHasone 4 MG Tablet 6 MG PO (08:06)
[2021-10-11] MEDS: Allopurinol 100 MG Tablet PO (08:18)
[2021-10-11] MEDS: Pantoprazole Sodium 20 MG Tablet PO (08:18)
[2021-10-11] MEDS: Gabapentin 600 MG Tablet PO (08:19)
[2021-10-11] MEDS: Furosemide 80 MG Tablet PO (08:19)
[2021-10-11 09:42] LABS: Pathologist Review Reviewed
--- NOTE | 2021-10-11 09:48 | PCM.DC.SUM ---
Providers Date of Admission: 10/09/21 Primary Care Physician: Dr. Dudley Hoyt MD Reason For Visit: COVID PNA, MORBID OBESITY Diagnosis Discharge Diagnosis (1) Pneumonia due to 2019-nCoV: Status: Acute Code(s): U07.1 - COVID-19; J12.82 - Pneumonia due to coronavirus disease 2018 (2) Chronic back pain: Status: Chronic Code(s): M54.9 - Dorsalgia, unspecified; G89.29 - Other chronic pain Qualifiers: Back pain laterality: unspecified Back pain location: back pain in unspecified location Qualified Code(s): M54.9 - Dorsalgia, unspecified; G89.29 - Other chronic pain (3) Obstructive sleep apnea: Status: Acute Code(s): G47.33 - Obstructive sleep apnea (adult) (pediatric) (4) Acute respiratory failure with hypoxia: Status: Acute Code(s): J96.01 - Acute respiratory failure with hypoxia Medications at Discharge Home Medications furosemide 80 mg PO DAILY 07/20/13 mometasone [Nasonex] 2 spray NASAL DAILY PRN 07/20/13 acetaminophen 1,000 mg PO Q6H PRN PRN 11/01/20 cyanocobalamin (vitamin B-12) 1,000 mcg PO DAILY 11/01/20 rivaroxaban 20 mg PO DAILY 02/11/21 Folic Acid-Vit B6-Vit B12 (Ca) 1 tab PO DAILY 05/21/21 albuterol sulfate 2 puff INHALATION Q4H PRN 05/21/21 allopurinol 100 mg PO DAILY 05/21/21 baclofen 10 mg PO QHS 05/21/21 biotin 5,000 mcg PO DAILY 05/21/21 ferrous sulfate 325 mg PO TID 05/21/21 ipratropium-albuterol 3 ml INHALATION Q6H PRN 05/21/21 magnesium oxide 400 mg PO BID 05/21/21 nystatin 1 applic TOPICAL BID PRN 05/21/21 omeprazole 20 mg PO DAILY 05/21/21 oxybutynin chloride 15 mg PO DAILY 05/21/21 potassium chloride 20 meq PO TID 05/21/21 ascorbic acid (vitamin C) 1,000 mg PO DAILY 05/22/21 tramadol 50 mg PO BID PRN 5 Days #10 tab 05/29/21 amiodarone 200 mg PO DAILY 10/09/21 dexamethasone [Decadron] 6 mg PO DAILY #9 tab 10/09/21 diphenhydramine HCl [Banophen] 25 mg PO Q6 PRN 10/09/21 docusate sodium 100 mg PO BID PRN 10/09/21 gabapentin 600 mg PO BID 10/09/21 polyethylene glycol 3350 17 g PO DAILY 10/09/21 spironolactone 25 mg PO DAILY 10/09/21 dexamethasone 6 mg PO DAILY 7 Days #11 tab 10/11/21 diltiazem HCl 120 mg PO DAILY 30 Days #30 cap 10/11/21 Hospital Course Operations None Procedures None Summary of Care Provided Minutes Spent on Discharge: 40 Hospital Course: 71-year-old female with morbid obesity, immobile at home, moves around with a scooter, Diana lift, who is vaccinated against the coronavirus comes in with a 3-day history of worsening shortness of breath. Patient lives with her sister at home when she started coughing and had associated fever and chills. She is usually able to stand and pivot to her scooter but she was not able to do it. Her home health nurse evaluated her home and found her to be hypoxic with oxygen sats in the 70s. The EMS was called and patient was sent to the ED. In the ED, she was hypoxic requiring use of 3 to 4 L of oxygen. Had COVID-19 test was positive. Chest x-ray showed bilateral infiltrates. She was started on dexamethasone. She was admitted to [facility] floor and also managed on remdesivir. Patient continued to improve and was off oxygen at the time of discharge. She will complete 10 days of dexamethasone. She will follow-up with her primary care doctor within 1 to 2 weeks. She will quarantine for a total of 20 days. Physical Exam Narrative Physical exam: General: Alert, Oriented x3, Cooperative, No apparent distress, Well developed HEENT: Atraumatic Oral: Moist Mucosa Neck: Supple Lungs: Clear to auscultation Cardiovascular: HS I+II, regular, no murmurs Abdomen: Bowel Sounds Present, Soft, Non Tender Extremities: No edema Weight / BMI Weight Weight: 154.221 kg Body Mass Index (BMI) 62.1 ABG / Lab / Microbiology Data Result Diagrams: 10/11/21 06:18 10/11/21 06:18 Laboratory: Laboratory Results - last 24 hr 10/10/21 06:10: Diff Path Review Reviewed 10/11/21 06:18: WBC 3.4 L, RBC 3.84 L, Hgb 11.2 L, Hct 35.9 L, MCV 93.5, MCH 29.2, MCHC 31.2 L, RDW Std Deviation 48.5 H, RDW Coeff of Chucky 14.1, Plt Count 181, MPV 9.1, Immature Gran % (Auto) 0.300, Neut % (Auto) 77.1 H, Lymph % (Auto) 12.6 L, [place] % (Auto) 10.0, Eos % (Auto) 0.0, Baso % (Auto) 0.0, Absolute Neuts (auto) 2.6, Absolute Lymphs (auto) 0.43 L, Nucleated RBC % 0, Differential Comment SCANNED, Diff Path Review May 10/11/21 06:18: Sodium 140, Potassium 3.9, Chloride 104, Carbon Dioxide 33.0 H, Anion Gap 3 L, BUN 25 H, Creatinine 0.80, Estim Creat Clear Calc 51.01, Est GFR (MDRD) Af Amer 90, Est GFR (MDRD) Non-Af 75, BUN/Creatinine Ratio 31.1 H, Glucose 109 H, Calcium 8.5, Total Bilirubin 0.20, AST 47 H, ALT 42, Alkaline Phosphatase 92, Total Protein 6.1 L, Albumin 2.1 L, Globulin 4.0, Albumin/Globulin Ratio 0.5 L Microbiology: Microbiology 10/10/21 13:46 Urine, Random Legionella Antigen - Final 10/10/21 13:46 Urine, Random Streptococcus pneumoniae Antigen (M - Final 10/09/21 14:10 Nasal Secretion SARS-CoV-2 Antigen (Rapid) - Final SARS-CoV-2 (COVID 19) D/C Instructions Discharge Diet: 2000 mg Sodium Diet Meaningful Use Info Meaningful Use Diagnoses (Choose all that apply): None applicable Discharge Plan Admission Admit Date/Time: 10/09/21 16:13 Primary Reason for Your Visit: Acute hypoxic respiratory failure/acute COVID-19 pneumonia Attending Provider: Lisseth Willson Primary Care Provider: Dudley Hoyt Instructions Patient Instructions: Coronavirus Disease 2019 (COVID-19): Caring for Yourself or Others, ED - COVID Monoclonal AB Infusion ..., ED Sleep Apnea, Obstructive Discharge Orders/Prescriptions Prescriptions: New dexamethasone [Decadron] 6 mg tablet 6 mg PO DAILY Qty: 9 RF: 0 dexamethasone 4 mg Tablet 6 mg PO DAILY 7 Days Qty: 11 RF: 0 diltiazem HCl 120 mg Capsule,Extended Release 24hr 120 mg PO DAILY 30 Days Qty: 30 RF: 0 Continued cyanocobalamin (vitamin B-12) 1,000 MCG tablet 1,000 mcg PO DAILY RF: 0 acetaminophen 500 MG tablet 1,000 mg PO Q6H PRN PRN (Reason: Pain 1-10 Or Fever) RF: 0 rivaroxaban 20 MG tablet 20 mg PO DAILY RF: 0 oxybutynin chloride 15 mg tablet extended release 24hr 15 mg PO DAILY RF: 0 ipratropium-albuterol 0.5 mg-3 mg(2.5 mg base)/3 mL solution for nebulization 3 ml inhalation Q6H PRN (Reason: sob) RF: 0 potassium chloride 10 mEq tablet extended release 20 meq PO TID RF: 0 allopurinol 100 mg tablet 100 mg PO DAILY RF: 0 magnesium oxide 400 mg (241.3 mg magnesium) tablet 400 mg PO BID RF: 0 baclofen 10 mg tablet 10 mg PO QHS RF: 0 ferrous sulfate 325 mg (65 mg iron) tablet 325 mg PO TID RF: 0 nystatin 100,000 unit/gram cream 1 applic TOPICAL BID PRN (Reason: redness) RF: 0 omeprazole 20 mg capsule,delayed release(DR/EC) 20 mg PO DAILY RF: 0 albuterol sulfate 90 mcg/actuation HFA aerosol inhaler 2 puff INHALATION Q4H PRN (Reason: sob) RF: 0 Folic Acid-Vit B6-Vit B12 (Ca) Tablet 1 tab PO DAILY RF: 0 biotin 5,000 mcg tablet,disintegrating 5,000 mcg PO DAILY RF: 0 ascorbic acid (vitamin C) 500 mg Tablet 1,000 mg PO DAILY RF: 0 tramadol 50 mg tablet 50 mg PO BID PRN (Reason: pain) 5 Days Qty: 10 RF: 0 gabapentin 600 mg tablet 600 mg PO BID RF: 0 polyethylene glycol 3350 17 gram Powder In Packet 17 g PO DAILY RF: 0 amiodarone 200 mg tablet 200 mg PO DAILY RF: 0 spironolactone 25 mg tablet 25 mg PO DAILY RF: 0 docusate sodium 100 mg Capsule 100 mg PO BID PRN (Reason: Constipation) RF: 0 diphenhydramine HCl [Banophen] 25 MG capsule 25 mg PO Q6 PRN (Reason: Itching) RF: 0 furosemide 80 MG tablet 80 mg PO DAILY RF: 0 mometasone [Nasonex] 1 SPRAY spray,non-aerosol 2 spray NASAL DAILY PRN (Reason: Congestion) RF: 0 Discontinued diltiazem HCl 240 mg capsule,extended release 24hr 240 mg PO DAILY RF: 0 Referrals / Follow Up: Dudley Hoyt MD [Primary Care Provider] - 1-2 Weeks Disposition Disposition (needs filled in before D/C Order can be placed): Home Health Service Charges/Coding Visit Charges Inpatient E&M: 95678 Disch Hosp
--- NOTE | 2021-10-11 10:02 | CASEMGMT ---
Social Work Note Pt to discharge home today. SW placed a call to pt's CATE Kurtz at [facility] and left message that pt will be discharged home today. Ami Hughes [employer], FURNITURE MANAGER
--- NOTE | 2021-10-11 10:14 | CASEMGMT ---
Pt did not qualify for home O2. Referral faxed to [facility] for [facility]. TC to [place] to make aware of dc today.
[2021-10-11] MEDS: Amiodarone 200 MG Tablet PO (11:26)
[2021-10-11 14:06] LABS: Pathologist Review Reviewed
== END 2021-10-11 11:48 | disposition home health service (06) | DRG 177 ==
LOC: ED 16:28 → MS3 16:35
PROVIDERS: Admitting Provider Internal Medicine; Emergency Provider Emergency Medicine; PCP Internal Medicine; Visit Provider Internal Medicine
DX: U07.1 COVID-19 (principal); J12.82 Pneumonia due to coronavirus disease 2019; J96.01 Acute respiratory failure with hypoxia; N39.0 Urinary tract infection, site not specified; Z68.44 Body mass index [BMI] 60.0-69.9, adult; I48.20 Chronic atrial fibrillation, unspecified; I44.0 Atrioventricular block, first degree; E66.01 Morbid (severe) obesity due to excess calories; G47.33 Obstructive sleep apnea (adult) (pediatric); M54.9 Dorsalgia, unspecified; G89.29 Other chronic pain; I12.9 Hypertensive chronic kidney disease with stage 1 through stage 4 chronic kidney disease, or unspecified chronic kidney disease; N18.2 Chronic kidney disease, stage 2 (mild); I89.0 Lymphedema, not elsewhere classified; K21.9 Gastro-esophageal reflux disease without esophagitis; Z85.42 Personal history of malignant neoplasm of other parts of uterus; Z87.440 Personal history of urinary (tract) infections; Z91.19 Patient's noncompliance with other medical treatment and regimen; Z98.84 Bariatric surgery status; Z79.01 Long term (current) use of anticoagulants; Z79.899 Other long term (current) drug therapy
CPT/HCPCS: 36415; 71045; 80048; 80053; 84075; 85025; 87426; 87449; 93005; 97110; 97163; 97166; 97530; 97535; 99285; J7040; J7050; A4216

== ENCOUNTER 2021-10-20 21:14 | Inpatient (IN) | payer MEDICARE, MEDICAID, SELFPAY ==
[2021-10-20 21:15] VITALS: BP 133/110; PULSE 70; RESP 26; TEMP 35.9; O2SAT 95; BMI 60.3
--- NOTE | 2021-10-20 21:31 | RAD_ITS ---
STUDY: X-RAY CHEST REASON FOR EXAM: Female, 71 years old. chest pain TECHNIQUE: AP COMPARISON: 10/09/2021 FINDINGS: EKG leads project over the chest. Patient is rotated. Patchy infiltrates of the bilateral lung bases worse since the prior study, particularly the right lung base. There is no demonstrated pleural abnormality. There is mild cardiac enlargement. Normal mediastinum and tea. Normal visualized pulmonary arteries. Normal visualized aortic arch and descending thoracic aorta. No acute bony process. There is no demonstrated abnormality of the visualized soft tissue structures of the upper abdomen. RAD/Chest 1 View (Portable) IMPRESSION: 1. Right more than left basilar infiltrate suggesting pneumonia, worse. Electronically Signed: Aroldo Pabon MD ([place]) at 23:32 EST , Service support ,
--- NOTE | 2021-10-20 21:53 | ED.VIS.DYS ---
HPI History of Present Illness Chief Complaint: Shortness of Breath Narrative Narrative: 71-year-old female presenting with shortness of breath which has been constant over the course of the day. She initially told me there is nothing new about it. She also stated that she been coughing more today. She is not had any return of fever. Patient does not ambulate so she has not checked her pulse ox ambulating but does state that her pulse ox was in the 80s at home. Patient has not had any nausea and vomiting. She does not report chest pain. Patient states that she was just hospitalized for COVID-19 but cannot remember if she was treated with antivirals and steroids. [facility] Medical History Asthma Atrial fibrillation Cancer Chronic anemia Chronic pain CKD (chronic kidney disease) Congestive heart failure (CHF) Depression Diabetes Gastroesophageal reflux disease GERD (gastroesophageal reflux disease) Hernia Hernia of anterior abdominal wall Hx of recurrent urinary tract infection Hypertension Lymphedema Morbid obesity Sleep apnea SVT (supraventricular tachycardia) Uterine cancer Home Medications furosemide 80 mg PO DAILY 07/20/13 [History Last Taken 05/21/21] mometasone [Nasonex] 2 spray NASAL DAILY PRN 07/20/13 [History Last Taken Unknown] acetaminophen 1,000 mg PO Q6H PRN PRN 11/01/20 [History Last Taken 10/30/20] cyanocobalamin (vitamin B-12) 1,000 mcg PO DAILY 11/01/20 [History Last Taken 11/01/20] rivaroxaban 20 mg PO DAILY 02/11/21 [History Last Taken 05/21/21] Folic Acid-Vit B6-Vit B12 (Ca) 1 tab PO DAILY 05/21/21 [History Last Taken 05/21/21] albuterol sulfate 2 puff INHALATION Q4H PRN 05/21/21 [History Last Taken Unknown] allopurinol 100 mg PO DAILY 05/21/21 [History Last Taken 05/21/21] baclofen 10 mg PO QHS 05/21/21 [History Last Taken 05/20/21] biotin 5,000 mcg PO DAILY 05/21/21 [History Last Taken 05/21/21] ferrous sulfate 325 mg PO TID 05/21/21 [History Last Taken 05/21/21] ipratropium-albuterol 3 ml INHALATION Q6H PRN 05/21/21 [History Last Taken 05/21/21] magnesium oxide 400 mg PO BID 05/21/21 [History Last Taken 05/21/21] nystatin 1 applic TOPICAL BID PRN 05/21/21 [History Last Taken Unknown] omeprazole 20 mg PO DAILY 05/21/21 [History Last Taken 05/21/21] oxybutynin chloride 15 mg PO DAILY 05/21/21 [History Last Taken 05/21/21] potassium chloride 20 meq PO TID 05/21/21 [History Last Taken 05/21/21] ascorbic acid (vitamin C) 1,000 mg PO DAILY 05/22/21 [History Last Taken Unknown] tramadol 50 mg PO BID PRN 5 Days #10 tab 05/29/21 [Rx Last Taken Unknown] amiodarone 200 mg PO DAILY 10/09/21 [History Last Taken Unknown] dexamethasone [Decadron] 6 mg PO DAILY #9 tab 10/09/21 [Rx Last Taken Unknown] diphenhydramine HCl [Banophen] 25 mg PO Q6 PRN 10/09/21 [History Last Taken Unknown] docusate sodium 100 mg PO BID PRN 10/09/21 [History Last Taken Unknown] gabapentin 600 mg PO BID 10/09/21 [History Last Taken Unknown] polyethylene glycol 3350 17 g PO DAILY 10/09/21 [History Last Taken Unknown] spironolactone 25 mg PO DAILY 10/09/21 [History Last Taken Unknown] dexamethasone 6 mg PO DAILY 7 Days #11 tab 10/11/21 [Rx Last Taken Unknown] diltiazem HCl 120 mg PO DAILY 30 Days #30 cap 10/11/21 [Rx Last Taken Unknown] Allergy/AdvReac Type Severity Reaction Status Date / Time latex Allergy Rash Verified 10/20/21 21:14 methadone [Methadone] Allergy Shortness Verified 10/20/21 21:14 of breath morphine Allergy Itching Verified 10/20/21 21:14 oxycodone [Oxycodone] Allergy Hives Verified 10/20/21 21:14 amoxicillin [Amoxicillin] AdvReac Itching Verified 10/20/21 21:14 fentanyl AdvReac Rash Verified 10/20/21 21:14 Sulfa (Sulfonamide AdvReac Rash Verified 10/20/21 21:14 Antibiotics) pain meds Allergy Itching Uncoded 10/20/21 21:14 Surgical History History of cholecystectomy Hx of gastric bypass Social History household members: family Smoking Status: Never smoker substance use type: does not use ROS ROS ED ROS Narrative Generalized fatigue Constitutional Constitutional ED: Denies chills or fever(s) Eyes Eyes: Denies blurry vision Cardiovascular Cardiovascular: Denies chest pain Respiratory/Chest Respiratory/Chest: Reports cough and dyspnea Gastrointestinal Gastrointestinal: Denies abdominal pain, nausea or vomiting Genitourinary Genitourinary ED: Denies dysuria or hematuria Musculoskeletal Musculoskeletal: Denies arthralgias or myalgias Integumentary Denies rash Neurologic Neurologic: Denies headache(s) or paresthesias Psychiatric Psychiatric: Denies anxiety or depression EXAM Physical Exam Const Vital Signs: 10/20/21 21:15 10/20/21 22:00 10/20/21 22:06 Temperature 96.7 F L 98.7 F Temperature Source Temporal Temporal Pulse Rate 70 66 Respiratory Rate 26 H 20 H Respiratory Effort Short of Breath Respiratory Depth Shallow Respiratory Pattern Tachypnea Blood Pressure 133/110 H 156/59 H Blood Pressure Mean 117 91 Pulse Ox 95 97 Oxygen Delivery Method Room Air Nasal Cannula Nasal Cannula Oxygen Flow Rate (L/min) 5 2 10/20/21 23:35 10/21/21 00:33 Temperature 96.7 F L Temperature Source Oral Pulse Rate 63 Respiratory Rate 22 H Respiratory Effort Respiratory Depth Respiratory Pattern Blood Pressure 126/64 H Blood Pressure Mean 84 Pulse Ox 98 85 Oxygen Delivery Method Nasal Cannula Room Air Oxygen Flow Rate (L/min) Positive well nourished and obese General Appearance ED: NAD; Negative for pallor Nutritional Appearance: obese HEENT Reports moist mucous membranes atraumatic Eyes PERRL and EOMs intact bilaterally General Eye ED: Negative for pale conjunctiva or scleral icterus Neck no lymphadenopathy and supple Resp clear to auscultation bilaterally Resp Narrative: Slight tachypnea Auscultation: Negative for wheezes Cardio regular rate and regular rhythm Neuro oriented x3 and CN's II-XII intact bilaterally Sensorium / Orientation: alert Motor Exam: strength 5/5 throughout Psych mental status grossly normal Thought Process: normal thought process Skin General Skin Exam: Negative for jaundice or pallor MDM MDM MDM Narrative Medical decision making narrative: Patient presenting with shortness of breath. She is nonambulatory and I cannot check an ambulatory pulse ox. I did obtain an EKG due to her dyspnea and this appears to be a sinus rhythm with a ventricular rate of 67 bpm and has a first-degree AV block. No ST elevation or depression. CBC shows no leukocytosis. Hemoglobin and hematocrit are stable. Creatinine is 0.99 and BUN is elevated. Urinalysis is negative for infection. Chest x-ray my interpretation shows bilateral pulmonary infiltrates which are worse on the right. Patient during her stay dropped her O2 sats down to 85% on room air and needed oxygen to be put on her. She is at 96% on 3 L. I attempted to get her home with oxygen however we do not have any oxygen takes to transport her home. For this reason she will need to be admitted to the hospital for further treatment. Patient discussed with hospitalist. Impression: 1. COVID-19 2. Hypoxic respiratory failure Lab Data Attestation: I reviewed the patient's lab results. Labs: Laboratory Results - last 24 hr 10/20/21 10/20/21 10/20/21 23:30 23:30 23:50 WBC 10.3 RBC 4.74 Hgb 13.8 Hct 43.6 MCV 92.0 MCH 29.1 MCHC 31.7 L RDW Std Deviation 49.4 H RDW Coeff of Chucky 14.6 Plt Count 219 MPV 9.1 Immature Gran % (Auto) 1.900 H Neut % (Auto) 78.0 H Lymph % (Auto) 5.2 L [place] % (Auto) 13.4 H Eos % (Auto) 1.4 Baso % (Auto) 0.1 Absolute Neuts (auto) 8.0 H Absolute Lymphs (auto) 0.53 L Nucleated RBC % 0 Sodium 137 Potassium 5.1 Chloride 102 Carbon Dioxide 31.0 Anion Gap 4 L BUN 29 H Creatinine 0.99 Estim Creat Clear Calc 41.22 Est GFR (MDRD) Af Amer 71 Est GFR (MDRD) Non-Af 59 L BUN/Creatinine Ratio 29.2 H Glucose 147 H Calcium 8.8 Troponin I High Sens 18 Urine Color Yellow Urine Clarity Clear Urine pH 6.5 Ur Specific Silas 1.010 Urine Protein 15 H Urine Glucose (UA) Normal Urine Ketones Negative Urine Occult Blood 250 H Urine Nitrite Negative Urine Bilirubin Negative Urine Urobilinogen Normal Ur Leukocyte Esterase Negative Urine RBC 10-25 SEEN Urine WBC 0-5 SEEN Ur Squamous Epith Cells 0-5 SEEN Urine Bacteria 4+ Urine Mucus 0 SEEN Radiography Diagnostic Testing: Clinical Impression(s) from Imaging Studies Chest X-Ray 10/20/21 21:31 IMPRESSION: 1. Right more than left basilar infiltrate suggesting pneumonia, worse. Electronically Signed: Aroldo Pabon MD ([place]) at 23:32 EST , Service support , Discharge Plan Triage Chief Complaint: Shortness of Breath ED Provider: Mike Ornelas Dx/Rx/DC Orders Prescriptions: No Action cyanocobalamin (vitamin B-12) 1,000 MCG tablet 1,000 mcg PO DAILY RF: 0 acetaminophen 500 MG tablet 1,000 mg PO Q6H PRN PRN (Reason: Pain 1-10 Or Fever) RF: 0 rivaroxaban 20 MG tablet 20 mg PO DAILY RF: 0 oxybutynin chloride 15 mg tablet extended release 24hr 15 mg PO DAILY RF: 0 ipratropium-albuterol 0.5 mg-3 mg(2.5 mg base)/3 mL solution for nebulization 3 ml inhalation Q6H PRN (Reason: sob) RF: 0 potassium chloride 10 mEq tablet extended release 20 meq PO TID RF: 0 allopurinol 100 mg tablet 100 mg PO DAILY RF: 0 magnesium oxide 400 mg (241.3 mg magnesium) tablet 400 mg PO BID RF: 0 baclofen 10 mg tablet 10 mg PO QHS RF: 0 ferrous sulfate 325 mg (65 mg iron) tablet 325 mg PO TID RF: 0 nystatin 100,000 unit/gram cream 1 applic TOPICAL BID PRN (Reason: redness) RF: 0 omeprazole 20 mg capsule,delayed release(DR/EC) 20 mg PO DAILY RF: 0 albuterol sulfate 90 mcg/actuation HFA aerosol inhaler 2 puff INHALATION Q4H PRN (Reason: sob) RF: 0 Folic Acid-Vit B6-Vit B12 (Ca) Tablet 1 tab PO DAILY RF: 0 biotin 5,000 mcg tablet,disintegrating 5,000 mcg PO DAILY RF: 0 ascorbic acid (vitamin C) 500 mg Tablet 1,000 mg PO DAILY RF: 0 tramadol 50 mg tablet 50 mg PO BID PRN (Reason: pain) 5 Days Qty: 10 RF: 0 dexamethasone [Decadron] 6 mg tablet 6 mg PO DAILY Qty: 9 RF: 0 gabapentin 600 mg tablet 600 mg PO BID RF: 0 polyethylene glycol 3350 17 gram Powder In Packet 17 g PO DAILY RF: 0 amiodarone 200 mg tablet 200 mg PO DAILY RF: 0 spironolactone 25 mg tablet 25 mg PO DAILY RF: 0 docusate sodium 100 mg Capsule 100 mg PO BID PRN (Reason: Constipation) RF: 0 diphenhydramine HCl [Banophen] 25 MG capsule 25 mg PO Q6 PRN (Reason: Itching) RF: 0 dexamethasone 4 mg Tablet 6 mg PO DAILY 7 Days Qty: 11 RF: 0 diltiazem HCl 120 mg Capsule,Extended Release 24hr 120 mg PO DAILY 30 Days Qty: 30 RF: 0 furosemide 80 MG tablet 80 mg PO DAILY RF: 0 mometasone [Nasonex] 1 SPRAY spray,non-aerosol 2 spray NASAL DAILY PRN (Reason: Congestion) RF: 0 Primary Care Provider: Dudley Hoyt
[2021-10-20 22:00] VITALS: BP 156/59; PULSE 66; RESP 20; RESP 22; TEMP 37.1; TEMP 37.2; O2SAT 97
[2021-10-20 22:06] VITALS: O2SAT 99
[2021-10-20] MEDS: Aspirin 81 MG TAB.CHEW 324 MG PO (23:33)
[2021-10-20 23:35] VITALS: BP 126/64; PULSE 63; RESP 22; TEMP 35.9; O2SAT 98
[2021-10-20 23:39] LABS: Absolute Lymphocyte Count 0.53 X10^3/uL (0.83-4.51); Basophil# 0.01 X10^3/uL; Basophil% 0.1 % (0-1); Eosinophil# 0.14 X10^3/uL; Eosinophils% 1.4 % (0-5); Hematocrit 43.6 % (37-47); Hemoglobin 13.8 g/dL (12.0-15.0); Lymphocyte # 0.53 X10^3/ul (0.83-4.51); Lymphocyte % 5.2 % (19-41); Mean Corp Hgb Conc 31.7 g/dL (32-36); Mean Corpuscular Hgb 29.1 pg (27.0-32.0); Mean Platelet Vol. 9.1 fl (6.2-12.0); Monocyte# 1.37 X10^3/uL; Monocyte% 13.4 % (0-10); NRBC Flagged by Analyzer 0 % (0-5); Neutrophil # 8.01 X10^3/uL (2.7-7.7); POSITIVE DIFFERENTIAL YES; Platelet Count 219 K/mm3 (150-450); RBC Distribution Width CV 14.6 % (11.6-14.6); RBC Distribution Width SD 49.4 fl (35.1-43.9); Red Blood Count 4.74 M/mm3 (4.2-5.4); White Blood Count 10.3 K/mm3 (4.4-11.0)
[2021-10-20 23:45] LABS: Differential Indicated SCAN CRITERIA MET
[2021-10-20 23:58] LABS: Anion Gap 4 (5-15); BUN 29 mg/dL (7-18); BUN/Creat Ratio 29.2 RATIO (10-20); Calcium,Total 8.8 mg/dL (8.5-10.1); Chloride 102 mmol/L (98-107); Creatinine, Serum 0.99 mg/dL (0.55-1.02); EST Glomerular Filtration Rate 59 mL/min (>60); Est Glom Filt Rate - Afr Amer 71 mL/min (>60); Estimated Creatinine Clearance 41.22 ml/min; Glucose 147 mg/dL (74-106); Potassium 5.1 mmol/L (3.5-5.1); Sodium Level 137 mmol/L (136-145); Troponin-I HS 18 pg/mL (3.0-54.0)
[2021-10-21] VITALS (11 sets, daily range): BP systolic 120–148; BP diastolic 50–74; PULSE 56–72; RESP 18–32; TEMP 35.9–37.8; O2SAT 85–99; BMI 60.3
[2021-10-21] LABS: Mucous, Urine 0 SEEN /hpf (<or=2+)
[2021-10-21 00:11] LABS: Color, Urine Yellow (Yellow); Glucose, Dipstick Normal (Normal); Ketone-Dipstick Negative (Negative); Leukocyte Esterase-Dipstick Negative /ul (Negative); Nitrite-Dipstick Negative (Negative); Occult Blood-Urine 250 /ul (Negative); Protein-Dipstick 15 mg/dl (Negative); Urine Bilirubin Dipstick Negative (Negative); Urine Clarity Clear (Clear); Urine Urobilinogen Normal (Normal); Urine pH 6.5 (5.0 - 8.0)
--- NOTE | 2021-10-21 00:33 | CT_ITS ---
STUDY: CTA CHEST REASON FOR EXAM: Female, 71 years old. Hypoxic. RADIATION DOSAGE (If Supplied By Facility): CTDIvol = ( 40.89 ) mGy, DLP = ( 753.40 ) mGycm TECHNIQUE: The examination was performed with the intravenous administration of IV 100mL [id number]-370. Post-processing of the angiographic images was performed, with MIP reconstructed images. Individualized dose optimization techniques were used for this CT. COMPARISON: None. FINDINGS: Heart and great vessels: No pulmonary embolus. No thoracic aortic dissection or aneurysm. Dilation of the pulmonary arteries, main pulmonary artery 3.8 cm in transverse dimension. Mild four-chamber cardiomegaly. Lungs, pleura: Multifocal bilateral groundglass opacities most prominent along the bronchovascular structures particularly in the right upper lobe. Atelectasis of almost the entire right middle lobe. No pneumothorax or pleural effusion. Narrowing of the right middle lobe bronchus with no definite compressing mass. Central airways otherwise patent. Mediastinum: No adenopathy or mass or hematoma. Large heterogenous mass in the right lobe of the thyroid gland, 2.7 x 3.7 x 3.9 cm TRV X AP X CC. Osseous:No fracture or acute osseous abnormality. Marked arthritis of the bilateral glenohumeral joints. Chest wall: No concerning findings. Upper abdomen: No acute findings. Sleeve gastrectomy partially visible. CT/CTA Chest W/WO Contrast IMPRESSION: Bilateral airspace disease could represent pulmonary edema or pneumonia. Distribution would be atypical for Covid which is possible but not likely. Evidence of chronic pulmonary hypertension with dilation of the pulmonary arteries. Atelectasis of most of the right middle lobe. Large heterogenous right thyroid mass; recommend follow-up ultrasound and thyroid workup if not previously interrogated. Electronically Signed: Zaki Gómez MD at 2:23 EST Tel , Service support ,
[2021-10-21 00:42] LABS: Bacteria 4+ /hpf (None Seen); Red Blood Cells-Urine 10-25 SEEN /hpf (0-5); Squamous Epithelial Cells - UA 0-5 SEEN /hpf (5-10); White Blood Cells 0-5 SEEN /hpf (0-5)
--- NOTE | 2021-10-21 00:58 | HP.PCM.HOS_ITS ---
[facility] - General General Date of Service: 10/21/21 Chief Complaint: Lethargy HPI Narrative KAREN HARTLEY, is a 71 F with a significant history of atrial fibrillation on Xarelto; morbid obesity; and immobility who was recently discharged from the hospital for Covid pneumonia presented to the emergency department with lethargy. Patient reported that her sister was worried that on the day of presentation patient had persistent lethargy. Associated for symptom is shortness of breath and generalized weakness. Also she reports a productive cough. [facility] Medical History Asthma Atrial fibrillation Cancer Chronic anemia Chronic pain CKD (chronic kidney disease) Congestive heart failure (CHF) Depression Diabetes Gastroesophageal reflux disease GERD (gastroesophageal reflux disease) Hernia Hernia of anterior abdominal wall Hx of recurrent urinary tract infection Hypertension Lymphedema Morbid obesity Sleep apnea SVT (supraventricular tachycardia) Uterine cancer Home Medications furosemide 80 mg PO DAILY 07/20/13 [History Last Taken 05/21/21] mometasone [Nasonex] 2 spray NASAL DAILY PRN 07/20/13 [History Last Taken Unknown] acetaminophen 1,000 mg PO Q6H PRN PRN 11/01/20 [History Last Taken 10/30/20] cyanocobalamin (vitamin B-12) 1,000 mcg PO DAILY 11/01/20 [History Last Taken 11/01/20] rivaroxaban 20 mg PO DAILY 02/11/21 [History Last Taken 05/21/21] Folic Acid-Vit B6-Vit B12 (Ca) 1 tab PO DAILY 05/21/21 [History Last Taken 05/21/21] albuterol sulfate 2 puff INHALATION Q4H PRN 05/21/21 [History Last Taken Unknown] allopurinol 100 mg PO DAILY 05/21/21 [History Last Taken 05/21/21] baclofen 10 mg PO QHS 05/21/21 [History Last Taken 05/20/21] biotin 5,000 mcg PO DAILY 05/21/21 [History Last Taken 05/21/21] ferrous sulfate 325 mg PO TID 05/21/21 [History Last Taken 05/21/21] ipratropium-albuterol 3 ml INHALATION Q6H PRN 05/21/21 [History Last Taken 05/21/21] magnesium oxide 400 mg PO BID 05/21/21 [History Last Taken 05/21/21] nystatin 1 applic TOPICAL BID PRN 05/21/21 [History Last Taken Unknown] omeprazole 20 mg PO DAILY 05/21/21 [History Last Taken 05/21/21] oxybutynin chloride 15 mg PO DAILY 05/21/21 [History Last Taken 05/21/21] potassium chloride 20 meq PO TID 05/21/21 [History Last Taken 05/21/21] ascorbic acid (vitamin C) 1,000 mg PO DAILY 05/22/21 [History Last Taken Unkn own] tramadol 50 mg PO BID PRN 5 Days #10 tab 05/29/21 [Rx Last Taken Unknown] amiodarone 200 mg PO DAILY 10/09/21 [History Last Taken Unknown] dexamethasone [Decadron] 6 mg PO DAILY #9 tab 10/09/21 [Rx Last Taken Unknown] diphenhydramine HCl [Banophen] 25 mg PO Q6 PRN 10/09/21 [History Last Taken U nknown] docusate sodium 100 mg PO BID PRN 10/09/21 [History Last Taken Unknown] gabapentin 600 mg PO BID 10/09/21 [History Last Taken Unknown] polyethylene glycol 3350 17 g PO DAILY 10/09/21 [History Last Taken Unknown] spironolactone 25 mg PO DAILY 10/09/21 [History Last Taken Unknown] dexamethasone 6 mg PO DAILY 7 Days #11 tab 10/11/21 [Rx Last Taken Unknown] diltiazem HCl 120 mg PO DAILY 30 Days #30 cap 10/11/21 [Rx Last Taken Unknown] Allergy/AdvReac Type Severity Reaction Status Date / Time latex Allergy Rash Verified 10/20/21 21:14 methadone [Methadone] Allergy Shortness Verified 10/20/21 21:14 of breath morphine Allergy Itching Verified 10/20/21 21:14 oxycodone [Oxycodone] Allergy Hives Verified 10/20/21 21:14 amoxicillin [Amoxicillin] AdvReac Itching Verified 10/20/21 21:14 fentanyl AdvReac Rash Verified 10/20/21 21:14 Sulfa (Sulfonamide AdvReac Rash Verified 10/20/21 21:14 Antibiotics) pain meds Allergy Itching Uncoded 10/20/21 21:14 Family History (Updated 10/21/21 @ 01:[address] Dm Ceja MD) Other Heart disease Surgical History History of cholecystectomy Hx of gastric bypass Social History household members: family Smoking Status: Never smoker substance use type: does not use ROS ROS Narrative Constitutional: Reports fatigue. Denies fever, chills, anorexia and change in weight Eyes: Denies blurry vision, change in eye color, change in vision, discharge from eye(s), double vision, erythema, eye pain, loss of vision or other HEENT: Denies abnormal hearing, dysphagia, ear pain, epistaxis, headache(s), hearing loss, nasal congestion, nasal discharge, post nasal drip, sinus pressure, sore throat or other Cardiovascular: Denies chest pain or palpitations. Respiratory/Chest: Reports shortness of breath and productive cough. Reports wheezes. Gastrointestinal: Denies abdominal pain, coffee ground emesis, constipation, diarrhea, dyspepsia, hematemesis, hematochezia, loose stools, melena, nausea, vomiting or other Genitourinary: Reports dysuria. Denies hematuria. Musculoskeletal: Denies arthralgias, back pain, joint pain, joint stiffness, joint swelling, neck pain or other Neurologic: Denies abnormal gait, abnormal speech, confusion, disequilibrium, dizziness, focal weakness, headache(s), numbness, paresthesias, seizure-like activity, seizures, syncope, tingling, tremor(s) or other Psychiatric: Denies anxiety, depression, homicidal ideation, suicidal ideation or other Endocrinology: Denies change in body appearance, cold intolerance, excessive sweating, heat intolerance, polydipsia, polyuria or other Hematologic/Lymphatic: Denies anemia, easy bleeding, easy bruising, lymphadenopathy or other Integumentary: Denies rashes Allergic/Immunologic: Denies rhinitis, hives, eczema, asthma or other Vital Signs Vital Signs Vital Signs: 10/20/21 21:15 10/20/21 22:00 10/20/21 22:06 Temperature 96.7 F L 98.7 F Temperature Source Temporal Temporal Pulse Rate 70 66 Respiratory Rate 26 H 20 H Respiratory Effort Short of Breath Respiratory Depth Shallow Respiratory Pattern Tachypnea Blood Pressure 133/110 H 156/59 H Blood Pressure Mean 117 91 Pulse Ox 95 97 Oxygen Delivery Method Room Air Nasal Cannula Nasal Cannula Oxygen Flow Rate (L/min) 5 2 10/20/21 23:35 10/21/21 00:33 Temperature 96.7 F L Temperature Source Oral Pulse Rate 63 Respiratory Rate 22 H Respiratory Effort Respiratory Depth Respiratory Pattern Blood Pressure 126/64 H Blood Pressure Mean 84 Pulse Ox 98 85 Oxygen Delivery Method Nasal Cannula Room Air Oxygen Flow Rate (L/min) Weight Weight: 149.685 kg Body Mass Index (BMI) 60.3 Physical Exam Narrative Physical exam: General: Morbidly obese. Head: Normocephalic, atraumatic, no tenderness Eyes: PERRLA, EOMI ENT, no trauma, moist mucous membranes, no rhinorrhea Neck: Nontender, full range of motion, no spinal tenderness, deformities, step-o ff CVS: Regular rate and rhythm. S1-S2 present. No murmur, gallop or rub. Respiratory : Wheezes, chest wall nontender, no wheezing Abdomen: Soft, nontender, nondistended, normal bowel sounds, no masses : Deferred Back: Nontender, no CVA tenderness, no midline spinal tenderness, deformities, step-offs Extremities: Loss to multiple toes of right foot. Nontender full range of motion, no trauma Skin: Normal color, no trauma, abrasions Neuro: Alert, oriented, cranial nerves II through XII grossly intact. Psychiatry: Normal mood. Normal affect. Not depressed. Not anxious. Results Lab / Micro Data Result Diagrams: 10/20/21 23:30 10/20/21 23:30 Labs: Laboratory Results - last 24 hr 10/20/21 23:30: WBC 10.3, RBC 4.74, Hgb 13.8, Hct 43.6, MCV 92.0, MCH 29.1, MCHC 31.7 L, RDW Std Deviation 49.4 H, RDW Coeff of [place]ucky 14.6, Plt Count 219, MPV 9.1, Immature Gran % (Auto) 1.900 H, Neut % (Auto) 78.0 H, Lymph % (Auto) 5.2 L, [place] % (Auto) 13.4 H, Eos % (Auto) 1.4, Baso % (Auto) 0.1, Absolute Neuts (auto) 8.0 H, Absolute Lymphs (auto) 0.53 L, Nucleated RBC % 0 10/20/21 23:30: Sodium 137, Potassium 5.1, Chloride 102, Carbon Dioxide 31.0, Anion Gap 4 L, BUN 29 H, Creatinine 0.99, Estim Creat Clear Calc 41.22, Est GFR (MDRD) Af Amer 71, Est GFR (MDRD) Non-Af 59 L, BUN/Creatinine Ratio 29.2 H, Glucose 147 H, Calcium 8.8, Troponin I High Sens 18 10/20/21 23:50: Urine Color Yellow, Urine Clarity Clear, Urine pH 6.5, Ur Specific [place] 1.010, Urine Protein 15 H, Urine Glucose (UA) Normal, Urine Ketones Negative, Urine Occult Blood 250 H, Urine Nitrite Negative, Urine Bilirubin Negative, Urine Urobilinogen Normal, Ur Leukocyte Esterase Negative, Urine RBC 10-25 SEEN, Urine WBC 0-5 SEEN, Ur Squamous Epith Cells 0-5 SEEN, Urine Bacteria 4+, Urine Mucus 0 SEEN Radiology Impression Chest X-Ray 10/20/21 21:31 IMPRESSION: 1. Right more than left basilar infiltrate suggesting pneumonia, worse. Electronically Signed: Aroldo Pabon MD ([place]) at 23:32 EST , Service support , Assessment & Plan Assessment/Plan (1) COPD exacerbation: (2) Acute respiratory failure with hypoxia: (3) Urinary tract infection: QUALIFIERS: Hematuria presence: with hematuria Urinary tract infection type: acute cystitis Qualified Code(s): N30.01 - Acute cystitis with hematuria (4) Pneumonia due to 2019-nCoV: PLAN: Acute hypoxemic respiratory failure secondary to COPD as the patient and long-haul Covid Documented oxygen saturation of 85% on room air. Attempt was made to discharge patient home on oxygen. However there was no oxygen available to discharge patient on. Actual chest x-ray image was independently reviewed. Old chest x-ray was also independently reviewed. I agree with radiologist interpretation of right more than left basilar infiltrate suggesting pneumonia, worse. Azithromycin and ertapenem ordered. Ertapenem secondary to UTI and prior sensitivities. Check procalcitonin. Patient has completed a course of Decadron. Covid precautions ordered. UTI Urinalysis showed urine occult blood of 250. Urine leukocyte esterase is negative. Urine nitrite is negative. Pyuria is normal. There is 4+ urine bacteria. Because patient reports of dysuria so will start patient on antibiotics. Previous urine microbiology showed ESBL E. coli sensitive to Ertapenem among others. Will start patient on ertapenem. We will get a urine culture. Acute encephalopathy Likely infectious from UTI. Will check ABG; TSH and ammonia level. COPD exacerbation Patient with wheezes on examination. Will start patient on prednisone. Mucinex ordered. As needed breathing treatments continued. CKD stage II Stable Trend BMP Debility PT and OT to work with patient Morbid Obesity: BMI: 60.4 kg/m2. Complicates care. Lifestyle modification recommended. DVT Prophylaxis: Xarelto continued. Charges/Coding Visit Charges Inpatient E&M: 70144 Init Hosp L3
[2021-10-21 01:56] LABS: Poikilocytosis 1+
--- NOTE | 2021-10-21 02:55 | PCS.PANDOC ---
PANDEMIC DOCUMENTATION INITIATED: Date: 10/21/2021 Time: 3315
[2021-10-21] MEDS: predniSONE 20 MG Tablet 40 MG PO ×2 (03:57→10:17)
[2021-10-21] MEDS: guaiFENesin 600 MG Tablet PO ×3 (03:57→22:06)
[2021-10-21] MEDS: 0.9% Saline Lock 10 ML Syringe IV (03:57)
[2021-10-21] MEDS: Albuterol 2.5 MG/3 ML VIAL.NEB. INHALATION (05:05)
[2021-10-21 05:56] LABS: Allen Test Positive; Base Excess 4 mmol/L (-2 to +2); Bicarbonate 29.4 mmol/L (22-26); Blood Gas Specimen Type ART; O2 Delivery Device HFNC; PO2 145 mmHG (75-100); SITE R Radial; SO2 99 % (95-99); Total Carbon Dioxide 31 mmol/L; pCO2 50.4 mmHg (35-45); pH 7.37 (7.35-7.45)
[2021-10-21 07:38] LABS: Thyroid Stim Hormone (TSH) 0.01 uIU/mL (0.358-3.74)
[2021-10-21 08:04] LABS: Procalcitonin 0.41 ng/mL (0.00-0.09)
[2021-10-21] MEDS: Ferrous Sulfate 325 MG Tablet PO ×3 (08:08→16:46)
[2021-10-21 08:16] LABS: T4 Free Direct 2.17 ng/dL (0.76-1.46)
[2021-10-21] MEDS: Lactulose 20 GM/30 ML UDC PO ×3 (10:07→22:04)
[2021-10-21] MEDS: Spironolactone 25 MG Tablet PO (10:10)
[2021-10-21] MEDS: Amiodarone 200 MG Tablet PO (10:11)
[2021-10-21] MEDS: dilTIAZem CD 120 MG Capsule PO (10:11)
[2021-10-21] MEDS: Tolterodine Tartrate 4 MG CAP.SA PO (10:12)
[2021-10-21] MEDS: Furosemide 80 MG Tablet PO (10:13)
[2021-10-21] MEDS: Polyethylene Glycol 3350 17 GM PACKET PO (10:13)
[2021-10-21] MEDS: Magnesium Chloride 64 MG Delay Rel.Tablet 128 MG PO ×2 (10:15→22:04)
[2021-10-21] MEDS: Multivitamins,Ther W-Minerals Tablet 1 TABLET PO (10:16)
[2021-10-21] MEDS: Gabapentin 600 MG Tablet PO ×2 (10:17→22:04)
[2021-10-21] MEDS: Cyanocobalamin 500 MCG Tablet 1000 MCG PO (10:18)
[2021-10-21] MEDS: Pantoprazole Sodium 20 MG Tablet PO (10:18)
[2021-10-21] MEDS: Rivaroxaban 20 MG Tablet PO (10:19)
[2021-10-21] MEDS: Allopurinol 100 MG Tablet PO (10:19)
[2021-10-21] MEDS: Ascorbic Acid 500 MG Tablet 1000 MG PO (10:19)
--- NOTE | 2021-10-21 12:11 | PN.HOSP_ITS ---
Subjective Subjective Patient seen and examined. She was admitted in the early hours of today with a complaint of lethargy. She was recently discharged after being admitted and managed for covid pneumonia. She had associated shortness of breath and generalised weakness. She is being managed for acute hypoxic respiratory failure due to covid, and UTI. Patient seen today. She remains lethargic but responsive. She has no active complaints. She denied any fever or chills shortness of breath. Review of systems otherwise negative. She was noted to have elevated ammonia level of 42. Her TSH was also noted to be markedly low at 0.01. Free T4 checked today is 2.17. Objective Data Objective Data Vital Signs: Vital Signs Temp Pulse Resp BP Pulse Ox 100.1 F H 67 18 131/63 H 96 10/21/21 07:52 10/21/21 07:52 10/21/21 07:52 10/21/21 07:52 10/21/21 09:54 Oxygen Flow Rate (L/min) 6 Oxygen Delivery Method High Flow Weight: 330 lb Body Mass Index (BMI) 60.3 Intake & Output: Intake and Output for Last 24 Hours 10/19/21 10/20/21 10/21/21 23:59 23:59 23:59 Intake Total 315 / 315 Balance 315 / 315 Lab / Micro Data Result Diagrams: 10/20/21 23:30 10/20/21 23:30 Labs: Laboratory Results - last 24 hr 10/20/21 23:30: WBC 10.3, RBC 4.74, Hgb 13.8, Hct 43.6, MCV 92.0, MCH 29.1, MCHC 31.7 L, RDW Std Deviation 49.4 H, RDW Coeff of [place] 14.6, Plt Count 219, MPV 9.1, Immature Gran % (Auto) 1.900 H, Neut % (Auto) 78.0 H, Lymph % (Auto) 5.2 L, [place] % (Auto) 13.4 H, Eos % (Auto) 1.4, Baso % (Auto) 0.1, Absolute Neuts (auto) 8.0 H, Absolute Lymphs (auto) 0.53 L, Nucleated RBC % 0, Poikilocytosis 1+ 10/20/21 23:30: Sodium 137, Potassium 5.1, Chloride 102, Carbon Dioxide 31.0, Anion Gap 4 L, BUN 29 H, Creatinine 0.99, Estim Creat Clear Calc 41.22, Est GFR (MDRD) Af Amer 71, Est GFR (MDRD) Non-Af 59 L, BUN/Creatinine Ratio 29.2 H, Glucose 147 H, Calcium 8.8, Troponin I High Sens 18 10/20/21 23:50: Urine Color Yellow, Urine Clarity Clear, Urine pH 6.5, Ur Specific [place] 1.010, Urine Protein 15 H, Urine Glucose (UA) Normal, Urine Ketones Negative, Urine Occult Blood 250 H, Urine Nitrite Negative, Urine Bilirubin Negative, Urine Urobilinogen Normal, Ur Leukocyte Esterase Negative, Urine RBC 10-25 SEEN, Urine WBC 0-5 SEEN, Ur Squamous Epith Cells 0-5 SEEN, Urine Bacteria 4+, Urine Mucus 0 SEEN 10/21/21 06:44: Ammonia 42.0 H 10/21/21 06:44: Procalcitonin 0.41 H 10/21/21 06:44: TSH 0.01 L 10/21/21 06:44: Free T4 2.17 H Micro: Microbiology 10/20/21 23:50 Urine, Clean Catch Legionella Antigen - Final 10/20/21 23:50 Urine, Clean Catch Streptococcus pneumoniae Antigen (M - Final ABG Data ABG results: ABG 10/21/21 05:48 Specimen Type ART Sample Site R Radial pH 7.37 Bicarbonate Actual 29.4 H Total CO2 31 Base Excess 4 H O2 Saturation 99 ABG pCO2 50.4 H ABG pO2 145 H Shane Test Positive O2 Delivery Device HFNC Liter Flow 8.0 Radiography Diagnostic Testing: Radiology Impression Chest X-Ray 10/20/21 21:31 IMPRESSION: 1. Right more than left basilar infiltrate suggesting pneumonia, worse. Electronically Signed: Aroldo Pabon MD ([place]) at 23:32 EST , Service support , Chest CTA 10/21/21 00:33 IMPRESSION: Bilateral airspace disease could represent pulmonary edema or pneumonia. Distribution would be atypical for Covid which is possible but not likely. Evidence of chronic pulmonary hypertension with dilation of the pulmonary arteries. Atelectasis of most of the right middle lobe. Large heterogenous right thyroid mass; recommend follow-up ultrasound and thyroid workup if not previously interrogated. Electronically Signed: Zaki Gómez MD at 2:23 EST Tel , Service support , Physical Exam Const alert Orientation / Consciousness: lethargic Exam Limitations: no limitations Nutritional Appearance: morbidly obese HEENT head/scalp atraumatic Head and Scalp: normocephalic Mouth: dry mucous membranes Eyes PERRL, EOMs intact bilaterally and conjunctivae normal Neck no lymphadenopathy Resp Resp Narrative: diminished breath sounds bibasally, no wheezes, no crackles. On 6L of oxygen by nasal canula Cardio regular rate, regular rhythm, S1 normal heart sound, S2 normal heart sound and no murmurs GI normal to inspection, nondistended, normoactive bowel sounds, soft to palpation and non-distended Extremity normal to inspection, full ROM and no clubbing, cyanosis or edema Peripheral Pulses: Yes pulses 2+ throughout Skin no rashes or lesions noted Neuro Neuro Narrative: very lethargic Sensorium / Orientation: awake Psych Psych Narrative: lethargic Assessment & Plan Assessment/Plan (1) Pneumonia due to 2019-nCoV: (2) Urinary tract infection: QUALIFIERS: Urinary tract infection type: acute cystitis Hematuria presence: with hematuria Qualified Code(s): N30.01 - Acute cystitis with hematuria (3) Acute respiratory failure with hypoxia: (4) Thyroid mass: (5) Hepatic encephalopathy: PLAN: #Acute hypoxic respiratory failure due to covid 19 pneumonia with superimposed bacterial pneumonia * Patient was just discharged home on 10/11/2021 after being admitted and managed for acute hypoxic respiratory failure due to COVID-19 pneumonia. * Symptoms started around October 06. On admission she was saturating at 85% on room air. * Chest x-ray showed right more than left bibasilar infiltrate suggesting pneumonia * On IV ertapenem and azithromycin. * She has already completed a course of Decadron. Titrate oxygen to maintain saturation above 90% * Breathing treatments with bronchodilators. * TO remain in isolation till OctOct 26, 2020 * #UTI: * Urine showed 4+ bacteria. * On IV ertapenem as above. * Previous cultures grew ESBL E. coli sensitive to ertapenem. * Urine culture pending. * #Acute metabolic encephalopathy due to hepatic encephalopathy * Ammonia level was 42. Started on lactulose. * liver enzymes are WNL, apart from mildly elevated AST. * Titrate lactulose for 2-3 loose stools daily. * #Hyperthyroidism * TSH was markedly suppressed at 0.01. Free T4 is elevated at 2.57. * CTA of the chest done to rule out PE picked up a large heterogeneous mass in the right lobe of the thyroid gland measuring about 2.7 x 3.7 x 3.9 cm. * Patient tells me she is aware she has a thyroid mass, but she is quite confused about not sure how accurate this information is. There is no record of thyroid ultrasound in the records. * Will check thyroid ultrasound and consult general surgery-I discussed with Dr Cameron, who deferred to Dr Solano as he does thyroid surgeries. Will place consult for Dr Solano to see tomorrow. * #Chronic A. fib: On amiodarone 200mg daily. On Xarelto. #Super morbid obesity: BMI is 60. Complicates acute care, expected recovery and prognosis. DVT prophylaxis: not indicated as she is on xarelto * Charges/Coding Visit Charges Inpatient E&M: 90553 Subs Hosp L3
[2021-10-21] MEDS: Baclofen 10 MG Tablet PO (22:04)
[2021-10-21] MEDS: Nystatin Ointment 1 APPLIC TOPICAL (22:18)
[2021-10-22] VITALS (7 sets, daily range): BP systolic 111–133; BP diastolic 57–73; PULSE 54–83; RESP 18–20; TEMP 36.6–37.3; O2SAT 93–96
[2021-10-22] MEDS: Lactulose 20 GM/30 ML UDC PO ×3 (06:19→21:44)
[2021-10-22 07:19] LABS: Absolute Lymphocyte Count 0.64 X10^3/uL (0.83-4.51); Absolute Neutrophil Count 8.4 X10^3/uL (2.0-7.7); Basophil# 0.02 X10^3/uL; Basophil% 0.2 % (0-1); Eosinophil# 0.11 X10^3/uL; Hematocrit 38.8 % (37-47); Hemoglobin 12.8 g/dL (12.0-15.0); Lymphocyte # 0.64 X10^3/ul (0.83-4.51); Lymphocyte % 6.1 % (19-41); Mean Corpuscular Hgb 29.3 pg (27.0-32.0); Mean Corpuscular Volume 88.8 fL (81-99); Mean Platelet Vol. 9.6 fl (6.2-12.0); Monocyte# 1.28 X10^3/uL; Monocyte% 12.2 % (0-10); NRBC Flagged by Analyzer 0 % (0-5); Neutrophil # 8.38 X10^3/uL (2.7-7.7); Neutrophil % 79.7 % (47-70); Platelet Count 214 K/mm3 (150-450); RBC Distribution Width CV 14.2 % (11.6-14.6); RBC Distribution Width SD 46.3 fl (35.1-43.9); Red Blood Count 4.37 M/mm3 (4.2-5.4); White Blood Count 10.5 K/mm3 (4.4-11.0)
[2021-10-22 07:55] LABS: ALB/GLOB Ratio 0.5 RATIO (0.9-2.4); AST(SGOT) 24 U/L (15-37); Alanine Aminotransfer ALT/SGPT 40 U/L (13-56); Albumin, Serum 2.1 g/dL (3.2-5.0); Alkaline Phosphatase 106 U/L (45-117); Anion Gap 4 (5-15); BUN 31 mg/dL (7-18); BUN/Creat Ratio 31.7 RATIO (10-20); Calcium,Total 9.1 mg/dL (8.5-10.1); Chloride 103 mmol/L (98-107); Creatinine, Serum 0.98 mg/dL (0.55-1.02); EST Glomerular Filtration Rate 60 mL/min (>60); Est Glom Filt Rate - Afr Amer 72 mL/min (>60); Estimated Creatinine Clearance 41.64 ml/min; Globulin 4.1 g/dL (2.2-4.2); Glucose 104 mg/dL (74-106); Potassium 3.9 mmol/L (3.5-5.1); Protein, Total 6.2 g/dL (6.4-8.2); Sodium Level 137 mmol/L (136-145)
[2021-10-22] MEDS: Ferrous Sulfate 325 MG Tablet PO ×3 (08:45→16:45)
--- NOTE | 2021-10-22 08:46 | CON.PCM_ITS ---
Assessment & Plan Assessment/Plan (1) Thyroid mass: PLAN: I have been consulted in conjunction with Dr. Solano, who is c urrently out of the office until 10/25/21. Patient is scheduled to obtain a thyroid ultrasound for further evaluation of the right thyroid lobe mass. Patient can be scheduled as an outpatient for potential fine needle aspiration. She may call our office to be scheduled. Thank you for allowing us to participate in this patient's care. HPI Consult Data Date of Consult: 10/22/21 HPI Narrative HPI Narrative: KAREN HARTLEY, is a 71 F who presents with increased shortness of breath secondary to COVID pneumonia. Patient's symptoms started on 10/09. She was hospitalized once and discharged on 10/11. She is readmitted on 10/21/21 for increased shortness of breath. Patient had a chest CTA was obtained on 10/21 which demonstrated a large right lobe thyroid mass measuring 2.7 x 3.7 x 3.9 cm. Patient has apparently known about this mass previously. Dr. Solano has been consulted for evaluation of right thyroid lobe mass. [facility] Medical History (Updated 10/21/21 @ 12:[address] Chelsea Mathias MD) Asthma Atrial fibrillation Cancer Chronic anemia Chronic pain CKD (chronic kidney disease) Congestive heart failure (CHF) COVID-19 Depression Diabetes Gastroesophageal reflux disease GERD (gastroesophageal reflux disease) Hernia Hernia of anterior abdominal wall Hx of recurrent urinary tract infection Hypertension Lymphedema Morbid obesity Sleep apnea SVT (supraventricular tachycardia) Uterine cancer Home Medications furosemide 80 mg PO DAILY 07/20/13 [History Last Taken 05/21/21] mometasone [Nasonex] 2 spray NASAL DAILY PRN 07/20/13 [History Last Taken Unknown] acetaminophen 1,000 mg PO Q6H PRN PRN 11/01/20 [History Last Taken 10/30/20] cyanocobalamin (vitamin B-12) 1,000 mcg PO DAILY 11/01/20 [History Last Taken 11/01/20] rivaroxaban 20 mg PO DAILY 02/11/21 [History Last Taken 05/21/21] Folic Acid-Vit B6-Vit B12 (Ca) 1 tab PO DAILY 05/21/21 [History Last Taken 05/21/21] albuterol sulfate 2 puff INHALATION Q4H PRN 05/21/21 [History Last Taken Unknown] allopurinol 100 mg PO DAILY 05/21/21 [History Last Taken 05/21/21] baclofen 10 mg PO QHS 05/21/21 [History Last Taken 05/20/21] biotin 5,000 mcg PO DAILY 05/21/21 [History Last Taken 05/21/21] ferrous sulfate 325 mg PO TID 05/21/21 [History Last Taken 05/21/21] ipratropium-albuterol 3 ml INHALATION Q6H PRN 05/21/21 [History Last Taken 05/21/21] magnesium oxide 400 mg PO BID 05/21/21 [History Last Taken 05/21/21] nystatin 1 applic TOPICAL BID PRN 05/21/21 [History Last Taken Unknown] omeprazole 20 mg PO DAILY 05/21/21 [History Last Taken 05/21/21] oxybutynin chloride 15 mg PO DAILY 05/21/21 [History Last Taken 05/21/21] potassium chloride 20 meq PO TID 05/21/21 [History Last Taken 05/21/21] ascorbic acid (vitamin C) 1,000 mg PO DAILY 05/22/21 [History Last Taken Unknown] tramadol 50 mg PO BID PRN 5 Days #10 tab 05/29/21 [Rx Last Taken Unknown] amiodarone 200 mg PO DAILY 10/09/21 [History Last Taken Unknown] dexamethasone [Decadron] 6 mg PO DAILY #9 tab 10/09/21 [Rx Last Taken Unknown] diphenhydramine HCl [Banophen] 25 mg PO Q6 PRN 10/09/21 [History Last Taken Unknown] docusate sodium 100 mg PO BID PRN 10/09/21 [History Last Taken Unknown] gabapentin 600 mg PO BID 10/09/21 [History Last Taken Unknown] polyethylene glycol 3350 17 g PO DAILY 10/09/21 [History Last Taken Unknown] spironolactone 25 mg PO DAILY 10/09/21 [History Last Taken Unknown] dexamethasone 6 mg PO DAILY 7 Days #11 tab 10/11/21 [Rx Last Taken Unknown] diltiazem HCl 120 mg PO DAILY 30 Days #30 cap 10/11/21 [Rx Last Taken Unknown] Allergy/AdvReac Type Severity Reaction Status Date / Time latex Allergy Rash Verified 10/20/21 21:14 methadone [Methadone] Allergy Shortness Verified 10/20/21 21:14 of breath morphine Allergy Itching Verified 10/20/21 21:14 oxycodone [Oxycodone] Allergy Hives Verified 10/20/21 21:14 amoxicillin [Amoxicillin] AdvReac Itching Verified 10/20/21 21:14 fentanyl AdvReac Rash Verified 10/20/21 21:14 Sulfa (Sulfonamide AdvReac Rash Verified 10/20/21 21:14 Antibiotics) pain meds Allergy Itching Uncoded 10/20/21 21:14 Family History (Updated 10/21/21 @ 01:[address] Dm Ceja MD) Other Heart disease Surgical History History of cholecystectomy Hx of gastric bypass Social History household members: family Smoking Status: Never smoker substance use type: does not use Lab / Micro Data Result Diagrams: 10/22/21 07:06 10/22/21 07:06 Labs: Laboratory Results - last 24 hr 10/22/21 07:06: WBC 10.5, RBC 4.37, Hgb 12.8, Hct 38.8, MCV 88.8, MCH 29.3, MCHC 33.0, RDW Std Deviation 46.3 H, RDW Coeff of [place] 14.2, Plt Count 214, MPV 9.6, Immature Gran % (Auto) 0.800, Neut % (Auto) 79.7 H, Lymph % (Auto) 6.1 L, [place] % (Auto) 12.2 H, Eos % (Auto) 1.0, Baso % (Auto) 0.2, Absolute Neuts (auto) 8.4 H , Absolute Lymphs (auto) 0.64 L, Nucleated RBC % 0 10/22/21 07:06: Sodium 137, Potassium 3.9, Chloride 103, Carbon Dioxide 30.0, Anion Gap 4 L, BUN 31 H, Creatinine 0.98, Estim Creat Clear Calc 41.64, Est GFR (MDRD) Af Amer 72, Est GFR (MDRD) Non-Af 60, BUN/Creatinine Ratio 31.7 H, Glucose 104, Calcium 9.1, Total Bilirubin 0.50, AST 24, ALT 40, Alkaline Phosphatase 106, Total Protein 6.2 L, Albumin 2.1 L, Globulin 4.1, Albumin/Globulin Ratio 0.5 L Micro: Microbiology 10/20/21 23:50 Urine, Clean Catch Legionella Antigen - Final 10/20/21 23:50 Urine, Clean Catch Streptococcus pneumoniae Antigen (M - Final Charges/Coding Visit Charges Office Visits / Consults: 45078 IP Consult L1 (No charge)
[2021-10-22] MEDS: Allopurinol 100 MG Tablet PO (09:06)
[2021-10-22] MEDS: Cyanocobalamin 500 MCG Tablet 1000 MCG PO (09:06)
[2021-10-22] MEDS: Amiodarone 200 MG Tablet PO (09:06)
[2021-10-22] MEDS: Gabapentin 600 MG Tablet PO ×2 (09:06→21:44)
[2021-10-22] MEDS: Rivaroxaban 20 MG Tablet PO (09:06)
[2021-10-22] MEDS: predniSONE 20 MG Tablet 40 MG PO (09:06)
[2021-10-22] MEDS: Magnesium Chloride 64 MG Delay Rel.Tablet 128 MG PO ×2 (09:06→21:44)
[2021-10-22] MEDS: Furosemide 80 MG Tablet PO (09:06)
[2021-10-22] MEDS: guaiFENesin 600 MG Tablet PO ×2 (09:06→21:44)
[2021-10-22] MEDS: Tolterodine Tartrate 4 MG CAP.SA PO (09:06)
[2021-10-22] MEDS: Multivitamins,Ther W-Minerals Tablet 1 TABLET PO (09:06)
[2021-10-22] MEDS: Spironolactone 25 MG Tablet PO (09:07)
[2021-10-22] MEDS: Ascorbic Acid 500 MG Tablet 1000 MG PO (09:07)
[2021-10-22] MEDS: Polyethylene Glycol 3350 17 GM PACKET PO (09:07)
[2021-10-22] MEDS: Pantoprazole Sodium 20 MG Tablet PO (09:07)
[2021-10-22] MEDS: dilTIAZem CD 120 MG Capsule PO (09:07)
--- NOTE | 2021-10-22 10:34 | PCM.PN.HOSP ---
Subjective Subjective Follow-up on acute hypoxic respiratory failure secondary to bacterial pneumonia in the setting of recent COVID-19 pneumonia: Patient was seen and examined. She is currently on 2 L of oxygen. She denied any other complaints. Objective Data Objective Data Vital Signs: Vital Signs Temp Pulse Resp BP Pulse Ox 97.9 F 62 18 133/57 H 95 10/22/21 09:20 10/22/21 09:20 10/22/21 09:20 10/22/21 09:20 10/22/21 09:20 Oxygen Flow Rate (L/min) 1.5 Oxygen Delivery Method Nasal Cannula Weight: 149.685 kg Body Mass Index (BMI) 60.3 Intake & Output: Intake and Output for Last 24 Hours 10/20/21 10/21/21 10/22/21 23:59 23:59 23:59 Intake Total 570 / 570 60 / 60 Output Total 2300 / 3000 800 / 800 Balance -1730 / -2430 -740 / -740 Lab / Micro Data Result Diagrams: 10/22/21 07:06 10/22/21 07:06 Labs: Laboratory Results - last 24 hr 10/22/21 07:06: WBC 10.5, RBC 4.37, Hgb 12.8, Hct 38.8, MCV 88.8, MCH 29.3, MCHC 33.0, RDW Std Deviation 46.3 H, RDW Coeff of Chucky 14.2, Plt Count 214, MPV 9.6, Immature Gran % (Auto) 0.800, Neut % (Auto) 79.7 H, Lymph % (Auto) 6.1 L, [place] % (Auto) 12.2 H, Eos % (Auto) 1.0, Baso % (Auto) 0.2, Absolute Neuts (auto) 8.4 H, Absolute Lymphs (auto) 0.64 L, Nucleated RBC % 0 10/22/21 07:06: Sodium 137, Potassium 3.9, Chloride 103, Carbon Dioxide 30.0, Anion Gap 4 L, BUN 31 H, Creatinine 0.98, Estim Creat Clear Calc 41.64, Est GFR (MDRD) Af Amer 72, Est GFR (MDRD) Non-Af 60, BUN/Creatinine Ratio 31.7 H, Glucose 104, Calcium 9.1, Total Bilirubin 0.50, AST 24, ALT 40, Alkaline Phosphatase 106, Total Protein 6.2 L, Albumin 2.1 L, Globulin 4.1, Albumin/Globulin Ratio 0.5 L Micro: Microbiology 10/20/21 23:50 Urine, Random Urine Culture - Preliminary GNR lactose growth media mixer mushroom 10/20/21 23:50 Urine, Clean Catch Legionella Antigen - Final 10/20/21 23:50 Urine, Clean Catch Streptococcus pneumoniae Antigen (M - Final Physical Exam Narrative Physical exam: General: Morbidly obese, not pale, not jaundiced, on 2 L oxygen Head: Normocephalic, atraumatic, no tenderness Eyes: PERRLA, EOMI ENT, no trauma, moist mucous membranes, no rhinorrhea Neck: Nontender, full range of motion, no spinal tenderness, deformities, step-off CVS: Regular rate and rhythm. S1-S2 present. No murmur, gallop or rub. Respiratory : Wheezes, chest wall nontender, no wheezing Abdomen: Soft, nontender, nondistended, normal bowel sounds, no masses Extremities: Loss to multiple toes of right foot. Nontender full range of motion, no trauma Assessment & Plan Assessment/Plan (1) Pneumonia due to 2019-nCoV: (2) Urinary tract infection: QUALIFIERS: Urinary tract infection type: acute cystitis Hematuria presence: with hematuria Qualified Code(s): N30.01 - Acute cystitis with hematuria (3) Acute respiratory failure with hypoxia: (4) Thyroid mass: (5) Hepatic encephalopathy: PLAN: 1. Acute hypoxic respiratory failure secondary to suspected bacterial pneumonia in the setting of recent COVID-19 infection Admitting chest x-ray shows infiltrate right more than left Urine Legionella as well as streptococcal antigen is negative Patient appears to be improving on IV antibiotics?type and medication management 2. Acute metabolic encephalopathy likely secondary to hepatic encephalopathy Admitting ammonia was 42, liver enzymes are unremarkable, started on lactulose CT of abdomen pelvis in May 2021 does not show liver cirrhosis We will continue to monitor 3. Acute gram-negative anoop lactose growth media mixer mushroom UTI History of ESBL E. coli UTIs 4. Hyperthyroidism, TSH was low, free T4 elevated CTA of the chest showed a large heterogeneous mass in the right lobe of the thyroid gland General surgery consulted; outpatient ultrasound recommended 5. Chronic A. fib, rate controlled, continue amiodarone and Xarelto 6. Super morbid obesity, BMI is 60, complicates acute care, expected recovery and prognosis. 7. DVT PPx- On Xarelto Charges/Coding Visit Charges Inpatient E&M: 15483 Subs Hosp L2
--- NOTE | 2021-10-22 13:11 | CASEMGMT ---
Social Work Note SW reviewed chart. Pt has CM Jerardo Anne through [facility]. SW placed a call to Jerardo ([phone]. [phone]) and left message updating her on pt's admission to [facility]. Ami Hughes BEAUTY COUNSELOR, COAL TRAM DRIVER
--- NOTE | 2021-10-22 15:58 | CASEMGMT ---
ABRAHAM ESPOSITO Readmission Note Previous Admission: 10/09/21-10/11/21 Diagnosis: COVID DC Disposition: Home with AFIA of HHC and passport services. Pt did not qualify for home O2. Current Admission Diagnosis: Acute hypoxemic resp failure Pt home from previous hospital stay and did not qualify for home O2. ABRAHAM ESPOSITO in to pt room. Pt states when she got home she could not breathe. Pt is questioning if she has allergies from the pets her sister rescues and keeps in the home. Pt has obtained a pulse ox. Pt reports she does not have a CPAP at home and it has been 10 years or greater since she had a sleep study. She is unsure which physician conducted the study. She states she was unable to wear the masks as it caused her to panic. Pt reports she has been taking her meds as ordered as her sister sets them up for her. She has not yet had an appt with her PCP but thinks she has one scheduled for 10/25/2021. Pt would like to return home with her passport care as well as HHC to resume. She is receiving SN, PT and OT from [facility]. DC PLAN: Home with resumption of HHC.
[2021-10-22] MEDS: traMADol 50 MG Tablet PO (20:20)
[2021-10-22] MEDS: Baclofen 10 MG Tablet PO (21:44)
[2021-10-23] VITALS (12 sets, daily range): BP systolic 113–126; BP diastolic 44–63; PULSE 52–60; RESP 16–24; TEMP 36.6–37.3; O2SAT 76–97
[2021-10-23] MEDS: Benzonatate 100 MG Capsule PO ×2 (02:01→21:33)
[2021-10-23] MEDS: Acetaminophen 500 MG Tablet 1000 MG PO ×2 (02:07→08:38)
[2021-10-23 03:43] LABS: Troponin-I HS 15 pg/mL (3.0-54.0)
--- NOTE | 2021-10-23 05:00 | EKG12_ITS ---
Test Reason : CP Blood Pressure : / mmHG Vent. Rate : 059 BPM Atrial Rate : 059 BPM P-R Int : 228 ms QRS Dur : 108 ms QT Int : 468 ms P-R-T Axes : 066 -22 050 degrees QTc Int : 463 ms Sinus bradycardia with 1st degree A-V block Otherwise normal ECG When compared with ECG of 20-OCT-2021 21:48, MANUAL COMPARISON REQUIRED, DATA IS UNCONFIRMED Confirmed by VANDANA VALDEZ, KAYDEN ([id number]), photograph editor MARCIAL JESUS ([id number]) on 11/01/2021 1:55:22 PM Referred By: VICENTA Confirmed By:ILANA ROSS MD
[2021-10-23 05:15] LABS: Troponin-I HS 14 pg/mL (3.0-54.0)
[2021-10-23] MEDS: Lactulose 20 GM/30 ML UDC PO ×3 (06:40→21:13)
[2021-10-23] MEDS: Albuterol 2.5 MG/3 ML VIAL.NEB. INHALATION (07:33)
--- NOTE | 2021-10-23 08:16 | NURSING ---
pt O2 alarming at 76% with good waveform, pt was found on room air. 2L NC placed and encouraged deep breaths through nose. pt O2 improved within 2 minutes to 92%
[2021-10-23] MEDS: Rivaroxaban 20 MG Tablet PO (08:32)
[2021-10-23] MEDS: dilTIAZem CD 120 MG Capsule PO (08:33)
[2021-10-23] MEDS: predniSONE 20 MG Tablet 40 MG PO (08:33)
[2021-10-23] MEDS: Polyethylene Glycol 3350 17 GM PACKET PO (08:33)
[2021-10-23] MEDS: Pantoprazole Sodium 20 MG Tablet PO (08:33)
[2021-10-23] MEDS: Multivitamins,Ther W-Minerals Tablet 1 TABLET PO (08:33)
[2021-10-23] MEDS: guaiFENesin 600 MG Tablet PO ×2 (08:33→21:14)
[2021-10-23] MEDS: Allopurinol 100 MG Tablet PO (08:33)
[2021-10-23] MEDS: Magnesium Chloride 64 MG Delay Rel.Tablet 128 MG PO ×2 (08:34→21:14)
[2021-10-23] MEDS: Gabapentin 600 MG Tablet PO ×2 (08:35→21:14)
[2021-10-23] MEDS: Furosemide 80 MG Tablet PO (08:35)
[2021-10-23] MEDS: Spironolactone 25 MG Tablet PO (08:35)
[2021-10-23] MEDS: Ferrous Sulfate 325 MG Tablet PO ×3 (08:35→17:00)
[2021-10-23] MEDS: Amiodarone 200 MG Tablet PO (08:35)
[2021-10-23] MEDS: Tolterodine Tartrate 4 MG CAP.SA PO (08:35)
[2021-10-23] MEDS: Ascorbic Acid 500 MG Tablet 1000 MG PO (08:35)
[2021-10-23 09:56] LABS: Troponin-I HS 13 pg/mL (3.0-54.0)
[2021-10-23] MEDS: Cyanocobalamin 500 MCG Tablet 1000 MCG PO (10:15)
[2021-10-23 10:37] LABS: Absolute Lymphocyte Count 0.95 X10^3/uL (0.83-4.51); Absolute Neutrophil Count 6.3 X10^3/uL (2.0-7.7); Basophil# 0.03 X10^3/uL; Basophil% 0.3 % (0-1); Eosinophil# 0.17 X10^3/uL; Eosinophils% 1.9 % (0-5); Hematocrit 41.8 % (37-47); Hemoglobin 13.4 g/dL (12.0-15.0); Lymphocyte # 0.95 X10^3/ul (0.83-4.51); Lymphocyte % 10.9 % (19-41); Mean Corp Hgb Conc 32.1 g/dL (32-36); Mean Corpuscular Hgb 28.7 pg (27.0-32.0); Mean Corpuscular Volume 89.5 fL (81-99); Mean Platelet Vol. 9.7 fl (6.2-12.0); Monocyte# 1.24 X10^3/uL; Monocyte% 14.2 % (0-10); NRBC Flagged by Analyzer 0 % (0-5); Neutrophil # 6.28 X10^3/uL (2.7-7.7); Neutrophil % 71.8 % (47-70); Platelet Count 242 K/mm3 (150-450); RBC Distribution Width CV 14.1 % (11.6-14.6); RBC Distribution Width SD 46.2 fl (35.1-43.9); Red Blood Count 4.67 M/mm3 (4.2-5.4); White Blood Count 8.8 K/mm3 (4.4-11.0)
[2021-10-23 10:56] LABS: ALB/GLOB Ratio 0.5 RATIO (0.9-2.4); AST(SGOT) 35 U/L (15-37); Alanine Aminotransfer ALT/SGPT 46 U/L (13-56); Albumin, Serum 2.2 g/dL (3.2-5.0); Alkaline Phosphatase 104 U/L (45-117); Anion Gap 11 (5-15); BUN 28 mg/dL (7-18); BUN/Creat Ratio 28.8 RATIO (10-20); Chloride 99 mmol/L (98-107); Creatinine, Serum 0.97 mg/dL (0.55-1.02); EST Glomerular Filtration Rate 60 mL/min (>60); Est Glom Filt Rate - Afr Amer 73 mL/min (>60); Estimated Creatinine Clearance 42.07 ml/min; Globulin 4.3 g/dL (2.2-4.2); Glucose 102 mg/dL (74-106); Potassium 4.1 mmol/L (3.5-5.1); Protein, Total 6.5 g/dL (6.4-8.2); Sodium Level 139 mmol/L (136-145)
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
--- NOTE | 2021-10-23 15:17 | CASEMGMT ---
Pt screened with [facility] Palliative Care Screening Tool d/t readmission. Pt met criteria. Order received and emailed to Palliative.
--- NOTE | 2021-10-23 16:22 | PN.HOSP_ITS ---
Subjective Subjective Follow-up on acute hypoxic respiratory failure secondary to bacterial pneumonia in the setting of recent COVID-19 pneumonia: Patient was seen and examined. She remains on 2 L of oxygen. She denied any other complaints. Objective Data Objective Data Vital Signs: Vital Signs Temp Pulse Resp BP Pulse Ox 98.2 F 52 L 16 126/63 H 95 10/23/21 14:39 10/23/21 14:39 10/23/21 14:39 10/23/21 14:39 10/23/21 14:39 Oxygen Flow Rate (L/min) [At 2 REST with Oxygen] Oxygen Flow Rate (L/min) 2 Oxygen Delivery Method Nasal Cannula Weight: 149.685 kg Body Mass Index (BMI) 60.3 Intake & Output: Intake and Output for Last 24 Hours 10/21/21 10/22/21 10/23/21 23:59 23:59 23:59 Intake Total 570 / 570 520 / 520 955 / 955 Output Total 2300 / 3000 3550 / 3550 2200 / 2200 Balance -1730 / -2430 -3030 / -3030 -1245 / -1245 Lab / Micro Data Result Diagrams: 10/23/21 08:55 10/23/21 08:55 Labs: Laboratory Results - last 24 hr 10/23/21 03:00: Troponin I High Sens 15 10/23/21 04:31: Troponin I High Sens 14 10/23/21 08:55: Troponin I High Sens 13 10/23/21 08:55: WBC 8.8, RBC 4.67, Hgb 13.4, Hct 41.8, MCV 89.5, MCH 28.7, MCHC 32.1, RDW Std Deviation 46.2 H, RDW Coeff of Chucky 14.1, Plt Count 242, MPV 9.7, Immature Gran % (Auto) 0.900, Neut % (Auto) 71.8 H, Lymph % (Auto) 10.9 L, [place] % (Auto) 14.2 H, Eos % (Auto) 1.9, Baso % (Auto) 0.3, Absolute Neuts (auto) 6.3, Absolute Lymphs (auto) 0.95, Nucleated RBC % 0 10/23/21 08:55: Sodium 139, Potassium 4.1, Chloride 99, Carbon Dioxide 29.0, Anion Gap 11, BUN 28 H, Creatinine 0.97, Estim Creat Clear Calc 42.07, Est GFR (MDRD) Af Amer 73, Est GFR (MDRD) Non-Af 60, BUN/Creatinine Ratio 28.8 H, Glucose 102, Calcium 9.0, Total Bilirubin 0.40, AST 35, ALT 46, Alkaline Phosphatase 104, Total Protein 6.5, Albumin 2.2 L, Globulin 4.3 H, Albumin/Globulin Ratio 0.5 L 10/23/21 11:45: Ammonia 40.0 H Micro: Microbiology 10/20/21 23:50 Urine, Random Urine Culture - Preliminary Escherichia coli 10/20/21 23:50 Urine, Clean Catch Legionella Antigen - Final 10/20/21 23:50 Urine, Clean Catch Streptococcus pneumoniae Antigen (M - Final Physical Exam Narrative Physical exam: General: Morbidly obese, not pale, not jaundiced, on 2 L oxygen Head: Normocephalic, atraumatic, no tenderness Eyes: PERRLA, EOMI ENT, no trauma, moist mucous membranes, no rhinorrhea Neck: Nontender, full range of motion, no spinal tenderness, deformities, step- off CVS: Regular rate and rhythm. S1-S2 present. No murmur, gallop or rub. Respiratory : Wheezes, chest wall nontender, no wheezing Abdomen: Soft, nontender, nondistended, normal bowel sounds, no masses Extremities: Loss to multiple toes of right foot. Nontender full range of motion, no trauma Assessment & Plan Assessment/Plan (1) Pneumonia due to 2019-nCoV: (2) Urinary tract infection: QUALIFIERS: Urinary tract infection type: acute cystitis Hematuria presence: with hematuria Qualified Code(s): N30.01 - Acute cystitis with hematuria (3) Acute respiratory failure with hypoxia: (4) Thyroid mass: (5) Hepatic encephalopathy: PLAN: 1. Acute hypoxic respiratory failure secondary to suspected bacterial pneumonia in the setting of recent COVID-19 infection Currently on 2L oxygen Admitting chest x-ray shows infiltrate right more than left Urine Legionella as well as streptococcal antigen is negative Patient appears to be improving on IV antibiotics?IV ertapenem and azithromycin 2. Acute metabolic encephalopathy likely secondary to hepatic encephalopathy Admitting ammonia was 42, liver enzymes are unremarkable, started on lactulose CT of abdomen/pelvis in May 2021 does not show liver cirrhosis Continue to monitor 3. 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 coli UTIs Continue with IV ertapenem 4. Hyperthyroidism, TSH was low, free T4 elevated CTA of the chest showed a large heterogeneous mass in the right lobe of the thyroid gland General surgery consulted; outpatient ultrasound recommended 5. Chronic A. fib, rate controlled, continue amiodarone and Xarelto 6. Super morbid obesity, BMI is 60, complicates acute care, expected recovery and prognosis. 7. DVT PPx- On Xarelto Charges/Coding Visit Charges Inpatient E&M: 55138 Subs Hosp L2
[2021-10-23] MEDS: Baclofen 10 MG Tablet PO (21:14)
[2021-10-23] MEDS: traMADol 50 MG Tablet PO (21:33)
[2021-10-23] MEDS: 0.9% Saline Lock 10 ML Syringe IV (23:30)
[2021-10-24 02:38] VITALS: BP 140/66; PULSE 52; RESP 18; TEMP 36.6; O2SAT 97
[2021-10-24] MEDS: Acetaminophen 500 MG Tablet 1000 MG PO (05:58)
[2021-10-24] MEDS: Lactulose 20 GM/30 ML UDC PO ×3 (05:58→20:36)
[2021-10-24 06:43] LABS: Absolute Lymphocyte Count 0.99 X10^3/uL (0.83-4.51); Absolute Neutrophil Count 5.2 X10^3/uL (2.0-7.7); Basophil# 0.02 X10^3/uL; Basophil% 0.3 % (0-1); Eosinophil# 0.17 X10^3/uL; Eosinophils% 2.3 % (0-5); Hematocrit 41.5 % (37-47); Hemoglobin 13.2 g/dL (12.0-15.0); Lymphocyte # 0.99 X10^3/ul (0.83-4.51); Lymphocyte % 13.3 % (19-41); Mean Corp Hgb Conc 31.8 g/dL (32-36); Mean Corpuscular Hgb 29.3 pg (27.0-32.0); Mean Platelet Vol. 9.1 fl (6.2-12.0); Monocyte# 0.99 X10^3/uL; Monocyte% 13.3 % (0-10); NRBC Flagged by Analyzer 0 % (0-5); Neutrophil # 5.22 X10^3/uL (2.7-7.7); Neutrophil % 70.4 % (47-70); Platelet Count 244 K/mm3 (150-450); RBC Distribution Width CV 13.6 % (11.6-14.6); RBC Distribution Width SD 46.8 fl (35.1-43.9); Red Blood Count 4.51 M/mm3 (4.2-5.4); White Blood Count 7.4 K/mm3 (4.4-11.0)
[2021-10-24 07:08] LABS: ALB/GLOB Ratio 0.5 RATIO (0.9-2.4); AST(SGOT) 32 U/L (15-37); Alanine Aminotransfer ALT/SGPT 49 U/L (13-56); Albumin, Serum 2.1 g/dL (3.2-5.0); Alkaline Phosphatase 112 U/L (45-117); Anion Gap 5 (5-15); BUN 33 mg/dL (7-18); BUN/Creat Ratio 37.3 RATIO (10-20); Calcium,Total 8.9 mg/dL (8.5-10.1); Chloride 98 mmol/L (98-107); Creatinine, Serum 0.88 mg/dL (0.55-1.02); EST Glomerular Filtration Rate 67 mL/min (>60); Est Glom Filt Rate - Afr Amer 81 mL/min (>60); Estimated Creatinine Clearance 46.38 ml/min; Globulin 4.1 g/dL (2.2-4.2); Glucose 112 mg/dL (74-106); Protein, Total 6.2 g/dL (6.4-8.2); Sodium Level 137 mmol/L (136-145)
--- NOTE | 2021-10-24 08:22 | CON.PCM.PA_ITS ---
HPI Consult Data Date of Consult: 10/24/21 HPI Narrative HPI Narrative: CASSIE HARTLEY, is a 71 F who presented to the [facility] emergency department on 10/20/2021 for ongoing shortness of breath following a recent hospitalization (discharged 7 days prior) for COVID-19 pneumonia. At the time of presentation she did have an increased cough and was noted to be hypoxic at home. She is maintained on Xarelto for atrial fibrillation, which should be preventative for PEs or DVTs. Patient was admitted for acute hypoxic respiratory failure secondary to pneumonia, acute encephalopathy, and UTI/acute cystitis. She is also noted to have some hepatic encephalopathy with lethargy and was started on lactulose given an ammonia level of 42, which is only improved slightly to 40. She has had >5 hospitalizations in 2020 for a multitude of reasons including recurrent UTI, small bowel obstruction, cellulitis, a sacral decubitus ulcer, and most recently for COVID-19 pneumonia. It is of note that her TSH is markedly low at 0.01 and she is to be following up as an outpatient for further work-up of a large thyroid mass found on CTA to rule out PE; General Surgery has been consulted and will follow as outpatient. Palliative care has been consulted for assistance with symptom management and increased outpatient medical resources. Cassie lives at home with her sister, Mechelle, as primary caregiver. Patient is nonambulatory and dependent for mobility and transfers, using a scooter and Diana lift. The patient does note that she feels safe at home, there is some concern with her sister's ability to assist in caregiving. Hospital discharge plan as of now is for senior living facility. She does have Passport at home, and has been receiving nursing and PT/OT from [facility]. She lives in [place], [place], which is in [facility]. She does have reported EMILY but does not have a CPAP; last sleep study was over 10 years ago. Patient notes that she can't wear anything with a mask anyway due to anxiety and panic. [facility] Medical History (Updated 10/21/21 @ 12:[address] Chelsea Mathias MD) Asthma Atrial fibrillation Cancer Chronic anemia Chronic pain CKD (chronic kidney disease) Congestive heart failure (CHF) COVID-19 Depression Diabetes Gastroesophageal reflux disease GERD (gastroesophageal reflux disease) Hernia Hernia of anterior abdominal wall Hx of recurrent urinary tract infection Hypertension Lymphedema Morbid obesity Sleep apnea SVT (supraventricular tachycardia) Uterine cancer Home Medications furosemide 80 mg PO DAILY 07/20/13 [History Last Taken 05/21/21] mometasone [Nasonex] 2 spray NASAL DAILY PRN 07/20/13 [History Last Taken Unknown] acetaminophen 1,000 mg PO Q6H PRN PRN 11/01/20 [History Last Taken 10/30/20] cyanocobalamin (vitamin B-12) 1,000 mcg PO DAILY 11/01/20 [History Last Taken 11/01/20] rivaroxaban 20 mg PO DAILY 02/11/21 [History Last Taken 05/21/21] Folic Acid-Vit B6-Vit B12 (Ca) 1 tab PO DAILY 05/21/21 [History Last Taken 05/21/21] albuterol sulfate 2 puff INHALATION Q4H PRN 05/21/21 [History Last Taken Unknown] allopurinol 100 mg PO DAILY 05/21/21 [History Last Taken 05/21/21] baclofen 10 mg PO QHS 05/21/21 [History Last Taken 05/20/21] biotin 5,000 mcg PO DAILY 05/21/21 [History Last Taken 05/21/21] ferrous sulfate 325 mg PO TID 05/21/21 [History Last Taken 05/21/21] ipratropium-albuterol 3 ml INHALATION Q6H PRN 05/21/21 [History Last Taken 05/21/21] magnesium oxide 400 mg PO BID 05/21/21 [History Last Taken 05/21/21] nystatin 1 applic TOPICAL BID PRN 05/21/21 [History Last Taken Unknown] omeprazole 20 mg PO DAILY 05/21/21 [History Last Taken 05/21/21] oxybutynin chloride 15 mg PO DAILY 05/21/21 [History Last Taken 05/21/21] potassium chloride 20 meq PO TID 05/21/21 [History Last Taken 05/21/21] ascorbic acid (vitamin C) 1,000 mg PO DAILY 05/22/21 [History Last Taken Unknown] tramadol 50 mg PO BID PRN 5 Days #10 tab 05/29/21 [Rx Last Taken Unknown] amiodarone 200 mg PO DAILY 10/09/21 [History Last Taken Unknown] dexamethasone [Decadron] 6 mg PO DAILY #9 tab 10/09/21 [Rx Last Taken Unknown] diphenhydramine HCl [Banophen] 25 mg PO Q6 PRN 10/09/21 [History Last Taken Unknown] docusate sodium 100 mg PO BID PRN 10/09/21 [History Last Taken Unknown] gabapentin 600 mg PO BID 10/09/21 [History Last Taken Unknown] polyethylene glycol 3350 17 g PO DAILY 10/09/21 [History Last Taken Unknown] spironolactone 25 mg PO DAILY 10/09/21 [History Last Taken Unknown] dexamethasone 6 mg PO DAILY 7 Days #11 tab 10/11/21 [Rx Last Taken Unknown] diltiazem HCl 120 mg PO DAILY 30 Days #30 cap 10/11/21 [Rx Last Taken Unknown] Allergy/AdvReac Type Severity Reaction Status Date / Time latex Allergy Rash Verified 10/20/21 21:14 methadone [Methadone] Allergy Shortness Verified 10/20/21 21:14 of breath morphine Allergy Itching Verified 10/20/21 21:14 oxycodone [Oxycodone] Allergy Hives Verified 10/20/21 21:14 amoxicillin [Amoxicillin] AdvReac Itching Verified 10/20/21 21:14 fentanyl AdvReac Rash Verified 10/20/21 21:14 Sulfa (Sulfonamide AdvReac Rash Verified 10/20/21 21:14 Antibiotics) pain meds Allergy Itching Uncoded 10/20/21 21:14 Family History (Updated 10/21/21 @ 01:[address] Dm Ceja MD) Other Heart disease Surgical History History of cholecystectomy Hx of gastric bypass Social History household members: family Smoking Status: Never smoker substance use type: does not use
--- NOTE | 2021-10-24 08:59 | CASEMGMT ---
Social Work SW called [facility], message left for Yohana in admissions to call this SW back. LATRICIA Ferraro
[2021-10-24] MEDS: Amiodarone 200 MG Tablet PO (09:54)
[2021-10-24] MEDS: Gabapentin 600 MG Tablet PO ×2 (09:54→20:37)
[2021-10-24] MEDS: Tolterodine Tartrate 4 MG CAP.SA PO (09:54)
[2021-10-24] MEDS: dilTIAZem CD 120 MG Capsule PO (09:54)
[2021-10-24] MEDS: Magnesium Chloride 64 MG Delay Rel.Tablet 128 MG PO ×2 (09:54→20:37)
[2021-10-24] MEDS: Cyanocobalamin 500 MCG Tablet 1000 MCG PO (09:54)
[2021-10-24] MEDS: Spironolactone 25 MG Tablet PO (09:54)
[2021-10-24] MEDS: Ferrous Sulfate 325 MG Tablet PO ×3 (09:54→17:47)
[2021-10-24] MEDS: predniSONE 20 MG Tablet 40 MG PO (09:55)
[2021-10-24] MEDS: Ascorbic Acid 500 MG Tablet 1000 MG PO (09:55)
[2021-10-24] MEDS: Furosemide 80 MG Tablet PO (09:55)
[2021-10-24] MEDS: Multivitamins,Ther W-Minerals Tablet 1 TABLET PO (09:55)
[2021-10-24] MEDS: Allopurinol 100 MG Tablet PO (09:55)
[2021-10-24] MEDS: Polyethylene Glycol 3350 17 GM PACKET PO ×2 (09:55→20:35)
[2021-10-24] MEDS: Rivaroxaban 20 MG Tablet PO (09:55)
[2021-10-24] MEDS: Pantoprazole Sodium 20 MG Tablet PO (09:55)
[2021-10-24] MEDS: guaiFENesin 600 MG Tablet PO ×2 (09:55→20:37)
[2021-10-24 09:59] VITALS: BP 126/65; PULSE 50; RESP 18; TEMP 36.6; O2SAT 95
[2021-10-24 10:07] VITALS: O2SAT 88
--- NOTE | 2021-10-24 10:43 | CASEMGMT ---
Addendum entered by Amie Chung 10/24/21 15:56: Social Work [facility] has no beds. SW called [facility], faxed referral. They will let SW know if they can take pt. Pt's insurance is out of network so will have to see if insurance will allow pt to go there. LATRICIA Ferraro Addendum entered by Amie Chung 10/24/21 15:28: SW spoke w/[facility], they can take pt, precert is waived. SW spoke w/pt, let her know [facility] cannot take pt, but [facility] can. Pt now states that this is not one of her choices, she wants [facility] or [facility]. Pt states she has never heard of [facility](though documented she told SW yesterday this is her second choice). SW explained will make referrals and let her know. SW will make new referrals shortly. LATRICIA Ferraro Addendum entered by Amie Chung 10/24/21 14:54: Social Work SW called [facility], message left inquiring about referral. LATRICIA Ferraro Original Note: Social Work [facility] denied taking pt. SW called [facility], faxed referral. Tam to let this SW know if they can take pt. SW will continue to follow. LATRICIA Ferraro
[2021-10-24] MEDS: Magnesium Hydroxide 30 ML UDC PO (11:34)
[2021-10-24 13:28] VITALS: O2SAT 95
--- NOTE | 2021-10-24 14:42 | CASEMGMT ---
Spoke with Rula at [facility]. She is aware that pt is seeking placement at this time. CM to follow.
[2021-10-24] MEDS: Furosemide 40 MG/4 ML Vial IV (14:51)
[2021-10-24 14:58] VITALS: BP 125/61; PULSE 51; RESP 18; TEMP 36.6; O2SAT 96
--- NOTE | 2021-10-24 17:09 | PN.HOSP_ITS ---
Subjective Subjective Follow-up on acute hypoxic respiratory failure secondary to bacterial pneumonia in the setting of recent COVID-19 pneumonia: Patient was seen and examined. No acute events overnight. She complains of constipation. Stool regimen altered. Waiting on discharge to custodial facility. Patient remains on 2 L of oxygen Objective Data Objective Data Vital Signs: Vital Signs Temp Pulse Resp BP Pulse Ox 97.9 F 51 L 18 125/61 H 96 10/24/21 14:58 10/24/21 14:58 10/24/21 14:58 10/24/21 14:58 10/24/21 14:58 Oxygen Flow Rate (L/min) [At 2 REST with Oxygen] Oxygen Flow Rate (L/min) 2 Oxygen Delivery Method Nasal Cannula Weight: 149.685 kg Body Mass Index (BMI) 60.3 Intake & Output: Intake and Output for Last 24 Hours 10/22/21 10/23/21 10/24/21 23:59 23:59 23:59 Intake Total 520 / 520 1460 / 2160 1360 / 1360 Output Total 3550 / 3550 2600 / 3400 1450 / 1450 Balance -3030 / -3030 -1140 / -1240 -90 / -90 Lab / Micro Data Result Diagrams: 10/24/21 06:30 10/24/21 06:30 Labs: Laboratory Results - last 24 hr 10/24/21 06:30: WBC 7.4, RBC 4.51, Hgb 13.2, Hct 41.5, MCV 92.0, MCH 29.3, MCHC 31.8 L, RDW Std Deviation 46.8 H, RDW Coeff of Chucky 13.6, Plt Count 244, MPV 9.1, Immature Gran % (Auto) 0.400, Neut % (Auto) 70.4 H, Lymph % (Auto) 13.3 L, [place] % (Auto) 13.3 H, Eos % (Auto) 2.3, Baso % (Auto) 0.3, Absolute Neuts (auto) 5.2, Absolute Lymphs (auto) 0.99, Nucleated RBC % 0 10/24/21 06:30: Sodium 137, Potassium 4.0, Chloride 98, Carbon Dioxide 34.0 H, Anion Gap 5, BUN 33 H, Creatinine 0.88, Estim Creat Clear Calc 46.38, Est GFR (MDRD) Af Amer 81, Est GFR (MDRD) Non-Af 67, BUN/Creatinine Ratio 37.3 H, Glucose 112 H, Calcium 8.9, Total Bilirubin 0.30, AST 32, ALT 49, Alkaline Phosphatase 112, Total Protein 6.2 L, Albumin 2.1 L, Globulin 4.1, Albumin/Globulin Ratio 0.5 L Micro: Microbiology 10/20/21 23:50 Urine, Random Urine Culture - Final Escherichia coli 10/20/21 23:50 Urine, Clean Catch Legionella Antigen - Final 10/20/21 23:50 Urine, Clean Catch Streptococcus pneumoniae Antigen (M - Final Physical Exam Narrative Physical exam: General: Morbidly obese, not pale, not jaundiced, on 2 L oxygen, morbidly obese Head: Normocephalic, atraumatic, no tenderness Eyes: PERRLA, EOMI ENT, no trauma, moist mucous membranes, no rhinorrhea Neck: Nontender, full range of motion, no spinal tenderness, deformities, step- off CVS: Regular rate and rhythm. S1-S2 present. No murmur, gallop or rub. Respiratory : Wheezes, chest wall nontender, no wheezing Abdomen: Soft, nontender, nondistended, normal bowel sounds, no masses Extremities: Loss to multiple toes of right foot. Nontender full range of motion, no trauma Assessment & Plan Assessment/Plan (1) Pneumonia due to 2019-nCoV: (2) Urinary tract infection: QUALIFIERS: Urinary tract infection type: acute cystitis Hematuria presence: with hematuria Qualified Code(s): N30.01 - Acute cystitis with hematuria (3) Acute respiratory failure with hypoxia: (4) Thyroid mass: (5) Hepatic encephalopathy: PLAN: 1. Acute hypoxic respiratory failure secondary to suspected bacterial pneumonia in the setting of recent COVID-19 infection Continues to be on 2L oxygen Admitting chest x-ray shows infiltrate right more than left Urine Legionella as well as streptococcal antigen is negative Patient appears to be improving on IV antibiotics?IV ertapenem(4/7) and uriah thromycin(4/5) 2. Acute metabolic encephalopathy likely secondary to hepatic encephalopathy Admitting ammonia was 42, liver enzymes are unremarkable, started on lactulose CT of abdomen/pelvis in May 2021 does not show liver cirrhosis Continue to monitor 3. 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 coli UTIs Continue with IV ertapenem 4. Hyperthyroidism, TSH was low, free T4 elevated CTA of the chest showed a large heterogeneous mass in the right lobe of the thyroid gland General surgery consulted; outpatient ultrasound recommended 5. Chronic A. fib, rate controlled, continue amiodarone and Xarelto 6. Super morbid obesity, BMI is 60, complicates acute care, expected recovery and prognosis. 7. Constipation, stool regimen altered 8. DVT PPx- On Xarelto Charges/Coding Visit Charges Inpatient E&M: 10876 Subs Hosp L2
[2021-10-24 20:33] VITALS: BP 137/50; PULSE 55; RESP 18; TEMP 36.6; O2SAT 95
[2021-10-24] MEDS: Baclofen 10 MG Tablet PO (20:37)
[2021-10-25 03:24] VITALS: BP 120/56; PULSE 56; RESP 16; TEMP 36.9; O2SAT 96
[2021-10-25] MEDS: Lactulose 20 GM/30 ML UDC PO ×3 (06:09→21:40)
[2021-10-25 09:58] VITALS: BP 125/54; PULSE 51; RESP 18; TEMP 36.6; O2SAT 97
[2021-10-25] MEDS: Rivaroxaban 20 MG Tablet PO (10:00)
[2021-10-25] MEDS: Gabapentin 600 MG Tablet PO ×2 (10:00→21:38)
[2021-10-25] MEDS: Ascorbic Acid 500 MG Tablet 1000 MG PO (10:00)
[2021-10-25] MEDS: Allopurinol 100 MG Tablet PO (10:00)
[2021-10-25] MEDS: Pantoprazole Sodium 20 MG Tablet PO (10:01)
[2021-10-25] MEDS: Multivitamins,Ther W-Minerals Tablet 1 TABLET PO (10:01)
[2021-10-25] MEDS: Cyanocobalamin 500 MCG Tablet 1000 MCG PO (10:01)
[2021-10-25] MEDS: Furosemide 80 MG Tablet PO (10:01)
[2021-10-25] MEDS: guaiFENesin 600 MG Tablet PO ×2 (10:01→21:38)
[2021-10-25] MEDS: Magnesium Chloride 64 MG Delay Rel.Tablet 128 MG PO ×2 (10:01→21:38)
[2021-10-25] MEDS: Tolterodine Tartrate 4 MG CAP.SA PO (10:02)
[2021-10-25] MEDS: dilTIAZem CD 120 MG Capsule PO (10:02)
[2021-10-25] MEDS: Ferrous Sulfate 325 MG Tablet PO ×3 (10:02→17:10)
[2021-10-25] MEDS: Spironolactone 25 MG Tablet PO (10:02)
[2021-10-25] MEDS: Amiodarone 200 MG Tablet PO (10:02)
[2021-10-25] MEDS: Polyethylene Glycol 3350 17 GM PACKET PO ×2 (10:02→21:40)
--- NOTE | 2021-10-25 11:21 | CASEMGMT ---
Addendum entered by Amie Chung 10/25/21 11:54: SW spoke w/Tam, she was not able to get anyone at [facility]. She states the arts administrator or manager is Laura at [phone]. Tam will email the referral to [facility]. SW called Laura, her voicemail is full. SW will try again later. LATRICIA Ferraro Original Note: Social Work SW called [facility] [place] [facility], they cannot take pt. SW met w/pt in room, explained to pt that [facility] cannot take pt and [facility] is full. SW brought pt a list of long term facilities that take pt's insurance, pt asked for referrals to be sent to [facility] and to [facility]. She states if those facilities cannot take pt, then she will go to [facility]. SW called [facility], SW cannot reach anybody there as nobody answers or it goes to a full voice mail. SW called [facility], they are not taking referrals at this time. SW called Tam at [facility], inquired if she may be able to reach someone at [facility] since it is also a [facility] facility. SW let her know that pt facilities. She is going to try and let SW know. SW will continue to follow. LATRICIA Ferraro
[2021-10-25 15:00] VITALS: BP 120/74; PULSE 60; RESP 18; TEMP 36.6; O2SAT 93
--- NOTE | 2021-10-25 15:31 | CASEMGMT ---
[facility] has a full [facility]ic[facility]. CORNELIA called again, transferred to Michel, the director teen post. She will reach out to Laura and ask Laura to call this CORNELIA. She was aware of the referral. CORNELIA will continue to follow. LATRICIA Ferraro
--- NOTE | 2021-10-25 16:39 | CASEMGMT ---
Social Work SW spoke w/pt, let her know that [facility] isn't taking pts. SW explained still waiting to hear back from [facility]. SW explained if we do not hear back tomorrow, is she in agreement with going to [facility], she is. SW to follow up in the morning. LATRICIA Ferraro
--- NOTE | 2021-10-25 18:15 | PN.HOSP_ITS ---
Subjective Subjective Follow-up on acute hypoxic respiratory failure secondary to bacterial pneumonia in the setting of recent COVID-19 pneumonia: Patient was seen and examined. No new complains. She remains on 2L oxygen. Waiting on discharge to [facility] Objective Data Objective Data Vital Signs: Vital Signs Temp Pulse Resp BP Pulse Ox 98 F 60 18 120/74 93 10/25/21 15:00 10/25/21 15:00 10/25/21 15:00 10/25/21 15:00 10/25/21 15:00 Oxygen Flow Rate (L/min) [At 2 REST with Oxygen] Oxygen Flow Rate (L/min) 2 Oxygen Delivery Method Nasal Cannula Weight: 149.685 kg Body Mass Index (BMI) 60.3 Intake & Output: Intake and Output for Last 24 Hours 10/23/21 10/24/21 10/25/21 23:59 23:59 23:59 Intake Total 1460 / 2160 2019 / 2020 1205 / 1205 Output Total 2600 / 3400 3050 / 3050 1450 / 1450 Balance -1140 / -1240 -1030 / -1030 -245 / -245 Lab / Micro Data Result Diagrams: 10/24/21 06:30 10/24/21 06:30 Micro: Microbiology 10/20/21 23:50 Urine, Random Urine Culture - Final Escherichia coli 10/20/21 23:50 Urine, Clean Catch Legionella Antigen - Final 10/20/21 23:50 Urine, Clean Catch Streptococcus pneumoniae Antigen (M - Final Physical Exam Narrative Physical exam: General: Morbidly obese, not pale, not jaundiced, on 2 L oxygen, morbidly obese Head: Normocephalic, atraumatic, no tenderness Eyes: PERRLA, EOMI ENT, no trauma, moist mucous membranes, no rhinorrhea Neck: Nontender, full range of motion, no spinal tenderness, deformities, step- off CVS: Regular rate and rhythm. S1-S2 present. No murmur, gallop or rub. Respiratory : Wheezes, chest wall nontender, no wheezing Abdomen: Soft, nontender, nondistended, normal bowel sounds, no masses Extremities: Loss to multiple toes of right foot. Nontender full range of motion, no trauma Assessment & Plan Assessment/Plan (1) Pneumonia due to 2019-nCoV: (2) Urinary tract infection: QUALIFIERS: Hematuria presence: with hematuria Urinary tract infection type: acute cystitis Qualified Code(s): N30.01 - Acute cystitis with hematuria (3) Acute respiratory failure with hypoxia: (4) Thyroid mass: (5) Hepatic encephalopathy: PLAN: 1. Acute hypoxic respiratory failure secondary to suspected bacterial pneumonia in the setting of recent COVID-19 infection Continues to be on 2L oxygen Admitting chest x-ray shows infiltrate right more than left Urine Legionella as well as streptococcal antigen is negative Patient appears to be improving on IV antibiotics?IV ertapenem(/) and azithromycin(/) Will dc azithromycin 2. Acute metabolic encephalopathy likely secondary to hepatic encephalopathy Admitting ammonia was 42, liver enzymes are unremarkable, started on lactulose CT of abdomen/pelvis in May 2021 does not show liver cirrhosis Continue to monitor 3. 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 coli UTIs Continue with IV ertapenem 4. Hyperthyroidism, TSH was low, free T4 elevated CTA of the chest showed a large heterogeneous mass in the right lobe of the thyroid gland General surgery consulted; outpatient ultrasound recommended 5. Chronic A. fib, rate controlled, continue amiodarone and Xarelto 6. Super morbid obesity, BMI is 60, complicates acute care, expected recovery and prognosis. 7. Constipation, stool regimen altered 8. DVT PPx- On Xarelto Charges/Coding Visit Charges Inpatient E&M: 05777 Subs Hosp L2
[2021-10-25 21:27] VITALS: BP 128/51; PULSE 57; RESP 20; TEMP 36.9; O2SAT 93
[2021-10-25] MEDS: Acetaminophen 500 MG Tablet 1000 MG PO (21:38)
[2021-10-25] MEDS: Baclofen 10 MG Tablet PO (21:38)
[2021-10-25] MEDS: Menthol/Lanolin/Calamine/Znox 113 GM Tube 1 APPLIC TOPICAL (22:37)
[2021-10-25] MEDS: Nystatin Powder 15gm Bottle 1 APPLIC TOPICAL (22:38)
[2021-10-26] MEDS: Lactulose 20 GM/30 ML UDC PO ×2 (02:13→13:45)
[2021-10-26 02:18] VITALS: BP 131/60; PULSE 49; RESP 18; TEMP 36.5; O2SAT 95
[2021-10-26 09:11] VITALS: BP 130/54; PULSE 50; RESP 16; TEMP 36.1; O2SAT 93
[2021-10-26] MEDS: Ascorbic Acid 500 MG Tablet 1000 MG PO (09:14)
[2021-10-26] MEDS: Magnesium Chloride 64 MG Delay Rel.Tablet 128 MG PO (09:14)
[2021-10-26] MEDS: Polyethylene Glycol 3350 17 GM PACKET PO (09:14)
[2021-10-26] MEDS: Spironolactone 25 MG Tablet PO (09:14)
[2021-10-26] MEDS: Ferrous Sulfate 325 MG Tablet PO ×2 (09:15→13:45)
[2021-10-26] MEDS: Allopurinol 100 MG Tablet PO (09:15)
[2021-10-26] MEDS: Tolterodine Tartrate 4 MG CAP.SA PO (09:15)
[2021-10-26] MEDS: Rivaroxaban 20 MG Tablet PO (09:15)
[2021-10-26] MEDS: Amiodarone 200 MG Tablet PO (09:15)
[2021-10-26] MEDS: dilTIAZem CD 120 MG Capsule PO (09:15)
[2021-10-26] MEDS: Cyanocobalamin 500 MCG Tablet 1000 MCG PO (09:15)
[2021-10-26] MEDS: Furosemide 80 MG Tablet PO (09:15)
[2021-10-26] MEDS: Multivitamins,Ther W-Minerals Tablet 1 TABLET PO (09:15)
[2021-10-26] MEDS: Nystatin Powder 15gm Bottle 1 APPLIC TOPICAL (09:16)
[2021-10-26] MEDS: guaiFENesin 600 MG Tablet PO (09:16)
[2021-10-26] MEDS: Gabapentin 600 MG Tablet PO (09:16)
[2021-10-26] MEDS: Pantoprazole Sodium 20 MG Tablet PO (09:16)
[2021-10-26] MEDS: Menthol/Lanolin/Calamine/Znox 113 GM Tube 1 APPLIC TOPICAL (09:16)
--- NOTE | 2021-10-26 09:28 | CASEMGMT ---
Addendum entered by Amie Chung 10/26/21 16:58: SW left a message for pt's business case analyst James Foster with [employer] to let her know pt is going to [facility] today. LATRICIA Ferraro Addendum entered by Amie Chung 10/26/21 14:05: Social Work Pt will need O2 in transport, so will need to go via wheelchair van. Pt's RN explained this to her, her sister will picker / packer her scooter this evening. SW set up a wheelchair van pickup for 3:30pm. SW let bedside RN know time, she let pt know. SW let Damiko at [facility] know time. No further needs anticipated. Pt to [facility] today, skilled, convalescent stay. LATRICIA Ferraro Addendum entered by Amie Chung 10/26/21 13:15: Social Work SW still has not heard back from [facility]. Pt is ready for discharge. SW spoke w/pt, explained that [facility] is not getting back to this . Pt is okay with going to [facility], would still rather go to [facility] as her friends could see her there. She is agreeable to go to [facility]. SW reminded her that they are part of the same company, she can ask over at [facility] if they would be willing to transfer her to the [facility]. Pt states understanding. SW explained will set up transport for pt to get to [facility] and will let her know the time. SW completed hospital exemption, faxed this along with all discharge information to [facility]. SW called [facility], pt has a scooter here with 3 wheels. [facility] is not able to transport pt in this. SW called in to pt to ask how she normally gets around with the scooter. She states she uses [facility] but they are unreliable. SW inquired how she got to the hospital, she said that her sister brought her here. SW inquired if her sister would be able to picker / packer her scooter. Pt states perhaps her sister can give her a ride to the senior living. She states her sister has been exposed to COVID already by her and has likely already had it. She states will call her sister and SW will call back into the room shortly. SW then did call back into the room, however pt does not answer the phone. SW will try her again shortly. LATRICIA Ferraro Addendum entered by Amie Chung 10/26/21 11:03: Social Work SW called [facility] again, nurse spoke w/the egg buyer, Monica Anderson. Monica Anderson states she is going to go speak w/the security administrator and have her call this SW in regard to this referral. LATRICIA Ferraro Addendum entered by Amie Chung 10/26/21 10:23: SW called [facility] again, transferred to [facility]. The voicemail is full. SW still unable to reach anybody at the facility to check on this referral. SW will try again shortly. LATRICIA Ferraro Original Note: Social Work SW attempted to again call the security administrator at [facility], her voicemail is full. SW called the facility, got transferred to a floor nurse. She suggested calling back after the morning meeting and ask to speak w/Rosaura Leungs. SW will call back shortly. LATIRCIA Ferraro
[2021-10-26 09:29] VITALS: O2SAT 93
--- NOTE | 2021-10-26 12:17 | PCM.TXEXTCAR ---
Diet 10/21/21 10:28 Diet: Consistent Carb - Calorie Controlled Food consistency:: Regular Liquid Consistency:: Regular/Thin Dietary Modifications:: No Added Salt Is pt able to select menu?: Yes How many daily calories?: 1800 calorie Routine Orders/Code Status O2 Liters per Minute: 2 O2 Frequency: Continuous Keep PO Greater than or Equal to (%): 94 Routine Lab Work: CBC (within 3 days) and BMP (within 3 days) Wound(s) Left arm: Wound Type: scratches Therapies Weight Bearing: Weight bearing as tolerated Physical Therapy: Eval and Treat Occupational Therapy: Eval and Treat Problem/Diagnosis (1) Pneumonia due to 2019-nCoV: Status: Acute (2) Urinary tract infection: Status: Acute (3) Acute respiratory failure with hypoxia: Status: Acute (4) Thyroid mass: Status: Acute (5) Hepatic encephalopathy: Status: Acute Allergies/Procedures Done in Hospital Allergies latex Allergy (Verified 10/20/21 21:14) Rash methadone [Methadone] Allergy (Verified 10/20/21 21:14) Shortness of breath morphine Allergy (Verified 10/20/21 21:14) Itching oxycodone [Oxycodone] Allergy (Verified 10/20/21 21:14) Hives amoxicillin [Amoxicillin] Adverse Reaction (Verified 10/20/21 21:14) Itching fentanyl Adverse Reaction (Verified 10/20/21 21:14) Rash Sulfa (Sulfonamide Antibiotics) Adverse Reaction (Verified 10/20/21 21:14) Rash pain meds Allergy (Uncoded 10/20/21 21:14) Itching PT STATES SHE NEEDS BENADRYL WITH PAIN MEDS Procedures: None Type of Care/Length of Stay Estimated LOS: Convalescent Care Less Than 30 days Type of Care Needed: Skilled Rehab Potential: Fair Prognosis: Fair Additional Orders/Day of Discharge Additional Orders: Palliative care to see pt at detention facility Day of Discharge: 10/26/21 Dietary and Speech Recommendations Dietitian Recommendations/Changes: Will change diet to 1800 margot controlled - No Added Salt Discharge Plan Admission Admit Date/Time: 10/21/21 00:52 Primary Reason for Your Visit: Acute hypoxic respiratory failure Attending Provider: Lisseth Willson Primary Care Provider: Dudley Hoyt Consulting Providers: Allan Solano Discharge Orders/Prescriptions Prescriptions: New sennosides-docusate sodium [Stool Softener-Stimulant Laxat] 8.6-50 mg Tablet 2 tab PO BID PRN (Reason: CONSTIPATION) 12 Days Qty: 30 RF: 0 prednisone 10 mg tablet See Taper mg PO DAILY Qty: 30 RF: 0 lactulose 20 gram/30 mL Solution 20 g PO TID Qty: 0 RF: 0 Continued cyanocobalamin (vitamin B-12) 1,000 MCG tablet 1,000 mcg PO DAILY RF: 0 acetaminophen 500 MG tablet 1,000 mg PO Q6H PRN PRN (Reason: Pain 1-10 Or Fever) RF: 0 rivaroxaban 20 MG tablet 20 mg PO DAILY RF: 0 oxybutynin chloride 15 mg tablet extended release 24hr 15 mg PO DAILY RF: 0 ipratropium-albuterol 0.5 mg-3 mg(2.5 mg base)/3 mL solution for nebulization 3 ml inhalation Q6H PRN (Reason: sob) RF: 0 allopurinol 100 mg tablet 100 mg PO DAILY RF: 0 magnesium oxide 400 mg (241.3 mg magnesium) tablet 400 mg PO BID RF: 0 baclofen 10 mg tablet 10 mg PO QHS RF: 0 ferrous sulfate 325 mg (65 mg iron) tablet 325 mg PO TID RF: 0 nystatin 100,000 unit/gram cream 1 applic TOPICAL BID PRN (Reason: redness) RF: 0 omeprazole 20 mg capsule,delayed release(DR/EC) 20 mg PO DAILY RF: 0 Folic Acid-Vit B6-Vit B12 (Ca) Tablet 1 tab PO DAILY RF: 0 ascorbic acid (vitamin C) 500 mg Tablet 1,000 mg PO DAILY RF: 0 tramadol 50 mg tablet 50 mg PO BID PRN (Reason: pain) 5 Days Qty: 10 RF: 0 gabapentin 600 mg tablet 600 mg PO BID RF: 0 polyethylene glycol 3350 17 gram Powder In Packet 17 g PO DAILY RF: 0 amiodarone 200 mg tablet 200 mg PO DAILY RF: 0 spironolactone 25 mg tablet 25 mg PO DAILY RF: 0 docusate sodium 100 mg Capsule 100 mg PO BID PRN (Reason: Constipation) RF: 0 diphenhydramine HCl [Banophen] 25 MG capsule 25 mg PO Q6 PRN (Reason: Itching) RF: 0 diltiazem HCl 120 mg Capsule,Extended Release 24hr 120 mg PO DAILY 30 Days Qty: 30 RF: 0 furosemide 80 MG tablet 80 mg PO DAILY RF: 0 mometasone [Nasonex] 1 SPRAY spray,non-aerosol 2 spray NASAL DAILY PRN (Reason: Congestion) RF: 0 Discontinued potassium chloride 10 mEq tablet extended release 20 meq PO TID RF: 0 albuterol sulfate 90 mcg/actuation HFA aerosol inhaler 2 puff INHALATION Q4H PRN (Reason: sob) RF: 0 biotin 5,000 mcg tablet,disintegrating 5,000 mcg PO DAILY RF: 0 dexamethasone [Decadron] 6 mg tablet 6 mg PO DAILY Qty: 9 RF: 0 dexamethasone 4 mg Tablet 6 mg PO DAILY 7 Days Qty: 11 RF: 0 Referrals / Follow Up: Allan Solano MD [STAFF PHYSICIAN] - See Referral Note (as scheduled or within 2 weeks) Dudley Hoyt MD [Primary Care Provider] - Disposition Disposition (needs filled in before D/C Order can be placed): Residential Facility
--- NOTE | 2021-10-26 12:41 | DS.PCM_ITS ---
Providers Date of Admission: 10/21/21 Date of Discharge: 10/26/21 Primary Care Physician: Dr. Dudley Hoyt MD Consultations 10/22/21 07:47 Consult: General Surgery Routine Consulting Provider: Allan Solano Reason for Consult: thyroid mass EMERGENT Consult: No MD Notified: Yes Date Notified: 10/21/21 Time Notified: 12:48 Method of Notification: discussed w Dr Cameron Reason For Visit: ACUTE HYPOXEMIC RESPIR FAILURE Diagnosis Discharge Diagnosis (1) Pneumonia due to 2019-nCoV: Status: Resolved Code(s): U07.1 - COVID-19; J12.82 - Pneumonia due to coronavirus disease 2019 (2) Urinary tract infection: Status: Acute Code(s): N39.0 - Urinary tract infection, site not specified Qualifiers: Hematuria presence: with hematuria Urinary tract infection type: acute cystitis Qualified Code(s): N30.01 - Acute cystitis with hematuria (3) Acute respiratory failure with hypoxia: Status: Acute Code(s): J96.01 - Acute respiratory failure with hypoxia (4) Thyroid mass: Status: Acute Code(s): E07.9 - Disorder of thyroid, unspecified (5) Hepatic encephalopathy: Status: Acute Code(s): K72.90 - Hepatic failure, unspecified without coma (6) Hyperthyroidism: Status: Acute Code(s): E05.90 - Thyrotoxicosis, unspecified without thyrotoxic crisis or storm Medications at Discharge Home Medications furosemide 80 mg PO DAILY 07/20/13 mometasone [Nasonex] 2 spray NASAL DAILY PRN 07/20/13 acetaminophen 1,000 mg PO Q6H PRN PRN 11/01/20 cyanocobalamin (vitamin B-12) 1,000 mcg PO DAILY 11/01/20 rivaroxaban 20 mg PO DAILY 02/11/21 Folic Acid-Vit B6-Vit B12 (Ca) 1 tab PO DAILY 05/21/21 allopurinol 100 mg PO DAILY 05/21/21 baclofen 10 mg PO QHS 05/21/21 ferrous sulfate 325 mg PO TID 05/21/21 ipratropium-albuterol 3 ml INHALATION Q6H PRN 05/21/21 magnesium oxide 400 mg PO BID 05/21/21 nystatin 1 applic TOPICAL BID PRN 05/21/21 omeprazole 20 mg PO DAILY 05/21/21 oxybutynin chloride 15 mg PO DAILY 05/21/21 ascorbic acid (vitamin C) 1,000 mg PO DAILY 05/22/21 tramadol 50 mg PO BID PRN 5 Days #10 tab 05/29/21 amiodarone 200 mg PO DAILY 10/09/21 diphenhydramine HCl [Banophen] 25 mg PO Q6 PRN 10/09/21 docusate sodium 100 mg PO BID PRN 10/09/21 gabapentin 600 mg PO BID 10/09/21 polyethylene glycol 3350 17 g PO DAILY 10/09/21 spironolactone 25 mg PO DAILY 10/09/21 diltiazem HCl 120 mg PO DAILY 30 Days #30 cap 10/11/21 lactulose 20 g PO TID #0 ml 10/26/21 prednisone See Taper PO DAILY #30 tab 10/26/21 sennosides-docusate sodium [Stool Softener-Stimulant Laxat] 2 tab PO BID PRN 12 Days #30 tab 10/26/21 Hospital Course Operations None Procedures None Summary of Care Provided Minutes Spent on Discharge: 40 Hospital Course: 71-year-old female with multiple comorbidities who was recently discharged on 10/11/21 after admission for acute COVID-19 pneumonia. Patient is a Diana lift, lives at home with her sister she was discharged not requiring oxygen. Patient presented back because of persistent lethargy, worsening shortness of breath and generalized weakness. In the ED, she was found to be saturating 85% on room air. Chest x-ray showed right more than left basilar infiltrates which is worse. Patient was started on IV ertapenem and azithromycin. There was also concern for UTI. Patient has history of ESBL UTI. She was alert oriented only to herself. It was felt to that she was encephalopathic secondary to UTI. Ammonia was also elevated. Liver function tests were normal. Patient was started on lactulose. Her admitting TSH was also abnormal. Her TSH was low. Free T4 was elevated. CTA of the chest showed a large heterogeneous mass in the right lobe of the thyr oid gland. General surgery was consulted. Outpatient ultrasound recommended. Patient improved, on IV Solu-Medrol, IV antibiotics. She stated that at home his sister has not been able to take your pain. She was agreeable to go to a residential facility. She remained on 2 L of oxygen. She was discharged on prednisone taper. She was not treated for Covid in this admission as she had a recent admission. She was better managed as bacterial pneumonia/acute COPD exacerbation in the setting of her recent COVID-19 pneumonia. Patient completed antibiotics in this admission. Patient will also need pulmonology follow-up to reevaluate for obstructive sleep apnea and CPAP at night Physical Exam Narrative Physical exam: General: Morbidly obese, not pale, not jaundiced, on 2 L oxygen, morbidly obese Head: Normocephalic, atraumatic, no tenderness Eyes: PERRLA, EOMI ENT, no trauma, moist mucous membranes, no rhinorrhea Neck: Nontender, full range of motion, no spinal tenderness, deformities, step- off CVS: Regular rate and rhythm. S1-S2 present. No murmur, gallop or rub. Respiratory : Wheezes, chest wall nontender, no wheezing Abdomen: Soft, nontender, nondistended, normal bowel sounds, no masses Extremities: Loss to multiple toes of right foot. Nontender full range of motion, no trauma Weight / BMI Weight Weight: 149.685 kg Body Mass Index (BMI) 60.3 ABG / Lab / Microbiology Data Result Diagrams: 10/24/21 06:30 10/24/21 06:30 Microbiology: Microbiology 10/20/21 23:50 Urine, Random Urine Culture - Final Escherichia coli 10/20/21 23:50 Urine, Clean Catch Legionella Antigen - Final 10/20/21 23:50 Urine, Clean Catch Streptococcus pneumoniae Antigen (M - Jessie l D/C Instructions Discharge Diet: 2000 mg Sodium Diet Discharge Activity: Return to Normal Activity Meaningful Use Info Meaningful Use Diagnoses (Choose all that apply): None applicable Discharge Plan Admission Admit Date/Time: 10/21/21 00:52 Primary Reason for Your Visit: Acute hypoxic respiratory failure Attending Provider: Lisseth Willson Primary Care Provider: Dudley Hoyt Consulting Providers: Allan Solano Discharge Orders/Prescriptions Prescriptions: New sennosides-docusate sodium [Stool Softener-Stimulant Laxat] 8.6-50 mg Tablet 2 tab PO BID PRN (Reason: CONSTIPATION) 12 Days Qty: 30 RF: 0 prednisone 10 mg tablet See Taper mg PO DAILY Qty: 30 RF: 0 lactulose 20 gram/30 mL Solution 20 g PO TID Qty: 0 RF: 0 Continued cyanocobalamin (vitamin B-12) 1,000 MCG tablet 1,000 mcg PO DAILY RF: 0 acetaminophen 500 MG tablet 1,000 mg PO Q6H PRN PRN (Reason: Pain 1-10 Or Fever) RF: 0 rivaroxaban 20 MG tablet 20 mg PO DAILY RF: 0 oxybutynin chloride 15 mg tablet extended release 24hr 15 mg PO DAILY RF: 0 ipratropium-albuterol 0.5 mg-3 mg(2.5 mg base)/3 mL solution for nebulization 3 ml inhalation Q6H PRN (Reason: sob) RF: 0 allopurinol 100 mg tablet 100 mg PO DAILY RF: 0 magnesium oxide 400 mg (241.3 mg magnesium) tablet 400 mg PO BID RF: 0 baclofen 10 mg tablet 10 mg PO QHS RF: 0 ferrous sulfate 325 mg (65 mg iron) tablet 325 mg PO TID RF: 0 nystatin 100,000 unit/gram cream 1 applic TOPICAL BID PRN (Reason: redness) RF: 0 omeprazole 20 mg capsule,delayed release(DR/EC) 20 mg PO DAILY RF: 0 Folic Acid-Vit B6-Vit B12 (Ca) Tablet 1 tab PO DAILY RF: 0 ascorbic acid (vitamin C) 500 mg Tablet 1,000 mg PO DAILY RF: 0 tramadol 50 mg tablet 50 mg PO BID PRN (Reason: pain) 5 Days Qty: 10 RF: 0 gabapentin 600 mg tablet 600 mg PO BID RF: 0 polyethylene glycol 3350 17 gram Powder In Packet 17 g PO DAILY RF: 0 amiodarone 200 mg tablet 200 mg PO DAILY RF: 0 spironolactone 25 mg tablet 25 mg PO DAILY RF: 0 docusate sodium 100 mg Capsule 100 mg PO BID PRN (Reason: Constipation) RF: 0 diphenhydramine HCl [Banophen] 25 MG capsule 25 mg PO Q6 PRN (Reason: Itching) RF: 0 diltiazem HCl 120 mg Capsule,Extended Release 24hr 120 mg PO DAILY 30 Days Qty: 30 RF: 0 furosemide 80 MG tablet 80 mg PO DAILY RF: 0 mometasone [Nasonex] 1 SPRAY spray,non-aerosol 2 spray NASAL DAILY PRN (Reason: Congestion) RF: 0 Discontinued potassium chloride 10 mEq tablet extended release 20 meq PO TID RF: 0 albuterol sulfate 90 mcg/actuation HFA aerosol inhaler 2 puff INHALATION Q4H PRN (Reason: sob) RF: 0 biotin 5,000 mcg tablet,disintegrating 5,000 mcg PO DAILY RF: 0 dexamethasone [Decadron] 6 mg tablet 6 mg PO DAILY Qty: 9 RF: 0 dexamethasone 4 mg Tablet 6 mg PO DAILY 7 Days Qty: 11 RF: 0 Referrals / Follow Up: Allan Solano MD [STAFF PHYSICIAN] - See Referral Note (as scheduled or within 2 weeks) Dudley Hoyt MD [Primary Care Provider] - Disposition Disposition (needs filled in before D/C Order can be placed): [facility] Facility Charges/Coding Visit Charges Inpatient E&M: 52511 Disch Hosp
[2021-10-26 13:50] VITALS: BP 120/54; PULSE 57; RESP 18; TEMP 36.3; O2SAT 93
--- NOTE | 2021-10-26 16:20 | NURSING ---
Report called to Yelena at [facility].
== END 2021-10-26 16:11 | disposition skilled nursing facility (03) | DRG 190 ==
LOC: ED 10-21 00:38 → MS3 10-21 02:08
PROVIDERS: Student in an Organized Health Care Education/Training Program; Admitting Provider Hospitalist; Emergency Provider Student in an Organized Health Care Education/Training Program; PCP Internal Medicine; Visit Provider Internal Medicine
DX: J44.1 Chronic obstructive pulmonary disease with (acute) exacerbation (principal); J15.9 Unspecified bacterial pneumonia; J96.01 Acute respiratory failure with hypoxia; G93.41 Metabolic encephalopathy; I13.0 Hypertensive heart and chronic kidney disease with heart failure and stage 1 through stage 4 chronic kidney disease, or unspecified chronic kidney disease; I48.20 Chronic atrial fibrillation, unspecified; Z68.44 Body mass index [BMI] 60.0-69.9, adult; N30.01 Acute cystitis with hematuria; K72.90 Hepatic failure, unspecified without coma; I50.9 Heart failure, unspecified; E11.22 Type 2 diabetes mellitus with diabetic chronic kidney disease; J44.0 Chronic obstructive pulmonary disease with (acute) lower respiratory infection; E66.01 Morbid (severe) obesity due to excess calories; N18.2 Chronic kidney disease, stage 2 (mild); I44.0 Atrioventricular block, first degree; G47.33 Obstructive sleep apnea (adult) (pediatric); E07.9 Disorder of thyroid, unspecified; E05.10 Thyrotoxicosis with toxic single thyroid nodule without thyrotoxic crisis or storm; Z79.01 Long term (current) use of anticoagulants; Z91.040 Latex allergy status; G89.29 Other chronic pain; Z79.51 Long term (current) use of inhaled steroids; Z98.84 Bariatric surgery status; Z90.49 Acquired absence of other specified parts of digestive tract; Z87.440 Personal history of urinary (tract) infections; Z86.16 Personal history of COVID-19
CPT/HCPCS: 36415; 36600; 71045; 71275; 80048; 80053; 81001; 82140; 82803; 84145; 84439; 84443; 84484; 85025; 87077; 87086; 87088; 87186; 87449; 93005; 94640; 94667; 94668; 94762; 97110; 97163; 97166; 97530; 97535; 99251; 99285; J7040; J7050; Q9967; A4216; G0463; J1940